=== PATIENT | female | born 1965 | race African-American/Black ===

== ENCOUNTER 2016-11-27 12:04 | Inpatient (IN) | payer OTHER ==
[2016-11-27 17:59] VITALS: BMI 23.5
--- NOTE | 2016-11-27 19:43 | HP ---
COWS - Scale Resting Pulse: 1= CO 81-100 Sweatin= Chills/Flushing Restless Observation: 1= Difficult to Sit Still Pupil Size: 0= Normal to Room Light Bone or Joint Aches: 2= Severe Diffuse Aches Runny Nose/ Eye Tearin= Runny Nose/Eyes GI Upset > 30mins: 3= Vomiting/Diarrhea Tremor Observation: 2= Slight Tremor Visible Yawning Observation: 0= None Anxiety or Irritability: 2=Irritable/Anxious Goose Flesh Skin: 0=Smooth Skin COWS Score: 14 CIWA Score - CIWA Score Nausea/Vomitin Muscle Tremors: 4-Moderate,w/Arms Extend Anxiety: 4-Mod. Anxious/Guarded Agitation: 4-Moderately Restless Paroxysmal Sweats: 1-Minimal Palms Moist Orientation: 0-Oriented Tacttile Disturbances: 0-None Auditory Disturbances: 0-None Visual Disturbances: 0-None Headache: 0-None Present CIWA-Ar Total Score: 15 Admission ROS S - HPI Chief Complaint: WITHDRAWAL SX Allergies/Adverse Reactions: Allergies Allergy/AdvReac Type Severity Reaction Status Date / Time pork derived (porcine) Allergy Severe Swelling Verified 11/27/16 18:55 No Known Drug Allergies Allergy Verified 11/27/16 18:55 NKDA Allergy Uncoded 11/27/16 18:55 History of Present Illness: 51 YEARS OLD FEMALE WITH LONG HISTORY OF ALCOHOL OPIOID NICOTINE DEPENDENCE, HYPERTENSION GLAUCOMA BOTH EYES, DEPRESSION IS ADMITTED TO DETOX Exam Limitations: No Limitations - Ebola screening Have you traveled outside of the country in the last 21 days: No Have you had contact with anyone from an Ebola affected area: No Have you been sick,other than usual withdrawal symptoms: No Do you have a fever: No - Review of Systems Constitutional: Chills, Loss of Appetite, Changes in sleep, Unintentional Wgt. Loss, Unexplained wgt Loss EENT: reports: Other (GLAUCOMA X 8 YEARS) Respiratory: reports: SOB with Exertion, Productive cough (YELLOWISH) Cardiac: reports: No Symptoms Reported, Chest Pain (CHRONIC CHEST PAIN FIRST CHEST PAIN 2014 LAST EPISODE 2 WEEKS AGO, RELEASED WITHOUT TREATMENT) GI: reports: Nausea, Poor Appetite, Poor Fluid Intake, Abdominal cramping : reports: No Symptoms Reported Musculoskeletal: reports: Back Pain, Joint Pain, Muscle Pain, Neck Pain Integumentary: reports: No Symptoms Reported Neuro: reports: Tremors Endocrine: reports: No Symptoms Reported Hematology: reports: No Symptoms Reported Psychiatric: reports: Judgement Intact, Orientated x3, Depressed Other Systems: Reviewed and Negative Patient History - Patient Medical History Hx Anemia: No Hx Asthma: Yes Hx Chronic Obstructive Pulmonary Disease (COPD): Yes Hx Cancer: No Hx Cardiac Disorders: No Hx Congestive Heart Failure: No Hx Hypertension: Yes Hx Hypercholesterolemia: No Hx Pacemaker: No HX Cerebrovascular Accident: No Hx Seizures: No Hx Dementia: No Hx Diabetes: Yes Hx Gastrointestinal Disorders: No Hx Liver Disease: No Hx Genitourinary Disorders: No Hx Sexually Transmitted Disorders: No Hx Renal Disease (ESRD): No Hx Thyroid Disease: No Hx Human Immunodeficiency Virus (HIV): No Hx Hepatitis C: No Hx Depression: Yes Hx Suicide Attempt: No Hx Bipolar Disorder: No Hx Schizophrenia: No - Patient Surgical History Past Surgical History: Yes Hx Neurologic Surgery: No Hx Cataract Extraction: No Hx Cardiac Surgery: No Hx Lung Surgery: No Hx Breast Surgery: No Hx Breast Biopsy: No Hx Abdominal Surgery: No Hx Appendectomy: No Hx Cholecystectomy: No Hx Genitourinary Surgery: No Hx Section: No Hx Orthopedic Surgery: Yes (1988 fx ) Hx Hysterectomy: No Anesthesia Reaction: No - PPD History Previous Implant?: Yes Documented Results: Negative w/proof Implanted On Prior R Admission?: Yes Date: 12/14/15 Results: 0mm PPD to be Administered?: No - Reproductive History Patient is a Female of Child Bearing Age (11 -55 yrs old): Yes Last Menstrual Period: 11/27/13 Patient : No - Smoking Cessation Smoking history: Current every day smoker Have you smoked in the past 12 months: Yes Aproximately how many cigarettes per day: 7 Cigars Per Day: 0 Hx Chewing Tobacco Use: No Initiated information on smoking cessation: Yes 'Breaking Loose' booklet given: 11/27/16 - Substance & Tx. History Hx Alcohol Use: Yes Hx Substance Use: Yes Substance Use Type: Alcohol, Cocaine, Marijuana, Opiates Hx Substance Use Treatment: Yes - Substances Abused Alcohol Route: Oral Frequency: Daily Amount used: liquor- 3 pints VOLKA Age of first use: 15 Date of Last Use: 11/27/16 Heroin Route: Inhalation Frequency: Daily Amount used: 20 BAGS Age of first use: 12 Date of Last Use: 11/27/16 Family Disease History - Family Disease History Family Disease History: Heart Disease: Father, Mother, [place]: Sister (eye blindness , [place]), Other: Sister Admission Physical Exam S - Vital Signs Vital Signs: Vital Signs - 24 hr 11/27/16 17:55 Temperature 96.2 F L Pulse Rate 88 Respiratory 20 Rate Blood Pressure 156/96 - Physical General Appearance: Yes: Within Normal Limits, Mild Distress, Thin, Tremorous, Irritable, Sweating, Anxious HEENTM: Yes: Hearing grossly Normal, Normal ENT Inspection, Normocephalic, Normal Voice Respiratory: Yes: Chest Non-Tender, Lungs Clear, Normal Breath Sounds, No Respiratory Distress, No Accessory Muscle Use Neck: Yes: Supple, Trachea in good position Breast: Yes: Breasts Symetrical Cardiology: Yes: Regular Rhythm, Regular Rate, S1, S2 Abdominal: Yes: Non Tender, Soft Genitourinary: Yes: Within Normal Limits Back: Yes: Normal Inspection Musculoskeletal: Yes: full range of Motion, Gait Steady, Back pain, Muscle Pain Extremities: Yes: Normal Range of Motion, Non-Tender, Tremors Neurological: Yes: Fully Oriented, Alert, Motor Strength 5/5, Normal Response, Depressed Affect Integumentary: Yes: Warm Lymphatic: Yes: Within Normal Limits - Diagnostic (1) Alcohol dependence with uncomplicated withdrawal Current Visit: Yes Status: Acute (2) Glaucoma Current Visit: Yes Status: Chronic Qualifiers: Glaucoma type: open-angle Open angle glaucoma type: low-tension Laterality: right Glaucoma stage: moderate stage Qualified Code(s): H40.1212 - Low-tension glaucoma, right eye, moderate stage Comment: EYE DROPS TO BOTH EYES DAILY (3) Hypertension Current Visit: Yes Status: Chronic Qualifiers: Hypertension type: essential hypertension Qualified Code(s): I10 - Essential (primary) hypertension (4) Nicotine dependence Current Visit: Yes Status: Acute Qualifiers: Nicotine product type: cigarettes Substance use status: in withdrawal Qualified Code(s): F17.213 - Nicotine dependence, cigarettes, with withdrawal (5) Opioid dependence with withdrawal Current Visit: Yes Status: Acute (6) Diabetes mellitus type II, controlled Current Visit: Yes Status: Chronic Qualifiers: Diabetes mellitus complication status: without complication Diabetes mellitus terminal gauger insulin use: without terminal gauger use Qualified Code(s): E11.9 - Type 2 diabetes mellitus without complications (7) Weight loss Current Visit: Yes Status: Acute (8) Asthma Current Visit: Yes Status: Chronic Qualifiers: Asthma severity: mild persistent Asthma complication type: with status asthmaticus Qualified Code(s): J45.32 - Mild persistent asthma with status asthmaticus (9) COPD (chronic obstructive pulmonary disease) Current Visit: Yes Status: Chronic Qualifiers: COPD type: emphysema Emphysema type: other Qualified Code(s): J43.8 - Other emphysema (10) Depressed Current Visit: Yes Status: Suspected Qualifiers: Depression Type: dysthymia Qualified Code(s): F34.1 - Dysthymic disorder Cleared for Admission [facility] - Detox or Rehab S Level of Care: Medically Managed Detox Regimen/Protocol: Methadone/Librium [facility] Breath Alcohol Content Breath Alcohol Content: 0 Urine Pregancy Test - Result Urine Test Results: Negative- NO Line Present Urine Drug Screen - Results Drug Screen Negative: No Urine Drug Screen Results: THC-Marijuana, ANTONIO-Cocaine, OPI-Opiates
[2016-11-27] MEDS ORDERED: MAGNESIUM HYDROX 2400MG/30ML ORAL SUSPENSION 30 ML CUP PO PRN (19:48)
[2016-11-27] MEDS ORDERED: P-EPHED 60MG/TRIPROLIDI 2.5MG TABLET PO PRN (19:48)
[2016-11-27] MEDS ORDERED: NICOTINE POLACRILEX 2 MG GUM BC PRN (19:48)
[2016-11-27] MEDS ORDERED: chlordiazePOXIDE HCL 25 MG CAPSULE PO PRN (19:48)
[2016-11-27] MEDS ORDERED: MAGNESIUM CITRATE 300 ML BOTTLE PO PRN (19:48)
[2016-11-27] MEDS ORDERED: LOPERAMIDE HCL 2 MG CAPSULE PO PRN (19:48)
[2016-11-27] MEDS ORDERED: METHADONE HCL 10 MG TABLET (FOR DETOX USE ONLY) PO ONE ×2 (19:48→23:00)
[2016-11-27] MEDS ORDERED: MAG HYDROX/AL HYDROX/SIMETH 30 ML UNIT-DOSE CUP PO PRN (19:48)
[2016-11-27] MEDS ORDERED: guaiFENesin/D-METHORPHAN HB 10 ML UNIT-DOSE CUPS PO PRN (19:48)
[2016-11-27] MEDS ORDERED: MENTHOL/PHENOL 1 EACH UD MM PRN (19:48)
[2016-11-27] MEDS ORDERED: ACETAMINOPHEN 325 MG TABLET (FP) PO PRN (19:48)
[2016-11-27] MEDS ORDERED: ALBUTEROL SO4 6.7 GM HFA INHALER IH PRN (19:50)
[2016-11-27] MEDS ORDERED: ALBUTEROL SO4 2.5/IPRATROPIUM 0.5 INH SOL 3 ML VIAL.NEB. NEB PRN (19:50)
[2016-11-27] MEDS: NIFEdipine E.R. 90 MG TABLET (FP) PO SCH (21:54)
[2016-11-27] MEDS: diphenhydrAMINE HCL 50 MG CAPSULE PO PRN (21:56)
[2016-11-27] MEDS: THIAMINE HCL 100 MG TABLET (FP) PO SCH (21:56)
[2016-11-27] MEDS: chlordiazePOXIDE HCL 25 MG CAPSULE PO SCH (22:00)
[2016-11-27 23:50] LABS: URINE APPEARANCE CLEAR; URINE BILIRUBIN NEGATIVE (NEGATIVE); URINE COLOR YELLOW; URINE GLUCOSE (UA) NEGATIVE (NEGATIVE); URINE KETONE NEGATIVE (NEGATIVE); URINE LEUK ESTERASE NEGATIVE (NEGATIVE); URINE NITRITE NEGATIVE (NEGATIVE); URINE UROBILINOGEN NEGATIVE E.U./dl (0.2-1.0)
[2016-11-27] MEDS: BRIMONIDINE TARTRATE 0.15% OPHTHALMIC 5 ML BOTTLE OU SCH (23:59)
[2016-11-28] MEDS: DORZOLAMIDE 2% HCL OPHTHALMIC SOLUTION 10 ML BOTTLE OU SCH ×4 (00:01→23:00)
[2016-11-28] MEDS: LATANOPROST 0.005% OPHTH SOLN 2.5ML BOTTLE OU SCH ×2 (00:02→23:01)
[2016-11-28 00:10] LABS: URINE BLOOD 1+ (NEGATIVE); URINE PROTEIN 1+ (NEGATIVE)
[2016-11-28 00:27] LABS: URINE HYALINE CAST 1 /lpf; URINE MUCUS FEW; URINE RBC 4 /hpf (0-3); URINE WBC 9 /hpf (3-5)
[2016-11-28] MEDS: chlordiazePOXIDE HCL 25 MG CAPSULE PO SCH ×4 (05:57→22:14)
[2016-11-28] MEDS: metFORMIN HCL 500 MG TABLET (FP) PO SCH ×2 (08:04→16:55)
[2016-11-28 10:00] LABS: MCH 30.4 pg (25.7-33.7); MCHC 33.6 g/dl (32.0-36.0); MEAN CELL VOLUME 90.7 fl (80-96); MEAN PLT VOLUME 8.7 fl (7.5-11.1); PLATELET COUNT 276 K/MM3 (134-434); RDW 13.9 % (11.6-15.6); WHITE BLOOD COUNT 6.8 K/mm3 (4.0-10.0)
[2016-11-28] MEDS ORDERED: METHADONE HCL 10 MG TABLET (FOR DETOX USE ONLY) PO SCH (10:00)
[2016-11-28 10:14] LABS: ALBUMIN 3.8 g/dl (3.4-5.0)
[2016-11-28 10:18] LABS: BILIRUBIN,TOTAL 0.6 mg/dL (0.2-1.0); CALCIUM 9.9 mg/dL (8.5-10.1); COCKROFT - GAULT 60.2395; CREATININE 1.2 mg/dL (0.55-1.02); TOT PROT 7.2 g/dl (6.4-8.2)
--- NOTE | 2016-11-28 10:29 | PN ---
S CIWA - CIWA Score Nausea/Vomitin Muscle Tremors: 3 Anxiety: 3 Agitation: 3 Paroxysmal Sweats: 2 Orientation: 0-Oriented Tacttile Disturbances: 1-Very Mild Itch/Numbness Auditory Disturbances: 1-Very Mild Visual Disturbances: 1-Very Mild Sensitivity Headache: 2-Mild CIWA-Ar Total Score: 19 S Progress Note (SOAP) Subjective: ALERT,IRRITABLE,ANXIOUS,INTERRUPTED SLEEP,PAIN IN THE BODY AND BACK,TREMOR Objective: 11/28/16 10:26 Vital Signs Temperature 97.5 F L 11/28/16 06:00 Pulse Rate 57 L 11/28/16 06:00 Respiratory Rate 18 11/28/16 06:00 Blood Pressure 137/78 11/28/16 06:00 O2 Sat by Pulse Oximetry (%) EKG NSR,INVERTED T IN V4 TO V6 NO CHEST PAIN,NO SOB,NO DIZZINESS Laboratory Last Values Urine Color Yellow 11/27/16 23:40 Urine Appearance Clear 11/27/16 23:40 Urine pH 5.0 (5.0-8.0) 11/27/16 23:40 Urine Protein 1+ (NEGATIVE) H 11/27/16 23:40 Urine Glucose (UA) Negative (NEGATIVE) 11/27/16 23:40 Urine Ketones Negative (NEGATIVE) 11/27/16 23:40 Urine Blood 1+ (NEGATIVE) H 11/27/16 23:40 Urine Nitrite Negative (NEGATIVE) 11/27/16 23:40 Urine Bilirubin Negative (NEGATIVE) 11/27/16 23:40 Urine Urobilinogen Negative E.U./dl (0.2-1.0) 11/27/16 23:40 Ur Leukocyte Esterase Negative (NEGATIVE) 11/27/16 23:40 Urine RBC 4 /hpf (0-3) 11/27/16 23:40 Urine WBC 9 /hpf (3-5) 11/27/16 23:40 Ur Epithelial Cells Moderate /hpf (FEW) 11/27/16 23:40 Hyaline Casts 1 /lpf 11/27/16 23:40 Urine Mucus Few 11/27/16 23:40 LABS PENDING Assessment: 11/28/16 10:28 WITHDRAWAL SYMPTOM Plan: CONTINUE DETOX,BGM MONITORING
[2016-11-28] MEDS: PRENATAL VITAMINS W/ FOLIC ACID TABLET (FP) PO SCH (10:31)
[2016-11-28] MEDS: ASPIRIN 81 MG CHEWABLE TABLETS PO SCH (10:31)
[2016-11-28] MEDS: BRIMONIDINE TARTRATE 0.15% OPHTHALMIC 5 ML BOTTLE OU SCH ×2 (10:36→23:00)
[2016-11-28] MEDS: NICOTINE 14 MG/24 HOURS TOPICAL PATCH TD SCH (10:38)
[2016-11-28] MEDS: TIMOLOL 0.25% OPHTHALMIC SOL 5 ML BOTTLE OU SCH ×3 (10:39→23:00)
[2016-11-28] MEDS: NIFEdipine E.R. 90 MG TABLET (FP) PO SCH (10:39)
[2016-11-28] MEDS: TOLNAFTATE 1% CREAM 15 GM TUBE TP SCH ×2 (11:00→23:01)
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
--- NOTE | 2016-11-28 12:19 | EKG ---
Test Reason : Blood Pressure : / mmHG Vent. Rate : 080 BPM Atrial Rate : 080 BPM P-R Int : 188 ms QRS Dur : 074 ms QT Int : 338 ms P-R-T Axes : 060 076 -04 degrees QTc Int : 389 ms NORMAL SINUS RHYTHM NONSPECIFIC T WAVE ABNORMALITY ABNORMAL ECG NO PREVIOUS ECGS AVAILABLE Confirmed by MD MARGUERITE, SIDRA ([id number]) on 11/28/2016 12:19:09 PM Referred By: Confirmed By:SIDRA EVERETT MD
[2016-11-28] MEDS: IBUPROFEN 400 MG TABLET (FP) PO PRN (14:10)
[2016-11-28] MEDS: CYCLOBENZAPRINE HCL 10 MG TABLET (FP) PO PRN (16:42)
[2016-11-28] MEDS: THIAMINE HCL 100 MG TABLET (FP) PO SCH (22:13)
[2016-11-28] MEDS: ZOLPIDEM TARTRATE 5 MG TABLET PO PRN (22:13)
[2016-11-29] MEDS: DORZOLAMIDE 2% HCL OPHTHALMIC SOLUTION 10 ML BOTTLE OU SCH ×3 (06:05→22:15)
[2016-11-29] MEDS: chlordiazePOXIDE HCL 25 MG CAPSULE PO SCH ×3 (06:05→17:46)
[2016-11-29] MEDS: metFORMIN HCL 500 MG TABLET (FP) PO SCH ×2 (06:13→16:55)
--- NOTE | 2016-11-29 10:03 | PN ---
[facility] CIWA - CIWA Score Nausea/Vomitin Muscle Tremors: 3 Anxiety: 2 Agitation: 2 Paroxysmal Sweats: 1-Minimal Palms Moist Orientation: 0-Oriented Tacttile Disturbances: 1-Very Mild Itch/Numbness Auditory Disturbances: 1-Very Mild Visual Disturbances: 1-Very Mild Sensitivity Headache: 2-Mild CIWA-Ar Total Score: 16 [facility] COWS - Scale Resting Pulse: 0= SC 80 or Below Sweatin= Chills/Flushing Restless Observation: 3= Extraneous Movement Pupil Size: 1= Pupils >than Normal Bone or Joint Aches: 2= Severe Diffuse Aches Runny Nose/ Eye Tearin= Runny Nose/Eyes GI Upset > 30mins: 2= Nausea/Diarrhea Tremor Observation of Outstretched Hands: 2= Slight Tremor Visible Yawning Observation: 1= 1-2x During Session Anxiety or Irritability: 2=Irritable/Anxious Goose Flesh Skin: 0=Smooth Skin COWS Score: 16 [facility] Progress Note (SOAP) Subjective: ALERT,IRRITABLE,ANXIOUS,INTERRUPTED SLEEP,TREMOR,PAIN IN THE BODY AND BACK Objective: 11/29/16 10:02 Vital Signs Temperature 96.4 F L 11/29/16 09:27 Pulse Rate 67 11/29/16 09:27 Respiratory Rate 18 11/29/16 09:27 Blood Pressure 144/86 11/29/16 09:27 O2 Sat by Pulse Oximetry (%) Laboratory Last Values WBC 6.8 K/mm3 (4.0-10.0) 11/28/16 06:00 RBC 4.42 M/mm3 (3.60-5.2) 11/28/16 06:00 Hgb 13.4 GM/dL (10.7-15.3) 11/28/16 06:00 Hct 40.0 % (32.4-45.2) 11/28/16 06:00 MCV 90.7 fl (80-96) 11/28/16 06:00 MCHC 33.6 g/dl (32.0-36.0) 11/28/16 06:00 RDW 13.9 % (11.6-15.6) 11/28/16 06:00 Plt Count 276 K/MM3 (134-434) D 11/28/16 06:00 MPV 8.7 fl (7.5-11.1) 11/28/16 06:00 Sodium 144 mmol/L (136-145) 11/28/16 06:00 Potassium 3.8 mmol/L (3.5-5.1) 11/28/16 06:00 Chloride 108 mmol/L (98-107) H 11/28/16 06:00 Carbon Dioxide 26 mmol/L (21-32) 11/28/16 06:00 Anion Gap 10 (8-16) 11/28/16 06:00 BUN 16 mg/dL (7-18) D 11/28/16 06:00 Creatinine 1.2 mg/dL (0.55-1.02) H 11/28/16 06:00 Creat Clearance w eGFR 47.55 (>60) 11/28/16 06:00 POC Glucometer 85 UNITS (()) 11/29/16 06:10 Random Glucose 124 mg/dL (74-106) H D 11/28/16 06:00 Calcium 9.9 mg/dL (8.5-10.1) 11/28/16 06:00 Total Bilirubin 0.6 mg/dL (0.2-1.0) D 11/28/16 06:00 AST 21 U/L (15-37) D 11/28/16 06:00 ALT 23 U/L (12-78) D 11/28/16 06:00 Alkaline Phosphatase 93 U/L (45-117) 11/28/16 06:00 Total Protein 7.2 g/dl (6.4-8.2) 11/28/16 06:00 Albumin 3.8 g/dl (3.4-5.0) 11/28/16 06:00 Urine Color Yellow 11/27/16 23:40 Urine Appearance Clear 11/27/16 23:40 Urine pH 5.0 (5.0-8.0) 11/27/16 23:40 Ur Specific [place] 1.020 (1.005-1.025) 11/27/16 23:40 Urine Protein 1+ (NEGATIVE) H 11/27/16 23:40 Urine Glucose (UA) Negative (NEGATIVE) 11/27/16 23:40 Urine Ketones Negative (NEGATIVE) 11/27/16 23:40 Urine Blood 1+ (NEGATIVE) H 11/27/16 23:40 Urine Nitrite Negative (NEGATIVE) 11/27/16 23:40 Urine Bilirubin Negative (NEGATIVE) 11/27/16 23:40 Urine Urobilinogen Negative E.U./dl (0.2-1.0) 11/27/16 23:40 Ur Leukocyte Esterase Negative (NEGATIVE) 11/27/16 23:40 Urine RBC 4 /hpf (0-3) 11/27/16 23:40 Urine WBC 9 /hpf (3-5) 11/27/16 23:40 Ur Epithelial Cells Moderate /hpf (FEW) 11/27/16 23:40 Hyaline Casts 1 /lpf 11/27/16 23:40 Urine Mucus Few 11/27/16 23:40 RPR Titer Nonreactive (NONREACTIVE) 11/28/16 06:00 Assessment: 11/29/16 10:03 WITHDRAWAL SYMPTOM Plan: CONTINUE DETOX
[2016-11-29] MEDS: ASPIRIN 81 MG CHEWABLE TABLETS PO SCH (10:54)
[2016-11-29] MEDS: NIFEdipine E.R. 90 MG TABLET (FP) PO SCH (10:55)
[2016-11-29] MEDS: PRENATAL VITAMINS W/ FOLIC ACID TABLET (FP) PO SCH (10:55)
[2016-11-29] MEDS: NICOTINE 14 MG/24 HOURS TOPICAL PATCH TD SCH (10:55)
[2016-11-29] MEDS: TOLNAFTATE 1% CREAM 15 GM TUBE TP SCH ×2 (10:56→22:12)
[2016-11-29] MEDS: BRIMONIDINE TARTRATE 0.15% OPHTHALMIC 5 ML BOTTLE OU SCH ×2 (10:58→22:12)
[2016-11-29] MEDS: TIMOLOL 0.25% OPHTHALMIC SOL 5 ML BOTTLE OU SCH ×2 (11:00→22:12)
[2016-11-29] MEDS: METHADONE HCL 5 MG TABLET (FOR DETOX USE ONLY) PO SCH (11:02)
[2016-11-29] MEDS: IBUPROFEN 400 MG TABLET (FP) PO PRN (11:05)
[2016-11-29] MEDS: CYCLOBENZAPRINE HCL 10 MG TABLET (FP) PO PRN (11:08)
[2016-11-29] MEDS: LATANOPROST 0.005% OPHTH SOLN 2.5ML BOTTLE OU SCH (22:02)
[2016-11-29] MEDS: chlordiazePOXIDE 5 MG CAPSULE PO SCH (22:11)
[2016-11-29] MEDS: THIAMINE HCL 100 MG TABLET (FP) PO SCH (22:11)
[2016-11-29] MEDS: ZOLPIDEM TARTRATE 5 MG TABLET PO PRN (22:11)
[2016-11-29] MEDS: diphenhydrAMINE HCL 50 MG CAPSULE PO PRN (22:11)
[2016-11-30] MEDS: chlordiazePOXIDE 5 MG CAPSULE PO SCH ×3 (05:52→17:59)
[2016-11-30] MEDS: DORZOLAMIDE 2% HCL OPHTHALMIC SOLUTION 10 ML BOTTLE OU SCH ×3 (06:16→22:17)
[2016-11-30] MEDS: metFORMIN HCL 500 MG TABLET (FP) PO SCH ×2 (06:17→17:30)
--- NOTE | 2016-11-30 09:51 | PN ---
S Progress Note (SOAP) Subjective: ALERT,IRRITABLE,ANXIOUS,INTERRUPTED SLEEP,PAIN IN THE RIGHT SHOULDER Objective: 11/30/16 09:47 Vital Signs Temperature 96.8 F L 11/30/16 09:39 Pulse Rate 69 11/30/16 09:39 Respiratory Rate 18 11/30/16 09:39 Blood Pressure 148/103 11/30/16 09:39 O2 Sat by Pulse Oximetry (%) Laboratory Last Values WBC 6.8 K/mm3 (4.0-10.0) 11/28/16 06:00 RBC 4.42 M/mm3 (3.60-5.2) 11/28/16 06:00 Hgb 13.4 GM/dL (10.7-15.3) 11/28/16 06:00 Hct 40.0 % (32.4-45.2) 11/28/16 06:00 MCV 90.7 fl (80-96) 11/28/16 06:00 MCHC 33.6 g/dl (32.0-36.0) 11/28/16 06:00 RDW 13.9 % (11.6-15.6) 11/28/16 06:00 Plt Count 276 K/MM3 (134-434) D 11/28/16 06:00 MPV 8.7 fl (7.5-11.1) 11/28/16 06:00 Sodium 144 mmol/L (136-145) 11/28/16 06:00 Potassium 3.8 mmol/L (3.5-5.1) 11/28/16 06:00 Chloride 108 mmol/L (98-107) H 11/28/16 06:00 Carbon Dioxide 26 mmol/L (21-32) 11/28/16 06:00 Anion Gap 10 (8-16) 11/28/16 06:00 BUN 16 mg/dL (7-18) D 11/28/16 06:00 Creatinine 1.2 mg/dL (0.55-1.02) H 11/28/16 06:00 Creat Clearance w eGFR 47.55 (>60) 11/28/16 06:00 POC Glucometer 77 UNITS (()) 11/30/16 05:51 Random Glucose 124 mg/dL (74-106) H D 11/28/16 06:00 Calcium 9.9 mg/dL (8.5-10.1) 11/28/16 06:00 Total Bilirubin 0.6 mg/dL (0.2-1.0) D 11/28/16 06:00 AST 21 U/L (15-37) D 11/28/16 06:00 ALT 23 U/L (12-78) D 11/28/16 06:00 Alkaline Phosphatase 93 U/L (45-117) 11/28/16 06:00 Total Protein 7.2 g/dl (6.4-8.2) 11/28/16 06:00 Albumin 3.8 g/dl (3.4-5.0) 11/28/16 06:00 Urine Color Yellow 11/27/16 23:40 Urine Appearance Clear 11/27/16 23:40 Urine pH 5.0 (5.0-8.0) 11/27/16 23:40 Ur Specific [place] 1.020 (1.005-1.025) 11/27/16 23:40 Urine Protein 1+ (NEGATIVE) H 11/27/16 23:40 Urine Glucose (UA) Negative (NEGATIVE) 11/27/16 23:40 Urine Ketones Negative (NEGATIVE) 11/27/16 23:40 Urine Blood 1+ (NEGATIVE) H 11/27/16 23:40 Urine Nitrite Negative (NEGATIVE) 11/27/16 23:40 Urine Bilirubin Negative (NEGATIVE) 11/27/16 23:40 Urine Urobilinogen Negative E.U./dl (0.2-1.0) 11/27/16 23:40 Ur Leukocyte Esterase Negative (NEGATIVE) 11/27/16 23:40 Urine RBC 4 /hpf (0-3) 11/27/16 23:40 Urine WBC 9 /hpf (3-5) 11/27/16 23:40 Ur Epithelial Cells Moderate /hpf (FEW) 11/27/16 23:40 Hyaline Casts 1 /lpf 11/27/16 23:40 Urine Mucus Few 11/27/16 23:40 RPR Titer Nonreactive (NONREACTIVE) 11/28/16 06:00 BGM 77 HAS BEEN NORMAL WILL D/C BGM Assessment: 11/30/16 09:50 WITHDRAWAL SYMPTOM Plan: CONTINE DETOX,X RAY OF RIGHT SHOULDER R/O ARTHRITIS
[2016-11-30] MEDS: ASPIRIN 81 MG CHEWABLE TABLETS PO SCH (10:23)
[2016-11-30] MEDS: PRENATAL VITAMINS W/ FOLIC ACID TABLET (FP) PO SCH (10:23)
[2016-11-30] MEDS: NICOTINE 14 MG/24 HOURS TOPICAL PATCH TD SCH (10:24)
[2016-11-30] MEDS: METHADONE HCL 5 MG TABLET (FOR DETOX USE ONLY) PO SCH (10:24)
[2016-11-30] MEDS: NIFEdipine E.R. 90 MG TABLET (FP) PO SCH (10:24)
[2016-11-30] MEDS: TOLNAFTATE 1% CREAM 15 GM TUBE TP SCH ×2 (10:25→22:16)
[2016-11-30] MEDS: TIMOLOL 0.25% OPHTHALMIC SOL 5 ML BOTTLE OU SCH ×2 (10:28→22:16)
[2016-11-30] MEDS: BRIMONIDINE TARTRATE 0.15% OPHTHALMIC 5 ML BOTTLE OU SCH ×2 (10:29→23:16)
[2016-11-30] MEDS: ZOLPIDEM TARTRATE 5 MG TABLET PO PRN (22:16)
[2016-11-30] MEDS: chlordiazePOXIDE HCL 10 MG CAPSULE PO SCH (22:16)
[2016-11-30] MEDS: CYCLOBENZAPRINE HCL 10 MG TABLET (FP) PO PRN (22:16)
[2016-11-30] MEDS: THIAMINE HCL 100 MG TABLET (FP) PO SCH (22:17)
[2016-11-30] MEDS: LATANOPROST 0.005% OPHTH SOLN 2.5ML BOTTLE OU SCH (22:17)
[2016-12-01] MEDS: chlordiazePOXIDE HCL 10 MG CAPSULE PO SCH ×3 (05:46→17:22)
[2016-12-01] MEDS: CYCLOBENZAPRINE HCL 10 MG TABLET (FP) PO PRN ×2 (05:49→14:11)
[2016-12-01] MEDS: IBUPROFEN 400 MG TABLET (FP) PO PRN ×2 (05:50→14:11)
[2016-12-01] MEDS: DORZOLAMIDE 2% HCL OPHTHALMIC SOLUTION 10 ML BOTTLE OU SCH ×3 (07:13→22:07)
[2016-12-01] MEDS: metFORMIN HCL 500 MG TABLET (FP) PO SCH ×2 (07:13→16:33)
[2016-12-01] MEDS ORDERED: METHADONE HCL 10 MG TABLET (FOR DETOX USE ONLY) PO SCH (10:00)
[2016-12-01] MEDS: NIFEdipine E.R. 90 MG TABLET (FP) PO SCH (10:14)
[2016-12-01] MEDS: PRENATAL VITAMINS W/ FOLIC ACID TABLET (FP) PO SCH (10:14)
[2016-12-01] MEDS: ASPIRIN 81 MG CHEWABLE TABLETS PO SCH (10:14)
[2016-12-01] MEDS: NICOTINE 14 MG/24 HOURS TOPICAL PATCH TD SCH (10:15)
[2016-12-01] MEDS: BRIMONIDINE TARTRATE 0.15% OPHTHALMIC 5 ML BOTTLE OU SCH ×2 (10:15→22:21)
[2016-12-01] MEDS: TIMOLOL 0.25% OPHTHALMIC SOL 5 ML BOTTLE OU SCH ×2 (10:16→22:08)
[2016-12-01] MEDS: TOLNAFTATE 1% CREAM 15 GM TUBE TP SCH ×2 (10:16→22:07)
--- NOTE | 2016-12-01 10:50 | PN ---
S Progress Note (SOAP) Subjective: ALERT,IRRITABLE,ANXIOUS,INTERRUPTED SLEEP, Objective: 12/01/16 10:48 Vital Signs Temperature 97.2 F L 12/01/16 10:13 Pulse Rate 78 12/01/16 10:13 Respiratory Rate 18 12/01/16 10:13 Blood Pressure 143/95 12/01/16 10:13 O2 Sat by Pulse Oximetry (%) Assessment: 12/01/16 10:48 WITHDRAWAL SYMPTOM Plan: CONTINUE DETOX
[2016-12-01] MEDS: THIAMINE HCL 100 MG TABLET (FP) PO SCH (22:07)
[2016-12-01] MEDS: LATANOPROST 0.005% OPHTH SOLN 2.5ML BOTTLE OU SCH (22:21)
[2016-12-02] MEDS ORDERED: METHADONE HCL 5 MG TABLET (FOR DETOX USE ONLY) PO SCH (06:00)
[2016-12-02] MEDS: DORZOLAMIDE 2% HCL OPHTHALMIC SOLUTION 10 ML BOTTLE OU SCH ×3 (07:20→21:44)
[2016-12-02] MEDS: metFORMIN HCL 500 MG TABLET (FP) PO SCH ×2 (08:05→17:17)
--- NOTE | 2016-12-02 08:59 | DS ---
[facility] Detox Discharge Summary Admission Date: 11/27/16 Discharge Date: 12/02/16 - History Present History: Alcohol Dependence, Cannabis Dependence, Cocaine Dependence - Physical Exam Results Vital Signs: Vital Signs Temperature 97.3 F L 12/02/16 06:30 Pulse Rate 72 12/02/16 06:30 Respiratory Rate 18 12/02/16 06:30 Blood Pressure 111/78 12/02/16 06:30 O2 Sat by Pulse Oximetry (%) - Treatment Hospital Course: Detox Protocol Followed, Detoxed Safely, Responded well, Discharged Condition Good - Medication Discharge Medications: Ambulatory Orders Nifedipine ER [Procardia Xl -] 90 mg PO DAILY 12/12/15 Aspirin [ASA -] 81 mg PO DAILY 05/05/16 Albuterol Sulfate Inhaler - [Ventolin HFA Inhaler -] 0 puff IH Q4H PRN #1 inhaler 06/01/16 Aspirin [ASA -] 81 mg PO DAILY #1 tab.chew 06/01/16 Brimonidine Tartrate [Alphagan 0.15% -] 1 drop OD BID #1 drops 06/01/16 Brimonidine Tartrate [Alphagan 0.15% -] 1 drop OU BID #1 drops 06/01/16 Dorzolamide/Timolol/Pf [Cosopt Pf Eye Drops] 1 drop OP BID #1 droperette Latanoprost 0.005% Eye Drops [Xalatan 0.005% Eye Drops -] 1 drop OP HS #1 drops 06/01/16 Nifedipine ER [Procardia XL -] 90 mg PO DAILY #30 tab.er.24 06/01/16 Trazodone HCl [Desyrel -] 200 mg PO HS #60 tablet 06/01/16 - Diagnosis (1) Alcohol dependence with uncomplicated withdrawal Current Visit: Yes Status: Chronic (2) Insomnia Current Visit: Yes Status: Chronic Qualifiers: Insomnia type: unspecified Qualified Code(s): G47.00 - Insomnia, unspecified (3) Marihuana dependence Current Visit: Yes Status: Chronic (4) Nicotine dependence Current Visit: Yes Status: Chronic Qualifiers: Nicotine product type: cigarettes Substance use status: uncomplicated Qualified Code(s): F17.210 - Nicotine dependence, cigarettes, uncomplicated (5) Opioid dependence with withdrawal Current Visit: Yes Status: Chronic (6) Asthma Current Visit: Yes Status: Chronic Qualifiers: Asthma severity: mild persistent Asthma complication type: with status asthmaticus Qualified Code(s): J45.32 - Mild persistent asthma with status asthmaticus (7) Cocaine dependence Current Visit: Yes Status: Chronic Qualifiers: Substance use status: uncomplicated Qualified Code(s): F14.20 - Cocaine dependence, uncomplicated (8) Diabetes mellitus type II, controlled Current Visit: Yes Status: Chronic Qualifiers: Diabetes mellitus complication status: without complication Diabetes mellitus predatory animal exterminator insulin use: without senior care use Qualified Code(s): E11.9 - Type 2 diabetes mellitus without complications (9) Glaucoma Current Visit: Yes Status: Chronic Qualifiers: Glaucoma type: open-angle Open angle glaucoma type: unspecified type Laterality: right Glaucoma stage: moderate stage Qualified Code(s) : H40.10X2 - Unspecified open-angle glaucoma, moderate stage (10) Hypertension Current Visit: Yes Status: Chronic Qualifiers: Hypertension type: essential hypertension Qualified Code(s): I10 - Essential (primary) hypertension - AMA Did Patient Leave Against Medical Advice: No
[2016-12-02] MEDS: ASPIRIN 81 MG CHEWABLE TABLETS PO SCH (10:24)
[2016-12-02] MEDS: TOLNAFTATE 1% CREAM 15 GM TUBE TP SCH ×2 (10:24→21:45)
[2016-12-02] MEDS: PRENATAL VITAMINS W/ FOLIC ACID TABLET (FP) PO SCH (10:24)
[2016-12-02] MEDS: TIMOLOL 0.25% OPHTHALMIC SOL 5 ML BOTTLE OU SCH ×2 (10:24→21:45)
[2016-12-02] MEDS: BRIMONIDINE TARTRATE 0.15% OPHTHALMIC 5 ML BOTTLE OU SCH ×2 (10:24→21:44)
[2016-12-02] MEDS: NICOTINE 14 MG/24 HOURS TOPICAL PATCH TD SCH (10:25)
[2016-12-02] MEDS: NIFEdipine E.R. 90 MG TABLET (FP) PO SCH (10:25)
[2016-12-02] MEDS ORDERED: PT OWN MED DRAWER 7, Y5N ONE (15:17)
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
[2016-12-02] MEDS: THIAMINE HCL 100 MG TABLET (FP) PO SCH (21:43)
[2016-12-02] MEDS: LATANOPROST 0.005% OPHTH SOLN 2.5ML BOTTLE OU SCH (21:43)
[2016-12-02] MEDS: CYCLOBENZAPRINE HCL 10 MG TABLET (FP) PO PRN (21:47)
[2016-12-02] MEDS: IBUPROFEN 400 MG TABLET (FP) PO PRN (21:48)
[2016-12-02] MEDS: QUEtiapine FUMARATE 100 MG TABLET (FP) PO SCH (21:48)
[2016-12-03] MEDS ORDERED: PT OWN MED DRAWER 7, Y5N ONE ×4 (03:30→13:15)
[2016-12-03] MEDS: metFORMIN HCL 500 MG TABLET (FP) PO SCH ×2 (06:21→17:08)
[2016-12-03] MEDS: DORZOLAMIDE 2% HCL OPHTHALMIC SOLUTION 10 ML BOTTLE OU SCH ×3 (06:22→21:48)
[2016-12-03] MEDS: ASPIRIN 81 MG CHEWABLE TABLETS PO SCH (10:54)
[2016-12-03] MEDS: NICOTINE 14 MG/24 HOURS TOPICAL PATCH TD SCH (10:54)
[2016-12-03] MEDS: BRIMONIDINE TARTRATE 0.15% OPHTHALMIC 5 ML BOTTLE OU SCH ×2 (10:54→21:49)
[2016-12-03] MEDS: NIFEdipine E.R. 90 MG TABLET (FP) PO SCH (10:54)
[2016-12-03] MEDS: TIMOLOL 0.25% OPHTHALMIC SOL 5 ML BOTTLE OU SCH ×2 (10:54→21:49)
[2016-12-03] MEDS: PRENATAL VITAMINS W/ FOLIC ACID TABLET (FP) PO SCH (10:54)
[2016-12-03] MEDS: TOLNAFTATE 1% CREAM 15 GM TUBE TP SCH ×2 (10:56→21:49)
[2016-12-03] MEDS: IBUPROFEN 400 MG TABLET (FP) PO PRN (10:59)
[2016-12-03] MEDS: CYCLOBENZAPRINE HCL 10 MG TABLET (FP) PO PRN (10:59)
[2016-12-03 14:04] LABS: HIV 1 & 2 AB NEGATIVE; HIV 1 AGp24 NEGATIVE
[2016-12-03] MEDS: HYDROCORTISONE 1% TOPICAL CREAM 30 GM TUBE TP SCH ×2 (18:30→21:51)
[2016-12-03] MEDS: THIAMINE HCL 100 MG TABLET (FP) PO SCH (21:48)
[2016-12-03] MEDS: CYCLOBENZAPRINE HCL 10 MG TABLET (FP) PO SCH (21:48)
[2016-12-03] MEDS: LATANOPROST 0.005% OPHTH SOLN 2.5ML BOTTLE OU SCH (21:48)
[2016-12-03] MEDS: QUEtiapine FUMARATE 100 MG TABLET (FP) PO SCH (21:48)
[2016-12-04] MEDS ORDERED: PT OWN MED DRAWER 7, Y5N ONE ×5 (03:20→20:07)
[2016-12-04] MEDS: DORZOLAMIDE 2% HCL OPHTHALMIC SOLUTION 10 ML BOTTLE OU SCH ×3 (06:31→21:47)
[2016-12-04] MEDS: CYCLOBENZAPRINE HCL 10 MG TABLET (FP) PO SCH ×3 (06:31→21:46)
[2016-12-04] MEDS: IBUPROFEN 400 MG TABLET (FP) PO PRN ×2 (06:33→13:16)
[2016-12-04] MEDS: metFORMIN HCL 500 MG TABLET (FP) PO SCH ×2 (06:34→17:15)
[2016-12-04] MEDS: BRIMONIDINE TARTRATE 0.15% OPHTHALMIC 5 ML BOTTLE OU SCH ×2 (10:48→21:48)
[2016-12-04] MEDS: TIMOLOL 0.25% OPHTHALMIC SOL 5 ML BOTTLE OU SCH ×2 (10:48→21:47)
[2016-12-04] MEDS: TOLNAFTATE 1% CREAM 15 GM TUBE TP SCH ×2 (10:49→22:26)
[2016-12-04] MEDS: PRENATAL VITAMINS W/ FOLIC ACID TABLET (FP) PO SCH (10:50)
[2016-12-04] MEDS: NICOTINE 14 MG/24 HOURS TOPICAL PATCH TD SCH (10:50)
[2016-12-04] MEDS: NIFEdipine E.R. 90 MG TABLET (FP) PO SCH (10:50)
[2016-12-04] MEDS: ASPIRIN 81 MG CHEWABLE TABLETS PO SCH (10:50)
[2016-12-04] MEDS: HYDROCORTISONE 1% TOPICAL CREAM 30 GM TUBE TP SCH ×4 (10:51→22:25)
[2016-12-04] MEDS: QUEtiapine FUMARATE 100 MG TABLET (FP) PO SCH (21:46)
[2016-12-04] MEDS: THIAMINE HCL 100 MG TABLET (FP) PO SCH (21:46)
[2016-12-04] MEDS: LATANOPROST 0.005% OPHTH SOLN 2.5ML BOTTLE OU SCH (21:48)
[2016-12-05] MEDS ORDERED: PT OWN MED DRAWER 7, Y5N ONE ×2 (05:49→08:39)
[2016-12-05] MEDS: DORZOLAMIDE 2% HCL OPHTHALMIC SOLUTION 10 ML BOTTLE OU SCH ×3 (07:00→21:39)
[2016-12-05] MEDS: CYCLOBENZAPRINE HCL 10 MG TABLET (FP) PO SCH ×3 (07:00→21:39)
[2016-12-05] MEDS: metFORMIN HCL 500 MG TABLET (FP) PO SCH ×2 (07:00→16:58)
[2016-12-05] MEDS: BRIMONIDINE TARTRATE 0.15% OPHTHALMIC 5 ML BOTTLE OU SCH ×2 (10:14→21:41)
[2016-12-05] MEDS: TIMOLOL 0.25% OPHTHALMIC SOL 5 ML BOTTLE OU SCH ×2 (10:14→21:39)
[2016-12-05] MEDS: HYDROCORTISONE 1% TOPICAL CREAM 30 GM TUBE TP SCH ×4 (10:15→21:40)
[2016-12-05] MEDS: TOLNAFTATE 1% CREAM 15 GM TUBE TP SCH ×2 (10:15→21:40)
[2016-12-05] MEDS: ASPIRIN 81 MG CHEWABLE TABLETS PO SCH (10:15)
[2016-12-05] MEDS: NIFEdipine E.R. 90 MG TABLET (FP) PO SCH (10:16)
[2016-12-05] MEDS: PRENATAL VITAMINS W/ FOLIC ACID TABLET (FP) PO SCH (10:16)
[2016-12-05] MEDS: NICOTINE 14 MG/24 HOURS TOPICAL PATCH TD SCH (10:16)
[2016-12-05] MEDS: hydrOXYzine PAMOATE 50 MG CAPSULE (FP) PO PRN (15:42)
[2016-12-05] MEDS: THIAMINE HCL 100 MG TABLET (FP) PO SCH (21:39)
[2016-12-05] MEDS: LATANOPROST 0.005% OPHTH SOLN 2.5ML BOTTLE OU SCH (21:39)
[2016-12-05] MEDS: QUEtiapine FUMARATE 100 MG TABLET (FP) PO SCH (21:39)
[2016-12-05] MEDS: IBUPROFEN 400 MG TABLET (FP) PO PRN (21:41)
[2016-12-06] MEDS ORDERED: PT OWN MED DRAWER 7, Y5N ONE ×2 (05:53→08:09)
[2016-12-06] MEDS: CYCLOBENZAPRINE HCL 10 MG TABLET (FP) PO SCH ×3 (06:42→21:45)
[2016-12-06] MEDS: DORZOLAMIDE 2% HCL OPHTHALMIC SOLUTION 10 ML BOTTLE OU SCH ×3 (06:42→21:46)
[2016-12-06] MEDS: metFORMIN HCL 500 MG TABLET (FP) PO SCH ×2 (06:43→17:07)
[2016-12-06] MEDS: ASPIRIN 81 MG CHEWABLE TABLETS PO SCH (10:19)
[2016-12-06] MEDS: PRENATAL VITAMINS W/ FOLIC ACID TABLET (FP) PO SCH (10:19)
[2016-12-06] MEDS: NIFEdipine E.R. 90 MG TABLET (FP) PO SCH (10:19)
[2016-12-06] MEDS: hydrOXYzine PAMOATE 50 MG CAPSULE (FP) PO PRN ×2 (10:20→17:08)
[2016-12-06] MEDS: TIMOLOL 0.25% OPHTHALMIC SOL 5 ML BOTTLE OU SCH ×2 (10:20→21:48)
[2016-12-06] MEDS: BRIMONIDINE TARTRATE 0.15% OPHTHALMIC 5 ML BOTTLE OU SCH ×2 (10:20→21:48)
[2016-12-06] MEDS: NICOTINE 14 MG/24 HOURS TOPICAL PATCH TD SCH (10:21)
[2016-12-06] MEDS: HYDROCORTISONE 1% TOPICAL CREAM 30 GM TUBE TP SCH ×4 (10:22→21:48)
[2016-12-06] MEDS: TOLNAFTATE 1% CREAM 15 GM TUBE TP SCH ×2 (10:22→21:47)
[2016-12-06] MEDS: QUEtiapine FUMARATE 100 MG TABLET (FP) PO SCH (21:45)
[2016-12-06] MEDS: THIAMINE HCL 100 MG TABLET (FP) PO SCH (21:45)
[2016-12-06] MEDS: LATANOPROST 0.005% OPHTH SOLN 2.5ML BOTTLE OU SCH (21:46)
[2016-12-07] MEDS ORDERED: PT OWN MED DRAWER 7, Y5N ONE (05:49)
[2016-12-07] MEDS: CYCLOBENZAPRINE HCL 10 MG TABLET (FP) PO SCH ×3 (06:19→21:09)
[2016-12-07] MEDS: metFORMIN HCL 500 MG TABLET (FP) PO SCH ×2 (06:20→17:09)
[2016-12-07] MEDS: DORZOLAMIDE 2% HCL OPHTHALMIC SOLUTION 10 ML BOTTLE OU SCH ×3 (06:20→21:10)
[2016-12-07] MEDS: hydrOXYzine PAMOATE 50 MG CAPSULE (FP) PO PRN ×3 (06:22→21:11)
[2016-12-07] MEDS: TIMOLOL 0.25% OPHTHALMIC SOL 5 ML BOTTLE OU SCH ×2 (10:55→21:12)
[2016-12-07] MEDS: PRENATAL VITAMINS W/ FOLIC ACID TABLET (FP) PO SCH (10:55)
[2016-12-07] MEDS: ASPIRIN 81 MG CHEWABLE TABLETS PO SCH (10:55)
[2016-12-07] MEDS: BRIMONIDINE TARTRATE 0.15% OPHTHALMIC 5 ML BOTTLE OU SCH ×2 (10:55→21:12)
[2016-12-07] MEDS: HYDROCORTISONE 1% TOPICAL CREAM 30 GM TUBE TP SCH ×4 (10:55→21:12)
[2016-12-07] MEDS: NIFEdipine E.R. 90 MG TABLET (FP) PO SCH (10:55)
[2016-12-07] MEDS: TOLNAFTATE 1% CREAM 15 GM TUBE TP SCH ×2 (10:55→21:11)
[2016-12-07] MEDS: NICOTINE 14 MG/24 HOURS TOPICAL PATCH TD SCH (10:55)
[2016-12-07] MEDS: THIAMINE HCL 100 MG TABLET (FP) PO SCH (21:09)
[2016-12-07] MEDS: QUEtiapine FUMARATE 100 MG TABLET (FP) PO SCH (21:09)
[2016-12-07] MEDS: LATANOPROST 0.005% OPHTH SOLN 2.5ML BOTTLE OU SCH (21:10)
[2016-12-08] MEDS ORDERED: PT OWN MED DRAWER 7, Y5N ONE (03:21)
[2016-12-08] MEDS: DORZOLAMIDE 2% HCL OPHTHALMIC SOLUTION 10 ML BOTTLE OU SCH ×3 (06:22→21:44)
[2016-12-08] MEDS: hydrOXYzine PAMOATE 50 MG CAPSULE (FP) PO PRN ×2 (06:23→13:27)
[2016-12-08] MEDS: metFORMIN HCL 500 MG TABLET (FP) PO SCH ×2 (06:23→17:01)
[2016-12-08] MEDS: CYCLOBENZAPRINE HCL 10 MG TABLET (FP) PO SCH ×3 (06:23→21:46)
[2016-12-08] MEDS: NICOTINE 14 MG/24 HOURS TOPICAL PATCH TD SCH (10:49)
[2016-12-08] MEDS: ASPIRIN 81 MG CHEWABLE TABLETS PO SCH (10:51)
[2016-12-08] MEDS: TIMOLOL 0.25% OPHTHALMIC SOL 5 ML BOTTLE OU SCH ×2 (10:51→21:43)
[2016-12-08] MEDS: BRIMONIDINE TARTRATE 0.15% OPHTHALMIC 5 ML BOTTLE OU SCH ×2 (10:51→21:44)
[2016-12-08] MEDS: NIFEdipine E.R. 90 MG TABLET (FP) PO SCH (10:51)
[2016-12-08] MEDS: HYDROCORTISONE 1% TOPICAL CREAM 30 GM TUBE TP SCH ×4 (10:52→21:42)
[2016-12-08] MEDS: PRENATAL VITAMINS W/ FOLIC ACID TABLET (FP) PO SCH (10:52)
[2016-12-08] MEDS: TOLNAFTATE 1% CREAM 15 GM TUBE TP SCH ×2 (10:52→21:45)
[2016-12-08] MEDS: LATANOPROST 0.005% OPHTH SOLN 2.5ML BOTTLE OU SCH (21:43)
[2016-12-08] MEDS: QUEtiapine FUMARATE 100 MG TABLET (FP) PO SCH (21:43)
[2016-12-08] MEDS: THIAMINE HCL 100 MG TABLET (FP) PO SCH (21:43)
[2016-12-08] MEDS: diphenhydrAMINE HCL 50 MG CAPSULE PO PRN (21:46)
[2016-12-09] MEDS: metFORMIN HCL 500 MG TABLET (FP) PO SCH ×2 (06:08→17:03)
[2016-12-09] MEDS: DORZOLAMIDE 2% HCL OPHTHALMIC SOLUTION 10 ML BOTTLE OU SCH ×3 (06:08→21:44)
[2016-12-09] MEDS: CYCLOBENZAPRINE HCL 10 MG TABLET (FP) PO SCH ×3 (06:09→21:43)
[2016-12-09] MEDS ORDERED: PT OWN MED DRAWER 7, Y5N ONE ×2 (08:16→12:18)
[2016-12-09] MEDS: TIMOLOL 0.25% OPHTHALMIC SOL 5 ML BOTTLE OU SCH ×2 (10:35→21:45)
[2016-12-09] MEDS: BRIMONIDINE TARTRATE 0.15% OPHTHALMIC 5 ML BOTTLE OU SCH ×2 (10:35→21:45)
[2016-12-09] MEDS: ASPIRIN 81 MG CHEWABLE TABLETS PO SCH (10:36)
[2016-12-09] MEDS: PRENATAL VITAMINS W/ FOLIC ACID TABLET (FP) PO SCH (10:36)
[2016-12-09] MEDS: NIFEdipine E.R. 90 MG TABLET (FP) PO SCH (10:36)
[2016-12-09] MEDS: NICOTINE 14 MG/24 HOURS TOPICAL PATCH TD SCH (10:37)
[2016-12-09] MEDS: TOLNAFTATE 1% CREAM 15 GM TUBE TP SCH ×2 (10:37→21:44)
[2016-12-09] MEDS: HYDROCORTISONE 1% TOPICAL CREAM 30 GM TUBE TP SCH ×4 (10:37→21:45)
[2016-12-09] MEDS: hydrOXYzine PAMOATE 50 MG CAPSULE (FP) PO PRN ×2 (10:38→17:05)
[2016-12-09] MEDS: IBUPROFEN 400 MG TABLET (FP) PO PRN (10:39)
[2016-12-09] MEDS: THIAMINE HCL 100 MG TABLET (FP) PO SCH (21:43)
[2016-12-09] MEDS: LATANOPROST 0.005% OPHTH SOLN 2.5ML BOTTLE OU SCH (21:44)
[2016-12-09] MEDS: QUEtiapine FUMARATE 200 MG TABLET PO SCH (21:46)
[2016-12-09] MEDS: diphenhydrAMINE HCL 50 MG CAPSULE PO PRN (21:46)
[2016-12-10] MEDS ORDERED: PT OWN MED DRAWER 7, Y5N ONE ×2 (03:19→21:41)
[2016-12-10] MEDS: DORZOLAMIDE 2% HCL OPHTHALMIC SOLUTION 10 ML BOTTLE OU SCH ×3 (06:11→21:40)
[2016-12-10] MEDS: metFORMIN HCL 500 MG TABLET (FP) PO SCH ×2 (06:11→17:04)
[2016-12-10] MEDS: CYCLOBENZAPRINE HCL 10 MG TABLET (FP) PO SCH ×3 (06:12→21:39)
[2016-12-10] MEDS: BRIMONIDINE TARTRATE 0.15% OPHTHALMIC 5 ML BOTTLE OU SCH ×2 (10:28→21:43)
[2016-12-10] MEDS: ASPIRIN 81 MG CHEWABLE TABLETS PO SCH (10:28)
[2016-12-10] MEDS: HYDROCORTISONE 1% TOPICAL CREAM 30 GM TUBE TP SCH ×4 (10:30→22:56)
[2016-12-10] MEDS: NICOTINE 14 MG/24 HOURS TOPICAL PATCH TD SCH (10:30)
[2016-12-10] MEDS: NIFEdipine E.R. 90 MG TABLET (FP) PO SCH (10:30)
[2016-12-10] MEDS: TIMOLOL 0.25% OPHTHALMIC SOL 5 ML BOTTLE OU SCH ×2 (10:30→21:30)
[2016-12-10] MEDS: PRENATAL VITAMINS W/ FOLIC ACID TABLET (FP) PO SCH (10:30)
[2016-12-10] MEDS: TOLNAFTATE 1% CREAM 15 GM TUBE TP SCH ×2 (10:31→21:41)
[2016-12-10] MEDS: hydrOXYzine PAMOATE 50 MG CAPSULE (FP) PO PRN ×2 (10:32→17:06)
[2016-12-10] MEDS: IBUPROFEN 600 MG TABLET (FP) PO PRN (17:06)
[2016-12-10] MEDS: THIAMINE HCL 100 MG TABLET (FP) PO SCH (21:39)
[2016-12-10] MEDS: QUEtiapine FUMARATE 200 MG TABLET PO SCH (21:39)
[2016-12-10] MEDS: LATANOPROST 0.005% OPHTH SOLN 2.5ML BOTTLE OU SCH (21:40)
[2016-12-10] MEDS: diphenhydrAMINE HCL 50 MG CAPSULE PO PRN (21:42)
[2016-12-11] MEDS ORDERED: PT OWN MED DRAWER 7, Y5N ONE ×3 (06:22→14:13)
[2016-12-11] MEDS: CYCLOBENZAPRINE HCL 10 MG TABLET (FP) PO SCH ×3 (06:45→21:50)
[2016-12-11] MEDS: IBUPROFEN 600 MG TABLET (FP) PO PRN ×2 (06:45→13:42)
[2016-12-11] MEDS: metFORMIN HCL 500 MG TABLET (FP) PO SCH ×2 (06:45→17:17)
[2016-12-11] MEDS: DORZOLAMIDE 2% HCL OPHTHALMIC SOLUTION 10 ML BOTTLE OU SCH ×3 (06:46→21:48)
[2016-12-11] MEDS: TIMOLOL 0.25% OPHTHALMIC SOL 5 ML BOTTLE OU SCH ×2 (10:32→21:49)
[2016-12-11] MEDS: NIFEdipine E.R. 90 MG TABLET (FP) PO SCH (10:32)
[2016-12-11] MEDS: HYDROCORTISONE 1% TOPICAL CREAM 30 GM TUBE TP SCH ×4 (10:32→21:50)
[2016-12-11] MEDS: PRENATAL VITAMINS W/ FOLIC ACID TABLET (FP) PO SCH (10:32)
[2016-12-11] MEDS: BRIMONIDINE TARTRATE 0.15% OPHTHALMIC 5 ML BOTTLE OU SCH ×2 (10:32→21:48)
[2016-12-11] MEDS: ASPIRIN 81 MG CHEWABLE TABLETS PO SCH (10:32)
[2016-12-11] MEDS: NICOTINE 14 MG/24 HOURS TOPICAL PATCH TD SCH (10:33)
[2016-12-11] MEDS: TOLNAFTATE 1% CREAM 15 GM TUBE TP SCH ×2 (10:35→21:50)
[2016-12-11] MEDS: hydrOXYzine PAMOATE 50 MG CAPSULE (FP) PO PRN (10:35)
[2016-12-11] MEDS: LATANOPROST 0.005% OPHTH SOLN 2.5ML BOTTLE OU SCH (21:49)
[2016-12-11] MEDS: QUEtiapine FUMARATE 200 MG TABLET PO SCH (21:50)
[2016-12-11] MEDS: diphenhydrAMINE HCL 50 MG CAPSULE PO PRN (21:50)
[2016-12-11] MEDS: THIAMINE HCL 100 MG TABLET (FP) PO SCH (21:50)
[2016-12-12] MEDS ORDERED: PT OWN MED DRAWER 7, Y5N ONE ×2 (03:21→17:01)
[2016-12-12] MEDS: DORZOLAMIDE 2% HCL OPHTHALMIC SOLUTION 10 ML BOTTLE OU SCH ×3 (06:37→22:01)
[2016-12-12] MEDS: metFORMIN HCL 500 MG TABLET (FP) PO SCH ×2 (06:37→17:01)
[2016-12-12] MEDS: CYCLOBENZAPRINE HCL 10 MG TABLET (FP) PO SCH ×3 (06:37→22:02)
[2016-12-12] MEDS: BRIMONIDINE TARTRATE 0.15% OPHTHALMIC 5 ML BOTTLE OU SCH ×2 (10:27→22:01)
[2016-12-12] MEDS: NICOTINE 14 MG/24 HOURS TOPICAL PATCH TD SCH (10:28)
[2016-12-12] MEDS: PRENATAL VITAMINS W/ FOLIC ACID TABLET (FP) PO SCH (10:28)
[2016-12-12] MEDS: NIFEdipine E.R. 90 MG TABLET (FP) PO SCH (10:28)
[2016-12-12] MEDS: HYDROCORTISONE 1% TOPICAL CREAM 30 GM TUBE TP SCH ×4 (10:28→22:03)
[2016-12-12] MEDS: ASPIRIN 81 MG CHEWABLE TABLETS PO SCH (10:28)
[2016-12-12] MEDS: TOLNAFTATE 1% CREAM 15 GM TUBE TP SCH ×2 (10:29→22:03)
[2016-12-12] MEDS: TIMOLOL 0.25% OPHTHALMIC SOL 5 ML BOTTLE OU SCH ×2 (10:29→22:01)
[2016-12-12] MEDS: hydrOXYzine PAMOATE 50 MG CAPSULE (FP) PO PRN ×2 (10:31→17:01)
[2016-12-12] MEDS: LATANOPROST 0.005% OPHTH SOLN 2.5ML BOTTLE OU SCH (22:00)
[2016-12-12] MEDS: THIAMINE HCL 100 MG TABLET (FP) PO SCH (22:02)
[2016-12-12] MEDS: QUEtiapine FUMARATE 200 MG TABLET PO SCH (22:02)
[2016-12-12] MEDS: diphenhydrAMINE HCL 50 MG CAPSULE PO PRN (22:03)
[2016-12-13] MEDS: DORZOLAMIDE 2% HCL OPHTHALMIC SOLUTION 10 ML BOTTLE OU SCH ×3 (06:28→21:43)
[2016-12-13] MEDS: CYCLOBENZAPRINE HCL 10 MG TABLET (FP) PO SCH ×3 (06:29→21:45)
[2016-12-13] MEDS: metFORMIN HCL 500 MG TABLET (FP) PO SCH ×2 (06:29→16:52)
[2016-12-13] MEDS: BRIMONIDINE TARTRATE 0.15% OPHTHALMIC 5 ML BOTTLE OU SCH ×2 (10:08→21:43)
[2016-12-13] MEDS: NIFEdipine E.R. 90 MG TABLET (FP) PO SCH (10:09)
[2016-12-13] MEDS: ASPIRIN 81 MG CHEWABLE TABLETS PO SCH (10:09)
[2016-12-13] MEDS: NICOTINE 14 MG/24 HOURS TOPICAL PATCH TD SCH (10:09)
[2016-12-13] MEDS: HYDROCORTISONE 1% TOPICAL CREAM 30 GM TUBE TP SCH ×4 (10:09→21:47)
[2016-12-13] MEDS: TOLNAFTATE 1% CREAM 15 GM TUBE TP SCH ×2 (10:09→21:44)
[2016-12-13] MEDS: TIMOLOL 0.25% OPHTHALMIC SOL 5 ML BOTTLE OU SCH ×2 (10:10→21:44)
[2016-12-13] MEDS: PRENATAL VITAMINS W/ FOLIC ACID TABLET (FP) PO SCH (10:11)
[2016-12-13] MEDS: hydrOXYzine PAMOATE 50 MG CAPSULE (FP) PO PRN (10:11)
[2016-12-13] MEDS: IBUPROFEN 600 MG TABLET (FP) PO PRN (10:12)
[2016-12-13] MEDS: LATANOPROST 0.005% OPHTH SOLN 2.5ML BOTTLE OU SCH (21:43)
[2016-12-13] MEDS: diphenhydrAMINE HCL 50 MG CAPSULE PO PRN (21:45)
[2016-12-13] MEDS: QUEtiapine FUMARATE 200 MG TABLET PO SCH (21:45)
[2016-12-13] MEDS: THIAMINE HCL 100 MG TABLET (FP) PO SCH (21:45)
[2016-12-14] MEDS: DORZOLAMIDE 2% HCL OPHTHALMIC SOLUTION 10 ML BOTTLE OU SCH ×3 (06:37→21:46)
[2016-12-14] MEDS: metFORMIN HCL 500 MG TABLET (FP) PO SCH ×2 (06:38→16:57)
[2016-12-14] MEDS: CYCLOBENZAPRINE HCL 10 MG TABLET (FP) PO SCH ×3 (06:38→21:45)
[2016-12-14] MEDS: TOLNAFTATE 1% CREAM 15 GM TUBE TP SCH ×2 (11:00→21:47)
[2016-12-14] MEDS: ASPIRIN 81 MG CHEWABLE TABLETS PO SCH (11:10)
[2016-12-14] MEDS: NIFEdipine E.R. 90 MG TABLET (FP) PO SCH (11:10)
[2016-12-14] MEDS: PRENATAL VITAMINS W/ FOLIC ACID TABLET (FP) PO SCH (11:10)
[2016-12-14] MEDS: BRIMONIDINE TARTRATE 0.15% OPHTHALMIC 5 ML BOTTLE OU SCH ×2 (11:11→21:47)
[2016-12-14] MEDS: NICOTINE 14 MG/24 HOURS TOPICAL PATCH TD SCH (11:12)
[2016-12-14] MEDS: HYDROCORTISONE 1% TOPICAL CREAM 30 GM TUBE TP SCH ×4 (11:12→21:48)
[2016-12-14] MEDS: TIMOLOL 0.25% OPHTHALMIC SOL 5 ML BOTTLE OU SCH ×2 (11:14→21:48)
[2016-12-14] MEDS: IBUPROFEN 600 MG TABLET (FP) PO PRN (11:16)
[2016-12-14] MEDS: THIAMINE HCL 100 MG TABLET (FP) PO SCH (21:45)
[2016-12-14] MEDS: QUEtiapine FUMARATE 200 MG TABLET PO SCH (21:45)
[2016-12-14] MEDS: LATANOPROST 0.005% OPHTH SOLN 2.5ML BOTTLE OU SCH (21:46)
[2016-12-14] MEDS: diphenhydrAMINE HCL 50 MG CAPSULE PO PRN (21:46)
[2016-12-15] MEDS ORDERED: PT OWN MED DRAWER 7, Y5N ONE ×3 (05:55→13:19)
[2016-12-15] MEDS: metFORMIN HCL 500 MG TABLET (FP) PO SCH ×2 (06:26→17:04)
[2016-12-15] MEDS: CYCLOBENZAPRINE HCL 10 MG TABLET (FP) PO SCH ×3 (06:26→21:44)
[2016-12-15] MEDS: DORZOLAMIDE 2% HCL OPHTHALMIC SOLUTION 10 ML BOTTLE OU SCH ×3 (06:26→21:46)
[2016-12-15] MEDS: hydrOXYzine PAMOATE 50 MG CAPSULE (FP) PO PRN (06:26)
[2016-12-15] MEDS: PRENATAL VITAMINS W/ FOLIC ACID TABLET (FP) PO SCH (10:39)
[2016-12-15] MEDS: NIFEdipine E.R. 90 MG TABLET (FP) PO SCH (10:39)
[2016-12-15] MEDS: ASPIRIN 81 MG CHEWABLE TABLETS PO SCH (10:39)
[2016-12-15] MEDS: TOLNAFTATE 1% CREAM 15 GM TUBE TP SCH ×2 (10:40→21:47)
[2016-12-15] MEDS: NICOTINE 14 MG/24 HOURS TOPICAL PATCH TD SCH (10:41)
[2016-12-15] MEDS: BRIMONIDINE TARTRATE 0.15% OPHTHALMIC 5 ML BOTTLE OU SCH ×2 (10:41→21:45)
[2016-12-15] MEDS: HYDROCORTISONE 1% TOPICAL CREAM 30 GM TUBE TP SCH ×4 (10:41→21:47)
[2016-12-15] MEDS: TIMOLOL 0.25% OPHTHALMIC SOL 5 ML BOTTLE OU SCH ×2 (10:41→21:46)
[2016-12-15] MEDS: IBUPROFEN 600 MG TABLET (FP) PO PRN (13:17)
[2016-12-15] MEDS: diphenhydrAMINE HCL 50 MG CAPSULE PO PRN (21:44)
[2016-12-15] MEDS: THIAMINE HCL 100 MG TABLET (FP) PO SCH (21:44)
[2016-12-15] MEDS: QUEtiapine FUMARATE 200 MG TABLET PO SCH (21:44)
[2016-12-15] MEDS: LATANOPROST 0.005% OPHTH SOLN 2.5ML BOTTLE OU SCH (21:45)
[2016-12-16] MEDS: DORZOLAMIDE 2% HCL OPHTHALMIC SOLUTION 10 ML BOTTLE OU SCH ×3 (06:34→21:39)
[2016-12-16] MEDS: metFORMIN HCL 500 MG TABLET (FP) PO SCH ×2 (06:34→17:10)
[2016-12-16] MEDS: CYCLOBENZAPRINE HCL 10 MG TABLET (FP) PO SCH ×3 (06:34→21:38)
[2016-12-16] MEDS ORDERED: PT OWN MED DRAWER 7, Y5N ONE (08:42)
[2016-12-16] MEDS: BRIMONIDINE TARTRATE 0.15% OPHTHALMIC 5 ML BOTTLE OU SCH ×2 (10:07→21:39)
[2016-12-16] MEDS: PRENATAL VITAMINS W/ FOLIC ACID TABLET (FP) PO SCH (10:08)
[2016-12-16] MEDS: TOLNAFTATE 1% CREAM 15 GM TUBE TP SCH ×2 (10:08→21:40)
[2016-12-16] MEDS: NICOTINE 14 MG/24 HOURS TOPICAL PATCH TD SCH (10:08)
[2016-12-16] MEDS: ASPIRIN 81 MG CHEWABLE TABLETS PO SCH (10:08)
[2016-12-16] MEDS: NIFEdipine E.R. 90 MG TABLET (FP) PO SCH (10:08)
[2016-12-16] MEDS: HYDROCORTISONE 1% TOPICAL CREAM 30 GM TUBE TP SCH ×4 (10:09→21:41)
[2016-12-16] MEDS: TIMOLOL 0.25% OPHTHALMIC SOL 5 ML BOTTLE OU SCH ×2 (10:09→21:39)
[2016-12-16] MEDS: IBUPROFEN 600 MG TABLET (FP) PO PRN (13:13)
[2016-12-16] MEDS: AMITRIPTYLINE HCL 25 MG TABLET (FP) PO SCH ×2 (15:33→21:38)
--- NOTE | 2016-12-16 15:38 | PN ---
Psychiatric Progress Note Vital Signs: Vital Signs Period Temp Pulse Resp BP Sys/Harmon Pulse Ox Last 24 Hr 97.5 F 90-91 18-18 110-123/75-86 Date of Session: 12/16/16 Chief Complaint:: Christiano very anxious,cant stay still. HPI: Patient addressed Opioid ,Alcohol and Cocaine dependence comorbid with Substance induced mood disorder. ROS: Significant for COPD,BA,DM,Glaucoma. Current Medications: Active Medications Generic Name Dose Route Start Last Admin Trade Name Freq PRN Reason Stop Dose Admin Acetaminophen 650 mg 11/27/16 19:48 11/28/16 06:02 Tylenol - PO 650 mg Q4H PRN Administration FEVER OR PAIN Al Hydroxide/Mg Hydroxide 30 ml 11/27/16 19:48 Mylanta Oral Suspension - PO Q6H PRN DYSPEPSIA Albuterol Sulfate 2 puff 11/27/16 19:50 Ventolin Hfa Inhaler - IH Q4H PRN SHORT OF BREATH/WHEEZING Amitriptyline HCl 25 mg 12/16/16 15:30 Elavil - PO TID [facility] Aspirin 81 mg 11/28/16 10:00 12/16/16 10:08 Asa - PO 81 mg DAILY [facility] Administration Brimonidine Tartrate 1 drop 11/27/16 22:00 12/16/16 10:07 Alphagan 0.15% - OU 1 drop BID [facility] Administration Cyclobenzaprine HCl 10 mg 12/03/16 22:00 12/16/16 13:12 Flexeril - PO 10 mg TID [facility] Administration Diphenhydramine HCl 100 mg 12/09/16 16:12 12/15/16 21:44 Benadryl - PO 100 mg Q6H PRN Administration ANXIETY Dorzolamide HCl 1 drop 11/27/16 22:00 12/16/16 13:12 Trusopt 2% OU 1 drop TID [facility] Administration Eucalyptus/Menthol/Phenol/Sorbitol 1 each 11/27/16 19:48 Cepastat Lozenge - MM Q4H PRN SORE THROAT Guaifenesin 10 ml 11/27/16 19:48 Robitussin Dm - PO Q6H PRN COUGH Hydrocortisone 1 applic 12/03/16 18:00 12/16/16 13:12 Hytone 1% Cream - TP Not Given QID [facility] Hydroxyzine Pamoate 50 mg 12/05/16 15:04 12/15/16 06:26 Vistaril - PO 50 mg Q6H PRN Administration FOR ITCHING Ibuprofen 600 mg 12/10/16 13:58 12/16/16 13:13 Motrin - PO 600 mg Q6H PRN Administration PAIN Latanoprost 1 drop 11/27/16 22:00 12/15/16 21:45 Xalatan 0.005% Eye Drops - OU 1 drop HS [facility] Administration Loperamide HCl 4 mg 11/27/16 19:48 Imodium - PO Q6H PRN DIARRHEA Magnesium Citrate 300 ml 11/27/16 19:48 Citroma - PO Q48H PRN CONSTIPATION Magnesium Hydroxide 30 ml 11/27/16 19:48 Milk Of Magnesia - PO DAILY PRN CONSTIPATION Metformin HCl 500 mg 11/28/16 07:00 12/16/16 06:34 Glucophage - PO Not Given BID@0700,1630 [facility] Nicotine 14 mg 11/28/16 10:00 12/16/16 10:08 Nicoderm Patch - TD Not Given DAILY [facility] Nicotine Polacrilex 2 mg 11/27/16 19:48 Nicorette Gum - BC Q2H PRN NICOTINE REPLACEMENT RX Nifedipine 90 mg 11/27/16 20:00 12/16/16 10:08 Procardia Xl - PO 90 mg DAILY [facility] Administration Multivit/Folic Acid/Iron 1 tab 11/28/16 10:00 12/16/16 10:08 Vitamins (Sjr) - PO 1 tab DAILY [facility] Administration Pseudoephedrine/Triprolidine 1 combo 11/27/16 19:48 11/30/16 05:52 Actifed - PO 1 combo TID PRN Administration NASAL CONGESTION Quetiapine Fumarate 200 mg 12/09/16 22:00 12/15/16 21:44 Seroquel - PO 200 mg HS [facility] Administration Thiamine HCl 100 mg 11/27/16 22:00 12/15/16 21:44 Vitamin B1 - PO 100 mg HS [facility] Administration Timolol Maleate 1 drop 11/27/16 22:00 12/16/16 10:09 Timoptic 0.25% OU 1 drop BID [facility] Administration Tolnaftate 1 applic 11/28/16 10:00 12/16/16 10:08 Tinactin 1% Cream - TP 1 applic BID [facility] Administration Current Side Effect: No Lab tests ordered: No Lab tests reviewed: Yes Provider note:: Chart was revuewed,patient was seen in my office due to ongoing anxiety,nerviousness,restlessness along with sleeping difficulties.Properties of Elavil has been discussed with the patient including side effects,benefits and dose adjustment. Elavil 25 mg po tid will be started today. Supportive therapy provided. Total face to face time:: 30 Mental Status Exam - Mental Status Exam Alert and Oriented to: Time, Place, Person Cognitive Function: Grossly Intact Patient Appearance: Well Groomed Mood: Sad, Anxious Affect: Mood Congruent, Labile Patient Behavior: Cooperative Speech Pattern: Clear Voice Loudness: Normal Thought Process: Goal Oriented Thought Disorder: Not Present Hallucinations: Denies Suicidal Ideation: Denies Homicidal Ideation: Denies Insight/Judgement: Fair Sleep: Difficulty falling asleep Appetite: Fair Muscle strength/Tone: Normal Gait/Station: Normal Psychiatric Treatment Plan - Problem List (1) Substance induced mood disorder Current Visit: Yes (2) Asthma Current Visit: Yes Qualifiers: Asthma severity: mild persistent Asthma complication type: with status asthmaticus Qualified Code(s): J45.32 - Mild persistent asthma with status asthmaticus (3) COPD (chronic obstructive pulmonary disease) Current Visit: Yes Qualifiers: COPD type: emphysema Emphysema type: other Qualified Code(s): J43.8 - Other emphysema (4) Cocaine dependence Current Visit: Yes Qualifiers: Substance use status: uncomplicated Qualified Code(s): F14.20 - Cocaine dependence, uncomplicated (5) Diabetes mellitus type II, controlled Current Visit: Yes Qualifiers: Diabetes mellitus complication status: without complication Diabetes mellitus long-term insulin use: without long-term use Qualified Code(s): E11.9 - Type 2 diabetes mellitus without complications (6) Glaucoma Current Visit: Yes Qualifiers: Glaucoma type: open-angle Open angle glaucoma type: unspecified type Laterality: right Glaucoma stage: moderate stage Qualified Code(s) : H40.10X2 - Unspecified open-angle glaucoma, moderate stage Comment: EYE DROPS TO BOTH EYES DAILY (7) Hypertension Current Visit: Yes Qualifiers: Hypertension type: essential hypertension Qualified Code(s): I10 - Essential (primary) hypertension (8) Opioid dependence with withdrawal Current Visit: Yes (9) Alcohol dependence Current Visit: Yes
[2016-12-16] MEDS: LATANOPROST 0.005% OPHTH SOLN 2.5ML BOTTLE OU SCH (21:38)
[2016-12-16] MEDS: THIAMINE HCL 100 MG TABLET (FP) PO SCH (21:38)
[2016-12-16] MEDS: QUEtiapine FUMARATE 200 MG TABLET PO SCH (21:38)
[2016-12-16] MEDS: diphenhydrAMINE HCL 50 MG CAPSULE PO PRN (21:40)
[2016-12-17] MEDS: DORZOLAMIDE 2% HCL OPHTHALMIC SOLUTION 10 ML BOTTLE OU SCH ×3 (06:33→21:34)
[2016-12-17] MEDS: metFORMIN HCL 500 MG TABLET (FP) PO SCH ×2 (06:33→16:42)
[2016-12-17] MEDS: AMITRIPTYLINE HCL 25 MG TABLET (FP) PO SCH ×3 (06:34→21:34)
[2016-12-17] MEDS: CYCLOBENZAPRINE HCL 10 MG TABLET (FP) PO SCH ×3 (06:34→21:34)
[2016-12-17] MEDS ORDERED: PT OWN MED DRAWER 7, Y5N ONE (08:33)
[2016-12-17] MEDS: PRENATAL VITAMINS W/ FOLIC ACID TABLET (FP) PO SCH (10:13)
[2016-12-17] MEDS: BRIMONIDINE TARTRATE 0.15% OPHTHALMIC 5 ML BOTTLE OU SCH ×2 (10:13→21:35)
[2016-12-17] MEDS: ASPIRIN 81 MG CHEWABLE TABLETS PO SCH (10:13)
[2016-12-17] MEDS: NIFEdipine E.R. 90 MG TABLET (FP) PO SCH (10:13)
[2016-12-17] MEDS: NICOTINE 14 MG/24 HOURS TOPICAL PATCH TD SCH (10:14)
[2016-12-17] MEDS: TIMOLOL 0.25% OPHTHALMIC SOL 5 ML BOTTLE OU SCH ×2 (10:14→21:34)
[2016-12-17] MEDS: HYDROCORTISONE 1% TOPICAL CREAM 30 GM TUBE TP SCH ×4 (10:14→21:35)
[2016-12-17] MEDS: TOLNAFTATE 1% CREAM 15 GM TUBE TP SCH ×2 (10:14→21:35)
[2016-12-17] MEDS: diphenhydrAMINE HCL 50 MG CAPSULE PO PRN (21:34)
[2016-12-17] MEDS: QUEtiapine FUMARATE 200 MG TABLET PO SCH (21:34)
[2016-12-17] MEDS: THIAMINE HCL 100 MG TABLET (FP) PO SCH (21:34)
[2016-12-17] MEDS: LATANOPROST 0.005% OPHTH SOLN 2.5ML BOTTLE OU SCH (21:34)
[2016-12-18] MEDS: DORZOLAMIDE 2% HCL OPHTHALMIC SOLUTION 10 ML BOTTLE OU SCH ×3 (06:32→21:49)
[2016-12-18] MEDS: metFORMIN HCL 500 MG TABLET (FP) PO SCH ×2 (06:32→17:19)
[2016-12-18] MEDS: AMITRIPTYLINE HCL 25 MG TABLET (FP) PO SCH ×3 (06:33→21:50)
[2016-12-18] MEDS: CYCLOBENZAPRINE HCL 10 MG TABLET (FP) PO SCH ×3 (06:33→21:50)
[2016-12-18] MEDS ORDERED: PT OWN MED DRAWER 7, Y5N ONE ×4 (08:05→19:59)
[2016-12-18] MEDS: TIMOLOL 0.25% OPHTHALMIC SOL 5 ML BOTTLE OU SCH ×2 (10:19→21:48)
[2016-12-18] MEDS: BRIMONIDINE TARTRATE 0.15% OPHTHALMIC 5 ML BOTTLE OU SCH ×2 (10:19→21:49)
[2016-12-18] MEDS: PRENATAL VITAMINS W/ FOLIC ACID TABLET (FP) PO SCH (10:20)
[2016-12-18] MEDS: ASPIRIN 81 MG CHEWABLE TABLETS PO SCH (10:20)
[2016-12-18] MEDS: NIFEdipine E.R. 90 MG TABLET (FP) PO SCH (10:20)
[2016-12-18] MEDS: TOLNAFTATE 1% CREAM 15 GM TUBE TP SCH ×2 (10:21→22:03)
[2016-12-18] MEDS: HYDROCORTISONE 1% TOPICAL CREAM 30 GM TUBE TP SCH ×4 (10:21→21:50)
[2016-12-18] MEDS: NICOTINE 14 MG/24 HOURS TOPICAL PATCH TD SCH (10:21)
[2016-12-18] MEDS: LATANOPROST 0.005% OPHTH SOLN 2.5ML BOTTLE OU SCH (21:49)
[2016-12-18] MEDS: QUEtiapine FUMARATE 200 MG TABLET PO SCH (21:50)
[2016-12-18] MEDS: THIAMINE HCL 100 MG TABLET (FP) PO SCH (21:50)
[2016-12-19] MEDS ORDERED: PT OWN MED DRAWER 7, Y5N ONE ×2 (05:47→08:46)
[2016-12-19] MEDS: DORZOLAMIDE 2% HCL OPHTHALMIC SOLUTION 10 ML BOTTLE OU SCH ×3 (07:03→21:36)
[2016-12-19] MEDS: AMITRIPTYLINE HCL 25 MG TABLET (FP) PO SCH ×3 (07:03→21:37)
[2016-12-19] MEDS: metFORMIN HCL 500 MG TABLET (FP) PO SCH ×2 (07:04→16:50)
[2016-12-19] MEDS: CYCLOBENZAPRINE HCL 10 MG TABLET (FP) PO SCH ×3 (07:08→21:37)
[2016-12-19] MEDS: NICOTINE 14 MG/24 HOURS TOPICAL PATCH TD SCH (10:36)
[2016-12-19] MEDS: ASPIRIN 81 MG CHEWABLE TABLETS PO SCH (10:36)
[2016-12-19] MEDS: NIFEdipine E.R. 90 MG TABLET (FP) PO SCH (10:36)
[2016-12-19] MEDS: PRENATAL VITAMINS W/ FOLIC ACID TABLET (FP) PO SCH (10:36)
[2016-12-19] MEDS: BRIMONIDINE TARTRATE 0.15% OPHTHALMIC 5 ML BOTTLE OU SCH ×2 (10:38→21:35)
[2016-12-19] MEDS: TIMOLOL 0.25% OPHTHALMIC SOL 5 ML BOTTLE OU SCH ×2 (10:38→21:36)
[2016-12-19] MEDS: HYDROCORTISONE 1% TOPICAL CREAM 30 GM TUBE TP SCH ×4 (10:39→21:37)
[2016-12-19] MEDS: TOLNAFTATE 1% CREAM 15 GM TUBE TP SCH ×2 (10:51→21:38)
[2016-12-19] MEDS: LATANOPROST 0.005% OPHTH SOLN 2.5ML BOTTLE OU SCH (21:35)
[2016-12-19] MEDS: diphenhydrAMINE HCL 50 MG CAPSULE PO PRN (21:37)
[2016-12-19] MEDS: QUEtiapine FUMARATE 200 MG TABLET PO SCH (21:37)
[2016-12-19] MEDS: THIAMINE HCL 100 MG TABLET (FP) PO SCH (21:38)
[2016-12-20] MEDS ORDERED: PT OWN MED DRAWER 7, Y5N ONE ×3 (05:37→08:35)
[2016-12-20] MEDS: metFORMIN HCL 500 MG TABLET (FP) PO SCH ×2 (06:21→17:00)
[2016-12-20] MEDS: CYCLOBENZAPRINE HCL 10 MG TABLET (FP) PO SCH ×3 (06:22→21:31)
[2016-12-20] MEDS: AMITRIPTYLINE HCL 25 MG TABLET (FP) PO SCH ×3 (06:22→21:34)
[2016-12-20] MEDS: DORZOLAMIDE 2% HCL OPHTHALMIC SOLUTION 10 ML BOTTLE OU SCH ×3 (06:23→21:33)
[2016-12-20] MEDS: ASPIRIN 81 MG CHEWABLE TABLETS PO SCH (10:09)
[2016-12-20] MEDS: NIFEdipine E.R. 90 MG TABLET (FP) PO SCH (10:09)
[2016-12-20] MEDS: PRENATAL VITAMINS W/ FOLIC ACID TABLET (FP) PO SCH (10:09)
[2016-12-20] MEDS: TOLNAFTATE 1% CREAM 15 GM TUBE TP SCH ×2 (10:09→21:33)
[2016-12-20] MEDS: TIMOLOL 0.25% OPHTHALMIC SOL 5 ML BOTTLE OU SCH ×2 (10:10→21:33)
[2016-12-20] MEDS: BRIMONIDINE TARTRATE 0.15% OPHTHALMIC 5 ML BOTTLE OU SCH ×2 (10:10→21:32)
[2016-12-20] MEDS: NICOTINE 14 MG/24 HOURS TOPICAL PATCH TD SCH (10:11)
[2016-12-20] MEDS: HYDROCORTISONE 1% TOPICAL CREAM 30 GM TUBE TP SCH ×4 (10:11→21:34)
[2016-12-20] MEDS: THIAMINE HCL 100 MG TABLET (FP) PO SCH (21:31)
[2016-12-20] MEDS: QUEtiapine FUMARATE 200 MG TABLET PO SCH (21:31)
[2016-12-20] MEDS: LATANOPROST 0.005% OPHTH SOLN 2.5ML BOTTLE OU SCH (21:32)
[2016-12-20] MEDS: diphenhydrAMINE HCL 50 MG CAPSULE PO PRN (21:32)
[2016-12-21] MEDS: DORZOLAMIDE 2% HCL OPHTHALMIC SOLUTION 10 ML BOTTLE OU SCH ×3 (06:18→21:36)
[2016-12-21] MEDS: CYCLOBENZAPRINE HCL 10 MG TABLET (FP) PO SCH ×3 (06:19→21:36)
[2016-12-21] MEDS: metFORMIN HCL 500 MG TABLET (FP) PO SCH ×2 (06:20→16:51)
[2016-12-21] MEDS: AMITRIPTYLINE HCL 25 MG TABLET (FP) PO SCH ×2 (06:20→13:51)
[2016-12-21] MEDS ORDERED: PT OWN MED DRAWER 7, Y5N ONE ×2 (08:29→13:32)
[2016-12-21] MEDS: NIFEdipine E.R. 90 MG TABLET (FP) PO SCH (10:39)
[2016-12-21] MEDS: NICOTINE 14 MG/24 HOURS TOPICAL PATCH TD SCH (10:39)
[2016-12-21] MEDS: ASPIRIN 81 MG CHEWABLE TABLETS PO SCH (10:39)
[2016-12-21] MEDS: HYDROCORTISONE 1% TOPICAL CREAM 30 GM TUBE TP SCH ×4 (10:39→21:38)
[2016-12-21] MEDS: PRENATAL VITAMINS W/ FOLIC ACID TABLET (FP) PO SCH (10:39)
[2016-12-21] MEDS: BRIMONIDINE TARTRATE 0.15% OPHTHALMIC 5 ML BOTTLE OU SCH ×2 (10:40→21:36)
[2016-12-21] MEDS: TOLNAFTATE 1% CREAM 15 GM TUBE TP SCH ×2 (10:40→21:45)
[2016-12-21] MEDS: TIMOLOL 0.25% OPHTHALMIC SOL 5 ML BOTTLE OU SCH ×2 (10:40→21:36)
--- NOTE | 2016-12-21 17:17 | PN ---
Psychiatric Progress Note Vital Signs: Vital Signs Period Temp Pulse Resp BP Sys/Harmon Pulse Ox Last 24 Hr 97.8 F 94-97 18-18 118-126/86-88 Date of Session: 12/21/16 Chief Complaint:: Patient reports side effects from Elavil-dry mouth,drowsiness. HPI: patient addressed Opioid,cocaine and alcohol dependence comorbid with Substance induced mood disorder. ROS: Multiple medical problems. Current Medications: Active Medications Generic Name Dose Route Start Last Admin Trade Name Freq PRN Reason Stop Dose Admin Acetaminophen 650 mg 11/27/16 19:48 11/28/16 06:02 Tylenol - PO 650 mg Q4H PRN Administration FEVER OR PAIN Al Hydroxide/Mg Hydroxide 30 ml 11/27/16 19:48 Mylanta Oral Suspension - PO Q6H PRN DYSPEPSIA Albuterol Sulfate 2 puff 11/27/16 19:50 Ventolin Hfa Inhaler - IH Q4H PRN SHORT OF BREATH/WHEEZING Aspirin 81 mg 11/28/16 10:00 12/21/16 10:39 Asa - PO 81 mg DAILY [facility] Administration Brimonidine Tartrate 1 drop 11/27/16 22:00 12/21/16 10:40 Alphagan 0.15% - OU 1 drop BID [facility] Administration Cyclobenzaprine HCl 10 mg 12/03/16 22:00 12/21/16 13:51 Flexeril - PO 10 mg TID [facility] Administration Diphenhydramine HCl 100 mg 12/09/16 16:12 12/20/16 21:32 Benadryl - PO 100 mg Q6H PRN Administration ANXIETY Dorzolamide HCl 1 drop 11/27/16 22:00 12/21/16 13:52 Trusopt 2% OU 1 drp TID [facility] Administration Eucalyptus/Menthol/Phenol/Sorbitol 1 each 11/27/16 19:48 Cepastat Lozenge - MM Q4H PRN SORE THROAT Gabapentin 100 mg 12/21/16 22:00 Neurontin - PO TID [facility] Guaifenesin 10 ml 11/27/16 19:48 Robitussin Dm - PO Q6H PRN COUGH Hydrocortisone 1 applic 12/03/16 18:00 12/21/16 13:52 Hytone 1% Cream - TP Not Given QID [facility] Hydroxyzine Pamoate 50 mg 12/05/16 15:04 12/15/16 06:26 Vistaril - PO 50 mg Q6H PRN Administration FOR ITCHING Ibuprofen 600 mg 12/10/16 13:58 12/16/16 13:13 Motrin - PO 600 mg Q6H PRN Administration PAIN Latanoprost 1 drop 11/27/16 22:00 12/20/16 21:32 Xalatan 0.005% Eye Drops - OU 1 drop HS [facility] Administration Loperamide HCl 4 mg 11/27/16 19:48 Imodium - PO Q6H PRN DIARRHEA Magnesium Citrate 300 ml 11/27/16 19:48 Citroma - PO Q48H PRN CONSTIPATION Magnesium Hydroxide 30 ml 11/27/16 19:48 Milk Of Magnesia - PO DAILY PRN CONSTIPATION Metformin HCl 500 mg 11/28/16 07:00 12/21/16 16:51 Glucophage - PO 500 mg BID@0700,1630 [facility] Administration Nicotine 14 mg 11/28/16 10:00 12/21/16 10:39 Nicoderm Patch - TD Not Given DAILY [facility] Nicotine Polacrilex 2 mg 11/27/16 19:48 Nicorette Gum - BC Q2H PRN NICOTINE REPLACEMENT RX Nifedipine 90 mg 11/27/16 20:00 12/21/16 10:39 Procardia Xl - PO 90 mg DAILY [facility] Administration Multivit/Folic Acid/Iron 1 tab 11/28/16 10:00 12/21/16 10:39 Vitamins (Sjr) - PO 1 tab DAILY [facility] Administration Pseudoephedrine/Triprolidine 1 combo 11/27/16 19:48 11/30/16 05:52 Actifed - PO 1 combo TID PRN Administration NASAL CONGESTION Quetiapine Fumarate 200 mg 12/09/16 22:00 12/20/16 21:31 Seroquel - PO 200 mg HS [facility] Administration Thiamine HCl 100 mg 11/27/16 22:00 12/20/16 21:31 Vitamin B1 - PO 100 mg HS [facility] Administration Timolol Maleate 1 drop 11/27/16 22:00 12/21/16 10:40 Timoptic 0.25% OU 1 drop BID [facility] Administration Tolnaftate 1 applic 11/28/16 10:00 12/21/16 10:40 Tinactin 1% Cream - TP 1 applic BID [facility] Administration Current Side Effect: No Lab tests ordered: No Lab tests reviewed: Yes Provider note:: Chart was revuewed,patient was evaluated.She reports side effects from taking Elavil including drowsiness,headache, restlessness.properties of Neurontin has been discussed with the patient including side effects,benefits and dose adjustment. D/C Amitriptillin ,start Neurontin 100 mg po tid. Supportive therapy provided. Total face to face time:: 30 Mental Status Exam - Mental Status Exam Alert and Oriented to: Time, Place, Person Cognitive Function: Grossly Intact Patient Appearance: Well Groomed Mood: Euthymic Affect: Appropriate, Mood Congruent Patient Behavior: Cooperative Speech Pattern: Clear Voice Loudness: Normal Thought Process: Goal Oriented Thought Disorder: Not Present Hallucinations: Denies Suicidal Ideation: Denies Homicidal Ideation: Denies Insight/Judgement: Fair Sleep: Fair Appetite: Good Muscle strength/Tone: Normal Gait/Station: Normal Psychiatric Treatment Plan - Problem List (1) Substance induced mood disorder Current Visit: Yes (2) Asthma Current Visit: Yes Qualifiers: Asthma severity: mild persistent Asthma complication type: with status asthmaticus Qualified Code(s): J45.32 - Mild persistent asthma with status asthmaticus (3) COPD (chronic obstructive pulmonary disease) Current Visit: Yes Qualifiers: COPD type: emphysema Emphysema type: other Qualified Code(s): J43.8 - Other emphysema (4) Cocaine dependence Current Visit: Yes Qualifiers: Substance use status: uncomplicated Qualified Code(s): F14.20 - Cocaine dependence, uncomplicated (5) Diabetes mellitus type II, controlled Current Visit: Yes Qualifiers: Diabetes mellitus complication status: without complication 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
[2016-12-21] MEDS: QUEtiapine FUMARATE 200 MG TABLET PO SCH (21:36)
[2016-12-21] MEDS: THIAMINE HCL 100 MG TABLET (FP) PO SCH (21:36)
[2016-12-21] MEDS: LATANOPROST 0.005% OPHTH SOLN 2.5ML BOTTLE OU SCH (21:36)
[2016-12-21] MEDS: GABAPENTIN 100 MG CAPSULE (FP) PO SCH (21:37)
[2016-12-21] MEDS: diphenhydrAMINE HCL 50 MG CAPSULE PO PRN (21:38)
[2016-12-22] MEDS: DORZOLAMIDE 2% HCL OPHTHALMIC SOLUTION 10 ML BOTTLE OU SCH ×3 (06:11→22:06)
[2016-12-22] MEDS: metFORMIN HCL 500 MG TABLET (FP) PO SCH ×2 (06:12→17:08)
[2016-12-22] MEDS: CYCLOBENZAPRINE HCL 10 MG TABLET (FP) PO SCH ×3 (06:12→22:03)
[2016-12-22] MEDS: GABAPENTIN 100 MG CAPSULE (FP) PO SCH ×3 (06:12→22:03)
[2016-12-22] MEDS ORDERED: PT OWN MED DRAWER 7, Y5N ONE ×6 (07:08→22:06)
[2016-12-22] MEDS: NICOTINE 14 MG/24 HOURS TOPICAL PATCH TD SCH (10:45)
[2016-12-22] MEDS: NIFEdipine E.R. 90 MG TABLET (FP) PO SCH (10:45)
[2016-12-22] MEDS: HYDROCORTISONE 1% TOPICAL CREAM 30 GM TUBE TP SCH ×4 (10:45→22:09)
[2016-12-22] MEDS: PRENATAL VITAMINS W/ FOLIC ACID TABLET (FP) PO SCH (10:45)
[2016-12-22] MEDS: ASPIRIN 81 MG CHEWABLE TABLETS PO SCH (10:45)
[2016-12-22] MEDS: TIMOLOL 0.25% OPHTHALMIC SOL 5 ML BOTTLE OU SCH ×2 (10:47→22:03)
[2016-12-22] MEDS: BRIMONIDINE TARTRATE 0.15% OPHTHALMIC 5 ML BOTTLE OU SCH ×2 (10:47→22:03)
[2016-12-22] MEDS: TOLNAFTATE 1% CREAM 15 GM TUBE TP SCH ×2 (10:49→22:06)
[2016-12-22] MEDS: LATANOPROST 0.005% OPHTH SOLN 2.5ML BOTTLE OU SCH (22:02)
[2016-12-22] MEDS: QUEtiapine FUMARATE 200 MG TABLET PO SCH (22:04)
[2016-12-22] MEDS: THIAMINE HCL 100 MG TABLET (FP) PO SCH (22:04)
[2016-12-22] MEDS: IBUPROFEN 600 MG TABLET (FP) PO PRN (22:07)
[2016-12-22] MEDS: diphenhydrAMINE HCL 50 MG CAPSULE PO PRN (22:08)
[2016-12-23] MEDS: DORZOLAMIDE 2% HCL OPHTHALMIC SOLUTION 10 ML BOTTLE OU SCH ×3 (06:32→21:51)
[2016-12-23] MEDS: metFORMIN HCL 500 MG TABLET (FP) PO SCH ×2 (06:32→16:58)
[2016-12-23] MEDS: GABAPENTIN 100 MG CAPSULE (FP) PO SCH ×3 (06:32→21:50)
[2016-12-23] MEDS: CYCLOBENZAPRINE HCL 10 MG TABLET (FP) PO SCH ×3 (06:32→21:50)
[2016-12-23] MEDS ORDERED: PT OWN MED DRAWER 7, Y5N ONE ×3 (06:40→12:33)
[2016-12-23] MEDS: PRENATAL VITAMINS W/ FOLIC ACID TABLET (FP) PO SCH (10:34)
[2016-12-23] MEDS: NIFEdipine E.R. 90 MG TABLET (FP) PO SCH (10:34)
[2016-12-23] MEDS: TIMOLOL 0.25% OPHTHALMIC SOL 5 ML BOTTLE OU SCH ×2 (10:35→21:52)
[2016-12-23] MEDS: ASPIRIN 81 MG CHEWABLE TABLETS PO SCH (10:35)
[2016-12-23] MEDS: BRIMONIDINE TARTRATE 0.15% OPHTHALMIC 5 ML BOTTLE OU SCH ×2 (10:35→21:51)
[2016-12-23] MEDS: NICOTINE 14 MG/24 HOURS TOPICAL PATCH TD SCH (10:36)
[2016-12-23] MEDS: TOLNAFTATE 1% CREAM 15 GM TUBE TP SCH ×2 (10:37→21:52)
[2016-12-23] MEDS: HYDROCORTISONE 1% TOPICAL CREAM 30 GM TUBE TP SCH ×4 (10:37→21:51)
[2016-12-23] MEDS: IBUPROFEN 600 MG TABLET (FP) PO PRN (13:25)
[2016-12-23] MEDS: QUEtiapine FUMARATE 200 MG TABLET PO SCH (21:50)
[2016-12-23] MEDS: THIAMINE HCL 100 MG TABLET (FP) PO SCH (21:52)
[2016-12-23] MEDS: diphenhydrAMINE HCL 50 MG CAPSULE PO PRN (21:52)
[2016-12-23] MEDS: LATANOPROST 0.005% OPHTH SOLN 2.5ML BOTTLE OU SCH (21:53)
[2016-12-24] MEDS: metFORMIN HCL 500 MG TABLET (FP) PO SCH ×2 (06:13→17:03)
[2016-12-24] MEDS: GABAPENTIN 100 MG CAPSULE (FP) PO SCH ×3 (06:13→21:36)
[2016-12-24] MEDS: CYCLOBENZAPRINE HCL 10 MG TABLET (FP) PO SCH ×3 (06:13→21:36)
[2016-12-24] MEDS: DORZOLAMIDE 2% HCL OPHTHALMIC SOLUTION 10 ML BOTTLE OU SCH ×3 (06:13→21:36)
[2016-12-24] MEDS ORDERED: PT OWN MED DRAWER 7, Y5N ONE (08:16)
[2016-12-24] MEDS: HYDROCORTISONE 1% TOPICAL CREAM 30 GM TUBE TP SCH ×4 (10:31→21:37)
[2016-12-24] MEDS: TIMOLOL 0.25% OPHTHALMIC SOL 5 ML BOTTLE OU SCH ×2 (10:31→21:36)
[2016-12-24] MEDS: TOLNAFTATE 1% CREAM 15 GM TUBE TP SCH ×2 (10:31→21:37)
[2016-12-24] MEDS: NIFEdipine E.R. 90 MG TABLET (FP) PO SCH (10:32)
[2016-12-24] MEDS: BRIMONIDINE TARTRATE 0.15% OPHTHALMIC 5 ML BOTTLE OU SCH ×2 (10:32→21:36)
[2016-12-24] MEDS: PRENATAL VITAMINS W/ FOLIC ACID TABLET (FP) PO SCH (10:32)
[2016-12-24] MEDS: NICOTINE 14 MG/24 HOURS TOPICAL PATCH TD SCH (10:32)
[2016-12-24] MEDS: ASPIRIN 81 MG CHEWABLE TABLETS PO SCH (10:32)
[2016-12-24] MEDS: THIAMINE HCL 100 MG TABLET (FP) PO SCH (21:36)
[2016-12-24] MEDS: diphenhydrAMINE HCL 50 MG CAPSULE PO PRN (21:36)
[2016-12-24] MEDS: QUEtiapine FUMARATE 200 MG TABLET PO SCH (21:36)
[2016-12-24] MEDS: LATANOPROST 0.005% OPHTH SOLN 2.5ML BOTTLE OU SCH (21:37)
[2016-12-25] MEDS ORDERED: PT OWN MED DRAWER 7, Y5N ONE ×4 (05:49→21:53)
[2016-12-25] MEDS: GABAPENTIN 100 MG CAPSULE (FP) PO SCH ×3 (06:18→21:48)
[2016-12-25] MEDS: DORZOLAMIDE 2% HCL OPHTHALMIC SOLUTION 10 ML BOTTLE OU SCH ×3 (06:18→21:53)
[2016-12-25] MEDS: CYCLOBENZAPRINE HCL 10 MG TABLET (FP) PO SCH ×3 (06:18→21:48)
[2016-12-25] MEDS: metFORMIN HCL 500 MG TABLET (FP) PO SCH ×2 (06:18→17:05)
[2016-12-25] MEDS: PRENATAL VITAMINS W/ FOLIC ACID TABLET (FP) PO SCH (10:39)
[2016-12-25] MEDS: ASPIRIN 81 MG CHEWABLE TABLETS PO SCH (10:39)
[2016-12-25] MEDS: BRIMONIDINE TARTRATE 0.15% OPHTHALMIC 5 ML BOTTLE OU SCH ×2 (10:39→21:52)
[2016-12-25] MEDS: TIMOLOL 0.25% OPHTHALMIC SOL 5 ML BOTTLE OU SCH ×2 (10:39→21:52)
[2016-12-25] MEDS: HYDROCORTISONE 1% TOPICAL CREAM 30 GM TUBE TP SCH ×4 (10:40→21:49)
[2016-12-25] MEDS: NICOTINE 14 MG/24 HOURS TOPICAL PATCH TD SCH (10:40)
[2016-12-25] MEDS: TOLNAFTATE 1% CREAM 15 GM TUBE TP SCH ×2 (10:40→21:48)
[2016-12-25] MEDS: NIFEdipine E.R. 90 MG TABLET (FP) PO SCH (10:40)
[2016-12-25] MEDS: THIAMINE HCL 100 MG TABLET (FP) PO SCH (21:48)
[2016-12-25] MEDS: QUEtiapine FUMARATE 200 MG TABLET PO SCH (21:48)
[2016-12-25] MEDS: diphenhydrAMINE HCL 50 MG CAPSULE PO PRN (21:49)
[2016-12-25] MEDS: LATANOPROST 0.005% OPHTH SOLN 2.5ML BOTTLE OU SCH (21:53)
[2016-12-26] MEDS ORDERED: PT OWN MED DRAWER 7, Y5N ONE (06:14)
[2016-12-26] MEDS: DORZOLAMIDE 2% HCL OPHTHALMIC SOLUTION 10 ML BOTTLE OU SCH ×3 (06:14→21:18)
[2016-12-26] MEDS: GABAPENTIN 100 MG CAPSULE (FP) PO SCH ×3 (06:14→21:19)
[2016-12-26] MEDS: CYCLOBENZAPRINE HCL 10 MG TABLET (FP) PO SCH ×3 (06:14→21:19)
[2016-12-26] MEDS: metFORMIN HCL 500 MG TABLET (FP) PO SCH ×2 (08:00→16:38)
[2016-12-26] MEDS: ASPIRIN 81 MG CHEWABLE TABLETS PO SCH (09:15)
[2016-12-26] MEDS: PRENATAL VITAMINS W/ FOLIC ACID TABLET (FP) PO SCH (09:15)
[2016-12-26] MEDS: NIFEdipine E.R. 90 MG TABLET (FP) PO SCH (09:15)
[2016-12-26] MEDS: BRIMONIDINE TARTRATE 0.15% OPHTHALMIC 5 ML BOTTLE OU SCH ×2 (09:15→21:18)
[2016-12-26] MEDS: TIMOLOL 0.25% OPHTHALMIC SOL 5 ML BOTTLE OU SCH ×2 (09:16→21:18)
[2016-12-26] MEDS: TOLNAFTATE 1% CREAM 15 GM TUBE TP SCH ×2 (09:16→21:28)
[2016-12-26] MEDS: HYDROCORTISONE 1% TOPICAL CREAM 30 GM TUBE TP SCH ×4 (09:17→21:28)
[2016-12-26] MEDS: NICOTINE 14 MG/24 HOURS TOPICAL PATCH TD SCH (09:17)
[2016-12-26] MEDS: LATANOPROST 0.005% OPHTH SOLN 2.5ML BOTTLE OU SCH (21:18)
[2016-12-26] MEDS: THIAMINE HCL 100 MG TABLET (FP) PO SCH (21:19)
[2016-12-26] MEDS: QUEtiapine FUMARATE 200 MG TABLET PO SCH (21:19)
[2016-12-26] MEDS: diphenhydrAMINE HCL 50 MG CAPSULE PO PRN (21:19)
[2016-12-27] MEDS: GABAPENTIN 100 MG CAPSULE (FP) PO SCH ×3 (06:29→21:32)
[2016-12-27] MEDS: metFORMIN HCL 500 MG TABLET (FP) PO SCH ×2 (06:29→16:28)
[2016-12-27] MEDS: DORZOLAMIDE 2% HCL OPHTHALMIC SOLUTION 10 ML BOTTLE OU SCH ×3 (06:29→21:31)
[2016-12-27] MEDS: CYCLOBENZAPRINE HCL 10 MG TABLET (FP) PO SCH ×3 (06:29→21:32)
[2016-12-27] MEDS ORDERED: PT OWN MED DRAWER 7, Y5N ONE ×3 (08:26→22:04)
[2016-12-27] MEDS: NICOTINE 14 MG/24 HOURS TOPICAL PATCH TD SCH (09:59)
[2016-12-27] MEDS: BRIMONIDINE TARTRATE 0.15% OPHTHALMIC 5 ML BOTTLE OU SCH ×2 (10:00→21:30)
[2016-12-27] MEDS: TIMOLOL 0.25% OPHTHALMIC SOL 5 ML BOTTLE OU SCH ×2 (10:00→21:31)
[2016-12-27] MEDS: ASPIRIN 81 MG CHEWABLE TABLETS PO SCH (10:01)
[2016-12-27] MEDS: HYDROCORTISONE 1% TOPICAL CREAM 30 GM TUBE TP SCH ×4 (10:01→21:32)
[2016-12-27] MEDS: PRENATAL VITAMINS W/ FOLIC ACID TABLET (FP) PO SCH (10:01)
[2016-12-27] MEDS: TOLNAFTATE 1% CREAM 15 GM TUBE TP SCH ×2 (10:01→21:31)
[2016-12-27] MEDS: NIFEdipine E.R. 90 MG TABLET (FP) PO SCH (10:01)
[2016-12-27] MEDS: LATANOPROST 0.005% OPHTH SOLN 2.5ML BOTTLE OU SCH (21:31)
[2016-12-27] MEDS: THIAMINE HCL 100 MG TABLET (FP) PO SCH (21:32)
[2016-12-27] MEDS: diphenhydrAMINE HCL 50 MG CAPSULE PO PRN (21:32)
[2016-12-27] MEDS: QUEtiapine FUMARATE 200 MG TABLET PO SCH (21:32)
[2016-12-28] MEDS: metFORMIN HCL 500 MG TABLET (FP) PO SCH ×2 (06:10→16:56)
[2016-12-28] MEDS: DORZOLAMIDE 2% HCL OPHTHALMIC SOLUTION 10 ML BOTTLE OU SCH ×3 (06:10→21:42)
[2016-12-28] MEDS: GABAPENTIN 100 MG CAPSULE (FP) PO SCH ×3 (06:11→21:43)
[2016-12-28] MEDS: CYCLOBENZAPRINE HCL 10 MG TABLET (FP) PO SCH ×3 (06:11→21:43)
[2016-12-28] MEDS ORDERED: PT OWN MED DRAWER 7, Y5N ONE ×2 (09:37→13:01)
[2016-12-28] MEDS: TIMOLOL 0.25% OPHTHALMIC SOL 5 ML BOTTLE OU SCH ×2 (10:24→21:42)
[2016-12-28] MEDS: NIFEdipine E.R. 90 MG TABLET (FP) PO SCH (10:24)
[2016-12-28] MEDS: ASPIRIN 81 MG CHEWABLE TABLETS PO SCH (10:24)
[2016-12-28] MEDS: BRIMONIDINE TARTRATE 0.15% OPHTHALMIC 5 ML BOTTLE OU SCH ×2 (10:24→21:42)
[2016-12-28] MEDS: PRENATAL VITAMINS W/ FOLIC ACID TABLET (FP) PO SCH (10:24)
[2016-12-28] MEDS: NICOTINE 14 MG/24 HOURS TOPICAL PATCH TD SCH (10:26)
[2016-12-28] MEDS: TOLNAFTATE 1% CREAM 15 GM TUBE TP SCH ×2 (10:26→21:45)
[2016-12-28] MEDS: HYDROCORTISONE 1% TOPICAL CREAM 30 GM TUBE TP SCH ×4 (10:26→21:45)
[2016-12-28] MEDS: THIAMINE HCL 100 MG TABLET (FP) PO SCH (21:43)
[2016-12-28] MEDS: QUEtiapine FUMARATE 200 MG TABLET PO SCH (21:43)
[2016-12-28] MEDS: diphenhydrAMINE HCL 50 MG CAPSULE PO PRN (21:43)
[2016-12-28] MEDS: LATANOPROST 0.005% OPHTH SOLN 2.5ML BOTTLE OU SCH (21:45)
[2016-12-29] MEDS ORDERED: PT OWN MED DRAWER 7, Y5N ONE ×3 (05:45→12:54)
[2016-12-29] MEDS: GABAPENTIN 100 MG CAPSULE (FP) PO SCH ×3 (06:04→21:43)
[2016-12-29] MEDS: DORZOLAMIDE 2% HCL OPHTHALMIC SOLUTION 10 ML BOTTLE OU SCH ×3 (06:04→21:44)
[2016-12-29] MEDS: metFORMIN HCL 500 MG TABLET (FP) PO SCH ×2 (06:04→16:54)
[2016-12-29] MEDS: CYCLOBENZAPRINE HCL 10 MG TABLET (FP) PO SCH ×3 (06:04→21:43)
[2016-12-29] MEDS: TIMOLOL 0.25% OPHTHALMIC SOL 5 ML BOTTLE OU SCH ×2 (10:00→21:42)
[2016-12-29] MEDS: ASPIRIN 81 MG CHEWABLE TABLETS PO SCH (10:01)
[2016-12-29] MEDS: PRENATAL VITAMINS W/ FOLIC ACID TABLET (FP) PO SCH (10:01)
[2016-12-29] MEDS: BRIMONIDINE TARTRATE 0.15% OPHTHALMIC 5 ML BOTTLE OU SCH ×2 (10:01→21:42)
[2016-12-29] MEDS: NIFEdipine E.R. 90 MG TABLET (FP) PO SCH (10:01)
[2016-12-29] MEDS: TOLNAFTATE 1% CREAM 15 GM TUBE TP SCH ×2 (10:02→21:44)
[2016-12-29] MEDS: HYDROCORTISONE 1% TOPICAL CREAM 30 GM TUBE TP SCH ×4 (10:03→21:44)
[2016-12-29] MEDS: NICOTINE 14 MG/24 HOURS TOPICAL PATCH TD SCH (10:04)
[2016-12-29] MEDS: diphenhydrAMINE HCL 50 MG CAPSULE PO PRN (21:43)
[2016-12-29] MEDS: THIAMINE HCL 100 MG TABLET (FP) PO SCH (21:43)
[2016-12-29] MEDS: QUEtiapine FUMARATE 200 MG TABLET PO SCH (21:43)
[2016-12-29] MEDS: LATANOPROST 0.005% OPHTH SOLN 2.5ML BOTTLE OU SCH (21:44)
[2016-12-30] MEDS ORDERED: PT OWN MED DRAWER 7, Y5N ONE ×2 (03:31→03:32)
[2016-12-30] MEDS: GABAPENTIN 100 MG CAPSULE (FP) PO SCH (06:31)
[2016-12-30] MEDS: metFORMIN HCL 500 MG TABLET (FP) PO SCH (06:31)
[2016-12-30] MEDS: DORZOLAMIDE 2% HCL OPHTHALMIC SOLUTION 10 ML BOTTLE OU SCH (06:36)
[2016-12-30 07:32] VITALS: TEMP 97.7
[2016-12-30] MEDS: CYCLOBENZAPRINE HCL 10 MG TABLET (FP) PO SCH (07:40)
--- NOTE | 2016-12-30 09:28 | PN ---
Psychiatric Progress Note Vital Signs: Vital Signs Period Temp Pulse Resp BP Sys/Harmon Pulse Ox Last 24 Hr 97.7 F 86 18-18 124/87 Date of Session: 12/30/16 Chief Complaint:: Discharge visit HPI: Patient addressed Alcohol,Cocaine and Opioid dependence comorbid with Substance induced mood disorder. ROS: Significant for COPD,Glaucoma,DM,HTN. Current Medications: Active Medications Generic Name Dose Route Start Last Admin Trade Name Freq PRN Reason Stop Dose Admin Acetaminophen 650 mg 11/27/16 19:48 11/28/16 06:02 Tylenol - PO 650 mg Q4H PRN Administration FEVER OR PAIN Al Hydroxide/Mg Hydroxide 30 ml 11/27/16 19:48 Mylanta Oral Suspension - PO Q6H PRN DYSPEPSIA Albuterol Sulfate 2 puff 11/27/16 19:50 Ventolin Hfa Inhaler - IH Q4H PRN SHORT OF BREATH/WHEEZING Aspirin 81 mg 11/28/16 10:00 12/29/16 10:01 Asa - PO 81 mg DAILY [facility] Administration Brimonidine Tartrate 1 drop 11/27/16 22:00 12/29/16 21:42 Alphagan 0.15% - OU 1 drop BID [facility] Administration Cyclobenzaprine HCl 10 mg 12/03/16 22:00 12/30/16 07:40 Flexeril - PO 10 mg TID [facility] Administration Diphenhydramine HCl 100 mg 12/09/16 16:12 12/29/16 21:43 Benadryl - PO 100 mg Q6H PRN Administration ANXIETY Dorzolamide HCl 1 drop 11/27/16 22:00 12/30/16 06:36 Trusopt 2% OU 1 drop TID [facility] Administration Eucalyptus/Menthol/Phenol/Sorbitol 1 each 11/27/16 19:48 Cepastat Lozenge - MM Q4H PRN SORE THROAT Gabapentin 100 mg 12/21/16 22:00 12/30/16 06:31 Neurontin - PO 100 mg TID [facility] Administration Guaifenesin 10 ml 11/27/16 19:48 Robitussin Dm - PO Q6H PRN COUGH Hydrocortisone 1 applic 12/03/16 18:00 12/29/16 21:44 Hytone 1% Cream - TP Not Given QID [facility] Hydroxyzine Pamoate 50 mg 12/05/16 15:04 12/15/16 06:26 Vistaril - PO 50 mg Q6H PRN Administration FOR ITCHING Ibuprofen 600 mg 12/10/16 13:58 12/23/16 13:25 Motrin - PO 600 mg Q6H PRN Administration PAIN Latanoprost 1 drop 11/27/16 22:00 12/29/16 21:44 Xalatan 0.005% Eye Drops - OU 1 drop HS [facility] Administration Loperamide HCl 4 mg 11/27/16 19:48 Imodium - PO Q6H PRN DIARRHEA Magnesium Citrate 300 ml 11/27/16 19:48 Citroma - PO Q48H PRN CONSTIPATION Magnesium Hydroxide 30 ml 11/27/16 19:48 Milk Of Magnesia - PO DAILY PRN CONSTIPATION Metformin HCl 500 mg 11/28/16 07:00 12/30/16 06:31 Glucophage - PO 500 mg BID@0700,1630 [facility] Administration Nicotine 14 mg 11/28/16 10:00 12/29/16 10:04 Nicoderm Patch - TD Not Given DAILY [facility] Nicotine Polacrilex 2 mg 11/27/16 19:48 Nicorette Gum - BC Q2H PRN NICOTINE REPLACEMENT RX Nifedipine 90 mg 11/27/16 20:00 12/29/16 10:01 Procardia Xl - PO 90 mg DAILY [facility] Administration Multivit/Folic Acid/Iron 1 tab 11/28/16 10:00 12/29/16 10:01 Vitamins (Sjr) - PO 1 tab DAILY [facility] Administration Pseudoephedrine/Triprolidine 1 combo 11/27/16 19:48 11/30/16 05:52 Actifed - PO 1 combo TID PRN Administration NASAL CONGESTION Quetiapine Fumarate 200 mg 12/09/16 22:00 12/29/16 21:43 Seroquel - PO 200 mg HS [facility] Administration Thiamine HCl 100 mg 11/27/16 22:00 12/29/16 21:43 Vitamin B1 - PO 100 mg HS [facility] Administration Timolol Maleate 1 drop 11/27/16 22:00 12/29/16 21:42 Timoptic 0.25% OU 1 drop BID [facility] Administration Tolnaftate 1 applic 11/28/16 10:00 12/29/16 21:44 Tinactin 1% Cream - TP Not Given BID [facility] Current Side Effect: No Lab tests ordered: No Lab tests reviewed: Yes Provider note:: Patient completed this program today.She has met her treatment goals and will continue to addres her issues on outpatient basis.Marvin continues to find that Gabapentin 100 mg po bid and Seroquel 200 mg po hs help to cope with mood instability,insomnia.anxiety.Scripts for 30 days provided. Therpay provided focusing on relapse prevention.Coping skills,support system utilization has been discussed with the patient as a resourses for recovery maintenance. Patient is stable for discharge today. Total face to face time:: 35 Mental Status Exam - Mental Status Exam Alert and Oriented to: Time, Place, Person Cognitive Function: Grossly Intact Patient Appearance: Well Groomed Mood: Euthymic Affect: Mood Congruent, Normal Range Patient Behavior: Cooperative Speech Pattern: Clear Voice Loudness: Normal Thought Process: Goal Oriented Thought Disorder: Not Present Hallucinations: Denies Suicidal Ideation: Denies Homicidal Ideation: Denies Insight/Judgement: Fair Sleep: Fair Appetite: Good Muscle strength/Tone: Normal Gait/Station: Normal Psychiatric Treatment Plan - Problem List (2) Asthma Qualifiers: Asthma severity: mild persistent Asthma complication type: with status asthmaticus Qualified Code(s): J45.32 - Mild persistent asthma with status asthmaticus (3) COPD (chronic obstructive pulmonary disease) Qualifiers: COPD type: emphysema Emphysema type: other Qualified Code(s): J43.8 - Other emphysema (4) Cocaine dependence Qualifiers: Substance use status: uncomplicated Qualified Code(s): F14.20 - Cocaine dependence, uncomplicated (5) Diabetes mellitus type II, controlled Qualifiers: Diabetes mellitus complication status: without complication 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
[2016-12-30] MEDS: PRENATAL VITAMINS W/ FOLIC ACID TABLET (FP) PO SCH (09:40)
[2016-12-30] MEDS: ASPIRIN 81 MG CHEWABLE TABLETS PO SCH (09:40)
[2016-12-30] MEDS: NICOTINE 14 MG/24 HOURS TOPICAL PATCH TD SCH (09:40)
[2016-12-30] MEDS: BRIMONIDINE TARTRATE 0.15% OPHTHALMIC 5 ML BOTTLE OU SCH (09:40)
[2016-12-30] MEDS: NIFEdipine E.R. 90 MG TABLET (FP) PO SCH (09:40)
[2016-12-30] MEDS: TIMOLOL 0.25% OPHTHALMIC SOL 5 ML BOTTLE OU SCH (09:40)
[2016-12-30] MEDS: HYDROCORTISONE 1% TOPICAL CREAM 30 GM TUBE TP SCH (09:41)
[2016-12-30] MEDS: TOLNAFTATE 1% CREAM 15 GM TUBE TP SCH (09:41)
[2016-12-30 10:04] VITALS: BP 138/94; PULSE 97
== END 2016-12-30 10:15 | disposition home or self-care (01) | DRG 895 ==
LOC: YASAS 12:04 → Y6N 19:04 → Y3E 12-02 11:03
PROVIDERS: ADMIT Psychiatry & Neurology Psychiatry; ATTEND Internal Medicine
PROC: HZ2ZZZZ Detoxification Services for Substance Abuse Treatment (ICD-10-PCS; principal; 2016-11-27)
PROC: HZ42ZZZ Group Counseling for Substance Abuse Treatment, Cognitive-Behavioral (ICD-10-PCS; 2016-12-02)
DX: F11.23 Opioid dependence with withdrawal (principal); F14.20 Cocaine dependence, uncomplicated; J45.32 Mild persistent asthma with status asthmaticus; F10.230 Alcohol dependence with withdrawal, uncomplicated; F12.20 Cannabis dependence, uncomplicated; F17.210 Nicotine dependence, cigarettes, uncomplicated; F19.24 Other psychoactive substance dependence with psychoactive substance-induced mood disorder; J43.8 Other emphysema; I10 Essential (primary) hypertension; E11.9 Type 2 diabetes mellitus without complications; H40.10X2 Unspecified open-angle glaucoma, moderate stage; G47.00 Insomnia, unspecified; H54.42 Blindness, left eye, normal vision right eye; Z79.82 Long term (current) use of aspirin; Z87.898 Personal history of other specified conditions
CPT/HCPCS: 36415; 73030-TC-RT; 80053; 81003; 81015; 85027; 86593; 93005; 93010

== ENCOUNTER 2017-03-01 10:13 | Inpatient (IN) | payer OTHER ==
[2017-03-01 10:38] VITALS: BMI 26.9
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
[2017-03-01] MEDS ORDERED: LOPERAMIDE HCL 2 MG CAPSULE PO PRN (15:10)
[2017-03-01] MEDS ORDERED: hydrOXYzine PAMOATE 25 MG CAPSULE (FP) PO PRN (15:10)
[2017-03-01] MEDS ORDERED: MAG HYDROX/AL HYDROX/SIMETH 30 ML UNIT-DOSE CUP PO PRN (15:10)
[2017-03-01] MEDS ORDERED: MENTHOL/PHENOL 1 EACH UD MM PRN (15:10)
[2017-03-01] MEDS ORDERED: MAGNESIUM CITRATE 300 ML BOTTLE PO PRN (15:10)
[2017-03-01] MEDS ORDERED: P-EPHED 60MG/TRIPROLIDI 2.5MG TABLET PO PRN (15:10)
[2017-03-01] MEDS ORDERED: MAGNESIUM HYDROX 2400MG/30ML ORAL SUSPENSION 30 ML CUP PO PRN (15:10)
[2017-03-01] MEDS ORDERED: guaiFENesin/D-METHORPHAN HB 10 ML UNIT-DOSE CUPS PO PRN (15:10)
[2017-03-01] MEDS ORDERED: ALBUTEROL SO4 6.7 GM HFA INHALER IH PRN (15:16)
[2017-03-01] MEDS ORDERED: chlordiazePOXIDE HCL 25 MG CAPSULE PO ONE (16:00)
[2017-03-01] MEDS ORDERED: METHADONE HCL 10 MG TABLET (FOR DETOX USE ONLY) PO ONE ×2 (16:15→23:00)
[2017-03-01] MEDS: NICOTINE 21 MG/24 HOURS TOPICAL PATCH TD SCH (16:45)
[2017-03-01] MEDS: chlordiazePOXIDE HCL 25 MG CAPSULE PO SCH ×2 (16:56→22:20)
[2017-03-01] MEDS: IBUPROFEN 400 MG TABLET (FP) PO PRN (17:20)
[2017-03-01 21:15] LABS: URINE APPEARANCE CLOUDY; URINE BILIRUBIN NEGATIVE (NEGATIVE); URINE BLOOD NEGATIVE (NEGATIVE); URINE COLOR YELLOW; URINE GLUCOSE (UA) NEGATIVE (NEGATIVE); URINE KETONE NEGATIVE (NEGATIVE); URINE LEUK ESTERASE NEGATIVE (NEGATIVE); URINE NITRITE NEGATIVE (NEGATIVE); URINE UROBILINOGEN NEGATIVE mg/dL (0.2-1.0)
[2017-03-01 21:18] LABS: URINE PROTEIN 1+ (NEGATIVE)
[2017-03-01 21:23] LABS: URINE HYALINE CAST 3 /lpf; URINE MUCUS FEW; URINE RBC 1 /hpf (0-3); URINE WBC 4 /hpf (3-5)
[2017-03-01] MEDS: BRIMONIDINE TARTRATE 0.2% OPHTHALMIC 5 ML BOTTLE OU SCH (21:31)
[2017-03-01] MEDS: DORZOLAMIDE 2% HCL OPHTHALMIC SOLUTION 10 ML BOTTLE OU SCH (21:31)
[2017-03-01] MEDS: TIMOLOL 0.25% OPHTHALMIC SOL 5 ML BOTTLE OU SCH (21:32)
[2017-03-01] MEDS: LATANOPROST 0.005% OPHTH SOLN 2.5ML BOTTLE OU SCH (21:32)
[2017-03-01] MEDS: THIAMINE HCL 100 MG TABLET (FP) PO SCH (22:20)
[2017-03-01] MEDS: diphenhydrAMINE HCL 50 MG CAPSULE PO PRN (22:20)
[2017-03-01] MEDS: ACETAMINOPHEN 325 MG TABLET (FP) PO PRN (22:23)
[2017-03-02] MEDS: chlordiazePOXIDE HCL 25 MG CAPSULE PO SCH ×4 (05:50→22:14)
[2017-03-02] MEDS: DORZOLAMIDE 2% HCL OPHTHALMIC SOLUTION 10 ML BOTTLE OU SCH ×3 (05:53→21:55)
[2017-03-02] MEDS: IBUPROFEN 400 MG TABLET (FP) PO PRN ×3 (05:53→22:14)
[2017-03-02 09:56] LABS: MCH 29.7 pg (25.7-33.7); MCHC 31.7 g/dl (32.0-36.0); MEAN CELL VOLUME 93.6 fl (80-96); MEAN PLT VOLUME 8.6 fl (7.5-11.1); PLATELET COUNT 299 K/MM3 (134-434); RDW 14.3 % (11.6-15.6); WHITE BLOOD COUNT 6.4 K/mm3 (4.0-10.0)
[2017-03-02] MEDS ORDERED: METHADONE HCL 10 MG TABLET (FOR DETOX USE ONLY) PO SCH (10:00)
[2017-03-02] MEDS: ASPIRIN 81 MG CHEWABLE TABLETS PO SCH (10:33)
[2017-03-02] MEDS: NIFEdipine E.R. 90 MG TABLET (FP) PO SCH (10:33)
[2017-03-02] MEDS: PRENATAL VITAMINS W/ FOLIC ACID TABLET (FP) PO SCH (10:33)
[2017-03-02] MEDS: BRIMONIDINE TARTRATE 0.2% OPHTHALMIC 5 ML BOTTLE OU SCH ×2 (10:33→21:56)
[2017-03-02] MEDS: NICOTINE 21 MG/24 HOURS TOPICAL PATCH TD SCH (10:34)
[2017-03-02] MEDS: TIMOLOL 0.25% OPHTHALMIC SOL 5 ML BOTTLE OU SCH ×2 (10:34→21:55)
[2017-03-02 10:37] LABS: ALBUMIN 3.8 g/dl (3.4-5.0); ALK PHOS 69 U/L (45-117); ANION GAP 9 (8-16); BILIRUBIN,TOTAL 0.6 mg/dL (0.2-1.0); CALCIUM 9.7 mg/dL (8.5-10.1); CO2 24 mmol/L (21-32); CREATININE 1.3 mg/dL (0.55-1.02); GLUCOSE,RANDOM 111 mg/dL (74-106); SGOT/AST 8 U/L (15-37); SGPT/ALT 19 U/L (12-78); TOT PROT 7.2 g/dl (6.4-8.2)
[2017-03-02] MEDS: TOLNAFTATE 1% CREAM 15 GM TUBE TP SCH ×2 (11:17→22:15)
[2017-03-02] MEDS: VITAMINS A AND D TOPICAL OINTMENT 60 GM TUBE TP SCH ×3 (11:18→23:00)
--- NOTE | 2017-03-02 12:24 | PN ---
[facility] CIWA - CIWA Score Nausea/Vomitin-Mild Nausea/No Vomiting Muscle Tremors: 4-Moderate,w/Arms Extend Anxiety: 3 Agitation: 3 Paroxysmal Sweats: 3 Orientation: 0-Oriented Tacttile Disturbances: 0-None Auditory Disturbances: 0-None Visual Disturbances: 0-None Headache: 0-None Present CIWA-Ar Total Score: 14 S COWS - Scale Resting Pulse: 0= [place] 80 or Below Sweatin=Flushed/Facial Moisture Restless Observation: 1= Difficult to Sit Still Pupil Size: 0= Normal to Room Light Bone or Joint Aches: 1= Mild Discomfort Runny Nose/ Eye Tearin= Nasal Congestion GI Upset > 30mins: 2= Nausea/Diarrhea Tremor Observation of Outstretched Hands: 2= Slight Tremor Visible Yawning Observation: 1= 1-2x During Session Anxiety or Irritability: 2=Irritable/Anxious Goose Flesh Skin: 0=Smooth Skin COWS Score: 12 S Progress Note (SOAP) Subjective: Tremors,anxiety,sweating,interrupted sleep,restless.muscle aches/spasm Objective: 03/02/17 12:23 Vital Signs - 8 hr 03/02/17 03/02/17 06:00 09:37 Temperature 97.3 F L 96.8 F L Pulse Rate 62 66 Respiratory 18 18 Rate Blood Pressure 124/87 138/94 Laboratory Last Values WBC 6.4 K/mm3 (4.0-10.0) 03/02/17 06:00 RBC 4.57 M/mm3 (3.60-5.2) 03/02/17 06:00 Hgb 13.5 GM/dL (10.7-15.3) 03/02/17 06:00 Hct 42.8 % (32.4-45.2) 03/02/17 06:00 MCV 93.6 fl (80-96) 03/02/17 06:00 MCH 29.7 pg (25.7-33.7) 03/02/17 06:00 MCHC 31.7 g/dl (32.0-36.0) L 03/02/17 06:00 RDW 14.3 % (11.6-15.6) 03/02/17 06:00 Plt Count 299 K/MM3 (134-434) 03/02/17 06:00 MPV 8.6 fl (7.5-11.1) 03/02/17 06:00 Sodium 144 mmol/L (136-145) 03/02/17 06:00 Potassium 3.9 mmol/L (3.5-5.1) 03/02/17 06:00 Chloride 111 mmol/L (98-107) H 03/02/17 06:00 Carbon Dioxide 24 mmol/L (21-32) 03/02/17 06:00 Anion Gap 9 (8-16) 03/02/17 06:00 BUN 15 mg/dL (7-18) 03/02/17 06:00 Creatinine 1.3 mg/dL (0.55-1.02) H 03/02/17 06:00 Creat Clearance w eGFR 43.36 (>60) 03/02/17 06:00 Random Glucose 111 mg/dL (74-106) H 03/02/17 06:00 Calcium 9.7 mg/dL (8.5-10.1) 03/02/17 06:00 Total Bilirubin 0.6 mg/dL (0.2-1.0) 03/02/17 06:00 AST 8 U/L (15-37) L D 03/02/17 06:00 ALT 19 U/L (12-78) 03/02/17 06:00 Alkaline Phosphatase 69 U/L (45-117) D 03/02/17 06:00 Total Protein 7.2 g/dl (6.4-8.2) 03/02/17 06:00 Albumin 3.8 g/dl (3.4-5.0) 03/02/17 06:00 Urine Color Yellow 03/01/17 20:00 Urine Appearance Cloudy 03/01/17 20:00 Urine pH 5.0 (5.0-8.0) 03/01/17 20:00 Ur Specific Page 1.025 (1.005-1.025) 03/01/17 20:00 Urine Protein 1+ (NEGATIVE) H 03/01/17 20:00 Urine Glucose (UA) Negative (NEGATIVE) 03/01/17 20:00 Urine Ketones Negative (NEGATIVE) 03/01/17 20:00 Urine Blood Negative (NEGATIVE) 03/01/17 20:00 Urine Nitrite Negative (NEGATIVE) 03/01/17 20:00 Urine Bilirubin Negative (NEGATIVE) 03/01/17 20:00 Urine Urobilinogen Negative mg/dL (0.2-1.0) 03/01/17 20:00 Ur Leukocyte Esterase Negative (NEGATIVE) 03/01/17 20:00 Urine RBC 1 /hpf (0-3) 03/01/17 20:00 Urine WBC 4 /hpf (3-5) 03/01/17 20:00 Ur Epithelial Cells Moderate /hpf (FEW) 03/01/17 20:00 Hyaline Casts 3 /lpf 03/01/17 20:00 Urine Mucus Few 03/01/17 20:00 labs noted Assessment: 03/02/17 12:23 Withdrawal sx. Plan: Continue detox
[2017-03-02] MEDS: chlordiazePOXIDE HCL 25 MG CAPSULE PO PRN (13:40)
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
[2017-03-02] MEDS: LATANOPROST 0.005% OPHTH SOLN 2.5ML BOTTLE OU SCH (21:56)
[2017-03-02] MEDS: diphenhydrAMINE HCL 50 MG CAPSULE PO PRN (22:14)
[2017-03-02] MEDS: QUEtiapine FUMARATE 100 MG TABLET (FP) PO SCH (22:15)
[2017-03-02] MEDS: THIAMINE HCL 100 MG TABLET (FP) PO SCH (22:16)
[2017-03-03] MEDS: chlordiazePOXIDE HCL 25 MG CAPSULE PO SCH ×2 (05:31→10:39)
[2017-03-03] MEDS: DORZOLAMIDE 2% HCL OPHTHALMIC SOLUTION 10 ML BOTTLE OU SCH ×3 (05:32→21:50)
[2017-03-03] MEDS: VITAMINS A AND D TOPICAL OINTMENT 60 GM TUBE TP SCH ×4 (06:35→23:01)
[2017-03-03] MEDS: ASPIRIN 81 MG CHEWABLE TABLETS PO SCH (10:38)
[2017-03-03] MEDS: METHADONE HCL 5 MG TABLET (FOR DETOX USE ONLY) PO SCH (10:38)
[2017-03-03] MEDS: TOLNAFTATE 1% CREAM 15 GM TUBE TP SCH ×2 (10:39→22:19)
[2017-03-03] MEDS: BRIMONIDINE TARTRATE 0.2% OPHTHALMIC 5 ML BOTTLE OU SCH ×2 (10:39→21:50)
[2017-03-03] MEDS: PRENATAL VITAMINS W/ FOLIC ACID TABLET (FP) PO SCH (10:39)
[2017-03-03] MEDS: NIFEdipine E.R. 90 MG TABLET (FP) PO SCH (10:39)
[2017-03-03] MEDS: TIMOLOL 0.25% OPHTHALMIC SOL 5 ML BOTTLE OU SCH ×2 (10:40→21:49)
[2017-03-03] MEDS: NICOTINE 21 MG/24 HOURS TOPICAL PATCH TD SCH (10:40)
--- NOTE | 2017-03-03 11:31 | PN ---
[facility] CIWA - CIWA Score Nausea/Vomitin Muscle Tremors: 2 Anxiety: 2 Agitation: 2 Paroxysmal Sweats: 3 Orientation: 0-Oriented Tacttile Disturbances: 1-Very Mild Itch/Numbness Auditory Disturbances: 0-None Visual Disturbances: 0-None Headache: 0-None Present CIWA-Ar Total Score: 13 BHS COWS - Scale Resting Pulse: 0= [place] 80 or Below Sweatin=Flushed/Facial Moisture Restless Observation: 1= Difficult to Sit Still Pupil Size: 1= Pupils >than Normal Bone or Joint Aches: 1= Mild Discomfort Runny Nose/ Eye Tearin= Runny Nose/Eyes GI Upset > 30mins: 1= Stomach Cramp Tremor Observation of Outstretched Hands: 1= Tremor [place], Not Seen Yawning Observation: 0= None Anxiety or Irritability: 1=Feels Anxious/Irritable Goose Flesh Skin: 0=Smooth Skin COWS Score: 10 S Progress Note (SOAP) Subjective: interrupted sleep, sweats, shakes, runny nose Objective: 03/03/17 11:30 Vital Signs Temperature 96.8 F L 03/03/17 10:04 Pulse Rate 64 03/03/17 10:04 Respiratory Rate 18 03/03/17 10:04 Blood Pressure 133/85 03/03/17 10:04 O2 Sat by Pulse Oximetry (%) Laboratory Tests 03/01/17 03/02/17 03/02/17 20:00 06:00 06:00 WBC 6.4 RBC 4.57 Hgb 13.5 Hct 42.8 MCV 93.6 MCH 29.7 MCHC 31.7 L RDW 14.3 Plt Count 299 MPV 8.6 Sodium 144 Potassium 3.9 Chloride 111 H Carbon Dioxide 24 Anion Gap 9 BUN 15 Creatinine 1.3 H Creat Clearance w eGFR 43.36 Random Glucose 111 H Calcium 9.7 Total Bilirubin 0.6 AST 8 L D ALT 19 Alkaline Phosphatase 69 D Total Protein 7.2 Albumin 3.8 Urine Color Yellow Urine Appearance Cloudy Urine pH 5.0 Ur Specific [place] 1.025 Urine Protein 1+ H Urine Glucose (UA) Negative Urine Ketones Negative Urine Blood Negative Urine Nitrite Negative Urine Bilirubin Negative Urine Urobilinogen Negative Ur Leukocyte Esterase Negative Urine RBC 1 Urine WBC 4 Ur Epithelial Cells Moderate Hyaline Casts 3 Urine Mucus Few pt aox3 in nad ambulating Assessment: 03/03/17 11:31 withdrawal sx;s Plan: cont.detox increase fluids
--- NOTE | 2017-03-03 11:32 | EKG ---
Test Reason : Blood Pressure : / mmHG Vent. Rate : 063 BPM Atrial Rate : 063 BPM P-R Int : 222 ms QRS Dur : 082 ms QT Int : 400 ms P-R-T Axes : 065 083 056 degrees QTc Int : 409 ms SINUS RHYTHM WITH SINUS ARRHYTHMIA WITH 1ST DEGREE A-V BLOCK OTHERWISE NORMAL ECG WHEN COMPARED WITH ECG OF 27-NOV-2016 20:26, [place] INTERVAL HAS INCREASED NONSPECIFIC T WAVE ABNORMALITY, IMPROVED IN INFERIOR LEADS NONSPECIFIC T WAVE ABNORMALITY NO LONGER EVIDENT IN ANTEROLATERAL LEADS Confirmed by EAN ANTONIO, BOBBY ([id number]) on 03/03/2017 11:31:41 AM Referred By: Skip Rabago Confirmed By:BOBBY MCKOY MD
[2017-03-03] MEDS: chlordiazePOXIDE 5 MG CAPSULE PO SCH ×2 (17:10→22:19)
[2017-03-03] MEDS: IBUPROFEN 400 MG TABLET (FP) PO PRN (17:16)
[2017-03-03] MEDS: LATANOPROST 0.005% OPHTH SOLN 2.5ML BOTTLE OU SCH (21:50)
[2017-03-03] MEDS: THIAMINE HCL 100 MG TABLET (FP) PO SCH (22:19)
[2017-03-03] MEDS: QUEtiapine FUMARATE 100 MG TABLET (FP) PO SCH (22:19)
[2017-03-03] MEDS: diphenhydrAMINE HCL 50 MG CAPSULE PO PRN (22:20)
[2017-03-04] MEDS: chlordiazePOXIDE 5 MG CAPSULE PO SCH ×2 (08:10→10:39)
[2017-03-04] MEDS: VITAMINS A AND D TOPICAL OINTMENT 60 GM TUBE TP SCH ×3 (08:11→17:29)
[2017-03-04] MEDS: DORZOLAMIDE 2% HCL OPHTHALMIC SOLUTION 10 ML BOTTLE OU SCH ×3 (08:11→21:51)
[2017-03-04] MEDS: TIMOLOL 0.25% OPHTHALMIC SOL 5 ML BOTTLE OU SCH ×2 (10:38→21:52)
[2017-03-04] MEDS: NIFEdipine E.R. 90 MG TABLET (FP) PO SCH (10:39)
[2017-03-04] MEDS: PRENATAL VITAMINS W/ FOLIC ACID TABLET (FP) PO SCH (10:39)
[2017-03-04] MEDS: BRIMONIDINE TARTRATE 0.2% OPHTHALMIC 5 ML BOTTLE OU SCH ×2 (10:39→21:52)
[2017-03-04] MEDS: ASPIRIN 81 MG CHEWABLE TABLETS PO SCH (10:39)
[2017-03-04] MEDS: METHADONE HCL 5 MG TABLET (FOR DETOX USE ONLY) PO SCH (10:39)
[2017-03-04] MEDS: TOLNAFTATE 1% CREAM 15 GM TUBE TP SCH ×2 (10:40→22:19)
[2017-03-04] MEDS: NICOTINE 21 MG/24 HOURS TOPICAL PATCH TD SCH (10:40)
[2017-03-04] MEDS: IBUPROFEN 400 MG TABLET (FP) PO PRN ×2 (10:41→22:18)
--- NOTE | 2017-03-04 11:59 | PN ---
BHS Progress Note (SOAP) Subjective: sweats interrupted sleep anxiety Objective: 03/04/17 11:58 Vital Signs Temperature 97.5 F L 03/04/17 10:03 Pulse Rate 56 L 03/04/17 10:03 Respiratory Rate 16 03/04/17 10:03 Blood Pressure 131/90 03/04/17 10:03 O2 Sat by Pulse Oximetry (%) awake/alert ambulating no acute distress Assessment: 03/04/17 11:59 mild withdrawal sx Plan: continue detox increase fluids
[2017-03-04] MEDS: chlordiazePOXIDE HCL 25 MG CAPSULE PO PRN (14:16)
[2017-03-04] MEDS: ACETAMINOPHEN 325 MG TABLET (FP) PO PRN ×2 (14:18→20:45)
[2017-03-04] MEDS: chlordiazePOXIDE HCL 10 MG CAPSULE PO SCH ×2 (17:28→22:18)
[2017-03-04] MEDS: LATANOPROST 0.005% OPHTH SOLN 2.5ML BOTTLE OU SCH (21:53)
[2017-03-04] MEDS: THIAMINE HCL 100 MG TABLET (FP) PO SCH (22:18)
[2017-03-04] MEDS: QUEtiapine FUMARATE 100 MG TABLET (FP) PO SCH (22:19)
[2017-03-04] MEDS: diphenhydrAMINE HCL 50 MG CAPSULE PO PRN (22:27)
[2017-03-05] MEDS: VITAMINS A AND D TOPICAL OINTMENT 60 GM TUBE TP SCH ×4 (00:17→19:23)
[2017-03-05] MEDS ORDERED: chlordiazePOXIDE 5 MG CAPSULE ONE (04:57)
[2017-03-05] MEDS: chlordiazePOXIDE HCL 10 MG CAPSULE PO SCH ×2 (05:27→10:42)
[2017-03-05] MEDS: DORZOLAMIDE 2% HCL OPHTHALMIC SOLUTION 10 ML BOTTLE OU SCH ×3 (05:30→22:38)
[2017-03-05] MEDS ORDERED: METHADONE HCL 10 MG TABLET (FOR DETOX USE ONLY) PO SCH (10:00)
[2017-03-05] MEDS: TOLNAFTATE 1% CREAM 15 GM TUBE TP SCH ×2 (10:41→22:39)
[2017-03-05] MEDS: PRENATAL VITAMINS W/ FOLIC ACID TABLET (FP) PO SCH (10:42)
[2017-03-05] MEDS: NIFEdipine E.R. 90 MG TABLET (FP) PO SCH (10:42)
[2017-03-05] MEDS: ASPIRIN 81 MG CHEWABLE TABLETS PO SCH (10:42)
[2017-03-05] MEDS: NICOTINE 21 MG/24 HOURS TOPICAL PATCH TD SCH (10:42)
[2017-03-05] MEDS: TIMOLOL 0.25% OPHTHALMIC SOL 5 ML BOTTLE OU SCH ×2 (10:45→22:38)
[2017-03-05] MEDS: BRIMONIDINE TARTRATE 0.2% OPHTHALMIC 5 ML BOTTLE OU SCH ×2 (10:45→22:40)
--- NOTE | 2017-03-05 12:06 | PN ---
BHS Progress Note (SOAP) Subjective: sweats interrupted sleep Objective: 03/05/17 12:04 Vital Signs Temperature 96 F L 03/05/17 10:37 Pulse Rate 74 03/05/17 10:37 Respiratory Rate 18 03/05/17 10:37 Blood Pressure 130/90 03/05/17 10:37 O2 Sat by Pulse Oximetry (%) awake/alert ambulating no acute distress Assessment: 03/05/17 12:04 withdrawal sx Plan: continue detox increase fluids
--- NOTE | 2017-03-05 15:21 | PN ---
[facility] Progress Note Note: Psychiatry Attending's note (follow up) : Asked to see this patient. Issue : patient wants zolpidem at bedtime. Chart reviewed.Already seen by me on 03/02/17. Met with patient.Baseline mental status. Ms Buchanan explains that " everything is normal ". Except for mild insomnia.She requests ambien. Patient is made aware of the virtues of sleep hygiene. Intervention : ambien 5 mg po hs prn. Patient is informed of potential for parasomnias. She agrees with this careplan.
[2017-03-05] MEDS: THIAMINE HCL 100 MG TABLET (FP) PO SCH (22:38)
[2017-03-05] MEDS: LATANOPROST 0.005% OPHTH SOLN 2.5ML BOTTLE OU SCH (22:38)
[2017-03-05] MEDS: QUEtiapine FUMARATE 100 MG TABLET (FP) PO SCH (22:40)
[2017-03-05] MEDS: ZOLPIDEM TARTRATE 5 MG TABLET PO PRN (22:43)
[2017-03-06] MEDS: VITAMINS A AND D TOPICAL OINTMENT 60 GM TUBE TP SCH ×4 (00:26→18:18)
[2017-03-06] MEDS: DORZOLAMIDE 2% HCL OPHTHALMIC SOLUTION 10 ML BOTTLE OU SCH ×3 (05:56→21:49)
[2017-03-06] MEDS ORDERED: METHADONE HCL 5 MG TABLET (FOR DETOX USE ONLY) PO SCH (06:00)
[2017-03-06] MEDS: IBUPROFEN 400 MG TABLET (FP) PO PRN ×2 (07:05→18:30)
--- NOTE | 2017-03-06 08:28 | PN ---
BHS Progress Note (SOAP) Subjective: alert,irritable,anxious,interrupted sleep, Objective: 03/06/17 08:27 Vital Signs Temperature 97.5 F L 03/06/17 06:00 Pulse Rate 90 03/06/17 06:00 Respiratory Rate 18 03/06/17 06:00 Blood Pressure 123/77 03/06/17 06:00 O2 Sat by Pulse Oximetry (%) Assessment: 03/06/17 08:27 withdrawal symptom
[2017-03-06] MEDS: NIFEdipine E.R. 90 MG TABLET (FP) PO SCH (10:20)
[2017-03-06] MEDS: PRENATAL VITAMINS W/ FOLIC ACID TABLET (FP) PO SCH (10:20)
[2017-03-06] MEDS: TIMOLOL 0.25% OPHTHALMIC SOL 5 ML BOTTLE OU SCH ×2 (10:20→21:50)
[2017-03-06] MEDS: BRIMONIDINE TARTRATE 0.2% OPHTHALMIC 5 ML BOTTLE OU SCH ×2 (10:21→21:50)
[2017-03-06] MEDS: NICOTINE 21 MG/24 HOURS TOPICAL PATCH TD SCH (10:21)
[2017-03-06] MEDS: ASPIRIN 81 MG CHEWABLE TABLETS PO SCH (10:21)
[2017-03-06] MEDS: TOLNAFTATE 1% CREAM 15 GM TUBE TP SCH ×2 (10:22→22:24)
[2017-03-06] MEDS ORDERED: hydrOXYzine PAMOATE 50 MG CAPSULE (FP) PO PRN (11:43)
[2017-03-06] MEDS: LATANOPROST 0.005% OPHTH SOLN 2.5ML BOTTLE OU SCH (21:50)
[2017-03-06] MEDS: ZOLPIDEM TARTRATE 5 MG TABLET PO PRN (22:22)
[2017-03-06] MEDS: THIAMINE HCL 100 MG TABLET (FP) PO SCH (22:24)
[2017-03-06] MEDS: QUEtiapine FUMARATE 100 MG TABLET (FP) PO SCH (22:24)
[2017-03-07] MEDS: VITAMINS A AND D TOPICAL OINTMENT 60 GM TUBE TP SCH ×5 (00:12→23:53)
[2017-03-07] MEDS: DORZOLAMIDE 2% HCL OPHTHALMIC SOLUTION 10 ML BOTTLE OU SCH ×3 (06:11→22:20)
[2017-03-07] MEDS: BRIMONIDINE TARTRATE 0.2% OPHTHALMIC 5 ML BOTTLE OU SCH ×2 (11:02→22:20)
[2017-03-07] MEDS: ASPIRIN 81 MG CHEWABLE TABLETS PO SCH (11:03)
[2017-03-07] MEDS: NIFEdipine E.R. 90 MG TABLET (FP) PO SCH (11:03)
[2017-03-07] MEDS: PRENATAL VITAMINS W/ FOLIC ACID TABLET (FP) PO SCH (11:03)
[2017-03-07] MEDS: TIMOLOL 0.25% OPHTHALMIC SOL 5 ML BOTTLE OU SCH ×2 (11:04→22:20)
[2017-03-07] MEDS: NICOTINE 21 MG/24 HOURS TOPICAL PATCH TD SCH (11:04)
[2017-03-07] MEDS: TOLNAFTATE 1% CREAM 15 GM TUBE TP SCH ×2 (11:06→22:19)
--- NOTE | 2017-03-07 15:17 | PN ---
S Progress Note (SOAP) Subjective: ALERT,IRRITABLE,ANXIOUS Objective: 03/07/17 15:16 Vital Signs Temperature 96.4 F L 03/07/17 14:11 Pulse Rate 82 03/07/17 14:11 Respiratory Rate 18 03/07/17 14:11 Blood Pressure 130/85 03/07/17 14:11 O2 Sat by Pulse Oximetry (%) Assessment: 03/07/17 15:16 WITHDRAWAL SYMPTOM Plan: CONTINUE DETOX,DISCHARGE IN AM
[2017-03-07] MEDS: IBUPROFEN 400 MG TABLET (FP) PO PRN (22:18)
[2017-03-07] MEDS: ZOLPIDEM TARTRATE 5 MG TABLET PO PRN (22:18)
[2017-03-07] MEDS: QUEtiapine FUMARATE 100 MG TABLET (FP) PO SCH (22:19)
[2017-03-07] MEDS: THIAMINE HCL 100 MG TABLET (FP) PO SCH (22:20)
[2017-03-07] MEDS: LATANOPROST 0.005% OPHTH SOLN 2.5ML BOTTLE OU SCH (22:21)
[2017-03-08] MEDS: DORZOLAMIDE 2% HCL OPHTHALMIC SOLUTION 10 ML BOTTLE OU SCH (06:38)
[2017-03-08] MEDS: VITAMINS A AND D TOPICAL OINTMENT 60 GM TUBE TP SCH (06:38)
[2017-03-08] MEDS: NIFEdipine E.R. 90 MG TABLET (FP) PO SCH (09:10)
[2017-03-08] MEDS: ASPIRIN 81 MG CHEWABLE TABLETS PO SCH (09:10)
[2017-03-08] MEDS: PRENATAL VITAMINS W/ FOLIC ACID TABLET (FP) PO SCH (09:10)
[2017-03-08] MEDS: TIMOLOL 0.25% OPHTHALMIC SOL 5 ML BOTTLE OU SCH (09:11)
[2017-03-08] MEDS: BRIMONIDINE TARTRATE 0.2% OPHTHALMIC 5 ML BOTTLE OU SCH (09:12)
--- NOTE | 2017-03-08 09:41 | DS ---
[facility] Detox Discharge Summary Admission Date: 03/01/17 Discharge Date: 03/08/17 - History Present History: Alcohol Dependence - Physical Exam Results Vital Signs: Vital Signs Temperature 96.1 F L 03/08/17 06:35 Pulse Rate 81 03/08/17 06:35 Respiratory Rate 18 03/08/17 06:35 Blood Pressure 117/56 03/08/17 06:35 O2 Sat by Pulse Oximetry (%) - Treatment Hospital Course: Detox Protocol Followed, Detoxed Safely, Responded well, Discharged Condition Good, Rehab Referral Accepted - Medication Discharge Medications: Ambulatory Orders Nifedipine ER [Procardia Xl -] 90 mg PO DAILY 12/12/15 Aspirin [ASA -] 81 mg PO DAILY 05/05/16 Latanoprost 0.005% Eye Drops [Xalatan 0.005% Eye Drops -] 1 drop OP HS #1 drops 06/01/16 Albuterol Sulfate Inhaler - [Ventolin HFA Inhaler -] 2 puff IH Q4H PRN #1 inhaler 12/02/16 Brimonidine Tartrate [Alphagan 0.15% -] 1 drop OU BID #1 drop 12/02/16 Dorzolamide HCl [Trusopt 2% -] 1 drop OU TID #1 drop 12/02/16 Timolol 0.25% [Timoptic 0.25%] 1 drop OU BID #1 drop 12/02/16 Zolpidem Tartrate [Ambien] 10 mg PO HS 03/01/17 Quetiapine Fumarate [Seroquel] 100 mg PO HS #30 tablet 03/02/17 - Diagnosis (1) Alcohol dependence with uncomplicated withdrawal Current Visit: Yes Status: Chronic (2) Alcohol related seizure Current Visit: Yes Status: Inactive (3) Cocaine dependence Current Visit: Yes Status: Chronic Qualifiers: Substance use status: uncomplicated Qualified Code(s): F14.20 - Cocaine dependence, uncomplicated (4) Insomnia Current Visit: Yes Status: Deleted Qualifiers: Insomnia type: unspecified Qualified Code(s): G47.00 - Insomnia, unspecified (5) Nicotine dependence Current Visit: Yes Status: Chronic Qualifiers: Nicotine product type: cigarettes Substance use status: uncomplicated Qualified Code(s): F17.210 - Nicotine dependence, cigarettes, uncomplicated (6) Opioid dependence with withdrawal Current Visit: Yes Status: Chronic (7) Substance induced mood disorder Current Visit: Yes Status: Acute (8) Asthma Current Visit: Yes Status: Chronic Qualifiers: Asthma severity: mild persistent Asthma complication type: with status asthmaticus Qualified Code(s): J45.32 - Mild persistent asthma with status asthmaticus (9) Blindness of left eye Current Visit: Yes Status: Chronic (10) COPD (chronic obstructive pulmonary disease) Current Visit: Yes Status: Chronic Qualifiers: COPD type: emphysema Emphysema type: other Qualified Code(s): J43.8 - Other emphysema (11) Diabetes mellitus type II, controlled Current Visit: Yes Status: Chronic Qualifiers: Diabetes mellitus complication status: without complication Diabetes mellitus assisted insulin use: without assisted use Qualified Code(s): E11.9 - Type 2 diabetes mellitus without complications (12) Glaucoma Current Visit: Yes Status: Chronic Qualifiers: Glaucoma type: open-angle Open angle glaucoma type: unspecified type Laterality: right Glaucoma stage: moderate stage Qualified Code(s) : H40.10X2 - Unspecified open-angle glaucoma, moderate stage (13) Hearing loss, right Current Visit: Yes Status: Chronic Qualifiers: Contralateral hearing status: unspecified (14) Hypertension Current Visit: Yes Status: Chronic Qualifiers: Hypertension type: essential hypertension Qualified Code(s): I10 - Essential (primary) hypertension (15) PTSD (post-traumatic stress disorder) Current Visit: Yes Status: Chronic (16) Weight loss Current Visit: No Status: Deleted (17) Anxiety Current Visit: No Status: Chronic (18) Marihuana dependence Current Visit: No Status: Chronic (19) Bipolar 1 disorder, depressed Current Visit: No Status: Deleted (20) Depressed Current Visit: No Status: Deleted Qualifiers: Depression Type: dysthymia Qualified Code(s): F34.1 - Dysthymic disorder - AMA Did Patient Leave Against Medical Advice: No
[2017-03-08 10:18] VITALS: BP 131/92; PULSE 98; TEMP 97.9
== END 2017-03-08 10:00 | disposition home or self-care (01) | DRG 897 ==
LOC: YASAS 10:13 → Y6N 15:23
PROVIDERS: ADMIT Internal Medicine; ATTEND Internal Medicine
PROC: HZ2ZZZZ Detoxification Services for Substance Abuse Treatment (ICD-10-PCS; principal; 2017-03-01)
DX: F19.230 Other psychoactive substance dependence with withdrawal, uncomplicated (principal); F14.20 Cocaine dependence, uncomplicated; J45.32 Mild persistent asthma with status asthmaticus; F11.23 Opioid dependence with withdrawal; F10.230 Alcohol dependence with withdrawal, uncomplicated; F17.210 Nicotine dependence, cigarettes, uncomplicated; F41.9 Anxiety disorder, unspecified; F43.10 Post-traumatic stress disorder, unspecified; F19.24 Other psychoactive substance dependence with psychoactive substance-induced mood disorder; I10 Essential (primary) hypertension; G47.00 Insomnia, unspecified; J43.8 Other emphysema; H54.42 Blindness, left eye, normal vision right eye; E11.9 Type 2 diabetes mellitus without complications; H40.10X2 Unspecified open-angle glaucoma, moderate stage; H91.91 Unspecified hearing loss, right ear; F31.9 Bipolar disorder, unspecified; F34.1 Dysthymic disorder; Z79.82 Long term (current) use of aspirin; Z88.0 Allergy status to penicillin; Z86.69 Personal history of other diseases of the nervous system and sense organs; Z91.018 Allergy to other foods
CPT/HCPCS: 36415; 80053; 81003; 81015; 85027; 86593; 93005; 93010

== ENCOUNTER 2017-05-18 10:36 | Inpatient (IN) | payer OTHER ==
[2017-05-18 11:13] VITALS: BMI 30.3
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
[2017-05-18] MEDS ORDERED: MAGNESIUM HYDROX 2400MG/30ML ORAL SUSPENSION 30 ML CUP PO PRN (16:06)
[2017-05-18] MEDS ORDERED: IBUPROFEN 400 MG TABLET (FP) PO PRN (16:06)
[2017-05-18] MEDS ORDERED: chlordiazePOXIDE HCL 25 MG CAPSULE PO PRN (16:06)
[2017-05-18] MEDS ORDERED: MAGNESIUM CITRATE 300 ML BOTTLE PO PRN (16:06)
[2017-05-18] MEDS ORDERED: LOPERAMIDE HCL 2 MG CAPSULE PO PRN (16:06)
[2017-05-18] MEDS ORDERED: NICOTINE POLACRILEX 2 MG GUM BC PRN (16:06)
[2017-05-18] MEDS ORDERED: guaiFENesin/D-METHORPHAN HB 10 ML UNIT-DOSE CUPS PO PRN (16:06)
[2017-05-18] MEDS ORDERED: P-EPHED 60MG/TRIPROLIDI 2.5MG TABLET PO PRN (16:06)
[2017-05-18] MEDS ORDERED: MENTHOL/PHENOL 1 EACH UD MM PRN (16:06)
[2017-05-18] MEDS ORDERED: MAG HYDROX/AL HYDROX/SIMETH 30 ML UNIT-DOSE CUP PO PRN (16:06)
[2017-05-18] MEDS ORDERED: ALBUTEROL SO4 18 GM HFA INHALER IH PRN (16:08)
[2017-05-18] MEDS ORDERED: METHADONE HCL 10 MG TABLET (FOR DETOX USE ONLY) PO ONE ×2 (17:00→23:00)
[2017-05-18] MEDS ORDERED: chlordiazePOXIDE HCL 25 MG CAPSULE PO ONE (17:00)
[2017-05-18] MEDS: ASPIRIN 81 MG CHEWABLE TABLETS PO SCH (18:07)
[2017-05-18] MEDS: ACETAMINOPHEN 325 MG TABLET (FP) PO PRN (18:16)
[2017-05-18] MEDS: NICOTINE 14 MG/24 HOURS TOPICAL PATCH TD SCH (18:16)
[2017-05-18] MEDS: NIFEdipine E.R. 90 MG TABLET (FP) PO SCH (18:24)
[2017-05-18] MEDS: TIMOLOL 0.25% OPHTHALMIC SOL 5 ML BOTTLE OU SCH (22:10)
[2017-05-18] MEDS: NAPROXEN 500 MG TABLET (FP) PO SCH (22:10)
[2017-05-18] MEDS: DORZOLAMIDE 2% HCL OPHTHALMIC SOLUTION 10 ML BOTTLE OU SCH (22:11)
[2017-05-18] MEDS: BRIMONIDINE TARTRATE 0.15% OPHTHALMIC 5 ML BOTTLE OU SCH (22:12)
[2017-05-18] MEDS: THIAMINE HCL 100 MG TABLET (FP) PO SCH (22:13)
[2017-05-18] MEDS: chlordiazePOXIDE HCL 25 MG CAPSULE PO SCH (22:13)
[2017-05-18] MEDS: LATANOPROST 0.005% OPHTH SOLN 2.5ML BOTTLE OU SCH (22:17)
[2017-05-18 23:24] LABS: URINE APPEARANCE SLCLOUDY; URINE BILIRUBIN NEGATIVE (NEGATIVE); URINE BLOOD 1+ (NEGATIVE); URINE COLOR YELLOW; URINE GLUCOSE (UA) NEGATIVE (NEGATIVE); URINE KETONE NEGATIVE (NEGATIVE); URINE NITRITE NEGATIVE (NEGATIVE); URINE PROTEIN NEGATIVE (NEGATIVE); URINE UROBILINOGEN NEGATIVE mg/dL (0.2-1.0)
[2017-05-18 23:27] LABS: URINE MUCUS MODERATE
[2017-05-19] MEDS: DORZOLAMIDE 2% HCL OPHTHALMIC SOLUTION 10 ML BOTTLE OU SCH ×3 (07:48→22:50)
[2017-05-19] MEDS: chlordiazePOXIDE HCL 25 MG CAPSULE PO SCH ×4 (07:48→22:51)
[2017-05-19] MEDS: hydrOXYzine PAMOATE 50 MG CAPSULE (FP) PO PRN (09:01)
[2017-05-19] MEDS: BRIMONIDINE TARTRATE 0.15% OPHTHALMIC 5 ML BOTTLE OU SCH ×2 (09:02→22:49)
--- NOTE | 2017-05-19 09:29 | CONSULT ---
[facility] Psychiatric Consult - Data Date of interview: 05/19/17 Admission source: [facility] Identifying data: This is 51 years old female with hidotry of depression, PTSD, with no history of psychiatric hospitalizarion, intoxicated with: Crack, Alcohol, Heroin, Cannabis and Nicotine Substance Abuse History: - Smoking Cessation. Smoking history: Current every day smoker. Have you smoked in the past 12 months: Yes. Aproximately how many cigarettes per day: 5. Cigars Per Day: 0. Hx Chewing Tobacco Use: No. Initiated information on smoking cessation: Yes. 'Breaking Loose' booklet given : 05/18/17. - Substance & Tx. History. Hx Alcohol Use: Yes. Hx Substance Use : Yes. Substance Use Type: Alcohol, Cocaine, Heroin, Marijuana, Opiates. Hx Substance Use Treatment: Yes. - Substances Abused. Heroin. Route: Inhalation. Frequency: Daily. Amount used: 7 BAGS. Age of first use: 15. Date of Last Use: 05/16/17. Alcohol. Route: Oral. Frequency: Daily. Amount used: 1 PINT RUM. Age of first use: 12. Date of Last Use: 05/18/17. * * Crack. Route: Smoking. Frequency: Daily. Amount used: 3 BAGS. Age of first use: 17. Date of Last Use: 05/17/17. Marijuana/Hashish. Route: Smoking. Frequency: 1-2 times per week. Amount used: 2 BAGS. Age of first use : 12. Date of Last Use: 05/17/17 Medical History: Asthma HTN, GERD, DM--2 Psychiatric History: Patiemnt reports history of depression, reports taking prior to admission: Ambien 10mg po qhs. Seroquel 100mg po qhs Physical/Sexual Abuse/Trauma History: Denies Additional Comment: Ambien 10mg po qhs. Seroquel 100mg po qhs Mental Status Exam - Mental Status Exam Alert and Oriented to: Person Cognitive Function: Fair Patient Appearance: Unkempt Mood: Sad Affect: Flat Patient Behavior: Sedated Speech Pattern: Delayed Voice Loudness: Mildly Soft/Quiet Thought Process: Circumstantial Thought Disorder: Being Controlled Hallucinations: Denies Suicidal Ideation: Denies Homicidal Ideation: Denies Insight/Judgement: Fair Sleep: Fair Appetite: Weight gain Muscle strength/Tone: Mild Hypotonicity Gait/Station: Shuffling Additional Comments: Ambien 10mg po qhs. Seroquel 100mg po qhs Psychiatric Findings - Problem List ([place] 1, 2,3) (1) Substance induced mood disorder Current Visit: No Status: Acute (2) Alcohol dependence with uncomplicated withdrawal Current Visit: No Status: Chronic (3) Marihuana dependence Current Visit: No Status: Chronic (4) Nicotine dependence Current Visit: No Status: Chronic Qualifiers: Nicotine product type: cigarettes Substance use status: uncomplicated Qualified Code(s): F17.210 - Nicotine dependence, cigarettes, uncomplicated (5) Opioid dependence with withdrawal Current Visit: No Status: Chronic (6) PTSD (post-traumatic stress disorder) Current Visit: No Status: Chronic
[2017-05-19] MEDS ORDERED: TRIMETHOBENZAMIDE HCL 300 MG CAPSULE PO PRN (09:34)
--- NOTE | 2017-05-19 09:34 | PN ---
[facility] CIWA - CIWA Score Nausea/Vomitin-Mild Nausea/No Vomiting Muscle Tremors: 4-Moderate,w/Arms Extend Anxiety: 4-Mod. Anxious/Guarded Agitation: 4-Moderately Restless Paroxysmal Sweats: 3 Orientation: 0-Oriented Tacttile Disturbances: 0-None Auditory Disturbances: 0-None Visual Disturbances: 0-None Headache: 0-None Present CIWA-Ar Total Score: 16 [facility] COWS - Scale Resting Pulse: 0= [place] 80 or Below Sweatin=Flushed/Facial Moisture Restless Observation: 1= Difficult to Sit Still Pupil Size: 0= Normal to Room Light Bone or Joint Aches: 2= Severe Diffuse Aches Runny Nose/ Eye Tearin= Runny Nose/Eyes GI Upset > 30mins: 2= Nausea/Diarrhea Tremor Observation of Outstretched Hands: 2= Slight Tremor Visible Yawning Observation: 1= 1-2x During Session Anxiety or Irritability: 2=Irritable/Anxious Goose Flesh Skin: 3=Piloerection COWS Score: 17 [facility] Progress Note (SOAP) Subjective: nausea sweats chills body aches interrupted sleep restless Objective: 05/19/17 09:33 Vital Signs Temperature 98.1 F 05/19/17 07:55 Pulse Rate 70 05/19/17 07:55 Respiratory Rate 18 05/19/17 07:55 Blood Pressure 117/77 05/19/17 07:55 O2 Sat by Pulse Oximetry (%) Laboratory Tests 05/18/17 05/18/17 05/19/17 12:05 Unknown 05:52 POC Glucometer 117 96 Urine Color Yellow Urine Appearance Slcloudy Urine pH 6.0 Ur Specific [place] 1.017 Urine Protein Negative Urine Glucose (UA) Negative Urine Ketones Negative Urine Blood 1+ H Urine Nitrite Negative Urine Bilirubin Negative Urine Urobilinogen Negative Urine RBC 5-10 Urine WBC 10-20 Ur Epithelial Cells Rare Urine Mucus Moderate rest of labs pending aaox3 ambulating no acute distress Assessment: 05/19/17 09:33 withdrawal sx Plan: continue detox increase fluids f/u pending labs tigan po prn
[2017-05-19] MEDS ORDERED: METHADONE HCL 10 MG TABLET (FOR DETOX USE ONLY) PO SCH (10:00)
[2017-05-19 10:12] LABS: MCH 30.1 pg (25.7-33.7); MCHC 32.9 g/dl (32.0-36.0); MEAN CELL VOLUME 91.5 fl (80-96); MEAN PLT VOLUME 8.7 fl (7.5-11.1); PLATELET COUNT 289 K/MM3 (134-434); RDW 13.8 % (11.6-15.6); WHITE BLOOD COUNT 7.5 K/mm3 (4.0-10.0)
[2017-05-19] MEDS ORDERED: ZOLPIDEM TARTRATE 5 MG TABLET PO PRN (10:32)
[2017-05-19] MEDS: PRENATAL VITAMINS W/ FOLIC ACID TABLET (FP) PO SCH (10:38)
[2017-05-19] MEDS: TIMOLOL 0.25% OPHTHALMIC SOL 5 ML BOTTLE OU SCH ×2 (10:38→22:49)
[2017-05-19] MEDS: ASPIRIN 81 MG CHEWABLE TABLETS PO SCH (10:38)
[2017-05-19] MEDS: NAPROXEN 500 MG TABLET (FP) PO SCH ×2 (10:38→22:51)
[2017-05-19] MEDS: NIFEdipine E.R. 90 MG TABLET (FP) PO SCH (10:38)
[2017-05-19] MEDS: NICOTINE 14 MG/24 HOURS TOPICAL PATCH TD SCH (10:40)
[2017-05-19 10:41] LABS: ALBUMIN 3.7 g/dl (3.4-5.0); ALK PHOS 99 U/L (45-117); ANION GAP 7 (8-16); BILIRUBIN,TOTAL 0.8 mg/dL (0.2-1.0); CO2 29 mmol/L (21-32); CREATININE 1.4 mg/dL (0.55-1.02); GLUCOSE,RANDOM 95 mg/dL (74-106); SGOT/AST 20 U/L (15-37); SGPT/ALT 30 U/L (12-78); TOT PROT 7.3 g/dl (6.4-8.2)
[2017-05-19] MEDS ORDERED: FLU VACCINE QUAD 60 MCG/0.5 ML (MDV 17-18) IM ONE (12:00)
[2017-05-19 13:44] LABS: HIV 1 & 2 AB NEGATIVE; HIV 1 AGp24 NEGATIVE
[2017-05-19] MEDS: TOLNAFTATE 1% CREAM 15 GM TUBE TP SCH ×2 (18:21→22:57)
[2017-05-19 18:22] LABS: URINE LEUK ESTERASE Negative (NEGATIVE)
[2017-05-19] MEDS: LATANOPROST 0.005% OPHTH SOLN 2.5ML BOTTLE OU SCH (22:49)
[2017-05-19] MEDS: THIAMINE HCL 100 MG TABLET (FP) PO SCH (22:50)
[2017-05-19] MEDS: QUEtiapine FUMARATE 100 MG TABLET (FP) PO SCH ×2 (22:51→22:54)
[2017-05-19] MEDS: ZOLPIDEM TARTRATE 10 MG TABLET (PARK CARE ONLY) PO PRN (22:54)
[2017-05-20] MEDS: DORZOLAMIDE 2% HCL OPHTHALMIC SOLUTION 10 ML BOTTLE OU SCH ×3 (05:25→22:25)
[2017-05-20] MEDS: chlordiazePOXIDE HCL 25 MG CAPSULE PO SCH ×3 (05:25→18:01)
[2017-05-20] MEDS: ASPIRIN 81 MG CHEWABLE TABLETS PO SCH (10:47)
[2017-05-20] MEDS: NICOTINE 14 MG/24 HOURS TOPICAL PATCH TD SCH (10:47)
[2017-05-20] MEDS: TIMOLOL 0.25% OPHTHALMIC SOL 5 ML BOTTLE OU SCH ×2 (10:47→22:24)
--- NOTE | 2017-05-20 10:47 | PN ---
[facility] CIWA - CIWA Score Nausea/Vomitin-No Nausea/No Vomiting Muscle Tremors: 4-Moderate,w/Arms Extend Anxiety: 3 Agitation: 3 Paroxysmal Sweats: 3 Orientation: 0-Oriented Tacttile Disturbances: 0-None Auditory Disturbances: 0-None Visual Disturbances: 0-None Headache: 1-Very Mild CIWA-Ar Total Score: 14 [facility] COWS - Scale Resting Pulse: 0= [place] 80 or Below Sweatin=Flushed/Facial Moisture Restless Observation: 1= Difficult to Sit Still Pupil Size: 0= Normal to Room Light Bone or Joint Aches: 2= Severe Diffuse Aches Runny Nose/ Eye Tearin= Runny Nose/Eyes GI Upset > 30mins: 1= Stomach Cramp Tremor Observation of Outstretched Hands: 2= Slight Tremor Visible Yawning Observation: 2= >3x During Session Anxiety or Irritability: 2=Irritable/Anxious Goose Flesh Skin: 0=Smooth Skin COWS Score: 14 [facility] Progress Note (SOAP) Subjective: tired sweats shakes interrupted sleep agitation Objective: 05/20/17 10:46 Vital Signs Temperature 97.3 F L 05/20/17 10:41 Pulse Rate 78 05/20/17 10:41 Respiratory Rate 18 05/20/17 10:41 Blood Pressure 144/72 05/20/17 10:41 O2 Sat by Pulse Oximetry (%) Laboratory Tests 05/18/17 05/18/17 05/18/17 12:05 12:15 Unknown WBC RBC Hgb Hct MCV MCH MCHC RDW Plt Count MPV Sodium Potassium Chloride Carbon Dioxide Anion Gap BUN Creatinine Creat Clearance w eGFR POC Glucometer 117 Random Glucose Calcium Total Bilirubin AST ALT Alkaline Phosphatase Total Protein Albumin Urine Color Yellow Urine Appearance Slcloudy Urine pH 6.0 Ur Specific [place] 1.017 Urine Protein Negative Urine Glucose (UA) Negative Urine Ketones Negative Urine Blood 1+ H Urine Nitrite Negative Urine Bilirubin Negative Urine Urobilinogen Negative Ur Leukocyte Esterase Negative Urine RBC 2-5 Urine WBC 2-5 Ur Epithelial Cells Rare Urine Mucus Moderate RPR Titer HIV 1&2 Antibody Screen Negative HIV P24 Antigen Negative 05/19/17 05/19/17 05/19/17 05:52 06:00 06:00 WBC 7.5 RBC 4.47 Hgb 13.5 Hct 40.9 MCV 91.5 MCH 30.1 MCHC 32.9 RDW 13.8 Plt Count 289 MPV 8.7 Sodium 144 Potassium 3.6 Chloride 108 H Carbon Dioxide 29 D Anion Gap 7 L BUN 13 Creatinine 1.4 H Creat Clearance w eGFR 39.80 POC Glucometer 96 Random Glucose 95 Calcium 9.0 Total Bilirubin 0.8 D AST 20 D ALT 30 D Alkaline Phosphatase 99 D Total Protein 7.3 Albumin 3.7 Urine Color Urine Appearance Urine pH Ur Specific [place] Urine Protein Urine Glucose (UA) Urine Ketones Urine Blood Urine Nitrite Urine Bilirubin Urine Urobilinogen Ur Leukocyte Esterase Urine RBC Urine WBC Ur Epithelial Cells Urine Mucus RPR Titer HIV 1&2 Antibody Screen HIV P24 Antigen 05/19/17 06:00 WBC RBC Hgb Hct MCV MCH MCHC RDW Plt Count MPV Sodium Potassium Chloride Carbon Dioxide Anion Gap BUN Creatinine Creat Clearance w eGFR POC Glucometer Random Glucose Calcium Total Bilirubin AST ALT Alkaline Phosphatase Total Protein Albumin Urine Color Urine Appearance Urine pH Ur Specific [place] Urine Protein Urine Glucose (UA) Urine Ketones Urine Blood Urine Nitrite Urine Bilirubin Urine Urobilinogen Ur Leukocyte Esterase Urine RBC Urine WBC Ur Epithelial Cells Urine Mucus RPR Titer Nonreactive HIV 1&2 Antibody Screen HIV P24 Antigen aaox3 ambulating no acute distress Assessment: 05/20/17 10:46 withdrawal sx Plan: continue detox increase fluids
[2017-05-20] MEDS: NIFEdipine E.R. 90 MG TABLET (FP) PO SCH (10:48)
[2017-05-20] MEDS: PRENATAL VITAMINS W/ FOLIC ACID TABLET (FP) PO SCH (10:48)
[2017-05-20] MEDS: METHADONE HCL 5 MG TABLET (FOR DETOX USE ONLY) PO SCH (10:48)
[2017-05-20] MEDS: NAPROXEN 500 MG TABLET (FP) PO SCH ×2 (10:48→22:26)
[2017-05-20] MEDS: TOLNAFTATE 1% CREAM 15 GM TUBE TP SCH ×2 (10:48→22:25)
[2017-05-20] MEDS: BRIMONIDINE TARTRATE 0.15% OPHTHALMIC 5 ML BOTTLE OU SCH ×2 (10:50→22:24)
[2017-05-20] MEDS: ACETAMINOPHEN 325 MG TABLET (FP) PO PRN (13:18)
[2017-05-20] MEDS: THIAMINE HCL 100 MG TABLET (FP) PO SCH (22:25)
[2017-05-20] MEDS: LATANOPROST 0.005% OPHTH SOLN 2.5ML BOTTLE OU SCH (22:25)
[2017-05-20] MEDS: chlordiazePOXIDE 5 MG CAPSULE PO SCH (22:26)
[2017-05-20] MEDS: ZOLPIDEM TARTRATE 10 MG TABLET (PARK CARE ONLY) PO PRN (22:26)
[2017-05-20] MEDS: QUEtiapine FUMARATE 100 MG TABLET (FP) PO SCH (22:27)
[2017-05-21] MEDS: chlordiazePOXIDE 5 MG CAPSULE PO SCH ×3 (05:19→17:06)
[2017-05-21] MEDS: DORZOLAMIDE 2% HCL OPHTHALMIC SOLUTION 10 ML BOTTLE OU SCH ×3 (05:20→22:15)
[2017-05-21] MEDS: ACETAMINOPHEN 325 MG TABLET (FP) PO PRN ×2 (05:21→20:53)
[2017-05-21] MEDS ORDERED: TRIMETHOBENZAMIDE HCL 200MG/2ML INJ IM ONE (09:47)
[2017-05-21] MEDS: PRENATAL VITAMINS W/ FOLIC ACID TABLET (FP) PO SCH (10:30)
[2017-05-21] MEDS: NAPROXEN 500 MG TABLET (FP) PO SCH ×2 (10:30→22:16)
[2017-05-21] MEDS: NIFEdipine E.R. 90 MG TABLET (FP) PO SCH (10:30)
[2017-05-21] MEDS: ASPIRIN 81 MG CHEWABLE TABLETS PO SCH (10:30)
[2017-05-21] MEDS: METHADONE HCL 5 MG TABLET (FOR DETOX USE ONLY) PO SCH (10:31)
[2017-05-21] MEDS: TOLNAFTATE 1% CREAM 15 GM TUBE TP SCH ×2 (10:31→22:15)
[2017-05-21] MEDS: TIMOLOL 0.25% OPHTHALMIC SOL 5 ML BOTTLE OU SCH ×2 (10:32→22:15)
[2017-05-21] MEDS: NICOTINE 14 MG/24 HOURS TOPICAL PATCH TD SCH (10:33)
[2017-05-21] MEDS: BRIMONIDINE TARTRATE 0.15% OPHTHALMIC 5 ML BOTTLE OU SCH ×2 (10:33→22:15)
--- NOTE | 2017-05-21 10:33 | PN ---
[facility] Progress Note (SOAP) Subjective: sweats nausea interrupted sleep agitation irritable Objective: 05/21/17 10:31 Vital Signs Temperature 97.3 F L 05/21/17 10:26 Pulse Rate 72 05/21/17 10:26 Respiratory Rate 20 05/21/17 10:26 Blood Pressure 121/76 05/21/17 10:26 O2 Sat by Pulse Oximetry (%) aaox3 ambulating no acute distress Assessment: 05/21/17 10:33 withdrawal sx Plan: continue detox tigan IM x one increase fluids
--- NOTE | 2017-05-21 12:04 | EKG ---
Test Reason : Blood Pressure : / mmHG Vent. Rate : 064 BPM Atrial Rate : 064 BPM P-R Int : 304 ms QRS Dur : 078 ms QT Int : 400 ms P-R-T Axes : 062 082 047 degrees QTc Int : 412 ms SINUS RHYTHM WITH SINUS ARRHYTHMIA WITH 1ST DEGREE A-V BLOCK NONSPECIFIC T WAVE ABNORMALITY ABNORMAL ECG WHEN COMPARED WITH ECG OF 01-MAR-2017 16:01, NO SIGNIFICANT CHANGE WAS FOUND Confirmed by FABY FREY MD ([id number]) on 05/21/2017 12:04:10 PM Referred By: Confirmed By:FABY FREY MD
[2017-05-21] MEDS: LATANOPROST 0.005% OPHTH SOLN 2.5ML BOTTLE OU SCH (22:14)
[2017-05-21] MEDS: QUEtiapine FUMARATE 100 MG TABLET (FP) PO SCH (22:16)
[2017-05-21] MEDS: chlordiazePOXIDE HCL 10 MG CAPSULE PO SCH (22:16)
[2017-05-21] MEDS: THIAMINE HCL 100 MG TABLET (FP) PO SCH (22:16)
[2017-05-21] MEDS: ZOLPIDEM TARTRATE 10 MG TABLET (PARK CARE ONLY) PO PRN (22:16)
[2017-05-22] MEDS: chlordiazePOXIDE HCL 10 MG CAPSULE PO SCH ×3 (06:05→17:18)
[2017-05-22] MEDS: DORZOLAMIDE 2% HCL OPHTHALMIC SOLUTION 10 ML BOTTLE OU SCH ×3 (06:06→22:19)
[2017-05-22] MEDS ORDERED: METHADONE HCL 10 MG TABLET (FOR DETOX USE ONLY) PO SCH (10:00)
[2017-05-22] MEDS: NAPROXEN 500 MG TABLET (FP) PO SCH ×2 (10:28→22:18)
[2017-05-22] MEDS: TIMOLOL 0.25% OPHTHALMIC SOL 5 ML BOTTLE OU SCH ×2 (10:28→22:18)
[2017-05-22] MEDS: TOLNAFTATE 1% CREAM 15 GM TUBE TP SCH ×2 (10:28→22:18)
[2017-05-22] MEDS: PRENATAL VITAMINS W/ FOLIC ACID TABLET (FP) PO SCH (10:28)
[2017-05-22] MEDS: ASPIRIN 81 MG CHEWABLE TABLETS PO SCH (10:29)
[2017-05-22] MEDS: NICOTINE 14 MG/24 HOURS TOPICAL PATCH TD SCH (10:29)
[2017-05-22] MEDS: BRIMONIDINE TARTRATE 0.15% OPHTHALMIC 5 ML BOTTLE OU SCH ×2 (10:29→22:18)
[2017-05-22] MEDS: NIFEdipine E.R. 90 MG TABLET (FP) PO SCH (10:29)
--- NOTE | 2017-05-22 14:12 | PN ---
[facility] Progress Note (SOAP) Subjective: alert,irritable,anxious,interrupted sleep,pain in the body Objective: 05/22/17 14:11 Vital Signs Temperature 97.0 F L 05/22/17 10:26 Pulse Rate 66 05/22/17 10:26 Respiratory Rate 16 05/22/17 10:26 Blood Pressure 140/86 05/22/17 10:26 O2 Sat by Pulse Oximetry (%) Assessment: 05/22/17 14:12 withdrawal symptom Plan: continue detox
[2017-05-22] MEDS: hydrOXYzine PAMOATE 50 MG CAPSULE (FP) PO PRN (15:14)
[2017-05-22] MEDS: THIAMINE HCL 100 MG TABLET (FP) PO SCH (22:18)
[2017-05-22] MEDS: QUEtiapine FUMARATE 100 MG TABLET (FP) PO SCH (22:18)
[2017-05-22] MEDS: LATANOPROST 0.005% OPHTH SOLN 2.5ML BOTTLE OU SCH (22:19)
[2017-05-23] MEDS: DORZOLAMIDE 2% HCL OPHTHALMIC SOLUTION 10 ML BOTTLE OU SCH ×3 (05:59→22:23)
[2017-05-23] MEDS ORDERED: METHADONE HCL 5 MG TABLET (FOR DETOX USE ONLY) PO SCH (06:00)
--- NOTE | 2017-05-23 07:59 | PN ---
S Progress Note (SOAP) Subjective: alert,irritable,interrupted sleep Objective: 05/23/17 07:58 Vital Signs Temperature 96.3 F L 05/23/17 06:20 Pulse Rate 80 05/23/17 06:20 Respiratory Rate 18 05/23/17 06:20 Blood Pressure 126/80 05/23/17 06:20 O2 Sat by Pulse Oximetry (%) Assessment: 05/23/17 07:58 withdrawal symptom Plan: continue detox,discharge in am
[2017-05-23] MEDS: TOLNAFTATE 1% CREAM 15 GM TUBE TP SCH ×2 (10:21→22:23)
[2017-05-23] MEDS: PRENATAL VITAMINS W/ FOLIC ACID TABLET (FP) PO SCH (10:22)
[2017-05-23] MEDS: NIFEdipine E.R. 90 MG TABLET (FP) PO SCH (10:22)
[2017-05-23] MEDS: TIMOLOL 0.25% OPHTHALMIC SOL 5 ML BOTTLE OU SCH ×2 (10:22→22:23)
[2017-05-23] MEDS: NAPROXEN 500 MG TABLET (FP) PO SCH ×2 (10:22→22:22)
[2017-05-23] MEDS: ASPIRIN 81 MG CHEWABLE TABLETS PO SCH (10:22)
[2017-05-23] MEDS: NICOTINE 14 MG/24 HOURS TOPICAL PATCH TD SCH (10:22)
[2017-05-23] MEDS: BRIMONIDINE TARTRATE 0.15% OPHTHALMIC 5 ML BOTTLE OU SCH ×2 (10:23→22:28)
[2017-05-23] MEDS: hydrOXYzine PAMOATE 50 MG CAPSULE (FP) PO PRN ×2 (13:55→18:09)
[2017-05-23] MEDS: ACETAMINOPHEN 325 MG TABLET (FP) PO PRN (18:07)
[2017-05-23] MEDS: THIAMINE HCL 100 MG TABLET (FP) PO SCH (22:22)
[2017-05-23] MEDS: QUEtiapine FUMARATE 100 MG TABLET (FP) PO SCH (22:22)
[2017-05-23] MEDS: LATANOPROST 0.005% OPHTH SOLN 2.5ML BOTTLE OU SCH (22:22)
[2017-05-24] MEDS: DORZOLAMIDE 2% HCL OPHTHALMIC SOLUTION 10 ML BOTTLE OU SCH (06:01)
[2017-05-24 06:11] VITALS: TEMP 97.7
--- NOTE | 2017-05-24 09:13 | DS ---
[facility] Detox Discharge Summary Admission Date: 05/18/17 Discharge Date: 05/24/17 - History Present History: Alcohol Dependence, Cocaine Dependence, Opioid Dependence - Physical Exam Results Vital Signs: Vital Signs Temperature 97.7 F 05/24/17 06:10 Pulse Rate 77 05/24/17 06:10 Respiratory Rate 18 05/24/17 06:10 Blood Pressure 110/75 05/24/17 06:10 O2 Sat by Pulse Oximetry (%) - Treatment Hospital Course: Detox Protocol Followed, Detoxed Safely, Responded well, Discharged Condition Good, Rehab Referral Accepted - Medication Discharge Medications: Ambulatory Orders Nifedipine ER [Procardia Xl -] 90 mg PO DAILY 12/12/15 Aspirin [ASA -] 81 mg PO DAILY 05/05/16 Latanoprost 0.005% Eye Drops [Xalatan 0.005% Eye Drops -] 1 drop OP HS #1 drops 06/01/16 Albuterol Sulfate Inhaler - [Ventolin HFA Inhaler -] 2 puff IH Q4H PRN #1 inhaler 12/02/16 Brimonidine Tartrate [Alphagan 0.15% -] 1 drop OU BID #1 drop 12/02/16 Dorzolamide HCl [Trusopt 2% -] 1 drop OU TID #1 drop 12/02/16 Timolol 0.25% [Timoptic 0.25%] 1 drop OU BID #1 drop 12/02/16 Quetiapine Fumarate [Seroquel] 100 mg PO HS #30 tablet 03/02/17 Quetiapine Fumarate [Seroquel] 100 mg PO HS #30 tablet 05/19/17 - Diagnosis (1) Alcohol dependence with uncomplicated withdrawal Current Visit: No Status: Chronic (2) Anxiety Current Visit: No Status: Chronic (3) Asthma Current Visit: No Status: Chronic Qualifiers: Asthma severity: mild persistent Asthma complication type: with status asthmaticus (4) COPD (chronic obstructive pulmonary disease) Current Visit: No Status: Chronic Qualifiers: COPD type: emphysema Emphysema type: other Qualified Code(s): J43.8 - Other emphysema (5) Cocaine dependence Current Visit: No Status: Chronic Qualifiers: Substance use status: uncomplicated Qualified Code(s): F14.20 - Cocaine dependence, uncomplicated (6) Diabetes mellitus type II, controlled Current Visit: No Status: Chronic Qualifiers: Diabetes mellitus complication status: without complication Diabetes mellitus longterm insulin use: without geophysics scientist use Qualified Code(s): E11.9 - Type 2 diabetes mellitus without complications (7) Glaucoma Current Visit: No Status: Chronic Qualifiers: Glaucoma type: open-angle Open angle glaucoma type: unspecified type Laterality: right Glaucoma stage: moderate stage Qualified Code(s): H40.10X2 - Unspecified open-angle glaucoma, moderate stage (8) Hearing loss, right Current Visit: No Status: Chronic Qualifiers: Contralateral hearing status: unspecified (9) Hypertension Current Visit: No Status: Chronic Qualifiers: Hypertension type: essential hypertension Qualified Code(s): I10 - Essential (primary) hypertension (10) Marihuana dependence Current Visit: No Status: Chronic (11) Nicotine dependence Current Visit: No Status: Chronic Qualifiers: Nicotine product type: cigarettes Substance use status: uncomplicated Qualified Code(s): F17.210 - Nicotine dependence, cigarettes, uncomplicated (12) Opioid dependence with withdrawal Current Visit: No Status: Chronic (13) PTSD (post-traumatic stress disorder) Current Visit: No Status: Chronic - AMA Did Patient Leave Against Medical Advice: No
[2017-05-24 09:45] VITALS: BP 120/72; PULSE 90
[2017-05-24] MEDS: NIFEdipine E.R. 90 MG TABLET (FP) PO SCH (10:15)
[2017-05-24] MEDS: BRIMONIDINE TARTRATE 0.15% OPHTHALMIC 5 ML BOTTLE OU SCH (10:16)
[2017-05-24] MEDS: PRENATAL VITAMINS W/ FOLIC ACID TABLET (FP) PO SCH (10:17)
[2017-05-24] MEDS: TOLNAFTATE 1% CREAM 15 GM TUBE TP SCH (10:18)
[2017-05-24] MEDS: hydrOXYzine PAMOATE 50 MG CAPSULE (FP) PO PRN (10:18)
[2017-05-24] MEDS: ASPIRIN 81 MG CHEWABLE TABLETS PO SCH (10:18)
[2017-05-24] MEDS: TIMOLOL 0.25% OPHTHALMIC SOL 5 ML BOTTLE OU SCH (10:18)
[2017-05-24] MEDS: NAPROXEN 500 MG TABLET (FP) PO SCH (10:18)
[2017-05-24] MEDS: NICOTINE 14 MG/24 HOURS TOPICAL PATCH TD SCH (10:19)
== END 2017-05-24 11:29 | disposition home or self-care (01) | DRG 897 ==
LOC: YASAS 10:36 → Y6N 13:25
PROVIDERS: ADMIT Internal Medicine; ATTEND Internal Medicine
PROC: HZ2ZZZZ Detoxification Services for Substance Abuse Treatment (ICD-10-PCS; principal; 2017-05-18)
DX: F11.23 Opioid dependence with withdrawal (principal); F14.20 Cocaine dependence, uncomplicated; J45.32 Mild persistent asthma with status asthmaticus; F10.230 Alcohol dependence with withdrawal, uncomplicated; F12.20 Cannabis dependence, uncomplicated; F17.210 Nicotine dependence, cigarettes, uncomplicated; F43.10 Post-traumatic stress disorder, unspecified; F41.9 Anxiety disorder, unspecified; F19.24 Other psychoactive substance dependence with psychoactive substance-induced mood disorder; I10 Essential (primary) hypertension; E11.9 Type 2 diabetes mellitus without complications; K21.9 Gastro-esophageal reflux disease without esophagitis; H40.10X2 Unspecified open-angle glaucoma, moderate stage; H91.90 Unspecified hearing loss, unspecified ear; Z88.0 Allergy status to penicillin; Z91.018 Allergy to other foods; Z91.14 Patient's other noncompliance with medication regimen
CPT/HCPCS: 36415; 80053; 81003; 81015; 85027; 86593; 87389; 90688; 93005; 93010; G0008

== ENCOUNTER 2017-11-13 08:24 | Inpatient (IN) | payer OTHER ==
[2017-11-13 09:09] VITALS: BMI 26.6
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
[2017-11-13] MEDS ORDERED: MAGNESIUM CITRATE 300 ML BOTTLE PO PRN (10:33)
[2017-11-13] MEDS ORDERED: LOPERAMIDE HCL 2 MG CAPSULE PO PRN (10:33)
[2017-11-13] MEDS ORDERED: MAGNESIUM HYDROX 2400MG/30ML ORAL SUSPENSION 30 ML CUP PO PRN (10:33)
[2017-11-13] MEDS ORDERED: MENTHOL/PHENOL 1 EACH UD MM PRN (10:33)
[2017-11-13] MEDS ORDERED: MAG HYDROX/AL HYDROX/SIMETH 30 ML UNIT-DOSE CUP PO PRN (10:33)
[2017-11-13] MEDS ORDERED: guaiFENesin/D-METHORPHAN HB 10 ML UNIT-DOSE CUPS PO PRN (10:33)
[2017-11-13] MEDS ORDERED: P-EPHED 60MG/TRIPROLIDI 2.5MG TABLET PO PRN (10:33)
[2017-11-13] MEDS ORDERED: chlordiazePOXIDE HCL 25 MG CAPSULE PO PRN (10:33)
[2017-11-13] MEDS ORDERED: ALBUTEROL SO4 18 GM HFA INHALER IH PRN (10:34)
[2017-11-13] MEDS ORDERED: chlordiazePOXIDE HCL 25 MG CAPSULE PO ONE (11:30)
[2017-11-13] MEDS ORDERED: METHADONE HCL 10 MG TABLET (FOR DETOX USE ONLY) PO ONE ×2 (11:30→23:00)
[2017-11-13] MEDS: NIFEdipine E.R. 90 MG TABLET (FP) PO SCH (11:52)
[2017-11-13] MEDS: NICOTINE 14 MG/24 HOURS TOPICAL PATCH TD SCH (11:53)
[2017-11-13] MEDS: BRIMONIDINE TARTRATE 0.15% OPHTHALMIC 5 ML BOTTLE OU SCH ×2 (13:57→22:25)
[2017-11-13] MEDS: DORZOLAMIDE 2% HCL OPHTHALMIC SOLUTION 10 ML BOTTLE OU SCH ×2 (13:58→22:26)
--- NOTE | 2017-11-13 14:39 | EKG ---
Test Reason : Blood Pressure : / mmHG Vent. Rate : 067 BPM Atrial Rate : 067 BPM P-R Int : 340 ms QRS Dur : 084 ms QT Int : 380 ms P-R-T Axes : 057 078 023 degrees QTc Int : 401 ms SINUS RHYTHM WITH 1ST DEGREE A-V BLOCK POSSIBLE ANTERIOR INFARCT , AGE UNDETERMINED ABNORMAL ECG WHEN COMPARED WITH ECG OF 18-MAY-2017 18:32, NO SIGNIFICANT CHANGE WAS FOUND Confirmed by MD Jimmy, Jorge ([id number]) on 11/13/2017 2:39:03 PM Referred By: Ag Nettles Confirmed By:Jorge Marquez MD
[2017-11-13] MEDS: chlordiazePOXIDE HCL 25 MG CAPSULE PO SCH ×2 (17:19→22:25)
[2017-11-13] MEDS: LATANOPROST 0.005% OPHTH SOLN 2.5ML BOTTLE OD SCH (22:25)
[2017-11-13] MEDS: THIAMINE HCL 100 MG TABLET (FP) PO SCH (22:25)
[2017-11-13] MEDS: TIMOLOL 0.25% OPHTHALMIC SOL 5 ML BOTTLE OU SCH (22:26)
[2017-11-13 22:37] LABS: URINE APPEARANCE TURBID; URINE BILIRUBIN NEGATIVE (<2.0 mg/dL); URINE BLOOD NEGATIVE (NEGATIVE); URINE COLOR AMBER; URINE GLUCOSE (UA) NEGATIVE (NEGATIVE); URINE KETONE NEGATIVE (NEGATIVE); URINE NITRITE NEGATIVE (NEGATIVE)
[2017-11-13 22:38] LABS: URINE LEUK ESTERASE 2+ (NEGATIVE); URINE PROTEIN 2+ (NEGATIVE)
[2017-11-13 22:44] LABS: EPI CELLS FEW /HPF (FEW); URINE BACTERIA RARE /hpf (NONE SEEN); URINE HYALINE CAST 3 /lpf; URINE MUCUS MODERATE
[2017-11-14] MEDS: chlordiazePOXIDE HCL 25 MG CAPSULE PO SCH ×4 (05:54→22:23)
[2017-11-14] MEDS: DORZOLAMIDE 2% HCL OPHTHALMIC SOLUTION 10 ML BOTTLE OU SCH ×3 (05:55→22:25)
[2017-11-14 09:56] LABS: ALBUMIN 3.1 g/dl (3.4-5.0); ANION GAP 5 (8-16); BLOOD UREA NITROGEN 20 mg/dL (7-18); CALCIUM 8.7 mg/dL (8.5-10.1); CHLORIDE 111 mmol/L (98-107); CO2 30 mmol/L (21-32); GLUCOSE,RANDOM 69 mg/dL (74-106); POTASSIUM 3.9 mmol/L (3.5-5.1); SODIUM 146 mmol/L (136-145)
[2017-11-14 09:59] LABS: ALK PHOS 69 U/L (45-117); BILIRUBIN,TOTAL 0.7 mg/dL (0.2-1.0); CREATININE 1.3 mg/dL (0.55-1.02); SGOT/AST 13 U/L (15-37); SGPT/ALT 13 U/L (12-78); TOT PROT 5.9 g/dl (6.4-8.2)
[2017-11-14 10:00] LABS: HEMATOCRIT 39.8 % (32.4-45.2); MCHC 32.8 g/dl (32.0-36.0); MEAN CELL VOLUME 91.5 fl (80-96); MEAN PLT VOLUME 8.5 fl (7.5-11.1); PLATELET COUNT 228 K/MM3 (134-434); RBC 4.34 M/mm3 (3.60-5.2); RDW 14.4 % (11.6-15.6)
[2017-11-14] MEDS ORDERED: METHADONE HCL 10 MG TABLET (FOR DETOX USE ONLY) PO SCH (10:00)
[2017-11-14] MEDS: TIMOLOL 0.25% OPHTHALMIC SOL 5 ML BOTTLE OU SCH ×2 (10:32→22:24)
[2017-11-14] MEDS: ASPIRIN 81 MG CHEWABLE TABLETS PO SCH (10:33)
[2017-11-14] MEDS: PRENATAL VITAMINS W/ FOLIC ACID TABLET (FP) PO SCH (10:33)
[2017-11-14] MEDS: NIFEdipine E.R. 90 MG TABLET (FP) PO SCH (10:33)
[2017-11-14] MEDS: BRIMONIDINE TARTRATE 0.15% OPHTHALMIC 5 ML BOTTLE OU SCH ×2 (10:33→22:23)
[2017-11-14] MEDS: NICOTINE 14 MG/24 HOURS TOPICAL PATCH TD SCH (10:35)
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
--- NOTE | 2017-11-14 16:30 | PN ---
S CIWA - CIWA Score Nausea/Vomitin Muscle Tremors: 4-Moderate,w/Arms Extend Anxiety: 4-Mod. Anxious/Guarded Agitation: 4-Moderately Restless Paroxysmal Sweats: 3 Orientation: 0-Oriented Tacttile Disturbances: 1-Very Mild Itch/Numbness Auditory Disturbances: 0-None Visual Disturbances: 0-None Headache: 1-Very Mild CIWA-Ar Total Score: 20 BHS COWS - Scale Resting Pulse: 1= [place] 81-100 Sweatin= Chills/Flushing Restless Observation: 3= Extraneous Movement Pupil Size: 1= Pupils >than Normal Bone or Joint Aches: 2= Severe Diffuse Aches Runny Nose/ Eye Tearin= Runny Nose/Eyes GI Upset > 30mins: 2= Nausea/Diarrhea Tremor Observation of Outstretched Hands: 2= Slight Tremor Visible Yawning Observation: 1= 1-2x During Session Anxiety or Irritability: 2=Irritable/Anxious Goose Flesh Skin: 0=Smooth Skin COWS Score: 17 S Progress Note (SOAP) Subjective: Stomach ache, nausea, runny nose, sweating, chills Objective: 11/14/17 16:28 Last Vital Signs Temp Pulse Resp BP Pulse Ox 97.7 F 83 18 99/61 11/14/17 13:28 11/14/17 13:28 11/14/17 13:28 11/14/17 13:28 Hypotension: asymptomatic, encouraged to drink lots of water for hydration Laboratory Tests 11/13/17 11/14/17 11/14/17 22:00 07:15 07:15 WBC 5.0 D RBC 4.34 Hgb 13.0 Hct 39.8 MCV 91.5 MCH 30.0 MCHC 32.8 RDW 14.4 Plt Count 228 D MPV 8.5 Sodium 146 H Potassium 3.9 Chloride 111 H Carbon Dioxide 30 Anion Gap 5 L BUN 20 H Creatinine 1.3 H Creat Clearance w eGFR 43.36 Random Glucose 69 L Calcium 8.7 Total Bilirubin 0.7 AST 13 L ALT 13 Alkaline Phosphatase 69 Total Protein 5.9 L Albumin 3.1 L Urine Color Jalyn Urine Appearance Turbid Urine pH 5.0 Ur Specific [place] 1.023 Urine Protein 2+ H Urine Glucose (UA) Negative Urine Ketones Negative Urine Blood Negative Urine Nitrite Negative Urine Bilirubin Negative Urine Urobilinogen 2.0 H Ur Leukocyte Esterase 2+ H Urine WBC (Auto) 16 Urine RBC (Auto) 6 Ur Epithelial Cells Few Urine Bacteria Rare Hyaline Casts 3 Urine Mucus Moderate RPR Titer HIV 1&2 Antibody Screen HIV P24 Antigen 11/14/17 11/14/17 07:15 07:15 WBC RBC Hgb Hct MCV MCH MCHC RDW Plt Count MPV Sodium Potassium Chloride Carbon Dioxide Anion Gap BUN Creatinine Creat Clearance w eGFR Random Glucose Calcium Total Bilirubin AST ALT Alkaline Phosphatase Total Protein Albumin Urine Color Urine Appearance Urine pH Ur Specific [place] Urine Protein Urine Glucose (UA) Urine Ketones Urine Blood Urine Nitrite Urine Bilirubin Urine Urobilinogen Ur Leukocyte Esterase Urine WBC (Auto) Urine RBC (Auto) Ur Epithelial Cells Urine Bacteria Hyaline Casts Urine Mucus RPR Titer Nonreactive HIV 1&2 Antibody Screen Negative HIV P24 Antigen Negative Labs noted: abnormal UA and decreased GFR r/t CKD Assessment: 11/14/17 16:29 Withdrawal symptoms Plan: Continue detox
[2017-11-14] MEDS: hydrOXYzine PAMOATE 25 MG CAPSULE (FP) PO PRN (18:51)
[2017-11-14] MEDS: ZOLPIDEM TARTRATE 5 MG TABLET PO PRN (22:23)
[2017-11-14] MEDS: THIAMINE HCL 100 MG TABLET (FP) PO SCH (22:23)
[2017-11-14] MEDS: LATANOPROST 0.005% OPHTH SOLN 2.5ML BOTTLE OD SCH (22:25)
[2017-11-14] MEDS: CLOTRIMAZOLE 1% CREAM 15 GM TUBE TP SCH (22:26)
[2017-11-15] MEDS: chlordiazePOXIDE HCL 25 MG CAPSULE PO SCH ×2 (05:56→10:41)
[2017-11-15] MEDS: DORZOLAMIDE 2% HCL OPHTHALMIC SOLUTION 10 ML BOTTLE OU SCH ×3 (05:57→22:10)
--- NOTE | 2017-11-15 10:24 | PN ---
S CIWA - CIWA Score Nausea/Vomitin-Mild Nausea/No Vomiting Muscle Tremors: 3 Anxiety: 4-Mod. Anxious/Guarded Agitation: 4-Moderately Restless Paroxysmal Sweats: 1-Minimal Palms Moist Orientation: 1-Uncertain about Date Tacttile Disturbances: 1-Very Mild Itch/Numbness Auditory Disturbances: 0-None Visual Disturbances: 0-None Headache: 1-Very Mild CIWA-Ar Total Score: 16 BHS COWS - Scale Resting Pulse: 0= [place] 80 or Below Sweatin= Chills/Flushing Restless Observation: 1= Difficult to Sit Still Pupil Size: 0= Normal to Room Light Bone or Joint Aches: 2= Severe Diffuse Aches Runny Nose/ Eye Tearin= Runny Nose/Eyes GI Upset > 30mins: 2= Nausea/Diarrhea Tremor Observation of Outstretched Hands: 2= Slight Tremor Visible Yawning Observation: 2= >3x During Session Anxiety or Irritability: 2=Irritable/Anxious Goose Flesh Skin: 0=Smooth Skin COWS Score: 14 S Progress Note (SOAP) Subjective: joint pain body aches sweat tremor trouble sleep at night anxiety restlessness Objective: 11/15/17 10:23 Vital Signs Temperature 97.5 F L 11/15/17 10:22 Pulse Rate 698 H 11/15/17 10:22 Respiratory Rate 18 11/15/17 10:22 Blood Pressure 130/78 11/15/17 10:22 O2 Sat by Pulse Oximetry (%) Laboratory Last Values WBC 5.0 K/mm3 (4.0-10.0) D 11/14/17 07:15 RBC 4.34 M/mm3 (3.60-5.2) 11/14/17 07:15 Hgb 13.0 GM/dL (10.7-15.3) 11/14/17 07:15 Hct 39.8 % (32.4-45.2) 11/14/17 07:15 MCV 91.5 fl (80-96) 11/14/17 07:15 MCH 30.0 pg (25.7-33.7) 11/14/17 07:15 MCHC 32.8 g/dl (32.0-36.0) 11/14/17 07:15 RDW 14.4 % (11.6-15.6) 11/14/17 07:15 Plt Count 228 K/MM3 (134-434) D 11/14/17 07:15 MPV 8.5 fl (7.5-11.1) 11/14/17 07:15 Sodium 146 mmol/L (136-145) H 11/14/17 07:15 Potassium 3.9 mmol/L (3.5-5.1) 11/14/17 07:15 Chloride 111 mmol/L (98-107) H 11/14/17 07:15 Carbon Dioxide 30 mmol/L (21-32) 11/14/17 07:15 Anion Gap 5 (8-16) L 11/14/17 07:15 BUN 20 mg/dL (7-18) H 11/14/17 07:15 Creatinine 1.3 mg/dL (0.55-1.02) H 11/14/17 07:15 Creat Clearance w eGFR 43.36 (>60) 11/14/17 07:15 Random Glucose 69 mg/dL (74-106) L 11/14/17 07:15 Calcium 8.7 mg/dL (8.5-10.1) 11/14/17 07:15 Total Bilirubin 0.7 mg/dL (0.2-1.0) 11/14/17 07:15 AST 13 U/L (15-37) L 11/14/17 07:15 ALT 13 U/L (12-78) 11/14/17 07:15 Alkaline Phosphatase 69 U/L (45-117) 11/14/17 07:15 Total Protein 5.9 g/dl (6.4-8.2) L 11/14/17 07:15 Albumin 3.1 g/dl (3.4-5.0) L 11/14/17 07:15 Urine Color Jalyn 11/13/17 22:00 Urine Appearance Turbid 11/13/17 22:00 Urine pH 5.0 (5.0-8.0) 11/13/17 22:00 Ur Specific [place] 1.023 (1.001-1.035) 11/13/17 22:00 Urine Protein 2+ (NEGATIVE) H 11/13/17 22:00 Urine Glucose (UA) Negative (NEGATIVE) 11/13/17 22:00 Urine Ketones Negative (NEGATIVE) 11/13/17 22:00 Urine Blood Negative (NEGATIVE) 11/13/17 22:00 Urine Nitrite Negative (NEGATIVE) 11/13/17 22:00 Urine Bilirubin Negative (<2.0 mg/dL) 11/13/17 22:00 Urine Urobilinogen 2.0 mg/dL (0.2-1.0) H 11/13/17 22:00 Ur Leukocyte Esterase 2+ (NEGATIVE) H 11/13/17 22:00 Urine WBC (Auto) 16 /hpf (3-5) 11/13/17 22:00 Urine RBC (Auto) 6 /hpf (0-3) 11/13/17 22:00 Ur Epithelial Cells Few /HPF (FEW) 11/13/17 22:00 Urine Bacteria Rare /hpf (NONE SEEN) 11/13/17 22:00 Hyaline Casts 3 /lpf 11/13/17 22:00 Urine Mucus Moderate 11/13/17 22:00 RPR Titer Nonreactive (NONREACTIVE) 11/14/17 07:15 HIV 1&2 Antibody Screen Negative 11/14/17 07:15 HIV P24 Antigen Negative 11/14/17 07:15 lab noted Assessment: 11/15/17 10:24 withdrawal sx Plan: continue detox
[2017-11-15] MEDS: METHADONE HCL 5 MG TABLET (FOR DETOX USE ONLY) PO SCH (10:40)
[2017-11-15] MEDS: BRIMONIDINE TARTRATE 0.15% OPHTHALMIC 5 ML BOTTLE OU SCH ×2 (10:40→22:10)
[2017-11-15] MEDS: NICOTINE 14 MG/24 HOURS TOPICAL PATCH TD SCH (10:41)
[2017-11-15] MEDS: PRENATAL VITAMINS W/ FOLIC ACID TABLET (FP) PO SCH (10:41)
[2017-11-15] MEDS: NIFEdipine E.R. 90 MG TABLET (FP) PO SCH (10:41)
[2017-11-15] MEDS: ASPIRIN 81 MG CHEWABLE TABLETS PO SCH (10:41)
[2017-11-15] MEDS: TIMOLOL 0.25% OPHTHALMIC SOL 5 ML BOTTLE OU SCH ×2 (10:42→22:10)
[2017-11-15] MEDS: CLOTRIMAZOLE 1% CREAM 15 GM TUBE TP SCH ×2 (10:42→22:10)
[2017-11-15] MEDS: chlordiazePOXIDE 5 MG CAPSULE PO SCH ×2 (17:16→22:12)
[2017-11-15] MEDS: LATANOPROST 0.005% OPHTH SOLN 2.5ML BOTTLE OD SCH (22:09)
[2017-11-15] MEDS: ACETAMINOPHEN 325 MG TABLET (FP) PO PRN (22:12)
[2017-11-15] MEDS: THIAMINE HCL 100 MG TABLET (FP) PO SCH (22:12)
[2017-11-15] MEDS: ZOLPIDEM TARTRATE 5 MG TABLET PO PRN (22:12)
[2017-11-16] MEDS: ACETAMINOPHEN 325 MG TABLET (FP) PO PRN (04:10)
[2017-11-16] MEDS: chlordiazePOXIDE 5 MG CAPSULE PO SCH ×2 (05:49→10:03)
[2017-11-16] MEDS: DORZOLAMIDE 2% HCL OPHTHALMIC SOLUTION 10 ML BOTTLE OU SCH ×3 (05:51→22:21)
[2017-11-16] MEDS: ASPIRIN 81 MG CHEWABLE TABLETS PO SCH (10:02)
[2017-11-16] MEDS: METHADONE HCL 5 MG TABLET (FOR DETOX USE ONLY) PO SCH (10:02)
[2017-11-16] MEDS: PRENATAL VITAMINS W/ FOLIC ACID TABLET (FP) PO SCH (10:02)
[2017-11-16] MEDS: NIFEdipine E.R. 90 MG TABLET (FP) PO SCH (10:02)
[2017-11-16] MEDS: TIMOLOL 0.25% OPHTHALMIC SOL 5 ML BOTTLE OU SCH ×2 (10:04→22:21)
[2017-11-16] MEDS: CLOTRIMAZOLE 1% CREAM 15 GM TUBE TP SCH ×2 (10:05→22:22)
[2017-11-16] MEDS: BRIMONIDINE TARTRATE 0.15% OPHTHALMIC 5 ML BOTTLE OU SCH ×2 (10:06→22:21)
[2017-11-16] MEDS: NICOTINE 14 MG/24 HOURS TOPICAL PATCH TD SCH (10:07)
--- NOTE | 2017-11-16 11:07 | PN ---
[facility] Progress Note (SOAP) Subjective: sweat tremor anxiety trouble sleep at night restlessness lab results with explanation Objective: 11/16/17 11:04 Vital Signs Temperature 96.4 F L 11/16/17 09:38 Pulse Rate 69 11/16/17 09:38 Respiratory Rate 20 05 09:38 Blood Pressure 131/91 11/16/17 09:38 O2 Sat by Pulse Oximetry (%) Laboratory Last Values WBC 5.0 K/mm3 (4.0-10.0) D 11/14/17 07:15 RBC 4.34 M/mm3 (3.60-5.2) 11/14/17 07:15 Hgb 13.0 GM/dL (10.7-15.3) 11/14/17 07:15 Hct 39.8 % (32.4-45.2) 11/14/17 07:15 MCV 91.5 fl (80-96) 11/14/17 07:15 MCH 30.0 pg (25.7-33.7) 11/14/17 07:15 MCHC 32.8 g/dl (32.0-36.0) 11/14/17 07:15 RDW 14.4 % (11.6-15.6) 11/14/17 07:15 Plt Count 228 K/MM3 (134-434) D 11/14/17 07:15 MPV 8.5 fl (7.5-11.1) 11/14/17 07:15 Sodium 146 mmol/L (136-145) H 11/14/17 07:15 Potassium 3.9 mmol/L (3.5-5.1) 11/14/17 07:15 Chloride 111 mmol/L (98-107) H 11/14/17 07:15 Carbon Dioxide 30 mmol/L (21-32) 11/14/17 07:15 Anion Gap 5 (8-16) L 11/14/17 07:15 BUN 20 mg/dL (7-18) H 11/14/17 07:15 Creatinine 1.3 mg/dL (0.55-1.02) H 11/14/17 07:15 Creat Clearance w eGFR 43.36 (>60) 11/14/17 07:15 Random Glucose 69 mg/dL (74-106) L 11/14/17 07:15 Calcium 8.7 mg/dL (8.5-10.1) 11/14/17 07:15 Total Bilirubin 0.7 mg/dL (0.2-1.0) 11/14/17 07:15 AST 13 U/L (15-37) L 11/14/17 07:15 ALT 13 U/L (12-78) 11/14/17 07:15 Alkaline Phosphatase 69 U/L (45-117) 11/14/17 07:15 Total Protein 5.9 g/dl (6.4-8.2) L 11/14/17 07:15 Albumin 3.1 g/dl (3.4-5.0) L 11/14/17 07:15 Urine Color Jalyn 11/13/17 22:00 Urine Appearance Turbid 11/13/17 22:00 Urine pH 5.0 (5.0-8.0) 11/13/17 22:00 Ur Specific [place] 1.023 (1.001-1.035) 11/13/17 22:00 Urine Protein 2+ (NEGATIVE) H 11/13/17 22:00 Urine Glucose (UA) Negative (NEGATIVE) 11/13/17 22:00 Urine Ketones Negative (NEGATIVE) 11/13/17 22:00 Urine Blood Negative (NEGATIVE) 11/13/17 22:00 Urine Nitrite Negative (NEGATIVE) 11/13/17 22:00 Urine Bilirubin Negative (<2.0 mg/dL) 11/13/17 22:00 Urine Urobilinogen 2.0 mg/dL (0.2-1.0) H 11/13/17 22:00 Ur Leukocyte Esterase 2+ (NEGATIVE) H 11/13/17 22:00 Urine WBC (Auto) 16 /hpf (3-5) 11/13/17 22:00 Urine RBC (Auto) 6 /hpf (0-3) 11/13/17 22:00 Ur Epithelial Cells Few /HPF (FEW) 11/13/17 22:00 Urine Bacteria Rare /hpf (NONE SEEN) 11/13/17 22:00 Hyaline Casts 3 /lpf 11/13/17 22:00 Urine Mucus Moderate 11/13/17 22:00 RPR Titer Nonreactive (NONREACTIVE) 11/14/17 07:15 HIV 1&2 Antibody Screen Negative 11/14/17 07:15 HIV P24 Antigen Negative 11/14/17 07:15 lab noted gfr 43 Assessment: 11/16/17 11:04 withdrawal sx lab results Plan: continue detox discussed lab results with the patient focused on healthy life style and recovery process to sobriety relapse prevention related to physical health and social consequences also discussed
[2017-11-16] MEDS: chlordiazePOXIDE HCL 10 MG CAPSULE PO SCH ×2 (17:22→22:22)
[2017-11-16] MEDS: LATANOPROST 0.005% OPHTH SOLN 2.5ML BOTTLE OD SCH (22:21)
[2017-11-16] MEDS: THIAMINE HCL 100 MG TABLET (FP) PO SCH (22:22)
[2017-11-16] MEDS: ZOLPIDEM TARTRATE 5 MG TABLET PO PRN (22:22)
[2017-11-17] MEDS: hydrOXYzine PAMOATE 25 MG CAPSULE (FP) PO PRN (03:30)
[2017-11-17] MEDS: chlordiazePOXIDE HCL 10 MG CAPSULE PO SCH ×2 (06:02→10:49)
[2017-11-17] MEDS: DORZOLAMIDE 2% HCL OPHTHALMIC SOLUTION 10 ML BOTTLE OU SCH ×3 (06:02→21:45)
[2017-11-17] MEDS ORDERED: METHADONE HCL 10 MG TABLET (FOR DETOX USE ONLY) PO SCH (10:00)
--- NOTE | 2017-11-17 10:07 | PN ---
[facility] Progress Note (SOAP) Subjective: feeling better no tremor less sweat social with peers in day room Objective: 11/17/17 10:05 Vital Signs Temperature 97.0 F L 11/17/17 09:20 Pulse Rate 66 11/17/17 09:20 Respiratory Rate 16 11/17/17 09:20 Blood Pressure 110/74 11/17/17 09:20 O2 Sat by Pulse Oximetry (%) Laboratory Last Values WBC 5.0 K/mm3 (4.0-10.0) D 11/14/17 07:15 RBC 4.34 M/mm3 (3.60-5.2) 11/14/17 07:15 Hgb 13.0 GM/dL (10.7-15.3) 11/14/17 07:15 Hct 39.8 % (32.4-45.2) 11/14/17 07:15 MCV 91.5 fl (80-96) 11/14/17 07:15 MCH 30.0 pg (25.7-33.7) 11/14/17 07:15 MCHC 32.8 g/dl (32.0-36.0) 11/14/17 07:15 RDW 14.4 % (11.6-15.6) 11/14/17 07:15 Plt Count 228 K/MM3 (134-434) D 11/14/17 07:15 MPV 8.5 fl (7.5-11.1) 11/14/17 07:15 Sodium 146 mmol/L (136-145) H 11/14/17 07:15 Potassium 3.9 mmol/L (3.5-5.1) 11/14/17 07:15 Chloride 111 mmol/L (98-107) H 11/14/17 07:15 Carbon Dioxide 30 mmol/L (21-32) 11/14/17 07:15 Anion Gap 5 (8-16) L 11/14/17 07:15 BUN 20 mg/dL (7-18) H 11/14/17 07:15 Creatinine 1.3 mg/dL (0.55-1.02) H 11/14/17 07:15 Creat Clearance w eGFR 43.36 (>60) 11/14/17 07:15 Random Glucose 69 mg/dL (74-106) L 05/06/18 07:15 Calcium 8.7 mg/dL (8.5-10.1) 11/14/17 07:15 Total Bilirubin 0.7 mg/dL (0.2-1.0) 11/14/17 07:15 AST 13 U/L (15-37) L 11/14/17 07:15 ALT 13 U/L (12-78) 11/14/17 07:15 Alkaline Phosphatase 69 U/L (45-117) 11/14/17 07:15 Total Protein 5.9 g/dl (6.4-8.2) L 11/14/17 07:15 Albumin 3.1 g/dl (3.4-5.0) L 11/14/17 07:15 Urine Color Jalyn 11/13/17 22:00 Urine Appearance Turbid 11/13/17 22:00 Urine pH 5.0 (5.0-8.0) 11/13/17 22:00 Ur Specific [place] 1.023 (1.001-1.035) 11/13/17 22:00 Urine Protein 2+ (NEGATIVE) H 11/13/17 22:00 Urine Glucose (UA) Negative (NEGATIVE) 11/13/17 22:00 Urine Ketones Negative (NEGATIVE) 11/13/17 22:00 Urine Blood Negative (NEGATIVE) 11/13/17 22:00 Urine Nitrite Negative (NEGATIVE) 11/13/17 22:00 Urine Bilirubin Negative (<2.0 mg/dL) 11/13/17 22:00 Urine Urobilinogen 2.0 mg/dL (0.2-1.0) H 11/13/17 22:00 Ur Leukocyte Esterase 2+ (NEGATIVE) H 11/13/17 22:00 Urine WBC (Auto) 16 /hpf (3-5) 11/13/17 22:00 Urine RBC (Auto) 6 /hpf (0-3) 11/13/17 22:00 Ur Epithelial Cells Few /HPF (FEW) 11/13/17 22:00 Urine Bacteria Rare /hpf (NONE SEEN) 11/13/17 22:00 Hyaline Casts 3 /lpf 11/13/17 22:00 Urine Mucus Moderate 11/13/17 22:00 RPR Titer Nonreactive (NONREACTIVE) 11/14/17 07:15 HIV 1&2 Antibody Screen Negative 05/06/18 07:15 HIV P24 Antigen Negative 11/14/17 07:15 lab noted Assessment: 11/17/17 10:06 mild withdrawal sx Plan: medically supervised detox
[2017-11-17] MEDS: NIFEdipine E.R. 90 MG TABLET (FP) PO SCH (10:50)
[2017-11-17] MEDS: PRENATAL VITAMINS W/ FOLIC ACID TABLET (FP) PO SCH (10:50)
[2017-11-17] MEDS: ASPIRIN 81 MG CHEWABLE TABLETS PO SCH (10:50)
[2017-11-17] MEDS: CLOTRIMAZOLE 1% CREAM 15 GM TUBE TP SCH ×2 (10:50→21:46)
[2017-11-17] MEDS: NICOTINE 14 MG/24 HOURS TOPICAL PATCH TD SCH (10:50)
[2017-11-17] MEDS: TIMOLOL 0.25% OPHTHALMIC SOL 5 ML BOTTLE OU SCH ×2 (10:52→21:46)
[2017-11-17] MEDS: BRIMONIDINE TARTRATE 0.15% OPHTHALMIC 5 ML BOTTLE OU SCH ×2 (10:52→21:46)
--- NOTE | 2017-11-17 12:10 | DS ---
[facility] Detox Discharge Summary Admission Date: 11/13/17 Discharge Date: 11/17/17 - History Present History: Alcohol Dependence, Opioid Dependence Additional Comments: 51 years old female admitted on 11/13/17 for opioid and alcohol withdrawal sx denies alcohol and opioid withdrawal sx and wants to go to in patient rehab [facility] at [facility] patient is confidence begin rehab today transferred from detox to rehab admission as per protocol - Physical Exam Results Vital Signs: Vital Signs Temperature 97.0 F L 11/17/17 09:20 Pulse Rate 66 11/17/17 09:20 Respiratory Rate 16 11/17/17 09:20 Blood Pressure 110/74 11/17/17 09:20 O2 Sat by Pulse Oximetry (%) Pertinent Admission Physical Exam Findings: Vital Signs Temperature 97.0 F L 11/17/17 09:20 Pulse Rate 66 11/17/17 09:20 Respiratory Rate 16 11/17/17 09:20 Blood Pressure 110/74 11/17/17 09:20 O2 Sat by Pulse Oximetry (%) Laboratory Last Values WBC 5.0 K/mm3 (4.0-10.0) D 11/14/17 07:15 RBC 4.34 M/mm3 (3.60-5.2) 11/14/17 07:15 Hgb 13.0 GM/dL (10.7-15.3) 11/14/17 07:15 Hct 39.8 % (32.4-45.2) 11/14/17 07:15 MCV 91.5 fl (80-96) 11/14/17 07:15 MCH 30.0 pg (25.7-33.7) 11/14/17 07:15 MCHC 32.8 g/dl (32.0-36.0) 11/14/17 07:15 RDW 14.4 % (11.6-15.6) 11/14/17 07:15 Plt Count 228 K/MM3 (134-434) D 11/14/17 07:15 MPV 8.5 fl (7.5-11.1) 11/14/17 07:15 Sodium 146 mmol/L (136-145) H 11/14/17 07:15 Potassium 3.9 mmol/L (3.5-5.1) 11/14/17 07:15 Chloride 111 mmol/L (98-107) H 11/14/17 07:15 Carbon Dioxide 30 mmol/L (21-32) 11/14/17 07:15 Anion Gap 5 (8-16) L 11/14/17 07:15 BUN 20 mg/dL (7-18) H 11/14/17 07:15 Creatinine 1.3 mg/dL (0.55-1.02) H 11/14/17 07:15 Creat Clearance w eGFR 43.36 (>60) 11/14/17 07:15 Random Glucose 69 mg/dL (74-106) L 11/14/17 07:15 Calcium 8.7 mg/dL (8.5-10.1) 11/14/17 07:15 Total Bilirubin 0.7 mg/dL (0.2-1.0) 11/14/17 07:15 AST 13 U/L (15-37) L 11/14/17 07:15 ALT 13 U/L (12-78) 11/14/17 07:15 Alkaline Phosphatase 69 U/L (45-117) 11/14/17 07:15 Total Protein 5.9 g/dl (6.4-8.2) L 11/14/17 07:15 Albumin 3.1 g/dl (3.4-5.0) L 11/14/17 07:15 Urine Color Jalyn 11/13/17 22:00 Urine Appearance Turbid 11/13/17 22:00 Urine pH 5.0 (5.0-8.0) 11/13/17 22:00 Ur Specific [place] 1.023 (1.001-1.035) 11/13/17 22:00 Urine Protein 2+ (NEGATIVE) H 11/13/17 22:00 Urine Glucose (UA) Negative (NEGATIVE) 11/13/17 22:00 Urine Ketones Negative (NEGATIVE) 11/13/17 22:00 Urine Blood Negative (NEGATIVE) 11/13/17 22:00 Urine Nitrite Negative (NEGATIVE) 11/13/17 22:00 Urine Bilirubin Negative (<2.0 mg/dL) 11/13/17 22:00 Urine Urobilinogen 2.0 mg/dL (0.2-1.0) H 11/13/17 22:00 Ur Leukocyte Esterase 2+ (NEGATIVE) H 11/13/17 22:00 Urine WBC (Auto) 16 /hpf (3-5) 11/13/17 22:00 Urine RBC (Auto) 6 /hpf (0-3) 11/13/17 22:00 Ur Epithelial Cells Few /HPF (FEW) 11/13/17 22:00 Urine Bacteria Rare /hpf (NONE SEEN) 11/13/17 22:00 Hyaline Casts 3 /lpf 11/13/17 22:00 Urine Mucus Moderate 11/13/17 22:00 RPR Titer Nonreactive (NONREACTIVE) 11/14/17 07:15 HIV 1&2 Antibody Screen Negative 11/14/17 07:15 HIV P24 Antigen Negative 11/14/17 07:15 lab noted - Treatment Hospital Course: Detox Protocol Followed, Detoxed Safely, Responded well, Discharged Condition Good, Rehab Referral Accepted Patient has Accepted a Rehab Referral to: [facility] - Medication Discharge Medications: Ambulatory Orders Aspirin [ASA -] 81 mg PO DAILY 05/05/16 Quetiapine Fumarate [Seroquel] 100 mg PO HS #30 tablet 05/19/17 Albuterol Sulfate Inhaler - [Ventolin HFA Inhaler -] 2 puff IH Q4H PRN #1 inhaler 11/17/17 Brimonidine Tartrate [Alphagan 0.15% -] 1 drop OU BID #1 drop 11/17/17 Dorzolamide HCl [Trusopt 2% -] 1 drop OU TID #1 drop 11/17/17 Latanoprost 0.005% Eye Drops [Xalatan 0.005% Eye Drops -] 1 drop OP HS #1 drops 11/17/17 Nifedipine ER [Procardia XL -] 90 mg PO DAILY #30 tab.er.24 11/17/17 Timolol 0.25% [Timoptic 0.25%] 1 drop OU BID #1 drop 11/17/17 - Diagnosis (1) Alcohol dependence with uncomplicated withdrawal Current Visit: Yes Status: Acute (2) Opioid dependence with withdrawal Current Visit: Yes Status: Acute (3) Asthma Current Visit: Yes Status: Chronic Qualifiers: Asthma severity: mild persistent Asthma complication type: with status asthmaticus (4) COPD (chronic obstructive pulmonary disease) Current Visit: Yes Status: Chronic Qualifiers: COPD type: emphysema Emphysema type: other Qualified Code(s): J43.8 - Other emphysema (5) Glaucoma Current Visit: Yes Status: Chronic Qualifiers: Glaucoma type: open-angle Open angle glaucoma type: unspecified type Laterality: right Glaucoma stage: moderate stage Qualified Code(s): H40.10X2 - Unspecified open-angle glaucoma, moderate stage (6) Hypertension Current Visit: Yes Status: Chronic Qualifiers: Hypertension type: essential hypertension Qualified Code(s): I10 - Essential (primary) hypertension - AMA Did Patient Leave Against Medical Advice: No
[2017-11-17] MEDS ORDERED: BACLOFEN 10 MG TABLET (FP) PO ONE (13:00)
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
--- NOTE | 2017-11-17 14:32 | HP ---
[facility] Rehab Assess/Revision - Admission History Admitted to Rehab from: [facility] Date of Admission to Rehab: 11/17/17 - Vital signs Vital Signs: Vital Signs Period Temp Pulse Resp BP Sys/Harmon Pulse Ox Last 24 Hr 96.3 F-97.5 F 64-79 16-18 101-111/53-74 - Findings Detox History & Physical reviewed: Yes Concur with findings: Yes Comments/Additional Findings: tranferred from detox to rehab admission as per protocol Inpatient Rehab Admission - Initial Determination Are CD services needed?: Yes Free of communicable disease: Yes Not in need of hospitalization: Yes - Rehab Admission Criteria Previous failed treatment: Yes Poor recovery environment: Yes Comorbidities: Yes Lacks judgement: No Patient is meeting Inpatient Rehab admission criteria:: Yes
[2017-11-17] MEDS ORDERED: LOPERAMIDE HCL 2 MG CAPSULE PO PRN (14:41)
[2017-11-17] MEDS ORDERED: MAG HYDROX/AL HYDROX/SIMETH 30 ML UNIT-DOSE CUP PO PRN (14:41)
[2017-11-17] MEDS ORDERED: ACETAMINOPHEN 325 MG TABLET (FP) PO PRN (14:41)
[2017-11-17] MEDS ORDERED: MENTHOL/PHENOL 1 EACH UD MM PRN (14:41)
[2017-11-17] MEDS ORDERED: guaiFENesin/D-METHORPHAN HB 10 ML UNIT-DOSE CUPS PO PRN (14:41)
[2017-11-17] MEDS ORDERED: P-EPHED 60MG/TRIPROLIDI 2.5MG TABLET PO PRN (14:41)
[2017-11-17] MEDS ORDERED: MAGNESIUM HYDROX 2400MG/30ML ORAL SUSPENSION 30 ML CUP PO PRN (14:41)
[2017-11-17] MEDS ORDERED: MAGNESIUM CITRATE 300 ML BOTTLE PO PRN (14:41)
[2017-11-17] MEDS ORDERED: PT OWN MED DRAWER 7, Y5N ONE ×2 (15:10→19:53)
[2017-11-17] MEDS: DULoxetine HCL 20 MG CAPSULE.DR (FP) PO SCH (18:07)
[2017-11-17] MEDS: THIAMINE HCL 100 MG TABLET (FP) PO SCH (21:47)
[2017-11-17] MEDS: DOXEPIN HCL 50 MG CAPSULE PO SCH (21:47)
[2017-11-17] MEDS: LATANOPROST 0.005% OPHTH SOLN 2.5ML BOTTLE OD SCH (21:48)
[2017-11-17] MEDS ORDERED: MELATONIN 5 MG TABLETS PO PRN (22:00)
[2017-11-17] MEDS ORDERED: THIAMINE HCL 100 MG TABLET (FP) PO SCH (22:00)
[2017-11-18] MEDS ORDERED: METHADONE HCL 5 MG TABLET (FOR DETOX USE ONLY) PO SCH (06:00)
[2017-11-18] MEDS: DORZOLAMIDE 2% HCL OPHTHALMIC SOLUTION 10 ML BOTTLE OU SCH ×3 (07:15→22:09)
[2017-11-18] MEDS ORDERED: PRENATAL VITAMINS W/ FOLIC ACID TABLET (FP) PO SCH (10:00)
[2017-11-18] MEDS ORDERED: PT OWN MED DRAWER 7, Y5N ONE (10:35)
[2017-11-18] MEDS: BRIMONIDINE TARTRATE 0.15% OPHTHALMIC 5 ML BOTTLE OU SCH ×2 (10:41→22:11)
[2017-11-18] MEDS: PRENATAL VITAMINS W/ FOLIC ACID TABLET (FP) PO SCH (10:41)
[2017-11-18] MEDS: TIMOLOL 0.25% OPHTHALMIC SOL 5 ML BOTTLE OU SCH ×2 (10:42→22:10)
[2017-11-18] MEDS: NIFEdipine E.R. 90 MG TABLET (FP) PO SCH (10:42)
[2017-11-18] MEDS: DULoxetine HCL 20 MG CAPSULE.DR (FP) PO SCH (10:42)
[2017-11-18] MEDS: ASPIRIN 81 MG CHEWABLE TABLETS PO SCH (10:42)
[2017-11-18] MEDS: CLOTRIMAZOLE 1% CREAM 15 GM TUBE TP SCH ×2 (10:43→22:13)
[2017-11-18] MEDS: NICOTINE 14 MG/24 HOURS TOPICAL PATCH TD SCH (10:43)
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
[2017-11-18] MEDS ORDERED: ONDANSETRON *ODT* 4 MG TABLET SL PRN (19:23)
[2017-11-18] MEDS: LATANOPROST 0.005% OPHTH SOLN 2.5ML BOTTLE OD SCH (22:09)
[2017-11-18] MEDS: THIAMINE HCL 100 MG TABLET (FP) PO SCH (22:10)
[2017-11-18] MEDS: DOXEPIN HCL 50 MG CAPSULE PO SCH (22:10)
[2017-11-18] MEDS: MINERAL OIL/PETROLAT/WATER TOPICAL CREAM 113 GM JAR TP SCH (22:11)
[2017-11-19] MEDS: DORZOLAMIDE 2% HCL OPHTHALMIC SOLUTION 10 ML BOTTLE OU SCH ×3 (06:15→22:26)
[2017-11-19] MEDS ORDERED: PT OWN MED DRAWER 7, Y5N ONE ×5 (09:53→19:20)
[2017-11-19] MEDS: TIMOLOL 0.25% OPHTHALMIC SOL 5 ML BOTTLE OU SCH ×2 (10:09→22:27)
[2017-11-19] MEDS: DULoxetine HCL 20 MG CAPSULE.DR (FP) PO SCH (10:09)
[2017-11-19] MEDS: BRIMONIDINE TARTRATE 0.15% OPHTHALMIC 5 ML BOTTLE OU SCH ×2 (10:09→22:27)
[2017-11-19] MEDS: PRENATAL VITAMINS W/ FOLIC ACID TABLET (FP) PO SCH (10:09)
[2017-11-19] MEDS: ASPIRIN 81 MG CHEWABLE TABLETS PO SCH (10:09)
[2017-11-19] MEDS: MINERAL OIL/PETROLAT/WATER TOPICAL CREAM 113 GM JAR TP SCH ×2 (10:12→23:20)
[2017-11-19] MEDS: CLOTRIMAZOLE 1% CREAM 15 GM TUBE TP SCH ×2 (10:12→23:20)
[2017-11-19] MEDS: NICOTINE 14 MG/24 HOURS TOPICAL PATCH TD SCH (10:12)
[2017-11-19] MEDS: NIFEdipine E.R. 90 MG TABLET (FP) PO SCH (11:00)
[2017-11-19] MEDS: DOXEPIN HCL 50 MG CAPSULE PO SCH (22:25)
[2017-11-19] MEDS: THIAMINE HCL 100 MG TABLET (FP) PO SCH (22:25)
[2017-11-19] MEDS: LATANOPROST 0.005% OPHTH SOLN 2.5ML BOTTLE OD SCH (22:26)
[2017-11-20] MEDS ORDERED: PT OWN MED DRAWER 7, Y5N ONE ×2 (05:48→14:40)
[2017-11-20] MEDS: DORZOLAMIDE 2% HCL OPHTHALMIC SOLUTION 10 ML BOTTLE OU SCH ×3 (06:43→21:20)
[2017-11-20] MEDS: ASPIRIN 81 MG CHEWABLE TABLETS PO SCH (09:49)
[2017-11-20] MEDS: NIFEdipine E.R. 90 MG TABLET (FP) PO SCH (09:49)
[2017-11-20] MEDS: PRENATAL VITAMINS W/ FOLIC ACID TABLET (FP) PO SCH (09:50)
[2017-11-20] MEDS: TIMOLOL 0.25% OPHTHALMIC SOL 5 ML BOTTLE OU SCH ×2 (09:50→21:20)
[2017-11-20] MEDS: NICOTINE 14 MG/24 HOURS TOPICAL PATCH TD SCH (09:50)
[2017-11-20] MEDS: BRIMONIDINE TARTRATE 0.15% OPHTHALMIC 5 ML BOTTLE OU SCH ×2 (09:50→21:20)
[2017-11-20] MEDS: DULoxetine HCL 20 MG CAPSULE.DR (FP) PO SCH (09:50)
[2017-11-20] MEDS: hydrOXYzine PAMOATE 25 MG CAPSULE (FP) PO PRN ×2 (09:51→20:39)
[2017-11-20] MEDS: CLOTRIMAZOLE 1% CREAM 15 GM TUBE TP SCH ×2 (09:52→21:22)
[2017-11-20] MEDS: MINERAL OIL/PETROLAT/WATER TOPICAL CREAM 113 GM JAR TP SCH ×2 (09:52→21:21)
[2017-11-20] MEDS: DOXEPIN HCL 50 MG CAPSULE PO SCH (21:19)
[2017-11-20] MEDS: THIAMINE HCL 100 MG TABLET (FP) PO SCH (21:19)
[2017-11-20] MEDS: LATANOPROST 0.005% OPHTH SOLN 2.5ML BOTTLE OD SCH (21:21)
[2017-11-21] MEDS ORDERED: PT OWN MED DRAWER 7, Y5N ONE (05:57)
[2017-11-21] MEDS: DORZOLAMIDE 2% HCL OPHTHALMIC SOLUTION 10 ML BOTTLE OU SCH ×3 (06:27→21:14)
[2017-11-21] MEDS: NICOTINE 14 MG/24 HOURS TOPICAL PATCH TD SCH (10:01)
[2017-11-21] MEDS: NIFEdipine E.R. 90 MG TABLET (FP) PO SCH (10:01)
[2017-11-21] MEDS: DULoxetine HCL 20 MG CAPSULE.DR (FP) PO SCH (10:01)
[2017-11-21] MEDS: ASPIRIN 81 MG CHEWABLE TABLETS PO SCH (10:01)
[2017-11-21] MEDS: PRENATAL VITAMINS W/ FOLIC ACID TABLET (FP) PO SCH (10:01)
[2017-11-21] MEDS: TIMOLOL 0.25% OPHTHALMIC SOL 5 ML BOTTLE OU SCH ×2 (10:03→21:11)
[2017-11-21] MEDS: BRIMONIDINE TARTRATE 0.15% OPHTHALMIC 5 ML BOTTLE OU SCH ×2 (10:04→21:11)
[2017-11-21] MEDS: MINERAL OIL/PETROLAT/WATER TOPICAL CREAM 113 GM JAR TP SCH ×2 (10:04→21:15)
[2017-11-21] MEDS: hydrOXYzine PAMOATE 25 MG CAPSULE (FP) PO PRN ×2 (10:04→15:18)
[2017-11-21] MEDS: CLOTRIMAZOLE 1% CREAM 15 GM TUBE TP SCH ×2 (10:04→21:15)
[2017-11-21] MEDS: LATANOPROST 0.005% OPHTH SOLN 2.5ML BOTTLE OD SCH (21:11)
[2017-11-21] MEDS: THIAMINE HCL 100 MG TABLET (FP) PO SCH (21:13)
[2017-11-21] MEDS: DOXEPIN HCL 50 MG CAPSULE PO SCH (21:14)
[2017-11-22] MEDS: DORZOLAMIDE 2% HCL OPHTHALMIC SOLUTION 10 ML BOTTLE OU SCH ×3 (06:23→21:11)
[2017-11-22] MEDS ORDERED: PT OWN MED DRAWER 7, Y5N ONE ×2 (07:41→08:39)
[2017-11-22] MEDS: PRENATAL VITAMINS W/ FOLIC ACID TABLET (FP) PO SCH (09:53)
[2017-11-22] MEDS: TIMOLOL 0.25% OPHTHALMIC SOL 5 ML BOTTLE OU SCH ×2 (09:53→21:11)
[2017-11-22] MEDS: MINERAL OIL/PETROLAT/WATER TOPICAL CREAM 113 GM JAR TP SCH ×2 (09:53→21:13)
[2017-11-22] MEDS: DULoxetine HCL 20 MG CAPSULE.DR (FP) PO SCH (09:53)
[2017-11-22] MEDS: ASPIRIN 81 MG CHEWABLE TABLETS PO SCH (09:53)
[2017-11-22] MEDS: NIFEdipine E.R. 90 MG TABLET (FP) PO SCH (09:53)
[2017-11-22] MEDS: BRIMONIDINE TARTRATE 0.15% OPHTHALMIC 5 ML BOTTLE OU SCH ×2 (09:54→21:11)
[2017-11-22] MEDS: CLOTRIMAZOLE 1% CREAM 15 GM TUBE TP SCH ×2 (09:54→21:13)
[2017-11-22] MEDS: NICOTINE 14 MG/24 HOURS TOPICAL PATCH TD SCH (09:54)
[2017-11-22] MEDS: hydrOXYzine PAMOATE 25 MG CAPSULE (FP) PO PRN ×2 (09:55→14:07)
[2017-11-22] MEDS ORDERED: cloNIDine HCL 0.1 MG TABLET PO ONE ×2 (16:05→17:30)
--- NOTE | 2017-11-22 16:08 | PN ---
[facility] Progress Note Note: Patient presents with c/o headache, body aches, and sweating. Laboratory Tests 11/13/17 11/14/17 11/14/17 22:00 07:15 07:15 WBC 5.0 D RBC 4.34 Hgb 13.0 Hct 39.8 MCV 91.5 MCH 30.0 MCHC 32.8 RDW 14.4 Plt Count 228 D MPV 8.5 Sodium 146 H Potassium 3.9 Chloride 111 H Carbon Dioxide 30 Anion Gap 5 L BUN 20 H Creatinine 1.3 H Creat Clearance w eGFR 43.36 Random Glucose 69 L Calcium 8.7 Total Bilirubin 0.7 AST 13 L ALT 13 Alkaline Phosphatase 69 Total Protein 5.9 L Albumin 3.1 L Urine Color Jalyn Urine Appearance Turbid Urine pH 5.0 Ur Specific [place] 1.023 Urine Protein 2+ H Urine Glucose (UA) Negative Urine Ketones Negative Urine Blood Negative Urine Nitrite Negative Urine Bilirubin Negative Urine Urobilinogen 2.0 H Ur Leukocyte Esterase 2+ H Urine WBC (Auto) 16 Urine RBC (Auto) 6 Ur Epithelial Cells Few Urine Bacteria Rare Hyaline Casts 3 Urine Mucus Moderate RPR Titer HIV 1&2 Antibody Screen HIV P24 Antigen 11/14/17 11/14/17 07:15 07:15 WBC RBC Hgb Hct MCV MCH MCHC RDW Plt Count MPV Sodium Potassium Chloride Carbon Dioxide Anion Gap BUN Creatinine Creat Clearance w eGFR Random Glucose Calcium Total Bilirubin AST ALT Alkaline Phosphatase Total Protein Albumin Urine Color Urine Appearance Urine pH Ur Specific [place] Urine Protein Urine Glucose (UA) Urine Ketones Urine Blood Urine Nitrite Urine Bilirubin Urine Urobilinogen Ur Leukocyte Esterase Urine WBC (Auto) Urine RBC (Auto) Ur Epithelial Cells Urine Bacteria Hyaline Casts Urine Mucus RPR Titer Nonreactive HIV 1&2 Antibody Screen Negative HIV P24 Antigen Negative Obj: General: patient alert and oriented x 3. In no acute distress. Mild anxiety noted. Ambulating within unit. Skin: intact, warm and moist. Ext: Full ROM. Ambulates without assistance. A/P: Withdrawal syndrome Will order Clonidine 0.1mg po x one dose Continue supportive measures continue to monitor clinically
[2017-11-22] MEDS: THIAMINE HCL 100 MG TABLET (FP) PO SCH (21:12)
[2017-11-22] MEDS: DOXEPIN HCL 50 MG CAPSULE PO SCH (21:12)
[2017-11-22] MEDS: LATANOPROST 0.005% OPHTH SOLN 2.5ML BOTTLE OD SCH (21:13)
[2017-11-23] MEDS: DORZOLAMIDE 2% HCL OPHTHALMIC SOLUTION 10 ML BOTTLE OU SCH ×3 (06:21→21:05)
[2017-11-23] MEDS ORDERED: PT OWN MED DRAWER 7, Y5N ONE ×3 (08:29→20:26)
[2017-11-23] MEDS: ASPIRIN 81 MG CHEWABLE TABLETS PO SCH (10:09)
[2017-11-23] MEDS: DULoxetine HCL 20 MG CAPSULE.DR (FP) PO SCH (10:09)
[2017-11-23] MEDS: NIFEdipine E.R. 90 MG TABLET (FP) PO SCH (10:10)
[2017-11-23] MEDS: BRIMONIDINE TARTRATE 0.15% OPHTHALMIC 5 ML BOTTLE OU SCH ×2 (10:10→21:05)
[2017-11-23] MEDS: NICOTINE 14 MG/24 HOURS TOPICAL PATCH TD SCH (10:10)
[2017-11-23] MEDS: PRENATAL VITAMINS W/ FOLIC ACID TABLET (FP) PO SCH (10:10)
[2017-11-23] MEDS: TIMOLOL 0.25% OPHTHALMIC SOL 5 ML BOTTLE OU SCH ×2 (10:11→21:05)
[2017-11-23] MEDS: MINERAL OIL/PETROLAT/WATER TOPICAL CREAM 113 GM JAR TP SCH ×2 (10:12→21:06)
[2017-11-23] MEDS: CLOTRIMAZOLE 1% CREAM 15 GM TUBE TP SCH ×2 (10:12→21:06)
[2017-11-23] MEDS: hydrOXYzine PAMOATE 25 MG CAPSULE (FP) PO PRN ×2 (13:31→18:03)
--- NOTE | 2017-11-23 14:44 | PN ---
"[facility] Progress Note Note: Vital Signs Temperature 98.0 F 11/23/17 06:43 Pulse Rate 81 11/23/17 09:02 Respiratory Rate 16 11/23/17 06:43 Blood Pressure 122/80 11/23/17 09:02 O2 Sat by Pulse Oximetry (%) Laboratory Last Values WBC 5.0 K/mm3 (4.0-10.0) D 11/14/17 07:15 RBC 4.34 M/mm3 (3.60-5.2) 11/14/17 07:15 Hgb 13.0 GM/dL (10.7-15.3) 11/14/17 07:15 Hct 39.8 % (32.4-45.2) 11/14/17 07:15 MCV 91.5 fl (80-96) 11/14/17 07:15 MCH 30.0 pg (25.7-33.7) 11/14/17 07:15 MCHC 32.8 g/dl (32.0-36.0) 11/14/17 07:15 RDW 14.4 % (11.6-15.6) 11/14/17 07:15 Plt Count 228 K/MM3 (134-434) D 11/14/17 07:15 MPV 8.5 fl (7.5-11.1) 11/14/17 07:15 Sodium 146 mmol/L (136-145) H 11/14/17 07:15 Potassium 3.9 mmol/L (3.5-5.1) 11/14/17 07:15 Chloride 111 mmol/L (98-107) H 11/14/17 07:15 Carbon Dioxide 30 mmol/L (21-32) 11/14/17 07:15 Anion Gap 5 (8-16) L 11/14/17 07:15 BUN 20 mg/dL (7-18) H 11/14/17 07:15 Creatinine 1.3 mg/dL (0.55-1.02) H 11/14/17 07:15 Creat Clearance w eGFR 43.36 (>60) 11/14/17 07:15 Random Glucose 69 mg/dL (74-106) L 11/14/17 07:15 Calcium 8.7 mg/dL (8.5-10.1) 11/14/17 07:15 Total Bilirubin 0.7 mg/dL (0.2-1.0) 11/14/17 07:15 AST 13 U/L (15-37) L 11/14/17 07:15 ALT 13 U/L (12-78) 11/14/17 07:15 Alkaline Phosphatase 69 U/L (45-117) 11/14/17 07:15 Total Protein 5.9 g/dl (6.4-8.2) L 11/14/17 07:15 Albumin 3.1 g/dl (3.4-5.0) L 11/14/17 07:15 Urine Color Jalyn 11/13/17 22:00 Urine Appearance Turbid 11/13/17 22:00 Urine pH 5.0 (5.0-8.0) 11/13/17 22:00 Ur Specific [place] 1.023 (1.001-1.035) 11/13/17 22:00 Urine Protein 2+ (NEGATIVE) H 11/13/17 22:00 Urine Glucose (UA) Negative (NEGATIVE) 11/13/17 22:00 Urine Ketones Negative (NEGATIVE) 11/13/17 22:00 Urine Blood Negative (NEGATIVE) 11/13/17 22:00 Urine Nitrite Negative (NEGATIVE) 11/13/17 22:00 Urine Bilirubin Negative (<2.0 mg/dL) 11/13/17 22:00 Urine Urobilinogen 2.0 mg/dL (0.2-1.0) H 11/13/17 22:00 Ur Leukocyte Esterase 2+ (NEGATIVE) H 11/13/17 22:00 Urine WBC (Auto) 16 /hpf (3-5) 11/13/17 22:00 Urine RBC (Auto) 6 /hpf (0-3) 11/13/17 22:00 Ur Epithelial Cells Few /HPF (FEW) 11/13/17 22:00 Urine Bacteria Rare /hpf (NONE SEEN) 11/13/17 22:00 Hyaline Casts 3 /lpf 11/13/17 22:00 Urine Mucus Moderate 11/13/17 22:00 RPR Titer Nonreactive (NONREACTIVE) 11/14/17 07:15 HIV 1&2 Antibody Screen Negative 11/14/17 07:15 HIV P24 Antigen Negative 11/14/17 07:15 T. vaginalis (TAMY) Negative (Negative) 11/19/17 17:30 Patient requesting suboxone, reports diarrhea and difficulty sleeping. As per patient the last time she had suboxone was a month ago. [employer]PERVISOR shows as follow: Search Terms: Meg Buchanan, 1965 Search Date: 11/23/2017 02:37:48 PM This report was requested by: Lupe Langford | Reference #: [id number] Patient Name: Meg Buchanan Date: 1965 Address: [address] [place] [address] Sex: Female Rx Written Rx Dispensed Drug Quantity Days Supply Prescriber Name 08/10/2017 08/11/2017 clonazepam 2 mg tablet 60 30 Caro Walker MD 08/10/2017 08/11/2017 suboxone 8 mg-2 mg sl film 60 30 Caro Walker MD 06/17/2017 06/18/2017 suboxone 8 mg-2 mg sl film 60 30 Caro Walker MD 06/17/2017 06/18/2017 clonazepam 2 mg tablet 60 30 Caro Walker MD 05/13/2017 05/13/2017 clonazepam 2 mg tablet 60 30 Caro Walker MD 05/13/2017 05/13/2017 suboxone 8 mg-2 mg sl film 60 30 Caro Walker MD 04/15/2017 04/15/2017 suboxone 8 mg-2 mg sl film 60 30 Caro Walker MD 04/15/2017 04/15/2017 clonazepam 2 mg tablet 60 30 Caro Walker MD 03/11/2017 03/11/2017 suboxone 8 mg-2 mg sl film 60 30 Caro Walker MD 03/11/2017 03/11/2017 clonazepam 2 mg tablet 60 30 Caro Walker MD 01/27/2017 02/05/2017 suboxone 8 mg-2 mg sl film 60 30 Caro Walker MD 01/27/2017 01/27/2017 clonazepam 2 mg tablet 60 30 Caro Walker MD Patient AOx3, in no apparent distress No respiratory distress Ambulating in the unit Plan: Increase fluids will consult with Dr. Nettles regarding request to continue Suboxone Continue to monitor"
--- NOTE | 2017-11-23 15:15 | PN ---
[facility] Progress Note Note: Received confirmation fax from [facility] Tel fax: [phone], last order for Suboxone 8mg SL film ordered 09/07/17, by Dr. Caro Villafuerte MD Discussed with Dr. Nettles patient continues to experience opioid cravings. Patient to be started today on Suboxone 4mg. Continue to monitor and dose will be adjusted as needed Consoler Char Black to link to patient to the provider Dr. Caro Walker to continue suboxone treament upon discharge Increase fluids
[2017-11-23] MEDS: BUPRENORPHINE/NALOXONE 2 MG/0.5 MG FILM PACKET SL SCH (15:27)
[2017-11-23] MEDS: THIAMINE HCL 100 MG TABLET (FP) PO SCH (21:05)
[2017-11-23] MEDS: LATANOPROST 0.005% OPHTH SOLN 2.5ML BOTTLE OD SCH (21:05)
[2017-11-23] MEDS: DOXEPIN HCL 50 MG CAPSULE PO SCH (21:06)
[2017-11-23] MEDS: MELATONIN 5 MG TABLETS PO PRN (21:07)
[2017-11-24] MEDS: DORZOLAMIDE 2% HCL OPHTHALMIC SOLUTION 10 ML BOTTLE OU SCH ×3 (06:33→21:09)
[2017-11-24] MEDS ORDERED: PT OWN MED DRAWER 7, Y5N ONE ×2 (08:35→22:52)
[2017-11-24] MEDS: BRIMONIDINE TARTRATE 0.15% OPHTHALMIC 5 ML BOTTLE OU SCH ×2 (09:48→21:10)
[2017-11-24] MEDS: DULoxetine HCL 20 MG CAPSULE.DR (FP) PO SCH (09:49)
[2017-11-24] MEDS: PRENATAL VITAMINS W/ FOLIC ACID TABLET (FP) PO SCH (09:49)
[2017-11-24] MEDS: NICOTINE 14 MG/24 HOURS TOPICAL PATCH TD SCH (09:49)
[2017-11-24] MEDS: ASPIRIN 81 MG CHEWABLE TABLETS PO SCH (09:49)
[2017-11-24] MEDS: NIFEdipine E.R. 90 MG TABLET (FP) PO SCH (09:49)
[2017-11-24] MEDS: MINERAL OIL/PETROLAT/WATER TOPICAL CREAM 113 GM JAR TP SCH ×2 (09:50→21:13)
[2017-11-24] MEDS: CLOTRIMAZOLE 1% CREAM 15 GM TUBE TP SCH ×2 (09:50→21:11)
[2017-11-24] MEDS: BUPRENORPHINE/NALOXONE 2 MG/0.5 MG FILM PACKET SL SCH (09:50)
[2017-11-24] MEDS: TIMOLOL 0.25% OPHTHALMIC SOL 5 ML BOTTLE OU SCH ×2 (09:51→21:10)
[2017-11-24] MEDS: hydrOXYzine PAMOATE 25 MG CAPSULE (FP) PO PRN ×2 (13:22→21:10)
[2017-11-24] MEDS: THIAMINE HCL 100 MG TABLET (FP) PO SCH (21:09)
[2017-11-24] MEDS: LATANOPROST 0.005% OPHTH SOLN 2.5ML BOTTLE OD SCH (21:10)
[2017-11-24] MEDS: DOXEPIN HCL 50 MG CAPSULE PO SCH (21:10)
[2017-11-24] MEDS: traZODone HCL 50 MG TABLET (FP) PO SCH (21:12)
[2017-11-25] MEDS: DORZOLAMIDE 2% HCL OPHTHALMIC SOLUTION 10 ML BOTTLE OU SCH ×3 (06:32→21:10)
[2017-11-25] MEDS ORDERED: PT OWN MED DRAWER 7, Y5N ONE (08:34)
[2017-11-25] MEDS: CLOTRIMAZOLE 1% CREAM 15 GM TUBE TP SCH ×2 (09:44→21:12)
[2017-11-25] MEDS: BUPRENORPHINE/NALOXONE 2 MG/0.5 MG FILM PACKET SL SCH (09:44)
[2017-11-25] MEDS: TIMOLOL 0.25% OPHTHALMIC SOL 5 ML BOTTLE OU SCH ×2 (09:44→21:10)
[2017-11-25] MEDS: PRENATAL VITAMINS W/ FOLIC ACID TABLET (FP) PO SCH (09:45)
[2017-11-25] MEDS: BRIMONIDINE TARTRATE 0.15% OPHTHALMIC 5 ML BOTTLE OU SCH ×2 (09:45→21:11)
[2017-11-25] MEDS: NIFEdipine E.R. 90 MG TABLET (FP) PO SCH (09:45)
[2017-11-25] MEDS: DULoxetine HCL 20 MG CAPSULE.DR (FP) PO SCH (09:45)
[2017-11-25] MEDS: ASPIRIN 81 MG CHEWABLE TABLETS PO SCH (09:46)
[2017-11-25] MEDS: NICOTINE 14 MG/24 HOURS TOPICAL PATCH TD SCH (09:46)
[2017-11-25] MEDS: hydrOXYzine PAMOATE 25 MG CAPSULE (FP) PO PRN ×3 (09:49→21:10)
[2017-11-25] MEDS: MINERAL OIL/PETROLAT/WATER TOPICAL CREAM 113 GM JAR TP SCH ×2 (09:50→21:12)
[2017-11-25] MEDS: THIAMINE HCL 100 MG TABLET (FP) PO SCH (21:09)
[2017-11-25] MEDS: MELATONIN 5 MG TABLETS PO PRN (21:09)
[2017-11-25] MEDS: DOXEPIN HCL 50 MG CAPSULE PO SCH (21:10)
[2017-11-25] MEDS: traZODone HCL 50 MG TABLET (FP) PO SCH (21:10)
[2017-11-25] MEDS: LATANOPROST 0.005% OPHTH SOLN 2.5ML BOTTLE OD SCH (21:11)
[2017-11-26] MEDS ORDERED: PT OWN MED DRAWER 7, Y5N ONE ×6 (05:45→21:14)
[2017-11-26] MEDS: DORZOLAMIDE 2% HCL OPHTHALMIC SOLUTION 10 ML BOTTLE OU SCH ×3 (06:32→21:14)
[2017-11-26] MEDS: BRIMONIDINE TARTRATE 0.15% OPHTHALMIC 5 ML BOTTLE OU SCH ×2 (10:06→21:15)
[2017-11-26] MEDS: TIMOLOL 0.25% OPHTHALMIC SOL 5 ML BOTTLE OU SCH ×2 (10:06→21:15)
[2017-11-26] MEDS: NIFEdipine E.R. 90 MG TABLET (FP) PO SCH (10:06)
[2017-11-26] MEDS: ASPIRIN 81 MG CHEWABLE TABLETS PO SCH (10:07)
[2017-11-26] MEDS: DULoxetine HCL 20 MG CAPSULE.DR (FP) PO SCH (10:07)
[2017-11-26] MEDS: CLOTRIMAZOLE 1% CREAM 15 GM TUBE TP SCH ×2 (10:07→21:18)
[2017-11-26] MEDS: PRENATAL VITAMINS W/ FOLIC ACID TABLET (FP) PO SCH (10:07)
[2017-11-26] MEDS: NICOTINE 14 MG/24 HOURS TOPICAL PATCH TD SCH (10:07)
[2017-11-26] MEDS: BUPRENORPHINE/NALOXONE 2 MG/0.5 MG FILM PACKET SL SCH (10:08)
[2017-11-26] MEDS: MINERAL OIL/PETROLAT/WATER TOPICAL CREAM 113 GM JAR TP SCH ×2 (10:10→21:18)
[2017-11-26] MEDS: hydrOXYzine PAMOATE 50 MG CAPSULE (FP) PO PRN ×3 (11:07→21:14)
--- NOTE | 2017-11-26 13:28 | PN ---
[facility] Progress Note Note: Patient presents with Opiod cravings. Started on Suboxone 4mg daily on 11/23/17 as patient received Suboxone treatment prior to admission. Patients states she continues to crave opiods and has headaches which mainly occur at night. Will increase Suboxone to 8mg daily starting tomorrow. Continue to monitor clinically.
[2017-11-26] MEDS: MELATONIN 5 MG TABLETS PO PRN (21:15)
[2017-11-26] MEDS: LATANOPROST 0.005% OPHTH SOLN 2.5ML BOTTLE OD SCH (21:15)
[2017-11-26] MEDS: THIAMINE HCL 100 MG TABLET (FP) PO SCH (21:16)
[2017-11-26] MEDS: DOXEPIN HCL 50 MG CAPSULE PO SCH (21:17)
[2017-11-26] MEDS: traZODone HCL 100 MG TABLET (FP) PO SCH (21:17)
[2017-11-27] MEDS: DORZOLAMIDE 2% HCL OPHTHALMIC SOLUTION 10 ML BOTTLE OU SCH ×3 (06:34→21:29)
[2017-11-27] MEDS ORDERED: PT OWN MED DRAWER 7, Y5N ONE ×3 (08:07→19:20)
[2017-11-27] MEDS: PRENATAL VITAMINS W/ FOLIC ACID TABLET (FP) PO SCH (09:32)
[2017-11-27] MEDS: ASPIRIN 81 MG CHEWABLE TABLETS PO SCH (09:32)
[2017-11-27] MEDS: NIFEdipine E.R. 90 MG TABLET (FP) PO SCH (09:32)
[2017-11-27] MEDS: BRIMONIDINE TARTRATE 0.15% OPHTHALMIC 5 ML BOTTLE OU SCH ×2 (09:32→21:29)
[2017-11-27] MEDS: DULoxetine HCL 20 MG CAPSULE.DR (FP) PO SCH (09:33)
[2017-11-27] MEDS: MINERAL OIL/PETROLAT/WATER TOPICAL CREAM 113 GM JAR TP SCH ×2 (09:33→21:32)
[2017-11-27] MEDS: BUPRENORPHINE/NALOXONE 8 MG/2 MG FILM PACKET SL SCH (09:34)
[2017-11-27] MEDS: CLOTRIMAZOLE 1% CREAM 15 GM TUBE TP SCH ×2 (09:34→21:42)
[2017-11-27] MEDS: NICOTINE 14 MG/24 HOURS TOPICAL PATCH TD SCH (09:34)
[2017-11-27] MEDS: TIMOLOL 0.25% OPHTHALMIC SOL 5 ML BOTTLE OU SCH ×2 (09:35→21:29)
[2017-11-27] MEDS: hydrOXYzine PAMOATE 50 MG CAPSULE (FP) PO PRN ×3 (09:36→19:57)
[2017-11-27] MEDS: LATANOPROST 0.005% OPHTH SOLN 2.5ML BOTTLE OD SCH (21:28)
[2017-11-27] MEDS: THIAMINE HCL 100 MG TABLET (FP) PO SCH (21:29)
[2017-11-27] MEDS: DOXEPIN HCL 50 MG CAPSULE PO SCH (21:29)
[2017-11-27] MEDS: traZODone HCL 100 MG TABLET (FP) PO SCH (21:29)
[2017-11-27] MEDS: MELATONIN 5 MG TABLETS PO PRN (21:30)
[2017-11-28] MEDS: DORZOLAMIDE 2% HCL OPHTHALMIC SOLUTION 10 ML BOTTLE OU SCH ×3 (06:46→21:05)
[2017-11-28] MEDS ORDERED: PT OWN MED DRAWER 7, Y5N ONE (08:05)
[2017-11-28] MEDS: CLOTRIMAZOLE 1% CREAM 15 GM TUBE TP SCH ×2 (09:21→21:07)
[2017-11-28] MEDS: MINERAL OIL/PETROLAT/WATER TOPICAL CREAM 113 GM JAR TP SCH ×2 (09:21→21:07)
[2017-11-28] MEDS: DULoxetine HCL 20 MG CAPSULE.DR (FP) PO SCH (09:21)
[2017-11-28] MEDS: NICOTINE 14 MG/24 HOURS TOPICAL PATCH TD SCH (09:21)
[2017-11-28] MEDS: ASPIRIN 81 MG CHEWABLE TABLETS PO SCH (09:21)
[2017-11-28] MEDS: BRIMONIDINE TARTRATE 0.15% OPHTHALMIC 5 ML BOTTLE OU SCH ×2 (09:21→21:05)
[2017-11-28] MEDS: NIFEdipine E.R. 90 MG TABLET (FP) PO SCH (09:22)
[2017-11-28] MEDS: PRENATAL VITAMINS W/ FOLIC ACID TABLET (FP) PO SCH (09:22)
[2017-11-28] MEDS: BUPRENORPHINE/NALOXONE 8 MG/2 MG FILM PACKET SL SCH (09:22)
[2017-11-28] MEDS: TIMOLOL 0.25% OPHTHALMIC SOL 5 ML BOTTLE OU SCH ×2 (09:22→21:05)
[2017-11-28] MEDS: hydrOXYzine PAMOATE 50 MG CAPSULE (FP) PO PRN ×3 (09:24→21:06)
[2017-11-28] MEDS: LATANOPROST 0.005% OPHTH SOLN 2.5ML BOTTLE OD SCH (21:05)
[2017-11-28] MEDS: THIAMINE HCL 100 MG TABLET (FP) PO SCH (21:06)
[2017-11-28] MEDS: MELATONIN 5 MG TABLETS PO PRN (21:06)
[2017-11-28] MEDS: traZODone HCL 100 MG TABLET (FP) PO SCH (21:06)
[2017-11-28] MEDS: DOXEPIN HCL 50 MG CAPSULE PO SCH (21:06)
[2017-11-29] MEDS ORDERED: PT OWN MED DRAWER 7, Y5N ONE ×6 (04:14→22:27)
[2017-11-29] MEDS: DORZOLAMIDE 2% HCL OPHTHALMIC SOLUTION 10 ML BOTTLE OU SCH ×3 (06:16→21:05)
[2017-11-29] MEDS: NIFEdipine E.R. 90 MG TABLET (FP) PO SCH (10:00)
[2017-11-29] MEDS: ASPIRIN 81 MG CHEWABLE TABLETS PO SCH (10:00)
[2017-11-29] MEDS: NICOTINE 14 MG/24 HOURS TOPICAL PATCH TD SCH (10:00)
[2017-11-29] MEDS: DULoxetine HCL 20 MG CAPSULE.DR (FP) PO SCH (10:00)
[2017-11-29] MEDS: BUPRENORPHINE/NALOXONE 8 MG/2 MG FILM PACKET SL SCH (10:00)
[2017-11-29] MEDS: PRENATAL VITAMINS W/ FOLIC ACID TABLET (FP) PO SCH (10:00)
[2017-11-29] MEDS: TIMOLOL 0.25% OPHTHALMIC SOL 5 ML BOTTLE OU SCH ×2 (10:01→21:06)
[2017-11-29] MEDS: BRIMONIDINE TARTRATE 0.15% OPHTHALMIC 5 ML BOTTLE OU SCH ×2 (10:01→21:06)
[2017-11-29] MEDS: CLOTRIMAZOLE 1% CREAM 15 GM TUBE TP SCH ×2 (10:01→21:07)
[2017-11-29] MEDS: MINERAL OIL/PETROLAT/WATER TOPICAL CREAM 113 GM JAR TP SCH ×2 (10:02→21:09)
[2017-11-29] MEDS: hydrOXYzine PAMOATE 50 MG CAPSULE (FP) PO PRN (10:04)
[2017-11-29] MEDS: hydrOXYzine PAMOATE 50 MG CAPSULE (FP) PO SCH ×2 (14:31→21:08)
--- NOTE | 2017-11-29 14:32 | PN ---
Psychiatric Progress Note Vital Signs: Vital Signs Period Temp Pulse Resp BP Sys/Harmon Pulse Ox Last 24 Hr 97.7 F 75-80 18-18 118-129/80-87 Date of Session: 11/29/17 Chief Complaint:: Britton not sleeping ,and britton nervious." HPI: Patient addressed Alcohol,Cocaine dependence comorbid with PTSD,Bipolar disorder. ROS: Significant for COPD,BA,Chronic renal insufficiency,Glaucome,HTN,R eye blindness,Hearing impairment.. Current Medications: Active Medications Generic Name Dose Route Start Last Admin Trade Name Freq PRN Reason Stop Dose Admin Acetaminophen 650 mg 11/13/17 10:33 11/16/17 04:10 Tylenol - PO 650 mg Q4H PRN Administration FEVER Al Hydroxide/Mg Hydroxide 30 ml 11/13/17 10:33 11/15/17 17:16 Mylanta Oral Suspension - PO 30 ml Q6H PRN Administration DYSPEPSIA Albuterol Sulfate 0 puff 11/13/17 10:34 Ventolin Hfa Inhaler - IH Q4H PRN SHORT OF BREATH/WHEEZING Aspirin 81 mg 11/14/17 10:00 11/29/17 10:00 Asa - PO 81 mg DAILY [facility] Administration Brimonidine Tartrate 1 drop 11/13/17 12:00 11/29/17 10:01 Alphagan 0.15% - OU 1 drop BID [facility] Administration Buprenorphine/Naloxone 1 each 11/27/17 10:00 11/29/17 10:00 Suboxone 8mg/2mg Sl Film - SL 1 each DAILY [facility] Administration Clotrimazole 1 applic 11/14/17 22:00 11/29/17 10:01 Lotrimin 1% Cream - TP 1 applic BID [facility] Administration Colloidal Oatmeal 1 applic 11/18/17 14:19 Aveeno Soap - TP DAILY PRN HYGEINE Dorzolamide HCl 1 drop 11/13/17 14:00 11/29/17 13:34 Trusopt 2% OU 1 drop TID [facility] Administration Doxepin HCl 25 mg/ Doxepin HCl 75 mg 11/29/17 22:00 50 mg PO HS [facility] Duloxetine HCl 20 mg 11/17/17 16:15 11/29/17 10:00 Cymbalta - PO 20 mg DAILY [facility] Administration Eucalyptus/Menthol/Phenol/Sorbitol 1 each 11/13/17 10:33 Cepastat Lozenge - MM Q4H PRN SORE THROAT Guaifenesin 10 ml 11/13/17 10:33 Robitussin Dm - PO Q6H PRN COUGH Hydroxyzine Pamoate 100 mg 11/29/17 13:45 Vistaril - PO BID [facility] Ibuprofen 400 mg 11/17/17 14:41 Motrin - PO Q6H PRN Pain Level 4-6 Latanoprost 1 drop 11/13/17 22:00 11/28/17 21:05 Xalatan 0.005% Eye Drops - OD 1 drop HS [facility] Administration Loperamide HCl 4 mg 11/13/17 10:33 Imodium - PO Q6H PRN DIARRHEA Magnesium Citrate 300 ml 11/13/17 10:33 Citroma - PO Q48H PRN CONSTIPATION Magnesium Hydroxide 30 ml 11/13/17 10:33 Milk Of Magnesia - PO DAILY PRN CONSTIPATION Melatonin 5 mg 11/13/17 22:00 11/28/17 21:06 Melatonin PO 5 mg HS PRN Administration INSOMNIA Multi-Ingredient Lotion 1 applic 11/18/17 22:00 11/29/17 10:02 Eucerin (Small Jar) - TP 1 applic BID [facility] Administration Nicotine 14 mg 11/13/17 10:45 11/29/17 10:00 Nicoderm Patch - TD Not Given DAILY [facility] Nicotine Polacrilex 2 mg 11/29/17 12:56 Nicorette Gum - BUC Q2H PRN NICOTINE REPLACEMENT RX Nifedipine 90 mg 11/13/17 11:30 11/29/17 10:00 Procardia Xl - PO 90 mg DAILY [facility] Administration Ondansetron HCl 4 mg 11/18/17 19:23 Zofran Odt - SL Q6H PRN NAUSEA AND/OR VOMITING Multivit/Folic Acid/Iron 1 tab 11/14/17 10:00 11/29/17 10:00 Vitamins (Sjr) - PO 1 tab DAILY [facility] Administration Pseudoephedrine/Triprolidine 1 combo 11/13/17 10:33 Actifed - PO TID PRN NASAL CONGESTION Thiamine HCl 100 mg 11/13/17 22:00 11/28/17 21:06 Vitamin B1 - PO 100 mg HS [facility] Administration Timolol Maleate 1 drop 11/13/17 22:00 11/29/17 10:01 Timoptic 0.25% OU 1 drop BID [facility] Administration Trazodone HCl 100 mg 11/26/17 22:00 11/28/17 21:06 Desyrel - PO 100 mg HS [facility] Administration Current Side Effect: No Lab tests ordered: No Lab tests reviewed: Yes Provider note:: Chart was revuewed,patient was evaluated to address her ongoing sleeping difficulties,anxiety.Treatment plan,including medications managemnt has been discussed with the patient.Properties of Doxepin has been discussed with the patient including side effects,benefits and dose adjustment.Doxepin 50 mg po hs will be adjusted to 75 mg po hs,Vistaril 50 mg po q 4 hrs will be adjusted to 100 mg po bid. Supportive therapy provided including discussion of relaxation,stress related techniques. Total face to face time:: 35 Mental Status Exam - Mental Status Exam Alert and Oriented to: Time, Place, Person Cognitive Function: Grossly Intact Patient Appearance: Well Groomed Mood: Nervous, Anxious Affect: Mood Congruent, Labile Patient Behavior: Cooperative Speech Pattern: Clear Voice Loudness: Normal Thought Process: Goal Oriented Thought Disorder: Not Present Hallucinations: Denies Suicidal Ideation: Denies Homicidal Ideation: Denies Insight/Judgement: Fair Sleep: Fair Appetite: Good Muscle strength/Tone: Normal Gait/Station: Normal Psychiatric Treatment Plan - Problem List (1) Substance or medication-induced sleep disorder Current Visit: Yes (2) Asthma Current Visit: Yes Qualifiers: Asthma severity: mild persistent Asthma complication type: with status asthmaticus (3) COPD (chronic obstructive pulmonary disease) Current Visit: Yes Qualifiers: COPD type: emphysema Emphysema type: other Qualified Code(s): J43.8 - Other emphysema (4) Chronic renal insufficiency, stage III (moderate) Current Visit: Yes (5) Glaucoma Current Visit: Yes Qualifiers: Glaucoma type: open-angle Open angle glaucoma type: unspecified type Laterality: right Glaucoma stage: moderate stage Qualified Code(s): H40.10X2 - Unspecified open-angle glaucoma, moderate stage Comment: EYE DROPS TO BOTH EYES DAILY (6) Hypertension Current Visit: Yes Qualifiers: Hypertension type: essential hypertension Qualified Code(s): I10 - Essential (primary) hypertension (7) Alcohol dependence Current Visit: Yes (8) Substance induced mood disorder Current Visit: Yes (9) Blindness of left eye Current Visit: Yes (10) Cocaine dependence Current Visit: Yes Qualifiers: Substance use status: uncomplicated Qualified Code(s): F14.20 - Cocaine dependence, uncomplicated (11) PTSD (post-traumatic stress disorder) Current Visit: Yes (12) Bipolar disorder Current Visit: Yes (13) Hearing loss, right Current Visit: Yes Qualifiers: Contralateral hearing status: unspecified
[2017-11-29] MEDS ORDERED: DOXEPIN HCL 25 MG CAPSULE ONE (20:34)
[2017-11-29] MEDS ORDERED: DOXEPIN HCL 50 MG CAPSULE ONE (20:35)
[2017-11-29] MEDS: LATANOPROST 0.005% OPHTH SOLN 2.5ML BOTTLE OD SCH (21:07)
[2017-11-29] MEDS: DOXEPIN HCL PO SCH (21:08)
[2017-11-29] MEDS: traZODone HCL 100 MG TABLET (FP) PO SCH (21:08)
[2017-11-29] MEDS: THIAMINE HCL 100 MG TABLET (FP) PO SCH (21:09)
[2017-11-29] MEDS ORDERED: DOXEPIN HCL 50 MG CAPSULE PO SCH (22:00)
[2017-11-30] MEDS ORDERED: PT OWN MED DRAWER 7, Y5N ONE ×3 (05:48→21:01)
[2017-11-30] MEDS: DORZOLAMIDE 2% HCL OPHTHALMIC SOLUTION 10 ML BOTTLE OU SCH ×3 (06:44→21:45)
[2017-11-30] MEDS: BRIMONIDINE TARTRATE 0.15% OPHTHALMIC 5 ML BOTTLE OU SCH ×2 (09:20→21:45)
[2017-11-30] MEDS: ASPIRIN 81 MG CHEWABLE TABLETS PO SCH (09:20)
[2017-11-30] MEDS: MINERAL OIL/PETROLAT/WATER TOPICAL CREAM 113 GM JAR TP SCH ×2 (09:21→21:47)
[2017-11-30] MEDS: CLOTRIMAZOLE 1% CREAM 15 GM TUBE TP SCH ×2 (09:21→21:48)
[2017-11-30] MEDS: DULoxetine HCL 20 MG CAPSULE.DR (FP) PO SCH (09:21)
[2017-11-30] MEDS: NICOTINE 14 MG/24 HOURS TOPICAL PATCH TD SCH (09:22)
[2017-11-30] MEDS: NIFEdipine E.R. 90 MG TABLET (FP) PO SCH (09:22)
[2017-11-30] MEDS: BUPRENORPHINE/NALOXONE 8 MG/2 MG FILM PACKET SL SCH (09:22)
[2017-11-30] MEDS: PRENATAL VITAMINS W/ FOLIC ACID TABLET (FP) PO SCH (09:22)
[2017-11-30] MEDS: TIMOLOL 0.25% OPHTHALMIC SOL 5 ML BOTTLE OU SCH ×2 (09:23→21:45)
[2017-11-30] MEDS: hydrOXYzine PAMOATE 50 MG CAPSULE (FP) PO SCH ×2 (09:23→21:46)
[2017-11-30] MEDS: NICOTINE POLACRILEX 2 MG GUM BUC PRN (10:16)
[2017-11-30] MEDS ORDERED: DOXEPIN HCL 25 MG CAPSULE ONE (21:00)
[2017-11-30] MEDS ORDERED: DOXEPIN HCL 50 MG CAPSULE ONE (21:00)
[2017-11-30] MEDS: LATANOPROST 0.005% OPHTH SOLN 2.5ML BOTTLE OD SCH (21:45)
[2017-11-30] MEDS: THIAMINE HCL 100 MG TABLET (FP) PO SCH (21:46)
[2017-11-30] MEDS: DOXEPIN HCL PO SCH (21:46)
[2017-11-30] MEDS: traZODone HCL 100 MG TABLET (FP) PO SCH (21:46)
[2017-12-01] MEDS ORDERED: PT OWN MED DRAWER 7, Y5N ONE ×4 (03:27→13:50)
[2017-12-01] MEDS: DORZOLAMIDE 2% HCL OPHTHALMIC SOLUTION 10 ML BOTTLE OU SCH ×3 (06:45→21:44)
[2017-12-01] MEDS: ASPIRIN 81 MG CHEWABLE TABLETS PO SCH (10:31)
[2017-12-01] MEDS: NIFEdipine E.R. 90 MG TABLET (FP) PO SCH (10:31)
[2017-12-01] MEDS: NICOTINE 14 MG/24 HOURS TOPICAL PATCH TD SCH (10:31)
[2017-12-01] MEDS: hydrOXYzine PAMOATE 50 MG CAPSULE (FP) PO SCH ×2 (10:32→21:45)
[2017-12-01] MEDS: MINERAL OIL/PETROLAT/WATER TOPICAL CREAM 113 GM JAR TP SCH ×2 (10:32→21:46)
[2017-12-01] MEDS: BUPRENORPHINE/NALOXONE 8 MG/2 MG FILM PACKET SL SCH (10:32)
[2017-12-01] MEDS: PRENATAL VITAMINS W/ FOLIC ACID TABLET (FP) PO SCH (10:32)
[2017-12-01] MEDS: DULoxetine HCL 20 MG CAPSULE.DR (FP) PO SCH (10:32)
[2017-12-01] MEDS: NICOTINE POLACRILEX 2 MG GUM BUC PRN (10:33)
[2017-12-01] MEDS: CLOTRIMAZOLE 1% CREAM 15 GM TUBE TP SCH ×2 (10:33→21:45)
[2017-12-01] MEDS: BRIMONIDINE TARTRATE 0.15% OPHTHALMIC 5 ML BOTTLE OU SCH ×2 (10:34→21:43)
[2017-12-01] MEDS: TIMOLOL 0.25% OPHTHALMIC SOL 5 ML BOTTLE OU SCH ×2 (10:34→21:44)
[2017-12-01] MEDS ORDERED: DOXEPIN HCL 25 MG CAPSULE ONE (19:44)
[2017-12-01] MEDS ORDERED: DOXEPIN HCL 50 MG CAPSULE ONE (19:44)
[2017-12-01] MEDS: LATANOPROST 0.005% OPHTH SOLN 2.5ML BOTTLE OD SCH (21:43)
[2017-12-01] MEDS: traZODone HCL 100 MG TABLET (FP) PO SCH (21:45)
[2017-12-01] MEDS: THIAMINE HCL 100 MG TABLET (FP) PO SCH (21:45)
[2017-12-01] MEDS: DOXEPIN HCL PO SCH (21:45)
[2017-12-02] MEDS: DORZOLAMIDE 2% HCL OPHTHALMIC SOLUTION 10 ML BOTTLE OU SCH ×3 (06:15→21:39)
[2017-12-02] MEDS ORDERED: PT OWN MED DRAWER 7, Y5N ONE ×2 (06:16→13:21)
[2017-12-02] MEDS: NIFEdipine E.R. 90 MG TABLET (FP) PO SCH (10:25)
[2017-12-02] MEDS: hydrOXYzine PAMOATE 50 MG CAPSULE (FP) PO SCH ×2 (10:25→21:39)
[2017-12-02] MEDS: ASPIRIN 81 MG CHEWABLE TABLETS PO SCH (10:25)
[2017-12-02] MEDS: BUPRENORPHINE/NALOXONE 8 MG/2 MG FILM PACKET SL SCH (10:25)
[2017-12-02] MEDS: DULoxetine HCL 20 MG CAPSULE.DR (FP) PO SCH (10:25)
[2017-12-02] MEDS: NICOTINE 14 MG/24 HOURS TOPICAL PATCH TD SCH (10:25)
[2017-12-02] MEDS: PRENATAL VITAMINS W/ FOLIC ACID TABLET (FP) PO SCH (10:25)
[2017-12-02] MEDS: CLOTRIMAZOLE 1% CREAM 15 GM TUBE TP SCH ×2 (10:26→22:00)
[2017-12-02] MEDS: MINERAL OIL/PETROLAT/WATER TOPICAL CREAM 113 GM JAR TP SCH ×2 (10:26→22:00)
[2017-12-02] MEDS: BRIMONIDINE TARTRATE 0.15% OPHTHALMIC 5 ML BOTTLE OU SCH ×2 (10:28→21:38)
[2017-12-02] MEDS: TIMOLOL 0.25% OPHTHALMIC SOL 5 ML BOTTLE OU SCH ×2 (10:28→21:38)
[2017-12-02] MEDS: NICOTINE POLACRILEX 2 MG GUM BUC PRN (10:36)
--- NOTE | 2017-12-02 15:03 | PN ---
[facility] Progress Note Note: Patient requested additional increase in Suboxone. Patient prior to admission was on 8mg qd. Patient was increased from 4mg to 8mg. No symptoms reported but dry skin. Vital Signs Temperature 97.4 F L 12/02/17 06:57 Pulse Rate 82 12/02/17 10:00 Respiratory Rate 18 12/02/17 06:57 Blood Pressure 113/77 12/02/17 10:00 O2 Sat by Pulse Oximetry (%) Laboratory Last Values WBC 5.0 K/mm3 (4.0-10.0) D 11/14/17 07:15 RBC 4.34 M/mm3 (3.60-5.2) 11/14/17 07:15 Hgb 13.0 GM/dL (10.7-15.3) 11/14/17 07:15 Hct 39.8 % (32.4-45.2) 11/14/17 07:15 MCV 91.5 fl (80-96) 11/14/17 07:15 MCH 30.0 pg (25.7-33.7) 11/14/17 07:15 MCHC 32.8 g/dl (32.0-36.0) 11/14/17 07:15 RDW 14.4 % (11.6-15.6) 11/14/17 07:15 Plt Count 228 K/MM3 (134-434) D 11/14/17 07:15 MPV 8.5 fl (7.5-11.1) 11/14/17 07:15 Sodium 146 mmol/L (136-145) H 11/14/17 07:15 Potassium 3.9 mmol/L (3.5-5.1) 11/14/17 07:15 Chloride 111 mmol/L (98-107) H 11/14/17 07:15 Carbon Dioxide 30 mmol/L (21-32) 11/14/17 07:15 Anion Gap 5 (8-16) L 11/14/17 07:15 BUN 20 mg/dL (7-18) H 11/14/17 07:15 Creatinine 1.3 mg/dL (0.55-1.02) H 11/14/17 07:15 Creat Clearance w eGFR 43.36 (>60) 11/14/17 07:15 Random Glucose 69 mg/dL (74-106) L 11/14/17 07:15 Calcium 8.7 mg/dL (8.5-10.1) 11/14/17 07:15 Total Bilirubin 0.7 mg/dL (0.2-1.0) 11/14/17 07:15 AST 13 U/L (15-37) L 11/14/17 07:15 ALT 13 U/L (12-78) 11/14/17 07:15 Alkaline Phosphatase 69 U/L (45-117) 11/14/17 07:15 Total Protein 5.9 g/dl (6.4-8.2) L 11/14/17 07:15 Albumin 3.1 g/dl (3.4-5.0) L 11/14/17 07:15 Urine Color Jalyn 11/13/17 22:00 Urine Appearance Turbid 11/13/17 22:00 Urine pH 5.0 (5.0-8.0) 11/13/17 22:00 Ur Specific [place] 1.023 (1.001-1.035) 11/13/17 22:00 Urine Protein 2+ (NEGATIVE) H 11/13/17 22:00 Urine Glucose (UA) Negative (NEGATIVE) 11/13/17 22:00 Urine Ketones Negative (NEGATIVE) 11/13/17 22:00 Urine Blood Negative (NEGATIVE) 11/13/17 22:00 Urine Nitrite Negative (NEGATIVE) 11/13/17 22:00 Urine Bilirubin Negative (<2.0 mg/dL) 11/13/17 22:00 Urine Urobilinogen 2.0 mg/dL (0.2-1.0) H 11/13/17 22:00 Ur Leukocyte Esterase 2+ (NEGATIVE) H 11/13/17 22:00 Urine WBC (Auto) 16 /hpf (3-5) 11/13/17 22:00 Urine RBC (Auto) 6 /hpf (0-3) 11/13/17 22:00 Ur Epithelial Cells Few /HPF (FEW) 11/13/17 22:00 Urine Bacteria Rare /hpf (NONE SEEN) 11/13/17 22:00 Hyaline Casts 3 /lpf 11/13/17 22:00 Urine Mucus Moderate 11/13/17 22:00 RPR Titer Nonreactive (NONREACTIVE) 11/14/17 07:15 HIV 1&2 Antibody Screen Negative 11/14/17 07:15 HIV P24 Antigen Negative 11/14/17 07:15 T. vaginalis (TAMY) Negative (Negative) 11/19/17 17:30 Patient Aox3 in no apparent distress ambulating in the unit without limitations skin intact, no diaphoresis or erythema + dryness Plan: continue suboxone 8mg qd increase fluids continue to monitor
[2017-12-02] MEDS: IBUPROFEN 400 MG TABLET (FP) PO PRN (15:41)
[2017-12-02] MEDS: ACETAMINOPHEN 325 MG TABLET (FP) PO PRN ×2 (18:10→21:41)
[2017-12-02] MEDS ORDERED: DOXEPIN HCL 25 MG CAPSULE ONE (20:16)
[2017-12-02] MEDS ORDERED: DOXEPIN HCL 50 MG CAPSULE ONE (20:16)
[2017-12-02] MEDS: LATANOPROST 0.005% OPHTH SOLN 2.5ML BOTTLE OD SCH (21:38)
[2017-12-02] MEDS: THIAMINE HCL 100 MG TABLET (FP) PO SCH (21:39)
[2017-12-02] MEDS: DOXEPIN HCL PO SCH (21:39)
[2017-12-02] MEDS: traZODone HCL 100 MG TABLET (FP) PO SCH (21:39)
[2017-12-02] MEDS: MELATONIN 5 MG TABLETS PO PRN (21:40)
[2017-12-03] MEDS: DORZOLAMIDE 2% HCL OPHTHALMIC SOLUTION 10 ML BOTTLE OU SCH ×3 (06:20→21:35)
[2017-12-03] MEDS: IBUPROFEN 400 MG TABLET (FP) PO PRN ×2 (06:21→18:01)
[2017-12-03] MEDS ORDERED: PT OWN MED DRAWER 7, Y5N ONE ×3 (06:21→20:01)
[2017-12-03] MEDS: DULoxetine HCL 20 MG CAPSULE.DR (FP) PO SCH (10:18)
[2017-12-03] MEDS: CLOTRIMAZOLE 1% CREAM 15 GM TUBE TP SCH ×2 (10:18→21:33)
[2017-12-03] MEDS: ASPIRIN 81 MG CHEWABLE TABLETS PO SCH (10:18)
[2017-12-03] MEDS: BUPRENORPHINE/NALOXONE 8 MG/2 MG FILM PACKET SL SCH (10:18)
[2017-12-03] MEDS: PRENATAL VITAMINS W/ FOLIC ACID TABLET (FP) PO SCH (10:19)
[2017-12-03] MEDS: NIFEdipine E.R. 90 MG TABLET (FP) PO SCH (10:19)
[2017-12-03] MEDS: NICOTINE 14 MG/24 HOURS TOPICAL PATCH TD SCH (10:19)
[2017-12-03] MEDS: hydrOXYzine PAMOATE 50 MG CAPSULE (FP) PO SCH ×2 (10:19→21:30)
[2017-12-03] MEDS: TIMOLOL 0.25% OPHTHALMIC SOL 5 ML BOTTLE OU SCH ×2 (10:19→21:35)
[2017-12-03] MEDS: BRIMONIDINE TARTRATE 0.15% OPHTHALMIC 5 ML BOTTLE OU SCH ×2 (10:20→21:36)
[2017-12-03] MEDS: MINERAL OIL/PETROLAT/WATER TOPICAL CREAM 113 GM JAR TP SCH ×2 (10:21→21:31)
[2017-12-03] MEDS: ACETAMINOPHEN 325 MG TABLET (FP) PO PRN ×2 (10:22→21:32)
[2017-12-03] MEDS: COLLOIDAL OATMEAL 1 BAR EACH TP PRN (10:44)
--- NOTE | 2017-12-03 15:45 | PN ---
[facility] Progress Note Note: Patient addressed ongoing sleeping difficulties ,reports that Trazodone used to help her better when she was taking 150 mg po hs.Trazodone 100 mg po hs will be adjusted to 150 mg po hs.
[2017-12-03] MEDS: traZODone HCL 50 MG TABLET (FP) PO SCH (21:30)
[2017-12-03] MEDS: DOXEPIN HCL 25 MG CAPSULE PO SCH (21:31)
[2017-12-03] MEDS: LATANOPROST 0.005% OPHTH SOLN 2.5ML BOTTLE OD SCH (21:36)
[2017-12-03] MEDS: THIAMINE HCL 100 MG TABLET (FP) PO SCH (22:48)
[2017-12-04] MEDS: DORZOLAMIDE 2% HCL OPHTHALMIC SOLUTION 10 ML BOTTLE OU SCH ×3 (06:24→21:59)
[2017-12-04] MEDS: IBUPROFEN 400 MG TABLET (FP) PO PRN ×2 (06:25→22:03)
[2017-12-04] MEDS ORDERED: PT OWN MED DRAWER 7, Y5N ONE ×3 (07:06→19:28)
[2017-12-04] MEDS: NICOTINE 14 MG/24 HOURS TOPICAL PATCH TD SCH (10:18)
[2017-12-04] MEDS: CLOTRIMAZOLE 1% CREAM 15 GM TUBE TP SCH ×2 (10:18→21:58)
[2017-12-04] MEDS: hydrOXYzine PAMOATE 50 MG CAPSULE (FP) PO SCH ×2 (10:19→21:57)
[2017-12-04] MEDS: BUPRENORPHINE/NALOXONE 8 MG/2 MG FILM PACKET SL SCH (10:19)
[2017-12-04] MEDS: PRENATAL VITAMINS W/ FOLIC ACID TABLET (FP) PO SCH (10:19)
[2017-12-04] MEDS: ASPIRIN 81 MG CHEWABLE TABLETS PO SCH (10:19)
[2017-12-04] MEDS: NIFEdipine E.R. 90 MG TABLET (FP) PO SCH (10:19)
[2017-12-04] MEDS: DULoxetine HCL 20 MG CAPSULE.DR (FP) PO SCH (10:19)
[2017-12-04] MEDS: MINERAL OIL/PETROLAT/WATER TOPICAL CREAM 113 GM JAR TP SCH ×2 (10:20→22:00)
[2017-12-04] MEDS: TIMOLOL 0.25% OPHTHALMIC SOL 5 ML BOTTLE OU SCH ×2 (10:20→22:01)
[2017-12-04] MEDS: BRIMONIDINE TARTRATE 0.15% OPHTHALMIC 5 ML BOTTLE OU SCH ×2 (10:20→21:59)
[2017-12-04] MEDS: NICOTINE POLACRILEX 2 MG GUM BUC PRN (13:08)
[2017-12-04] MEDS: DOXEPIN HCL 25 MG CAPSULE PO SCH (21:58)
[2017-12-04] MEDS: THIAMINE HCL 100 MG TABLET (FP) PO SCH (21:58)
[2017-12-04] MEDS: traZODone HCL 50 MG TABLET (FP) PO SCH (21:58)
[2017-12-04] MEDS: LATANOPROST 0.005% OPHTH SOLN 2.5ML BOTTLE OD SCH (22:00)
[2017-12-05] MEDS ORDERED: PT OWN MED DRAWER 7, Y5N ONE ×3 (05:51→20:28)
[2017-12-05] MEDS: DORZOLAMIDE 2% HCL OPHTHALMIC SOLUTION 10 ML BOTTLE OU SCH ×3 (06:36→21:37)
[2017-12-05] MEDS: IBUPROFEN 400 MG TABLET (FP) PO PRN ×2 (09:01→21:40)
[2017-12-05] MEDS: CLOTRIMAZOLE 1% CREAM 15 GM TUBE TP SCH ×2 (10:06→21:39)
[2017-12-05] MEDS: PRENATAL VITAMINS W/ FOLIC ACID TABLET (FP) PO SCH (10:06)
[2017-12-05] MEDS: NICOTINE 14 MG/24 HOURS TOPICAL PATCH TD SCH (10:06)
[2017-12-05] MEDS: NICOTINE POLACRILEX 2 MG GUM BUC PRN (10:06)
[2017-12-05] MEDS: BUPRENORPHINE/NALOXONE 8 MG/2 MG FILM PACKET SL SCH (10:06)
[2017-12-05] MEDS: ASPIRIN 81 MG CHEWABLE TABLETS PO SCH (10:06)
[2017-12-05] MEDS: NIFEdipine E.R. 90 MG TABLET (FP) PO SCH (10:07)
[2017-12-05] MEDS: DULoxetine HCL 20 MG CAPSULE.DR (FP) PO SCH (10:07)
[2017-12-05] MEDS: hydrOXYzine PAMOATE 50 MG CAPSULE (FP) PO SCH ×2 (10:07→21:39)
[2017-12-05] MEDS: BRIMONIDINE TARTRATE 0.15% OPHTHALMIC 5 ML BOTTLE OU SCH ×2 (10:07→21:38)
[2017-12-05] MEDS: TIMOLOL 0.25% OPHTHALMIC SOL 5 ML BOTTLE OU SCH ×2 (10:08→21:37)
[2017-12-05] MEDS: MINERAL OIL/PETROLAT/WATER TOPICAL CREAM 113 GM JAR TP SCH ×2 (10:09→21:39)
[2017-12-05] MEDS: ACETAMINOPHEN 325 MG TABLET (FP) PO PRN (13:11)
--- NOTE | 2017-12-05 16:31 | PN ---
[facility] Progress Note Note: low back pain,flexeril 10 mgs po tid prn
[2017-12-05] MEDS: CYCLOBENZAPRINE HCL 10 MG TABLET (FP) PO PRN (16:55)
[2017-12-05] MEDS: LATANOPROST 0.005% OPHTH SOLN 2.5ML BOTTLE OD SCH (21:36)
[2017-12-05] MEDS: THIAMINE HCL 100 MG TABLET (FP) PO SCH (21:38)
[2017-12-05] MEDS: traZODone HCL 50 MG TABLET (FP) PO SCH (21:39)
[2017-12-05] MEDS: DOXEPIN HCL 25 MG CAPSULE PO SCH (21:39)
[2017-12-06] MEDS: DORZOLAMIDE 2% HCL OPHTHALMIC SOLUTION 10 ML BOTTLE OU SCH ×3 (06:33→21:41)
[2017-12-06] MEDS: COLLOIDAL OATMEAL 1 BAR EACH TP PRN (06:34)
[2017-12-06] MEDS: IBUPROFEN 400 MG TABLET (FP) PO PRN (06:34)
[2017-12-06] MEDS: ASPIRIN 81 MG CHEWABLE TABLETS PO SCH (10:15)
[2017-12-06] MEDS: DULoxetine HCL 20 MG CAPSULE.DR (FP) PO SCH (10:16)
[2017-12-06] MEDS: PRENATAL VITAMINS W/ FOLIC ACID TABLET (FP) PO SCH (10:16)
[2017-12-06] MEDS: BRIMONIDINE TARTRATE 0.15% OPHTHALMIC 5 ML BOTTLE OU SCH ×2 (10:16→21:41)
[2017-12-06] MEDS: TIMOLOL 0.25% OPHTHALMIC SOL 5 ML BOTTLE OU SCH ×2 (10:16→21:41)
[2017-12-06] MEDS: NIFEdipine E.R. 90 MG TABLET (FP) PO SCH (10:16)
[2017-12-06] MEDS: hydrOXYzine PAMOATE 50 MG CAPSULE (FP) PO SCH ×2 (10:16→21:42)
[2017-12-06] MEDS: CLOTRIMAZOLE 1% CREAM 15 GM TUBE TP SCH ×2 (10:17→21:44)
[2017-12-06] MEDS: MINERAL OIL/PETROLAT/WATER TOPICAL CREAM 113 GM JAR TP SCH ×2 (10:17→21:44)
[2017-12-06] MEDS: BUPRENORPHINE/NALOXONE 8 MG/2 MG FILM PACKET SL SCH (10:17)
[2017-12-06] MEDS: NICOTINE 14 MG/24 HOURS TOPICAL PATCH TD SCH (10:17)
[2017-12-06] MEDS: NICOTINE POLACRILEX 2 MG GUM BUC PRN (10:18)
[2017-12-06] MEDS: CYCLOBENZAPRINE HCL 10 MG TABLET (FP) PO PRN ×2 (10:19→19:00)
--- NOTE | 2017-12-06 14:00 | PN ---
[facility] Progress Note Note: Vital Signs Temperature 97.9 F 12/06/17 07:12 Pulse Rate 77 12/06/17 09:24 Respiratory Rate 18 12/06/17 07:12 Blood Pressure 116/80 12/06/17 09:24 O2 Sat by Pulse Oximetry (%) Patient c/o of pain on both lower extremities. Denies SOB, CP, dyspnea, vertigo , paresthesia. A/P Patient AOx3 in no apparent distress Normal HR and Rythm Lungs clear throughout Pulses present through out Skin intact, no erythema, no skin lesions, +1 non-pitting edema both ankle bilateral - ankle edema bilateral Plan: increase fluids leg elevation low sodium continue to monitor
[2017-12-06] MEDS ORDERED: PT OWN MED DRAWER 7, Y5N ONE ×2 (19:56→22:34)
[2017-12-06] MEDS: THIAMINE HCL 100 MG TABLET (FP) PO SCH (21:42)
[2017-12-06] MEDS: LATANOPROST 0.005% OPHTH SOLN 2.5ML BOTTLE OD SCH (21:42)
[2017-12-06] MEDS: traZODone HCL 50 MG TABLET (FP) PO SCH (21:42)
[2017-12-06] MEDS: MELATONIN 5 MG TABLETS PO PRN (21:43)
[2017-12-06] MEDS: DOXEPIN HCL 25 MG CAPSULE PO SCH (21:43)
[2017-12-07] MEDS: IBUPROFEN 400 MG TABLET (FP) PO PRN (06:34)
[2017-12-07] MEDS: DORZOLAMIDE 2% HCL OPHTHALMIC SOLUTION 10 ML BOTTLE OU SCH ×3 (06:34→21:41)
[2017-12-07] MEDS: hydrOXYzine PAMOATE 50 MG CAPSULE (FP) PO SCH ×2 (10:27→21:41)
[2017-12-07] MEDS: NIFEdipine E.R. 90 MG TABLET (FP) PO SCH (10:27)
[2017-12-07] MEDS: DULoxetine HCL 20 MG CAPSULE.DR (FP) PO SCH (10:27)
[2017-12-07] MEDS: MINERAL OIL/PETROLAT/WATER TOPICAL CREAM 113 GM JAR TP SCH ×2 (10:27→21:44)
[2017-12-07] MEDS: ASPIRIN 81 MG CHEWABLE TABLETS PO SCH (10:27)
[2017-12-07] MEDS: CLOTRIMAZOLE 1% CREAM 15 GM TUBE TP SCH ×2 (10:27→21:44)
[2017-12-07] MEDS: PRENATAL VITAMINS W/ FOLIC ACID TABLET (FP) PO SCH (10:27)
[2017-12-07] MEDS: BRIMONIDINE TARTRATE 0.15% OPHTHALMIC 5 ML BOTTLE OU SCH ×2 (10:28→21:41)
[2017-12-07] MEDS: BUPRENORPHINE/NALOXONE 8 MG/2 MG FILM PACKET SL SCH (10:29)
[2017-12-07] MEDS: NICOTINE 14 MG/24 HOURS TOPICAL PATCH TD SCH (10:29)
[2017-12-07] MEDS: TIMOLOL 0.25% OPHTHALMIC SOL 5 ML BOTTLE OU SCH ×2 (10:29→21:41)
[2017-12-07] MEDS ORDERED: PT OWN MED DRAWER 7, Y5N ONE ×3 (10:48→22:23)
[2017-12-07] MEDS: CYCLOBENZAPRINE HCL 10 MG TABLET (FP) PO PRN (18:15)
[2017-12-07] MEDS: THIAMINE HCL 100 MG TABLET (FP) PO SCH (21:41)
[2017-12-07] MEDS: LATANOPROST 0.005% OPHTH SOLN 2.5ML BOTTLE OD SCH (21:41)
[2017-12-07] MEDS: DOXEPIN HCL 25 MG CAPSULE PO SCH (21:42)
[2017-12-07] MEDS: traZODone HCL 50 MG TABLET (FP) PO SCH (21:42)
[2017-12-07] MEDS: COLLOIDAL OATMEAL 1 BAR EACH TP PRN (21:44)
[2017-12-08] MEDS ORDERED: PT OWN MED DRAWER 7, Y5N ONE ×2 (03:25→20:33)
[2017-12-08] MEDS: DORZOLAMIDE 2% HCL OPHTHALMIC SOLUTION 10 ML BOTTLE OU SCH ×3 (06:19→21:37)
[2017-12-08] MEDS: CYCLOBENZAPRINE HCL 10 MG TABLET (FP) PO PRN ×2 (06:20→21:42)
[2017-12-08] MEDS: BUPRENORPHINE/NALOXONE 8 MG/2 MG FILM PACKET SL SCH (10:18)
[2017-12-08] MEDS: DULoxetine HCL 20 MG CAPSULE.DR (FP) PO SCH (10:18)
[2017-12-08] MEDS: ASPIRIN 81 MG CHEWABLE TABLETS PO SCH (10:18)
[2017-12-08] MEDS: hydrOXYzine PAMOATE 50 MG CAPSULE (FP) PO SCH ×2 (10:18→21:36)
[2017-12-08] MEDS: PRENATAL VITAMINS W/ FOLIC ACID TABLET (FP) PO SCH (10:18)
[2017-12-08] MEDS: NICOTINE 14 MG/24 HOURS TOPICAL PATCH TD SCH (10:18)
[2017-12-08] MEDS: NIFEdipine E.R. 90 MG TABLET (FP) PO SCH (10:18)
[2017-12-08] MEDS: MINERAL OIL/PETROLAT/WATER TOPICAL CREAM 113 GM JAR TP SCH ×2 (10:20→21:36)
[2017-12-08] MEDS: BRIMONIDINE TARTRATE 0.15% OPHTHALMIC 5 ML BOTTLE OU SCH ×2 (10:21→21:37)
[2017-12-08] MEDS: CLOTRIMAZOLE 1% CREAM 15 GM TUBE TP SCH ×2 (10:21→21:37)
[2017-12-08] MEDS: TIMOLOL 0.25% OPHTHALMIC SOL 5 ML BOTTLE OU SCH ×2 (10:22→21:38)
[2017-12-08] MEDS: THIAMINE HCL 100 MG TABLET (FP) PO SCH (21:36)
[2017-12-08] MEDS: DOXEPIN HCL 25 MG CAPSULE PO SCH (21:36)
[2017-12-08] MEDS: traZODone HCL 50 MG TABLET (FP) PO SCH (21:36)
[2017-12-08] MEDS: LATANOPROST 0.005% OPHTH SOLN 2.5ML BOTTLE OD SCH (21:37)
[2017-12-09] MEDS ORDERED: PT OWN MED DRAWER 7, Y5N ONE ×3 (03:27→20:33)
[2017-12-09] MEDS: DORZOLAMIDE 2% HCL OPHTHALMIC SOLUTION 10 ML BOTTLE OU SCH ×3 (06:14→21:43)
[2017-12-09] MEDS: BRIMONIDINE TARTRATE 0.15% OPHTHALMIC 5 ML BOTTLE OU SCH ×2 (10:20→21:44)
[2017-12-09] MEDS: NICOTINE 14 MG/24 HOURS TOPICAL PATCH TD SCH (10:20)
[2017-12-09] MEDS: TIMOLOL 0.25% OPHTHALMIC SOL 5 ML BOTTLE OU SCH ×2 (10:21→21:44)
[2017-12-09] MEDS: ASPIRIN 81 MG CHEWABLE TABLETS PO SCH (10:21)
[2017-12-09] MEDS: MINERAL OIL/PETROLAT/WATER TOPICAL CREAM 113 GM JAR TP SCH ×2 (10:21→21:44)
[2017-12-09] MEDS: DULoxetine HCL 20 MG CAPSULE.DR (FP) PO SCH (10:21)
[2017-12-09] MEDS: CLOTRIMAZOLE 1% CREAM 15 GM TUBE TP SCH ×2 (10:22→21:45)
[2017-12-09] MEDS: NIFEdipine E.R. 90 MG TABLET (FP) PO SCH (10:22)
[2017-12-09] MEDS: BUPRENORPHINE/NALOXONE 8 MG/2 MG FILM PACKET SL SCH (10:22)
[2017-12-09] MEDS: PRENATAL VITAMINS W/ FOLIC ACID TABLET (FP) PO SCH (10:22)
[2017-12-09] MEDS: hydrOXYzine PAMOATE 50 MG CAPSULE (FP) PO SCH ×2 (10:22→21:41)
[2017-12-09] MEDS: NICOTINE POLACRILEX 2 MG GUM BUC PRN (10:26)
[2017-12-09] MEDS: DOXEPIN HCL 25 MG CAPSULE PO SCH (21:41)
[2017-12-09] MEDS: THIAMINE HCL 100 MG TABLET (FP) PO SCH (21:42)
[2017-12-09] MEDS: traZODone HCL 50 MG TABLET (FP) PO SCH (21:42)
[2017-12-09] MEDS: LATANOPROST 0.005% OPHTH SOLN 2.5ML BOTTLE OD SCH (21:44)
[2017-12-10] MEDS ORDERED: PT OWN MED DRAWER 7, Y5N ONE ×2 (05:54→21:39)
[2017-12-10] MEDS: DORZOLAMIDE 2% HCL OPHTHALMIC SOLUTION 10 ML BOTTLE OU SCH ×3 (06:41→21:36)
[2017-12-10] MEDS: CLOTRIMAZOLE 1% CREAM 15 GM TUBE TP SCH ×2 (10:38→21:38)
[2017-12-10] MEDS: NICOTINE 14 MG/24 HOURS TOPICAL PATCH TD SCH (10:38)
[2017-12-10] MEDS: BUPRENORPHINE/NALOXONE 8 MG/2 MG FILM PACKET SL SCH (10:38)
[2017-12-10] MEDS: hydrOXYzine PAMOATE 50 MG CAPSULE (FP) PO SCH ×2 (10:39→21:34)
[2017-12-10] MEDS: PRENATAL VITAMINS W/ FOLIC ACID TABLET (FP) PO SCH (10:39)
[2017-12-10] MEDS: ASPIRIN 81 MG CHEWABLE TABLETS PO SCH (10:39)
[2017-12-10] MEDS: DULoxetine HCL 20 MG CAPSULE.DR (FP) PO SCH (10:39)
[2017-12-10] MEDS: NIFEdipine E.R. 90 MG TABLET (FP) PO SCH (10:39)
[2017-12-10] MEDS: TIMOLOL 0.25% OPHTHALMIC SOL 5 ML BOTTLE OU SCH ×2 (10:40→21:36)
[2017-12-10] MEDS: BRIMONIDINE TARTRATE 0.15% OPHTHALMIC 5 ML BOTTLE OU SCH ×2 (10:40→21:36)
[2017-12-10] MEDS: MINERAL OIL/PETROLAT/WATER TOPICAL CREAM 113 GM JAR TP SCH ×2 (10:41→21:37)
[2017-12-10] MEDS: NICOTINE POLACRILEX 2 MG GUM BUC PRN (13:35)
[2017-12-10] MEDS: DOXEPIN HCL 25 MG CAPSULE PO SCH (21:34)
[2017-12-10] MEDS: traZODone HCL 50 MG TABLET (FP) PO SCH (21:34)
[2017-12-10] MEDS: THIAMINE HCL 100 MG TABLET (FP) PO SCH (21:35)
[2017-12-10] MEDS: LATANOPROST 0.005% OPHTH SOLN 2.5ML BOTTLE OD SCH (21:36)
[2017-12-11] MEDS: DORZOLAMIDE 2% HCL OPHTHALMIC SOLUTION 10 ML BOTTLE OU SCH ×3 (06:44→21:37)
[2017-12-11] MEDS: BRIMONIDINE TARTRATE 0.15% OPHTHALMIC 5 ML BOTTLE OU SCH ×2 (10:05→21:37)
[2017-12-11] MEDS: PRENATAL VITAMINS W/ FOLIC ACID TABLET (FP) PO SCH (10:06)
[2017-12-11] MEDS: hydrOXYzine PAMOATE 50 MG CAPSULE (FP) PO SCH ×2 (10:06→21:38)
[2017-12-11] MEDS: TIMOLOL 0.25% OPHTHALMIC SOL 5 ML BOTTLE OU SCH ×2 (10:06→21:37)
[2017-12-11] MEDS: ASPIRIN 81 MG CHEWABLE TABLETS PO SCH (10:06)
[2017-12-11] MEDS: DULoxetine HCL 20 MG CAPSULE.DR (FP) PO SCH (10:06)
[2017-12-11] MEDS: CLOTRIMAZOLE 1% CREAM 15 GM TUBE TP SCH ×2 (10:07→21:49)
[2017-12-11] MEDS: NIFEdipine E.R. 90 MG TABLET (FP) PO SCH (10:07)
[2017-12-11] MEDS: NICOTINE 14 MG/24 HOURS TOPICAL PATCH TD SCH (10:07)
[2017-12-11] MEDS: MINERAL OIL/PETROLAT/WATER TOPICAL CREAM 113 GM JAR TP SCH ×2 (10:07→21:49)
[2017-12-11] MEDS: BUPRENORPHINE/NALOXONE 8 MG/2 MG FILM PACKET SL SCH (10:08)
[2017-12-11] MEDS: NICOTINE POLACRILEX 2 MG GUM BUC PRN (10:09)
[2017-12-11] MEDS: traZODone HCL 50 MG TABLET (FP) PO SCH (21:37)
[2017-12-11] MEDS: LATANOPROST 0.005% OPHTH SOLN 2.5ML BOTTLE OD SCH (21:37)
[2017-12-11] MEDS: THIAMINE HCL 100 MG TABLET (FP) PO SCH (21:38)
[2017-12-11] MEDS: DOXEPIN HCL 25 MG CAPSULE PO SCH (21:38)
[2017-12-12] MEDS ORDERED: PT OWN MED DRAWER 7, Y5N ONE ×3 (00:13→22:08)
[2017-12-12] MEDS: DORZOLAMIDE 2% HCL OPHTHALMIC SOLUTION 10 ML BOTTLE OU SCH ×3 (06:59→21:46)
[2017-12-12] MEDS: IBUPROFEN 400 MG TABLET (FP) PO PRN (06:59)
[2017-12-12] MEDS: BRIMONIDINE TARTRATE 0.15% OPHTHALMIC 5 ML BOTTLE OU SCH ×2 (10:37→21:46)
[2017-12-12] MEDS: PRENATAL VITAMINS W/ FOLIC ACID TABLET (FP) PO SCH (10:37)
[2017-12-12] MEDS: hydrOXYzine PAMOATE 50 MG CAPSULE (FP) PO SCH ×2 (10:37→21:47)
[2017-12-12] MEDS: ASPIRIN 81 MG CHEWABLE TABLETS PO SCH (10:37)
[2017-12-12] MEDS: DULoxetine HCL 20 MG CAPSULE.DR (FP) PO SCH (10:37)
[2017-12-12] MEDS: NICOTINE 14 MG/24 HOURS TOPICAL PATCH TD SCH (10:38)
[2017-12-12] MEDS: CLOTRIMAZOLE 1% CREAM 15 GM TUBE TP SCH ×2 (10:38→23:04)
[2017-12-12] MEDS: NIFEdipine E.R. 90 MG TABLET (FP) PO SCH (10:38)
[2017-12-12] MEDS: MINERAL OIL/PETROLAT/WATER TOPICAL CREAM 113 GM JAR TP SCH ×2 (10:38→23:04)
[2017-12-12] MEDS: BUPRENORPHINE/NALOXONE 8 MG/2 MG FILM PACKET SL SCH (10:39)
[2017-12-12] MEDS: TIMOLOL 0.25% OPHTHALMIC SOL 5 ML BOTTLE OU SCH ×2 (10:39→21:47)
[2017-12-12] MEDS: NICOTINE POLACRILEX 2 MG GUM BUC PRN (10:41)
[2017-12-12] MEDS: LATANOPROST 0.005% OPHTH SOLN 2.5ML BOTTLE OD SCH (21:46)
[2017-12-12] MEDS: THIAMINE HCL 100 MG TABLET (FP) PO SCH (21:47)
[2017-12-12] MEDS: traZODone HCL 50 MG TABLET (FP) PO SCH (21:47)
[2017-12-12] MEDS: DOXEPIN HCL 25 MG CAPSULE PO SCH (21:48)
[2017-12-12] MEDS: MELATONIN 5 MG TABLETS PO PRN (21:49)
[2017-12-12] MEDS: COLLOIDAL OATMEAL 1 BAR EACH TP PRN (21:49)
[2017-12-13] MEDS ORDERED: PT OWN MED DRAWER 7, Y5N ONE ×4 (03:31→12:44)
[2017-12-13] MEDS: DORZOLAMIDE 2% HCL OPHTHALMIC SOLUTION 10 ML BOTTLE OU SCH ×3 (06:15→21:52)
[2017-12-13] MEDS: MINERAL OIL/PETROLAT/WATER TOPICAL CREAM 113 GM JAR TP SCH ×2 (10:54→21:55)
[2017-12-13] MEDS: CLOTRIMAZOLE 1% CREAM 15 GM TUBE TP SCH ×2 (10:54→21:55)
[2017-12-13] MEDS: NIFEdipine E.R. 90 MG TABLET (FP) PO SCH (10:55)
[2017-12-13] MEDS: BRIMONIDINE TARTRATE 0.15% OPHTHALMIC 5 ML BOTTLE OU SCH ×2 (10:55→21:53)
[2017-12-13] MEDS: PRENATAL VITAMINS W/ FOLIC ACID TABLET (FP) PO SCH (10:55)
[2017-12-13] MEDS: ASPIRIN 81 MG CHEWABLE TABLETS PO SCH (10:55)
[2017-12-13] MEDS: BUPRENORPHINE/NALOXONE 8 MG/2 MG FILM PACKET SL SCH (10:55)
[2017-12-13] MEDS: NICOTINE POLACRILEX 2 MG GUM BUC PRN ×2 (10:55→13:18)
[2017-12-13] MEDS: hydrOXYzine PAMOATE 50 MG CAPSULE (FP) PO SCH ×2 (10:55→21:53)
[2017-12-13] MEDS: TIMOLOL 0.25% OPHTHALMIC SOL 5 ML BOTTLE OU SCH ×2 (10:55→21:53)
[2017-12-13] MEDS: DULoxetine HCL 20 MG CAPSULE.DR (FP) PO SCH (10:55)
[2017-12-13] MEDS: NICOTINE 14 MG/24 HOURS TOPICAL PATCH TD SCH (10:55)
[2017-12-13] MEDS: LATANOPROST 0.005% OPHTH SOLN 2.5ML BOTTLE OD SCH (21:53)
[2017-12-13] MEDS: THIAMINE HCL 100 MG TABLET (FP) PO SCH (21:53)
[2017-12-13] MEDS: DOXEPIN HCL 25 MG CAPSULE PO SCH (21:54)
[2017-12-13] MEDS: traZODone HCL 50 MG TABLET (FP) PO SCH (21:54)
[2017-12-13] MEDS: MELATONIN 5 MG TABLETS PO PRN (21:56)
[2017-12-14] MEDS ORDERED: PT OWN MED DRAWER 7, Y5N ONE ×3 (05:58→23:24)
[2017-12-14] MEDS: DORZOLAMIDE 2% HCL OPHTHALMIC SOLUTION 10 ML BOTTLE OU SCH ×3 (06:19→21:42)
[2017-12-14] MEDS: ASPIRIN 81 MG CHEWABLE TABLETS PO SCH (10:24)
[2017-12-14] MEDS: BRIMONIDINE TARTRATE 0.15% OPHTHALMIC 5 ML BOTTLE OU SCH ×2 (10:24→21:42)
[2017-12-14] MEDS: PRENATAL VITAMINS W/ FOLIC ACID TABLET (FP) PO SCH (10:24)
[2017-12-14] MEDS: NIFEdipine E.R. 90 MG TABLET (FP) PO SCH (10:24)
[2017-12-14] MEDS: DULoxetine HCL 20 MG CAPSULE.DR (FP) PO SCH (10:25)
[2017-12-14] MEDS: hydrOXYzine PAMOATE 50 MG CAPSULE (FP) PO SCH ×2 (10:25→21:42)
[2017-12-14] MEDS: TIMOLOL 0.25% OPHTHALMIC SOL 5 ML BOTTLE OU SCH ×2 (10:25→21:42)
[2017-12-14] MEDS: BUPRENORPHINE/NALOXONE 8 MG/2 MG FILM PACKET SL SCH (10:26)
[2017-12-14] MEDS: CLOTRIMAZOLE 1% CREAM 15 GM TUBE TP SCH ×2 (10:26→21:44)
[2017-12-14] MEDS: NICOTINE 14 MG/24 HOURS TOPICAL PATCH TD SCH (10:26)
[2017-12-14] MEDS: MINERAL OIL/PETROLAT/WATER TOPICAL CREAM 113 GM JAR TP SCH ×2 (10:26→21:44)
[2017-12-14] MEDS: NICOTINE POLACRILEX 2 MG GUM BUC PRN (10:28)
--- NOTE | 2017-12-14 15:38 | PN ---
S Progress Note Note: Patient scheduled for d/c tomorrow. Patient to follow for her aftercare for substance dependence at [facility] 12/21/17 at 11AM. Medication sent to the pharmacy/ Patient to follow up with her primary care provider within a week of d/c.
[2017-12-14] MEDS: THIAMINE HCL 100 MG TABLET (FP) PO SCH (21:41)
[2017-12-14] MEDS: traZODone HCL 50 MG TABLET (FP) PO SCH (21:42)
[2017-12-14] MEDS: DOXEPIN HCL 25 MG CAPSULE PO SCH (21:42)
[2017-12-14] MEDS: LATANOPROST 0.005% OPHTH SOLN 2.5ML BOTTLE OD SCH (21:43)
[2017-12-14] MEDS: MELATONIN 5 MG TABLETS PO PRN (21:45)
[2017-12-15] MEDS: DORZOLAMIDE 2% HCL OPHTHALMIC SOLUTION 10 ML BOTTLE OU SCH (06:17)
[2017-12-15] MEDS ORDERED: PT OWN MED DRAWER 7, Y5N ONE ×2 (06:17→08:57)
[2017-12-15 07:01] VITALS: BP 116/80; TEMP 98.1
[2017-12-15] MEDS: BRIMONIDINE TARTRATE 0.15% OPHTHALMIC 5 ML BOTTLE OU SCH (09:01)
[2017-12-15] MEDS: TIMOLOL 0.25% OPHTHALMIC SOL 5 ML BOTTLE OU SCH (09:01)
[2017-12-15] MEDS: PRENATAL VITAMINS W/ FOLIC ACID TABLET (FP) PO SCH (09:02)
[2017-12-15] MEDS: hydrOXYzine PAMOATE 50 MG CAPSULE (FP) PO SCH (09:02)
[2017-12-15] MEDS: DULoxetine HCL 20 MG CAPSULE.DR (FP) PO SCH (09:02)
[2017-12-15] MEDS: NIFEdipine E.R. 90 MG TABLET (FP) PO SCH (09:02)
[2017-12-15] MEDS: ASPIRIN 81 MG CHEWABLE TABLETS PO SCH (09:02)
[2017-12-15 09:03] VITALS: PULSE 96
[2017-12-15] MEDS: MINERAL OIL/PETROLAT/WATER TOPICAL CREAM 113 GM JAR TP SCH (09:03)
[2017-12-15] MEDS: CLOTRIMAZOLE 1% CREAM 15 GM TUBE TP SCH (09:03)
[2017-12-15] MEDS: NICOTINE 14 MG/24 HOURS TOPICAL PATCH TD SCH (09:03)
[2017-12-15] MEDS: BUPRENORPHINE/NALOXONE 8 MG/2 MG FILM PACKET SL SCH (09:03)
--- NOTE | 2017-12-15 17:02 | PN ---
Psychiatric Progress Note Vital Signs: Vital Signs Period Temp Pulse Resp BP Sys/Harmon Pulse Ox Last 24 Hr 98.1 F 89-96 18-18 116-116/80-80 Date of Session: 12/15/17 Chief Complaint:: Discharge visit HPI: Acohol,Cocaine dependence comorbid with Substance induced mood disorder. Current Side Effect: No Lab tests ordered: No Lab tests reviewed: Yes Provider note:: Patient completed this program today Total face to face time:: 30 Mental Status Exam - Mental Status Exam Alert and Oriented to: Time, Place, Person Cognitive Function: Grossly Intact Patient Appearance: Well Groomed Mood: Euthymic Affect: Appropriate, Mood Congruent Patient Behavior: Cooperative Speech Pattern: Clear Voice Loudness: Normal Thought Process: Goal Oriented Thought Disorder: Not Present Hallucinations: None Suicidal Ideation: Denies Homicidal Ideation: Denies Insight/Judgement: Fair Sleep: Well Appetite: Good Muscle strength/Tone: Normal Psychiatric Treatment Plan - Problem List (2) Asthma Qualifiers: Asthma severity: mild persistent Asthma complication type: with status asthmaticus (3) COPD (chronic obstructive pulmonary disease) Qualifiers: COPD type: emphysema Emphysema type: other Qualified Code(s): J43.8 - Other emphysema (5) Glaucoma Qualifiers: Glaucoma type: open-angle Open angle glaucoma type: unspecified type Laterality: right Glaucoma stage: moderate stage Qualified Code(s): H40.10X2 - Unspecified open-angle glaucoma, moderate stage Comment: EYE DROPS TO BOTH EYES DAILY (6) Hypertension Qualifiers: Hypertension type: essential hypertension Qualified Code(s): I10 - Essential (primary) hypertension (10) Cocaine dependence Qualifiers: Substance use status: uncomplicated Qualified Code(s): F14.20 - Cocaine dependence, uncomplicated (13) Hearing loss, right Qualifiers: Contralateral hearing status: unspecified
== END 2017-12-15 09:16 | disposition home or self-care (01) | DRG 895 ==
LOC: YASAS 08:24 → Y6N 11:13 → Y3E 11-17 12:22
PROVIDERS: ADMIT Psychiatry & Neurology Psychiatry; ATTEND Psychiatry & Neurology Psychiatry
PROC: HZ2ZZZZ Detoxification Services for Substance Abuse Treatment (ICD-10-PCS; principal; 2017-11-13)
PROC: HZ42ZZZ Group Counseling for Substance Abuse Treatment, Cognitive-Behavioral (ICD-10-PCS; 2017-11-17)
DX: F11.23 Opioid dependence with withdrawal (principal); F14.20 Cocaine dependence, uncomplicated; F19.282 Other psychoactive substance dependence with psychoactive substance-induced sleep disorder; F10.230 Alcohol dependence with withdrawal, uncomplicated; F17.210 Nicotine dependence, cigarettes, uncomplicated; F19.24 Other psychoactive substance dependence with psychoactive substance-induced mood disorder; F43.10 Post-traumatic stress disorder, unspecified; F31.9 Bipolar disorder, unspecified; J45.20 Mild intermittent asthma, uncomplicated; J43.8 Other emphysema; I12.9 Hypertensive chronic kidney disease with stage 1 through stage 4 chronic kidney disease, or unspecified chronic kidney disease; N18.3 Chronic kidney disease, stage 3 (moderate); H40.10X2 Unspecified open-angle glaucoma, moderate stage; H54.40 Blindness, one eye, unspecified eye; H91.91 Unspecified hearing loss, right ear; R60.0 Localized edema; L98.8 Other specified disorders of the skin and subcutaneous tissue; Z11.3 Encounter for screening for infections with a predominantly sexual mode of transmission; I95.9 Hypotension, unspecified; R43.1 Parosmia; Z86.69 Personal history of other diseases of the nervous system and sense organs; Z88.0 Allergy status to penicillin
CPT/HCPCS: 36415; 80053; 81003; 81015; 85027; 86593; 87389; 87491; 87591; 87661; 93005; 93010; J0475; J0735

== ENCOUNTER 2018-08-19 14:04 | Inpatient (IN) | payer OTHER ==
[2018-08-19 15:16] VITALS: BMI 27.1
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
[2018-08-19] MEDS ORDERED: MAG HYDROX/AL HYDROX/SIMETH 30 ML UNIT-DOSE CUP PO PRN (16:24)
[2018-08-19] MEDS ORDERED: IBUPROFEN 400 MG TABLET (FP) PO PRN (16:24)
[2018-08-19] MEDS ORDERED: MENTHOL/PHENOL 1 EACH UD MM PRN (16:24)
[2018-08-19] MEDS ORDERED: MAGNESIUM CITRATE 300 ML BOTTLE PO PRN (16:24)
[2018-08-19] MEDS ORDERED: NICOTINE POLACRILEX 2 MG GUM BC PRN (16:24)
[2018-08-19] MEDS ORDERED: MAGNESIUM HYDROX 2400MG/30ML ORAL SUSPENSION 30 ML CUP PO PRN (16:24)
[2018-08-19] MEDS ORDERED: ACETAMINOPHEN 325 MG TABLET (FP) PO PRN (16:24)
[2018-08-19] MEDS ORDERED: AMMONIUM LACTATE 12% LOTION 225 GM BOTTLE TP PRN (16:31)
[2018-08-19] MEDS ORDERED: ALBUTEROL SO4 0.083% IH SOL 2.5 MG/3 ML VIAL.NEB. NEB PRN (16:31)
[2018-08-19] MEDS: ASPIRIN 81 MG CHEWABLE TABLETS PO SCH (18:38)
[2018-08-19] MEDS: chlordiazePOXIDE HCL 25 MG CAPSULE PO PRN (18:39)
[2018-08-19] MEDS: NIFEdipine E.R. 90 MG TABLET (FP) PO SCH (18:46)
[2018-08-19] MEDS ORDERED: METHADONE HCL 10 MG TABLET PO ONE (19:15)
[2018-08-19] MEDS: TIMOLOL 0.25% OPHTHALMIC SOL 5 ML BOTTLE OU SCH (21:42)
[2018-08-19] MEDS: DORZOLAMIDE 2% HCL OPHTHALMIC SOLUTION 10 ML BOTTLE OU SCH (21:42)
[2018-08-19] MEDS: LATANOPROST 0.005% OPHTH SOLN 2.5ML BOTTLE OU SCH (21:42)
[2018-08-19] MEDS: BRIMONIDINE TARTRATE 0.15% OPHTHALMIC 5 ML BOTTLE OU SCH (21:43)
[2018-08-19] MEDS: THIAMINE HCL 100 MG TABLET (FP) PO SCH (22:03)
[2018-08-19] MEDS: MELATONIN 5 MG TABLETS PO PRN (22:04)
[2018-08-19] MEDS: chlordiazePOXIDE HCL 25 MG CAPSULE PO SCH (22:04)
[2018-08-19] MEDS ORDERED: METHADONE HCL 10 MG TABLET (FOR DETOX USE ONLY) PO ONE (23:00)
[2018-08-19] MEDS: BACITRACIN/POLYMYXIN B SULFATE 15 GM TUBE TP SCH (23:06)
[2018-08-20] MEDS: chlordiazePOXIDE HCL 25 MG CAPSULE PO SCH ×4 (05:14→22:32)
[2018-08-20] MEDS: DORZOLAMIDE 2% HCL OPHTHALMIC SOLUTION 10 ML BOTTLE OU SCH ×3 (05:36→22:33)
[2018-08-20] MEDS ORDERED: METHADONE HCL 10 MG TABLET (FOR DETOX USE ONLY) PO SCH (10:00)
[2018-08-20] MEDS: PRENATAL VITAMINS W/ FOLIC ACID TABLET (FP) PO SCH (10:29)
[2018-08-20] MEDS: NIFEdipine E.R. 90 MG TABLET (FP) PO SCH (10:32)
[2018-08-20] MEDS: BACITRACIN/POLYMYXIN B SULFATE 15 GM TUBE TP SCH ×2 (10:32→22:33)
[2018-08-20] MEDS: ASPIRIN 81 MG CHEWABLE TABLETS PO SCH (10:32)
[2018-08-20] MEDS: TIMOLOL 0.25% OPHTHALMIC SOL 5 ML BOTTLE OU SCH ×2 (10:33→22:33)
[2018-08-20 11:32] LABS: ALBUMIN 3.2 g/dl (3.4-5.0); ALK PHOS 78 U/L (45-117); ANION GAP 5 MMOL/L (8-16); BILIRUBIN,TOTAL 0.3 mg/dL (0.2-1); BLOOD UREA NITROGEN 21 mg/dL (7-18); CALCIUM 9.3 mg/dL (8.5-10.1); CHLORIDE 108 mmol/L (98-107); CO2 29 mmol/L (21-32); CREATININE 1.3 mg/dL (0.55-1.3); GLUCOSE,RANDOM 77 mg/dL (74-106); POTASSIUM 4.4 mmol/L (3.5-5.1); SGOT/AST 11 U/L (15-37); SGPT/ALT 16 U/L (13-61); SODIUM 141 mmol/L (136-145); TOT PROT 6.4 g/dl (6.4-8.2)
[2018-08-20] MEDS: BRIMONIDINE TARTRATE 0.15% OPHTHALMIC 5 ML BOTTLE OU SCH ×2 (11:54→22:33)
[2018-08-20 11:57] LABS: HEMATOCRIT 40.4 % (32.4-45.2); HEMOGLOBIN 13.4 GM/dL (10.7-15.3); MCH 30.4 pg (25.7-33.7); MCHC 33.3 g/dl (32.0-36.0); MEAN CELL VOLUME 91.5 fl (80-96); MEAN PLT VOLUME 8.1 fl (7.5-11.1); PLATELET COUNT 276 K/MM3 (134-434); RBC 4.41 M/mm3 (3.60-5.2); RDW 14.1 % (11.6-15.6)
[2018-08-20] MEDS ORDERED: PNEUMOCOCCAL 23 VACCINE 0.5 ML VIAL IM ONE (12:00)
[2018-08-20] MEDS ORDERED: PNEUMOC 13-VAL CONJ-DIP CRM/PF 0.5 ML DISP.SYRIN IM ONE (12:00)
--- NOTE | 2018-08-20 14:32 | PN ---
S CIWA - CIWA Score Nausea/Vomitin-Mild Nausea/No Vomiting Muscle Tremors: 3 Anxiety: 1-Mildly Anxious Agitation: 2 Paroxysmal Sweats: 3 Orientation: 0-Oriented Tacttile Disturbances: 0-None Auditory Disturbances: 0-None Visual Disturbances: 0-None Headache: 0-None Present CIWA-Ar Total Score: 10 [facility] COWS - Scale Resting Pulse: 0= [place] 80 or Below Sweatin=Flushed/Facial Moisture Restless Observation: 1= Difficult to Sit Still Pupil Size: 0= Normal to Room Light Bone or Joint Aches: 1= Mild Discomfort Runny Nose/ Eye Tearin= Nasal Congestion GI Upset > 30mins: 2= Nausea/Diarrhea Tremor Observation of Outstretched Hands: 2= Slight Tremor Visible Yawning Observation: 1= 1-2x During Session Anxiety or Irritability: 1=Feels Anxious/Irritable Goose Flesh Skin: 0=Smooth Skin COWS Score: 11 S Progress Note (SOAP) Subjective: Diarrhea sweats body aches and pain requesting ensure Objective: 08/20/18 14:30 A & O x 3 in bed, able to ambulate Vital Signs Temperature 98.2 F 08/20/18 10:30 Pulse Rate 61 08/20/18 10:30 Respiratory Rate 18 08/20/18 10:30 Blood Pressure 133/78 08/20/18 10:30 O2 Sat by Pulse Oximetry (%) Laboratory Last Values WBC 5.0 K/mm3 (4.0-10.0) 08/20/18 07:40 RBC 4.41 M/mm3 (3.60-5.2) 08/20/18 07:40 Hgb 13.4 GM/dL (10.7-15.3) 08/20/18 07:40 Hct 40.4 % (32.4-45.2) 08/20/18 07:40 MCV 91.5 fl (80-96) 08/20/18 07:40 MCH 30.4 pg (25.7-33.7) 08/20/18 07:40 MCHC 33.3 g/dl (32.0-36.0) 08/20/18 07:40 RDW 14.1 % (11.6-15.6) 08/20/18 07:40 Plt Count 276 K/MM3 (134-434) D 08/20/18 07:40 MPV 8.1 fl (7.5-11.1) 08/20/18 07:40 Sodium 141 mmol/L (136-145) 08/20/18 07:40 Potassium 4.4 mmol/L (3.5-5.1) 08/20/18 07:40 Chloride 108 mmol/L (98-107) H 08/20/18 07:40 Carbon Dioxide 29 mmol/L (21-32) 08/20/18 07:40 Anion Gap 5 MMOL/L (8-16) L 08/20/18 07:40 BUN 21 mg/dL (7-18) H 08/20/18 07:40 Creatinine 1.3 mg/dL (0.55-1.3) 08/20/18 07:40 Creat Clearance w eGFR 43.18 (>60) 08/20/18 07:40 Random Glucose 77 mg/dL (74-106) 08/20/18 07:40 Calcium 9.3 mg/dL (8.5-10.1) 08/20/18 07:40 Total Bilirubin 0.3 mg/dL (0.2-1) 08/20/18 07:40 AST 11 U/L (15-37) L 08/20/18 07:40 ALT 16 U/L (13-61) 08/20/18 07:40 Alkaline Phosphatase 78 U/L (45-117) 08/20/18 07:40 Total Protein 6.4 g/dl (6.4-8.2) 08/20/18 07:40 Albumin 3.2 g/dl (3.4-5.0) L 08/20/18 07:40 RPR Titer Nonreactive (NONREACTIVE) 08/20/18 07:40 labs noted Assessment: 08/20/18 14:31 withdrawal sx Plan: continue detox encourage hydration
[2018-08-20] MEDS: THIAMINE HCL 100 MG TABLET (FP) PO SCH (22:33)
[2018-08-20] MEDS: LATANOPROST 0.005% OPHTH SOLN 2.5ML BOTTLE OU SCH (22:33)
[2018-08-20] MEDS: MELATONIN 5 MG TABLETS PO PRN (22:36)
[2018-08-21] MEDS: chlordiazePOXIDE HCL 25 MG CAPSULE PO SCH ×3 (05:20→17:23)
[2018-08-21] MEDS: DORZOLAMIDE 2% HCL OPHTHALMIC SOLUTION 10 ML BOTTLE OU SCH ×3 (07:19→23:18)
[2018-08-21] MEDS ORDERED: METHADONE HCL 5 MG TABLET (FOR DETOX USE ONLY) PO SCH (10:00)
[2018-08-21] MEDS: BRIMONIDINE TARTRATE 0.15% OPHTHALMIC 5 ML BOTTLE OU SCH ×2 (10:15→23:18)
[2018-08-21] MEDS: PRENATAL VITAMINS W/ FOLIC ACID TABLET (FP) PO SCH (10:16)
[2018-08-21] MEDS: ASPIRIN 81 MG CHEWABLE TABLETS PO SCH (10:16)
[2018-08-21] MEDS: NIFEdipine E.R. 90 MG TABLET (FP) PO SCH (10:16)
[2018-08-21] MEDS: BACITRACIN/POLYMYXIN B SULFATE 15 GM TUBE TP SCH ×2 (10:17→23:18)
[2018-08-21] MEDS: TIMOLOL 0.25% OPHTHALMIC SOL 5 ML BOTTLE OU SCH ×2 (10:17→23:18)
[2018-08-21] MEDS ORDERED: ONDANSETRON *ODT* 4 MG TABLET SL PRN (10:51)
--- NOTE | 2018-08-21 17:28 | PN ---
[facility] CIWA - CIWA Score Nausea/Vomitin-Mild Nausea/No Vomiting Muscle Tremors: 3 Anxiety: 3 Agitation: 3 Paroxysmal Sweats: 3 Orientation: 0-Oriented Tacttile Disturbances: 0-None Auditory Disturbances: 0-None Visual Disturbances: 0-None Headache: 0-None Present CIWA-Ar Total Score: 13 BHS COWS - Scale Resting Pulse: 1= [place] 81-100 Sweatin= Chills/Flushing Restless Observation: 3= Extraneous Movement Pupil Size: 0= Normal to Room Light Bone or Joint Aches: 1= Mild Discomfort Runny Nose/ Eye Tearin= Runny Nose/Eyes GI Upset > 30mins: 3= Vomiting/Diarrhea Tremor Observation of Outstretched Hands: 2= Slight Tremor Visible Yawning Observation: 0= None Anxiety or Irritability: 1=Feels Anxious/Irritable Goose Flesh Skin: 0=Smooth Skin COWS Score: 14 S Progress Note (SOAP) Subjective: Tremor, chills, vomited x 2 this morning, nausea, diarrhea, interrupted sleep Objective: 08/21/18 17:26 Last Vital Signs Temp Pulse Resp BP Pulse Ox 97.0 F L 94 H 16 126/84 08/21/18 13:29 08/21/18 13:29 08/21/18 13:29 08/21/18 13:29 Laboratory Tests 08/20/18 08/20/18 08/20/18 07:40 07:40 07:40 WBC 5.0 RBC 4.41 Hgb 13.4 Hct 40.4 MCV 91.5 MCH 30.4 MCHC 33.3 RDW 14.1 Plt Count 276 D MPV 8.1 Sodium 141 Potassium 4.4 Chloride 108 H Carbon Dioxide 29 Anion Gap 5 L BUN 21 H Creatinine 1.3 Creat Clearance w eGFR 43.18 Random Glucose 77 Calcium 9.3 Total Bilirubin 0.3 AST 11 L ALT 16 Alkaline Phosphatase 78 Total Protein 6.4 Albumin 3.2 L RPR Titer Nonreactive Labs reviewed: WILLARD noted Assessment: 08/21/18 17:27 Withdrawal symptoms Noted with WILLARD Plan: Continue detox WILLARD: encouraged PO water hydration, repeat BMP
[2018-08-21 21:33] VITALS: TEMP 97.9
[2018-08-21] MEDS: THIAMINE HCL 100 MG TABLET (FP) PO SCH (22:05)
[2018-08-21] MEDS: chlordiazePOXIDE 5 MG CAPSULE PO SCH (22:05)
[2018-08-21] MEDS: MELATONIN 5 MG TABLETS PO PRN (22:43)
[2018-08-21] MEDS: LATANOPROST 0.005% OPHTH SOLN 2.5ML BOTTLE OU SCH (23:18)
[2018-08-22] MEDS: chlordiazePOXIDE 5 MG CAPSULE PO SCH ×2 (05:29→10:07)
[2018-08-22] MEDS: DORZOLAMIDE 2% HCL OPHTHALMIC SOLUTION 10 ML BOTTLE OU SCH ×2 (05:50→14:26)
[2018-08-22] MEDS ORDERED: METHADONE HCL 10 MG TABLET (FOR DETOX USE ONLY) PO SCH (10:00)
[2018-08-22 10:07] LABS: ANION GAP 7 MMOL/L (8-16); BLOOD UREA NITROGEN 32 mg/dL (7-18); CALCIUM 9.8 mg/dL (8.5-10.1); CHLORIDE 108 mmol/L (98-107); CO2 27 mmol/L (21-32); CREATININE 1.4 mg/dL (0.55-1.3); GLUCOSE,RANDOM 61 mg/dL (74-106); POTASSIUM 4.3 mmol/L (3.5-5.1); SODIUM 141 mmol/L (136-145)
[2018-08-22] MEDS: PRENATAL VITAMINS W/ FOLIC ACID TABLET (FP) PO SCH (10:07)
[2018-08-22] MEDS: ASPIRIN 81 MG CHEWABLE TABLETS PO SCH (10:07)
[2018-08-22] MEDS: NIFEdipine E.R. 90 MG TABLET (FP) PO SCH (10:07)
[2018-08-22] MEDS: BACITRACIN/POLYMYXIN B SULFATE 15 GM TUBE TP SCH ×2 (10:08→10:55)
[2018-08-22] MEDS: BRIMONIDINE TARTRATE 0.15% OPHTHALMIC 5 ML BOTTLE OU SCH (10:08)
[2018-08-22] MEDS: TIMOLOL 0.25% OPHTHALMIC SOL 5 ML BOTTLE OU SCH (10:16)
--- NOTE | 2018-08-22 10:44 | PN ---
BHS Progress Note (SOAP) Subjective: sweats nasal congestion Objective: 08/22/18 10:44 Vital Signs Temperature 97.9 F 08/22/18 10:33 Pulse Rate 87 08/22/18 10:33 Respiratory Rate 18 08/22/18 10:33 Blood Pressure 107/72 08/22/18 10:33 O2 Sat by Pulse Oximetry (%) [id number] ambulating no acute distress Assessment: 08/22/18 10:45 mild withdrawal sx Plan: continue detox actifed prn increase fluids d/c in am
[2018-08-22] MEDS: chlordiazePOXIDE HCL 25 MG CAPSULE PO PRN (11:55)
[2018-08-22 13:47] VITALS: BP 120/69; PULSE 77
--- NOTE | 2018-08-22 14:48 | PN ---
S Progress Note Note: pt states she is feeling much better and will like to go to rehab today. Pt has an opportunity to go to [facility] inpatient rehab. No s/s of withdrawals noted. pt will be d/c today.
--- NOTE | 2018-08-22 14:52 | DS ---
[facility] Detox Discharge Summary Admission Date: 08/19/18 Discharge Date: 08/22/18 - History Present History: Alcohol Dependence - Physical Exam Results Vital Signs: Vital Signs Temperature 97.9 F 08/22/18 13:45 Pulse Rate 77 08/22/18 13:45 Respiratory Rate 18 08/22/18 13:45 Blood Pressure 120/69 08/22/18 13:45 O2 Sat by Pulse Oximetry (%) - Treatment Hospital Course: Detox Protocol Followed, Detoxed Safely, Responded well, Discharged Condition Good, Rehab Referral Accepted - Medication Discharge Medications: Ambulatory Orders Aspirin [ASA -] 81 mg PO DAILY 05/05/16 Albuterol Sulfate Inhaler - [Ventolin HFA Inhaler -] 2 puff IH Q4H PRN #1 inhaler 11/17/17 Brimonidine Tartrate [Alphagan 0.15% -] 1 drop OU BID #1 drop 11/17/17 Dorzolamide HCl [Trusopt 2% -] 1 drop OU TID #1 drop 11/17/17 Latanoprost 0.005% Eye Drops [Xalatan 0.005% Eye Drops -] 1 drop OP HS #1 drops 11/17/17 Nifedipine ER [Procardia XL -] 90 mg PO DAILY #30 tab.er.24 11/17/17 Timolol 0.25% [Timoptic 0.25%] 1 drop OU BID #1 drop 11/17/17 Doxepin HCl [Sinequan -] 50 mg PO HS #30 capsule 11/23/17 Duloxetine HCl [Cymbalta -] 20 mg PO DAILY #30 capsule.dr 11/23/17 Albuterol Sulfate Inhaler - [Ventolin HFA Inhaler -] 0 puff IH Q4H PRN #1 inhaler 12/14/17 Aspirin [ASA -] 81 mg PO DAILY 30 Days tab.chew 12/14/17 Brimonidine Tartrate [Alphagan 0.15% -] 1 drop OU BID 30 Days drops 12/14/17 Buprenorphine/Naloxone [Suboxone 8Mg/2Mg Sl Film -] 1 each SL DAILY 7 Days #7 film MDD 1 12/14/17 Timolol 0.25% [Timoptic 0.25%] 1 drop OU BID 30 Days drops 12/14/17 Doxepin HCl [Sinequan -] 75 mg PO HS #90 capsule 12/15/17 Duloxetine HCl [Cymbalta] 20 mg PO AM #30 capsule. 12/15/17 traZODone HCL [Desyrel -] 150 mg PO HS #90 tablet 12/15/17 - Diagnosis (1) Alcohol dependence with uncomplicated withdrawal Current Visit: Yes Status: Chronic (2) Opioid dependence with withdrawal Current Visit: Yes Status: Chronic (3) Blindness of left eye Current Visit: No Status: Chronic (4) Cannabis dependence Current Visit: Yes Status: Chronic (5) Cocaine dependence Current Visit: Yes Status: Chronic Qualifiers: Substance use status: uncomplicated Qualified Code(s): F14.20 - Cocaine dependence, uncomplicated (6) Glaucoma Current Visit: Yes Status: Chronic Qualifiers: Glaucoma type: open-angle Open angle glaucoma type: unspecified type Laterality: right Glaucoma stage: moderate stage Qualified Code(s): H40.10X2 - Unspecified open-angle glaucoma, moderate stage (7) Hypertension Current Visit: Yes Status: Chronic Qualifiers: Hypertension type: essential hypertension Qualified Code(s): I10 - Essential (primary) hypertension (8) Nicotine dependence Current Visit: Yes Status: Chronic Qualifiers: Nicotine product type: cigarettes Substance use status: uncomplicated Qualified Code(s): F17.210 - Nicotine dependence, cigarettes, uncomplicated (9) Encounter for screening for infections with predominantly sexual mode of transmission Current Visit: No Status: Acute (10) Anxiety Current Visit: Yes Status: Chronic (11) Asthma Current Visit: Yes Status: Chronic Qualifiers: Asthma severity: mild Asthma complication type: with status asthmaticus (12) Bipolar disorder Current Visit: Yes Status: Chronic Qualifiers: Active/Remission status: in remission of unspecified degree Qualified Code( s): F31.70 - Bipolar disorder, currently in remission, most recent episode unspecified (13) COPD (chronic obstructive pulmonary disease) Current Visit: Yes Status: Chronic Qualifiers: COPD type: emphysema Emphysema type: unspecified Qualified Code(s): J43.9 - Emphysema, unspecified (14) Hearing loss, right Current Visit: No Status: Chronic Qualifiers: Contralateral hearing status: unspecified (15) PTSD (post-traumatic stress disorder) Current Visit: Yes Status: Chronic - AMA Did Patient Leave Against Medical Advice: No (referred to [facility])
[2018-08-22] MEDS ORDERED: chlordiazePOXIDE HCL 10 MG CAPSULE PO SCH (23:00)
[2018-08-23] MEDS ORDERED: METHADONE HCL 5 MG TABLET (FOR DETOX USE ONLY) PO SCH (06:00)
== END 2018-08-22 14:56 | disposition home or self-care (01) | DRG 897 ==
LOC: YASAS 14:04 → Y6N 17:13 → UNDODISIN 08-20 11:28
PROVIDERS: ADMIT Surgery; ATTEND Surgery
PROC: HZ2ZZZZ Detoxification Services for Substance Abuse Treatment (ICD-10-PCS; principal; 2018-08-19)
DX: F11.23 Opioid dependence with withdrawal (principal); F14.20 Cocaine dependence, uncomplicated; J45.22 Mild intermittent asthma with status asthmaticus; N17.9 Acute kidney failure, unspecified; F10.230 Alcohol dependence with withdrawal, uncomplicated; F12.20 Cannabis dependence, uncomplicated; F17.210 Nicotine dependence, cigarettes, uncomplicated; F41.9 Anxiety disorder, unspecified; F31.70 Bipolar disorder, currently in remission, most recent episode unspecified; F43.10 Post-traumatic stress disorder, unspecified; I10 Essential (primary) hypertension; H40.10X2 Unspecified open-angle glaucoma, moderate stage; H54.40 Blindness, one eye, unspecified eye; H91.91 Unspecified hearing loss, right ear; J43.9 Emphysema, unspecified; Z11.3 Encounter for screening for infections with a predominantly sexual mode of transmission; Z88.0 Allergy status to penicillin; Z91.14 Patient's other noncompliance with medication regimen
CPT/HCPCS: 36415; 80048; 80053; 85027; 86593; 90732; G0009

== ENCOUNTER 2019-01-16 12:48 | Inpatient (IN) | payer OTHER ==
[2019-01-16 15:27] VITALS: BMI 27.6
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
[2019-01-16] MEDS ORDERED: cloNIDine HCL 0.1 MG TABLET PO PRN (18:08)
[2019-01-16] MEDS ORDERED: chlordiazePOXIDE HCL 25 MG CAPSULE PO PRN (18:08)
[2019-01-16] MEDS ORDERED: MAG HYDROX/AL HYDROX/SIMETH 30 ML UNIT-DOSE CUP PO PRN (18:08)
[2019-01-16] MEDS ORDERED: NICOTINE POLACRILEX 2 MG GUM BUC PRN (18:08)
[2019-01-16] MEDS ORDERED: MAGNESIUM HYDROX 2400MG/30ML ORAL SUSPENSION 30 ML CUP PO PRN (18:08)
[2019-01-16] MEDS ORDERED: MAGNESIUM CITRATE 300 ML BOTTLE PO PRN (18:08)
[2019-01-16] MEDS ORDERED: BISMUTH SUBSALICYLATE 524 MG/30 ML UD PO PRN (18:08)
[2019-01-16] MEDS ORDERED: ACETAMINOPHEN 325 MG TABLET (FP) PO PRN (18:08)
[2019-01-16] MEDS ORDERED: MENTHOL/PHENOL 1 EACH UD MM PRN (18:08)
[2019-01-16] MEDS ORDERED: IBUPROFEN 400 MG TABLET (FP) PO PRN (18:08)
[2019-01-16] MEDS ORDERED: METHADONE HCL 10 MG TABLET (FOR DETOX USE ONLY) PO ONE (18:30)
[2019-01-16] MEDS: NIFEdipine E.R. 90 MG TABLET (FP) PO SCH (19:08)
[2019-01-16] MEDS: chlordiazePOXIDE HCL 25 MG CAPSULE PO SCH (22:14)
[2019-01-16] MEDS: THIAMINE HCL 100 MG TABLET (FP) PO SCH (22:14)
[2019-01-16] MEDS: DORZOLAMIDE 2% HCL OPHTHALMIC SOLUTION 10 ML BOTTLE OU SCH (22:15)
[2019-01-16] MEDS: BRIMONIDINE TARTRATE 0.15% OPHTHALMIC 5 ML BOTTLE OU SCH (22:16)
[2019-01-16] MEDS: LATANOPROST 0.005% OPHTH SOLN 2.5ML BOTTLE OU SCH (22:17)
[2019-01-16] MEDS: TIMOLOL 0.25% OPHTHALMIC SOL 5 ML BOTTLE OU SCH (22:17)
[2019-01-17] MEDS: chlordiazePOXIDE HCL 25 MG CAPSULE PO SCH ×4 (05:52→22:38)
[2019-01-17] MEDS: DORZOLAMIDE 2% HCL OPHTHALMIC SOLUTION 10 ML BOTTLE OU SCH ×3 (05:53→22:40)
[2019-01-17] MEDS ORDERED: METHADONE HCL 5 MG TABLET (FOR DETOX USE ONLY) ONE (08:44)
[2019-01-17] MEDS ORDERED: METHADONE HCL 10 MG TABLET (FOR DETOX USE ONLY) ONE (08:44)
[2019-01-17] MEDS ORDERED: METHADONE (DETOX) 20 MG, METHADONE (DETOX) 5 MG PO ONE (10:00)
[2019-01-17] MEDS: PRENATAL VITAMINS W/ FOLIC ACID TABLET (FP) PO SCH (10:34)
[2019-01-17] MEDS: TIMOLOL 0.25% OPHTHALMIC SOL 5 ML BOTTLE OU SCH ×2 (10:34→22:39)
[2019-01-17] MEDS: NIFEdipine E.R. 90 MG TABLET (FP) PO SCH (10:34)
[2019-01-17] MEDS: ASPIRIN 81 MG CHEWABLE TABLETS PO SCH (10:34)
[2019-01-17] MEDS: BRIMONIDINE TARTRATE 0.15% OPHTHALMIC 5 ML BOTTLE OU SCH ×2 (10:34→22:40)
[2019-01-17 12:21] LABS: HEMATOCRIT 38.8 % (32.4-45.2); HEMOGLOBIN 12.4 GM/dL (10.7-15.3); MCH 29.1 pg (25.7-33.7); MCHC 31.9 g/dl (32.0-36.0); MEAN PLT VOLUME 9.4 fl (7.5-11.1); PLATELET COUNT 226 K/MM3 (134-434); RBC 4.26 M/mm3 (3.60-5.2); RDW 14.5 % (11.6-15.6); WHITE BLOOD COUNT 4.9 K/mm3 (4.0-10.0)
[2019-01-17 12:47] LABS: ALBUMIN 2.9 g/dl (3.4-5.0); BILIRUBIN,TOTAL 0.4 mg/dL (0.2-1); BLOOD UREA NITROGEN 17.2 mg/dL (7-18); CALCIUM 8.9 mg/dL (8.5-10.1); CREATININE 1.3 mg/dL (0.55-1.3); TOT PROT 5.7 g/dl (6.4-8.2)
--- NOTE | 2019-01-17 13:25 | PN ---
Teaching Attending Note Name of Resident: Kameron Donahue ATTENDING PHYSICIAN STATEMENT I saw and evaluated the patient. I reviewed the resident's note and discussed the case with the resident. I agree with the resident's findings and plan as documented. SUBJECTIVE: Pt here for alcohol and heroin detox: pt states she was in detox recently and relapsed shortly after completing detox- also uses illicit klonopin OBJECTIVE: Vital Signs - 24 hr 01/16/19 01/16/19 01/16/19 14:59 19:10 22:37 Temperature 97.1 F L 97.1 F L Pulse Rate 80 71 71 Respiratory 20 18 Rate Blood Pressure 130/86 120/89 01/17/19 01/17/19 01/17/19 00:30 03:30 06:55 Temperature 97.4 F L Pulse Rate 59 L Respiratory 18 19 18 Rate Blood Pressure 101/65 01/17/19 01/17/19 09:04 13:03 Temperature 98.1 F 97.6 F Pulse Rate 59 L 71 Respiratory 18 18 Rate Blood Pressure 111/73 120/83 pt with tremors ASSESSMENT AND PLAN: Pt to be admitted for alcohol and heroin detox per protocols
--- NOTE | 2019-01-17 13:55 | PN ---
[facility] CIWA - CIWA Score Nausea/Vomitin-Mild Nausea/No Vomiting Muscle Tremors: 3 Anxiety: 2 Agitation: 2 Paroxysmal Sweats: 1-Minimal Palms Moist Orientation: 1-Uncertain about Date Tacttile Disturbances: 1-Very Mild Itch/Numbness Auditory Disturbances: 0-None Visual Disturbances: 0-None Headache: 0-None Present CIWA-Ar Total Score: 11 BHS COWS - Scale Resting Pulse: 0= [place] 80 or Below Sweatin= Chills/Flushing Restless Observation: 0= Sits Still Pupil Size: 0= Normal to Room Light Bone or Joint Aches: 1= Mild Discomfort Runny Nose/ Eye Tearin= Nasal Congestion GI Upset > 30mins: 2= Nausea/Diarrhea Tremor Observation of Outstretched Hands: 2= Slight Tremor Visible Yawning Observation: 2= >3x During Session Anxiety or Irritability: 2=Irritable/Anxious Goose Flesh Skin: 0=Smooth Skin COWS Score: 11 S Progress Note (SOAP) Subjective: patient reported that she is doing well with librium and methadone protocol less body ache and tremor able to "finally" resting on bed Objective: 01/17/19 13:55 Vital Signs Temperature 97.6 F 01/17/19 13:03 Pulse Rate 71 01/17/19 13:03 Respiratory Rate 18 01/17/19 13:03 Blood Pressure 120/83 01/17/19 13:03 O2 Sat by Pulse Oximetry (%) Laboratory Last Values WBC 4.9 K/mm3 (4.0-10.0) 01/17/19 08:30 RBC 4.26 M/mm3 (3.60-5.2) 01/17/19 08:30 Hgb 12.4 GM/dL (10.7-15.3) 01/17/19 08:30 Hct 38.8 % (32.4-45.2) 01/17/19 08:30 MCV 91.0 fl (80-96) 01/17/19 08:30 MCH 29.1 pg (25.7-33.7) 01/17/19 08:30 MCHC 31.9 g/dl (32.0-36.0) L 01/17/19 08:30 RDW 14.5 % (11.6-15.6) 01/17/19 08:30 Plt Count 226 K/MM3 (134-434) 01/17/19 08:30 MPV 9.4 fl (7.5-11.1) D 01/17/19 08:30 Sodium 144 mmol/L (136-145) 01/17/19 08:30 Potassium 4.0 mmol/L (3.5-5.1) 01/17/19 08:30 Chloride 110 mmol/L (98-107) H 01/17/19 08:30 Carbon Dioxide 28 mmol/L (21-32) 01/17/19 08:30 Anion Gap 6 MMOL/L (8-16) L 01/17/19 08:30 BUN 17.2 mg/dL (7-18) 01/17/19 08:30 Creatinine 1.3 mg/dL (0.55-1.3) 01/17/19 08:30 Est GFR (CKD-EPI)AfAm 54.62 01/17/19 08:30 Est GFR (CKD-EPI)NonAf 47.13 01/17/19 08:30 Random Glucose 126 mg/dL (74-106) H 01/17/19 08:30 Calcium 8.9 mg/dL (8.5-10.1) 01/17/19 08:30 Total Bilirubin 0.4 mg/dL (0.2-1) 01/17/19 08:30 AST 13 U/L (15-37) L 01/17/19 08:30 ALT 18 U/L (13-61) 01/17/19 08:30 Alkaline Phosphatase 84 U/L (45-117) 01/17/19 08:30 Total Protein 5.7 g/dl (6.4-8.2) L 01/17/19 08:30 Albumin 2.9 g/dl (3.4-5.0) L 01/17/19 08:30 POC Urine HCG, Qual Negative 01/16/19 17:01 HIV 1&2 Antibody Screen Negative 01/17/19 08:30 HIV P24 Antigen Negative 01/17/19 08:30 lab noted Assessment: 01/17/19 13:55 alcohol and opiate withdrawal sx Plan: continue alcohol and opiate detox
[2019-01-17] MEDS: THIAMINE HCL 100 MG TABLET (FP) PO SCH (22:38)
[2019-01-17] MEDS: MELATONIN 5 MG TABLETS PO PRN (22:39)
[2019-01-17] MEDS: LATANOPROST 0.005% OPHTH SOLN 2.5ML BOTTLE OU SCH (22:41)
[2019-01-18] MEDS: chlordiazePOXIDE HCL 25 MG CAPSULE PO SCH ×4 (06:15→22:18)
[2019-01-18] MEDS: DORZOLAMIDE 2% HCL OPHTHALMIC SOLUTION 10 ML BOTTLE OU SCH ×3 (06:15→22:16)
[2019-01-18] MEDS: ACETAMINOPHEN 325 MG TABLET (FP) PO PRN (06:31)
[2019-01-18] MEDS ORDERED: METHADONE HCL 10 MG TABLET (FOR DETOX USE ONLY) PO ONE (10:00)
[2019-01-18] MEDS: BRIMONIDINE TARTRATE 0.15% OPHTHALMIC 5 ML BOTTLE OU SCH ×2 (10:28→22:15)
[2019-01-18] MEDS: PRENATAL VITAMINS W/ FOLIC ACID TABLET (FP) PO SCH (10:28)
[2019-01-18] MEDS: ASPIRIN 81 MG CHEWABLE TABLETS PO SCH (10:28)
[2019-01-18] MEDS: TIMOLOL 0.25% OPHTHALMIC SOL 5 ML BOTTLE OU SCH ×2 (10:28→22:16)
[2019-01-18] MEDS: NIFEdipine E.R. 90 MG TABLET (FP) PO SCH (10:28)
[2019-01-18] MEDS: METHOCARBAMOL 500 MG TABLET PO PRN (10:31)
--- NOTE | 2019-01-18 12:44 | PN ---
[facility] CIWA - CIWA Score Nausea/Vomitin-No Nausea/No Vomiting Muscle Tremors: 2 Anxiety: 2 Agitation: 3 Paroxysmal Sweats: 1-Minimal Palms Moist Orientation: 0-Oriented Tacttile Disturbances: 1-Very Mild Itch/Numbness Auditory Disturbances: 0-None Visual Disturbances: 0-None Headache: 0-None Present CIWA-Ar Total Score: 9 BHS COWS - Scale Resting Pulse: 0= [place] 80 or Below Sweatin= Chills/Flushing Restless Observation: 0= Sits Still Pupil Size: 0= Normal to Room Light Bone or Joint Aches: 1= Mild Discomfort Runny Nose/ Eye Tearin= Nasal Congestion GI Upset > 30mins: 1= Stomach Cramp Tremor Observation of Outstretched Hands: 2= Slight Tremor Visible Yawning Observation: 1= 1-2x During Session Anxiety or Irritability: 2=Irritable/Anxious Goose Flesh Skin: 0=Smooth Skin COWS Score: 9 [facility] Progress Note (SOAP) Subjective: tremro body aches tolerate food and fluid better today Objective: 01/18/19 12:43 Vital Signs Temperature 98.1 F 01/18/19 06:49 Pulse Rate 59 L 01/18/19 09:08 Respiratory Rate 18 01/18/19 09:08 Blood Pressure 118/70 01/18/19 09:08 O2 Sat by Pulse Oximetry (%) Laboratory Last Values WBC 4.9 K/mm3 (4.0-10.0) 01/17/19 08:30 RBC 4.26 M/mm3 (3.60-5.2) 01/17/19 08:30 Hgb 12.4 GM/dL (10.7-15.3) 01/17/19 08:30 Hct 38.8 % (32.4-45.2) 01/17/19 08:30 MCV 91.0 fl (80-96) 01/17/19 08:30 MCH 29.1 pg (25.7-33.7) 01/17/19 08:30 MCHC 31.9 g/dl (32.0-36.0) L 01/17/19 08:30 RDW 14.5 % (11.6-15.6) 01/17/19 08:30 Plt Count 226 K/MM3 (134-434) 01/17/19 08:30 MPV 9.4 fl (7.5-11.1) D 01/17/19 08:30 Sodium 144 mmol/L (136-145) 01/17/19 08:30 Potassium 4.0 mmol/L (3.5-5.1) 01/17/19 08:30 Chloride 110 mmol/L (98-107) H 01/17/19 08:30 Carbon Dioxide 28 mmol/L (21-32) 01/17/19 08:30 Anion Gap 6 MMOL/L (8-16) L 01/17/19 08:30 BUN 17.2 mg/dL (7-18) 01/17/19 08:30 Creatinine 1.3 mg/dL (0.55-1.3) 01/17/19 08:30 Est GFR (CKD-EPI)AfAm 54.62 01/17/19 08:30 Est GFR (CKD-EPI)NonAf 47.13 01/17/19 08:30 Random Glucose 126 mg/dL (74-106) H 01/17/19 08:30 Calcium 8.9 mg/dL (8.5-10.1) 01/17/19 08:30 Total Bilirubin 0.4 mg/dL (0.2-1) 01/17/19 08:30 AST 13 U/L (15-37) L 01/17/19 08:30 ALT 18 U/L (13-61) 01/17/19 08:30 Alkaline Phosphatase 84 U/L (45-117) 01/17/19 08:30 Total Protein 5.7 g/dl (6.4-8.2) L 01/17/19 08:30 Albumin 2.9 g/dl (3.4-5.0) L 01/17/19 08:30 POC Urine HCG, Qual Negative 01/16/19 17:01 RPR Titer Nonreactive (NONREACTIVE) 01/17/19 08:30 HIV 1&2 Antibody Screen Negative 01/17/19 08:30 HIV P24 Antigen Negative 01/17/19 08:30 lab noted Assessment: 01/18/19 12:44 alcohol and opiate withdrawal sx Plan: continue alcohol and opiate detox
[2019-01-18] MEDS: HYDROCORTISONE 1% TOPICAL CREAM 30 GM TUBE TP SCH ×2 (15:53→22:18)
[2019-01-18] MEDS: LATANOPROST 0.005% OPHTH SOLN 2.5ML BOTTLE OU SCH (22:16)
[2019-01-18] MEDS: THIAMINE HCL 100 MG TABLET (FP) PO SCH (22:17)
[2019-01-18] MEDS: CLOTRIMAZOLE 1% CREAM 15 GM TUBE TP SCH (22:18)
[2019-01-19] MEDS: chlordiazePOXIDE HCL 10 MG CAPSULE PO SCH ×4 (05:35→22:25)
[2019-01-19] MEDS: DORZOLAMIDE 2% HCL OPHTHALMIC SOLUTION 10 ML BOTTLE OU SCH ×3 (05:36→22:23)
[2019-01-19] MEDS: ACETAMINOPHEN 325 MG TABLET (FP) PO PRN (06:01)
[2019-01-19] MEDS: HYDROCORTISONE 1% TOPICAL CREAM 30 GM TUBE TP SCH ×3 (06:03→22:25)
[2019-01-19] MEDS ORDERED: METHADONE HCL 10 MG TABLET (FOR DETOX USE ONLY) ONE (09:33)
[2019-01-19] MEDS ORDERED: METHADONE HCL 5 MG TABLET (FOR DETOX USE ONLY) ONE (09:34)
[2019-01-19] MEDS ORDERED: METHADONE (DETOX) 10 MG, METHADONE (DETOX) 5 MG PO ONE (10:00)
[2019-01-19] MEDS: NIFEdipine E.R. 90 MG TABLET (FP) PO SCH (10:23)
[2019-01-19] MEDS: PRENATAL VITAMINS W/ FOLIC ACID TABLET (FP) PO SCH (10:23)
[2019-01-19] MEDS: ASPIRIN 81 MG CHEWABLE TABLETS PO SCH (10:23)
[2019-01-19] MEDS: TIMOLOL 0.25% OPHTHALMIC SOL 5 ML BOTTLE OU SCH ×2 (10:24→22:23)
[2019-01-19] MEDS: BRIMONIDINE TARTRATE 0.15% OPHTHALMIC 5 ML BOTTLE OU SCH ×2 (10:28→22:23)
[2019-01-19] MEDS: CLOTRIMAZOLE 1% CREAM 15 GM TUBE TP SCH ×2 (10:29→22:25)
[2019-01-19] MEDS: chlordiazePOXIDE HCL 10 MG CAPSULE PO PRN ×2 (13:45→17:22)
--- NOTE | 2019-01-19 15:14 | PN ---
S CIWA - CIWA Score Nausea/Vomitin-Mild Nausea/No Vomiting Muscle Tremors: 1-None Visible, but [place] Anxiety: 1-Mildly Anxious Agitation: 2 Paroxysmal Sweats: 1-Minimal Palms Moist Orientation: 0-Oriented Tacttile Disturbances: 0-None Auditory Disturbances: 0-None Visual Disturbances: 0-None Headache: 0-None Present CIWA-Ar Total Score: 6 BHS COWS - Scale Resting Pulse: 0= [place] 80 or Below Sweatin= Chills/Flushing Restless Observation: 0= Sits Still Pupil Size: 0= Normal to Room Light Bone or Joint Aches: 1= Mild Discomfort Runny Nose/ Eye Tearin= None GI Upset > 30mins: 1= Stomach Cramp Tremor Observation of Outstretched Hands: 1= Tremor [place], Not Seen Yawning Observation: 1= 1-2x During Session Anxiety or Irritability: 1=Feels Anxious/Irritable Goose Flesh Skin: 0=Smooth Skin COWS Score: 6 S Progress Note (SOAP) Subjective: 53 years old female admitted on 01/16/19 for alcohol and opiate withdrawal sx medial history of glaucoma hypertension and asthma denies headache denies pressure behind eyes patient prefers to go to [facility] for recovery Objective: 01/19/19 15:19 Vital Signs Temperature 97.1 F L 01/19/19 14:29 Pulse Rate 58 L 01/19/19 14:29 Respiratory Rate 18 01/19/19 14:29 Blood Pressure 144/98 01/19/19 14:29 O2 Sat by Pulse Oximetry (%) Laboratory Last Values WBC 4.9 K/mm3 (4.0-10.0) 01/17/19 08:30 RBC 4.26 M/mm3 (3.60-5.2) 01/17/19 08:30 Hgb 12.4 GM/dL (10.7-15.3) 01/17/19 08:30 Hct 38.8 % (32.4-45.2) 01/17/19 08:30 MCV 91.0 fl (80-96) 01/17/19 08:30 MCH 29.1 pg (25.7-33.7) 01/17/19 08:30 MCHC 31.9 g/dl (32.0-36.0) L 01/17/19 08:30 RDW 14.5 % (11.6-15.6) 01/17/19 08:30 Plt Count 226 K/MM3 (134-434) 01/17/19 08:30 MPV 9.4 fl (7.5-11.1) D 01/17/19 08:30 Sodium 144 mmol/L (136-145) 01/17/19 08:30 Potassium 4.0 mmol/L (3.5-5.1) 01/17/19 08:30 Chloride 110 mmol/L (98-107) H 01/17/19 08:30 Carbon Dioxide 28 mmol/L (21-32) 01/17/19 08:30 Anion Gap 6 MMOL/L (8-16) L 01/17/19 08:30 BUN 17.2 mg/dL (7-18) 01/17/19 08:30 Creatinine 1.3 mg/dL (0.55-1.3) 01/17/19 08:30 Est GFR (CKD-EPI)AfAm 54.62 01/17/19 08:30 Est GFR (CKD-EPI)NonAf 47.13 01/17/19 08:30 Random Glucose 126 mg/dL (74-106) H 01/17/19 08:30 Calcium 8.9 mg/dL (8.5-10.1) 01/17/19 08:30 Total Bilirubin 0.4 mg/dL (0.2-1) 01/17/19 08:30 AST 13 U/L (15-37) L 01/17/19 08:30 ALT 18 U/L (13-61) 01/17/19 08:30 Alkaline Phosphatase 84 U/L (45-117) 01/17/19 08:30 Total Protein 5.7 g/dl (6.4-8.2) L 01/17/19 08:30 Albumin 2.9 g/dl (3.4-5.0) L 01/17/19 08:30 POC Urine HCG, Qual Negative 01/16/19 17:01 RPR Titer Nonreactive (NONREACTIVE) 01/17/19 08:30 HIV 1&2 Antibody Screen Negative 01/17/19 08:30 HIV P24 Antigen Negative 01/17/19 08:30 lab noted Assessment: 01/19/19 15:19 alcohol and opiate withdrawal sx Plan: continue alcohol and opiate detox
[2019-01-19] MEDS: LATANOPROST 0.005% OPHTH SOLN 2.5ML BOTTLE OU SCH (22:24)
[2019-01-19] MEDS: THIAMINE HCL 100 MG TABLET (FP) PO SCH (22:25)
[2019-01-19] MEDS: MELATONIN 5 MG TABLETS PO PRN (22:27)
[2019-01-20] MEDS: chlordiazePOXIDE HCL 10 MG CAPSULE PO SCH ×2 (05:59→16:55)
[2019-01-20] MEDS: DORZOLAMIDE 2% HCL OPHTHALMIC SOLUTION 10 ML BOTTLE OU SCH ×3 (06:00→22:26)
[2019-01-20] MEDS: HYDROCORTISONE 1% TOPICAL CREAM 30 GM TUBE TP SCH ×3 (06:00→22:32)
[2019-01-20] MEDS ORDERED: METHADONE HCL 10 MG TABLET (FOR DETOX USE ONLY) PO ONE (10:00)
[2019-01-20] MEDS: TIMOLOL 0.25% OPHTHALMIC SOL 5 ML BOTTLE OU SCH ×2 (10:38→22:27)
[2019-01-20] MEDS: ASPIRIN 81 MG CHEWABLE TABLETS PO SCH (10:38)
[2019-01-20] MEDS: BRIMONIDINE TARTRATE 0.15% OPHTHALMIC 5 ML BOTTLE OU SCH ×2 (10:38→22:26)
[2019-01-20] MEDS: CLOTRIMAZOLE 1% CREAM 15 GM TUBE TP SCH ×2 (10:39→22:33)
[2019-01-20] MEDS: PRENATAL VITAMINS W/ FOLIC ACID TABLET (FP) PO SCH (10:39)
[2019-01-20] MEDS: NIFEdipine E.R. 90 MG TABLET (FP) PO SCH (10:39)
[2019-01-20] MEDS: METHOCARBAMOL 500 MG TABLET PO PRN (10:40)
[2019-01-20] MEDS: hydrOXYzine HCL 25 MG TABLET (FP) PO PRN ×2 (13:00→22:32)
[2019-01-20] MEDS: ACETAMINOPHEN 325 MG TABLET (FP) PO PRN (13:04)
[2019-01-20] MEDS ORDERED: PROCHLORPERAZINE MALEATE 5 MG TABLET PO PRN (13:38)
[2019-01-20] MEDS ORDERED: TRIMETHOBENZAMIDE HCL 300 MG CAPSULE PO PRN (13:57)
--- NOTE | 2019-01-20 16:25 | PN ---
S CIWA - CIWA Score Nausea/Vomitin Muscle Tremors: 3 Anxiety: 1-Mildly Anxious Agitation: 0-Normal Activity Paroxysmal Sweats: 2 Orientation: 0-Oriented Tacttile Disturbances: 0-None Auditory Disturbances: 0-None Visual Disturbances: 2-Mild Sensitivity Headache: 0-None Present CIWA-Ar Total Score: 11 BHS COWS - Scale Resting Pulse: 0= [place] 80 or Below Sweatin= Chills/Flushing Restless Observation: 0= Sits Still Pupil Size: 0= Normal to Room Light Bone or Joint Aches: 2= Severe Diffuse Aches Runny Nose/ Eye Tearin= Runny Nose/Eyes GI Upset > 30mins: 2= Nausea/Diarrhea Tremor Observation of Outstretched Hands: 2= Slight Tremor Visible Yawning Observation: 1= 1-2x During Session Anxiety or Irritability: 2=Irritable/Anxious Goose Flesh Skin: 0=Smooth Skin COWS Score: 12 S Progress Note (SOAP) Subjective: Sweating, Interrupted Sleep, Runny Nose, Body Aches, Tremors, Nausea. Objective: PATIENT A & O X 3. IN NO ACUTE DISTRESS. 01/20/19 16:24 Vital Signs Temperature 96.9 F L 01/20/19 13:16 Pulse Rate 76 01/20/19 13:16 Respiratory Rate 18 01/20/19 13:16 Blood Pressure 102/63 01/20/19 13:16 O2 Sat by Pulse Oximetry (%) Laboratory Tests 01/16/19 01/17/19 01/17/19 17:01 08:30 08:30 WBC 4.9 RBC 4.26 Hgb 12.4 Hct 38.8 MCV 91.0 MCH 29.1 MCHC 31.9 L RDW 14.5 Plt Count 226 MPV 9.4 D Sodium 144 Potassium 4.0 Chloride 110 H Carbon Dioxide 28 Anion Gap 6 L BUN 17.2 Creatinine 1.3 Est GFR (CKD-EPI)AfAm 54.62 Est GFR (CKD-EPI)NonAf 47.13 Random Glucose 126 H Calcium 8.9 Total Bilirubin 0.4 AST 13 L ALT 18 Alkaline Phosphatase 84 Total Protein 5.7 L Albumin 2.9 L POC Urine HCG, Qual Negative RPR Titer HIV 1&2 Antibody Screen HIV P24 Antigen 01/17/19 01/17/19 08:30 08:30 WBC RBC Hgb Hct MCV MCH MCHC RDW Plt Count MPV Sodium Potassium Chloride Carbon Dioxide Anion Gap BUN Creatinine Est GFR (CKD-EPI)AfAm Est GFR (CKD-EPI)NonAf Random Glucose Calcium Total Bilirubin AST ALT Alkaline Phosphatase Total Protein Albumin POC Urine HCG, Qual RPR Titer Nonreactive HIV 1&2 Antibody Screen Negative HIV P24 Antigen Negative LABS NOTED. Assessment: 01/20/19 16:24 WITHDRAWAL SYMPTOMS. Plan: CONTINUE DETOX. PRN TIGAN PO FOR NAUSEA. PATIENT SCHEDULED FOR D/C FROM DETOX UNIT TOMORROW.
[2019-01-20] MEDS ORDERED: SENNOSIDES/DOCUSATE COMBO (SENNA PLUS) TABLET (UD) PO SCH (22:00)
[2019-01-20] MEDS: THIAMINE HCL 100 MG TABLET (FP) PO SCH (22:25)
[2019-01-20] MEDS: LATANOPROST 0.005% OPHTH SOLN 2.5ML BOTTLE OU SCH (22:27)
[2019-01-20] MEDS: MELATONIN 5 MG TABLETS PO PRN (22:30)
[2019-01-21] MEDS ORDERED: chlordiazePOXIDE HCL 10 MG CAPSULE PO ONE (05:00)
[2019-01-21] MEDS ORDERED: METHADONE HCL 5 MG TABLET (FOR DETOX USE ONLY) PO ONE (06:00)
[2019-01-21] MEDS: HYDROCORTISONE 1% TOPICAL CREAM 30 GM TUBE TP SCH (07:51)
[2019-01-21] MEDS: DORZOLAMIDE 2% HCL OPHTHALMIC SOLUTION 10 ML BOTTLE OU SCH (07:52)
[2019-01-21] MEDS: NIFEdipine E.R. 90 MG TABLET (FP) PO SCH (09:26)
[2019-01-21] MEDS: PRENATAL VITAMINS W/ FOLIC ACID TABLET (FP) PO SCH (09:26)
[2019-01-21] MEDS: TIMOLOL 0.25% OPHTHALMIC SOL 5 ML BOTTLE OU SCH (09:27)
[2019-01-21] MEDS: BRIMONIDINE TARTRATE 0.15% OPHTHALMIC 5 ML BOTTLE OU SCH (09:27)
[2019-01-21] MEDS: CLOTRIMAZOLE 1% CREAM 15 GM TUBE TP SCH (09:28)
[2019-01-21 09:34] VITALS: BP 116/70; PULSE 70; TEMP 97.6
[2019-01-21] MEDS: ASPIRIN 81 MG CHEWABLE TABLETS PO SCH (10:26)
--- NOTE | 2019-01-21 14:30 | DS ---
[facility] Detox Discharge Summary Admission Date: 01/16/19 Discharge Date: 01/21/19 - History Present History: Alcohol Dependence, Cannabis Dependence, Cocaine Dependence, Opioid Dependence Additional Comments: PATIENT GOING TO [facility] ([place] FOR AFTERCARE. PATIENT WAS DISCHARGED FROM DETOX UNIT TO BE TAKEN OVER TO REHAB UNIT IN STABLE MEDICAL CONDITION. Pertinent Past History: HTN, Depression, Bipolar Disorder. - Physical Exam Results Vital Signs: Vital Signs Temperature 97.6 F 01/21/19 09:33 Pulse Rate 70 01/21/19 09:33 Respiratory Rate 18 01/21/19 09:33 Blood Pressure 116/70 01/21/19 09:33 O2 Sat by Pulse Oximetry (%) Pertinent Admission Physical Exam Findings: WITHDRAWAL SYMPTOMS. Laboratory Tests 01/16/19 01/17/19 01/17/19 17:01 08:30 08:30 WBC 4.9 RBC 4.26 Hgb 12.4 Hct 38.8 MCV 91.0 MCH 29.1 MCHC 31.9 L RDW 14.5 Plt Count 226 MPV 9.4 D Sodium 144 Potassium 4.0 Chloride 110 H Carbon Dioxide 28 Anion Gap 6 L BUN 17.2 Creatinine 1.3 Est GFR (CKD-EPI)AfAm 54.62 Est GFR (CKD-EPI)NonAf 47.13 Random Glucose 126 H Calcium 8.9 Total Bilirubin 0.4 AST 13 L ALT 18 Alkaline Phosphatase 84 Total Protein 5.7 L Albumin 2.9 L POC Urine HCG, Qual Negative RPR Titer HIV 1&2 Antibody Screen HIV P24 Antigen 01/17/19 01/17/19 08:30 08:30 WBC RBC Hgb Hct MCV MCH MCHC RDW Plt Count MPV Sodium Potassium Chloride Carbon Dioxide Anion Gap BUN Creatinine Est GFR (CKD-EPI)AfAm Est GFR (CKD-EPI)NonAf Random Glucose Calcium Total Bilirubin AST ALT Alkaline Phosphatase Total Protein Albumin POC Urine HCG, Qual RPR Titer Nonreactive HIV 1&2 Antibody Screen Negative HIV P24 Antigen Negative LABS NOTED. - Treatment Hospital Course: Detox Protocol Followed, Detoxed Safely, Responded well, Discharged Condition Good, Rehab Referral Accepted Patient has Accepted a Rehab Referral to: [facility] ([place]). - Medication Discharge Medications: Ambulatory Orders Albuterol Sulfate Inhaler - [Ventolin HFA Inhaler -] 2 puff IH Q4H PRN #1 inhaler 11/17/17 Brimonidine Tartrate [Alphagan 0.15% -] 1 drop OU BID #1 drop 11/17/17 Dorzolamide HCl [Trusopt 2% -] 1 drop OU TID #1 drop 11/17/17 Latanoprost 0.005% Eye Drops [Xalatan 0.005% Eye Drops -] 1 drop OP HS #1 drops 11/17/17 Nifedipine ER [Procardia XL -] 90 mg PO DAILY #30 tab.er.24 11/17/17 Aspirin [ASA -] 81 mg PO DAILY 30 Days tab.chew 12/14/17 Timolol 0.25% [Timoptic 0.25%] 1 drop OU BID 30 Days drops 12/14/17 - Diagnosis (1) Alcohol dependence with uncomplicated withdrawal Status: Acute (2) Cannabis dependence Status: Chronic (3) Cocaine dependence Status: Chronic Qualifiers: Substance use status: uncomplicated Qualified Code(s): F14.20 - Cocaine dependence, uncomplicated (4) Opioid dependence with withdrawal Status: Acute - AMA Did Patient Leave Against Medical Advice: No
== END 2019-01-21 13:03 | disposition other institution (70) | DRG 897 ==
LOC: YASAS 12:48 → Y3N 18:20
PROVIDERS: ADMIT Surgery; ATTEND Surgery
PROC: HZ2ZZZZ Detoxification Services for Substance Abuse Treatment (ICD-10-PCS; principal; 2019-01-16)
DX: F10.230 Alcohol dependence with withdrawal, uncomplicated (principal); F14.20 Cocaine dependence, uncomplicated; F11.23 Opioid dependence with withdrawal; F12.20 Cannabis dependence, uncomplicated; F31.9 Bipolar disorder, unspecified; I10 Essential (primary) hypertension; Z88.0 Allergy status to penicillin
CPT/HCPCS: 36415; 80053; 81025; 85027; 86593; 87389

== ENCOUNTER 2019-01-21 13:26 | Inpatient (IN) | payer OTHER ==
[2019-01-21] MEDS ORDERED: P-EPHED 60MG/TRIPROLIDI 2.5MG TABLET PO PRN (14:38)
[2019-01-21] MEDS ORDERED: LOPERAMIDE HCL 2 MG CAPSULE PO PRN (14:38)
[2019-01-21] MEDS ORDERED: MAG HYDROX/AL HYDROX/SIMETH 30 ML UNIT-DOSE CUP PO PRN (14:38)
[2019-01-21] MEDS ORDERED: guaiFENesin 200 MG/10 ML 10 ML UNIT-DOSE CUPS PO PRN (14:38)
[2019-01-21] MEDS ORDERED: MENTHOL/PHENOL 1 EACH UD MM PRN (14:38)
[2019-01-21] MEDS ORDERED: MAGNESIUM CITRATE 300 ML BOTTLE PO PRN (14:38)
[2019-01-21] MEDS ORDERED: MAGNESIUM HYDROX 2400MG/30ML ORAL SUSPENSION 30 ML CUP PO PRN (14:38)
[2019-01-21] MEDS ORDERED: ALBUTEROL SO4 8 GM HFA INHALER IH PRN (14:39)
--- NOTE | 2019-01-21 14:42 | HP ---
[facility] Rehab Assess/Revision - Admission History Admitted to Rehab from: [facility] Date of Admission to Rehab: 01/21/2019 - Vital signs Vital Signs: Vital Signs Period Temp Pulse Resp BP Sys/Harmon Pulse Ox Last 24 Hr 97.2 F 80 16 150/93 - Findings Detox History & Physical reviewed: Yes Concur with findings: Yes Comments/Additional Findings: PATIENT'S MEDICAL / MEDICATION HISTORY REVIEWED PRIOR TO DISCHARGE FROM DETOX UNIT. PATIENT WAS DISCHARGED FROM DETOX UNIT TO BE TAKEN OVER TO REHAB UNIT IN STABLE MEDICAL CONDITION. Inpatient Rehab Admission - Rehab Decision to Admit Inpatient rehab admission?: Yes - Initial Determination Are CD services needed?: Yes Free of communicable disease: Yes Not in need of hospitalization: Yes - Rehab Admission Criteria Previous failed treatment: Yes Poor recovery environment: Yes Comorbidities: Yes Lacks judgement: No Patient is meeting Inpatient Rehab admission criteria:: Yes
[2019-01-21] MEDS ORDERED: PT OWN MED DRAWER 7, Y5N ONE ×3 (15:15→21:43)
[2019-01-21] MEDS: THIAMINE HCL 100 MG TABLET (FP) PO SCH (21:40)
[2019-01-21] MEDS: MELATONIN 5 MG TABLETS PO PRN (21:40)
[2019-01-21] MEDS: ACETAMINOPHEN 325 MG TABLET (FP) PO PRN (21:43)
[2019-01-21] MEDS: TIMOLOL 0.25% OPHTHALMIC SOL 5 ML BOTTLE OU SCH (21:44)
[2019-01-21] MEDS: BRIMONIDINE TARTRATE 0.15% OPHTHALMIC 5 ML BOTTLE OU SCH (21:44)
[2019-01-21] MEDS: HYDROCORTISONE 1% TOPICAL CREAM 30 GM TUBE TP SCH (21:44)
[2019-01-21] MEDS: LATANOPROST 0.005% OPHTH SOLN 2.5ML BOTTLE OU SCH (21:45)
[2019-01-21] MEDS: DORZOLAMIDE 2% HCL OPHTHALMIC SOLUTION 10 ML BOTTLE OU SCH (21:45)
[2019-01-21] MEDS ORDERED: LATANOPROST 0.005% OPHTH SOLN 2.5ML BOTTLE OD SCH (22:00)
[2019-01-22] MEDS ORDERED: PT OWN MED DRAWER 7, Y5N ONE ×4 (03:23→13:43)
[2019-01-22] MEDS: DORZOLAMIDE 2% HCL OPHTHALMIC SOLUTION 10 ML BOTTLE OU SCH ×3 (06:47→21:30)
[2019-01-22] MEDS: ACETAMINOPHEN 325 MG TABLET (FP) PO PRN ×2 (06:49→16:46)
[2019-01-22] MEDS: ASPIRIN 81 MG CHEWABLE TABLETS PO SCH (10:33)
[2019-01-22] MEDS: PRENATAL VITAMINS W/ FOLIC ACID TABLET (FP) PO SCH (10:34)
[2019-01-22] MEDS: HYDROCORTISONE 1% TOPICAL CREAM 30 GM TUBE TP SCH ×2 (10:34→21:30)
[2019-01-22] MEDS: BRIMONIDINE TARTRATE 0.15% OPHTHALMIC 5 ML BOTTLE OU SCH ×2 (10:34→21:30)
[2019-01-22] MEDS: NIFEdipine E.R. 90 MG TABLET (FP) PO SCH (10:34)
[2019-01-22] MEDS: TIMOLOL 0.25% OPHTHALMIC SOL 5 ML BOTTLE OU SCH ×2 (10:35→21:30)
[2019-01-22] MEDS: hydrOXYzine HCL 25 MG TABLET (FP) PO PRN ×3 (12:05→21:29)
[2019-01-22] MEDS: THIAMINE HCL 100 MG TABLET (FP) PO SCH (21:29)
[2019-01-22] MEDS: MELATONIN 5 MG TABLETS PO PRN (21:29)
[2019-01-22] MEDS: LATANOPROST 0.005% OPHTH SOLN 2.5ML BOTTLE OU SCH (21:30)
[2019-01-23] MEDS: DORZOLAMIDE 2% HCL OPHTHALMIC SOLUTION 10 ML BOTTLE OU SCH ×3 (06:52→21:33)
[2019-01-23] MEDS ORDERED: PT OWN MED DRAWER 7, Y5N ONE ×2 (09:11→13:59)
[2019-01-23] MEDS: ASPIRIN 81 MG CHEWABLE TABLETS PO SCH (09:54)
[2019-01-23] MEDS: PRENATAL VITAMINS W/ FOLIC ACID TABLET (FP) PO SCH (09:54)
[2019-01-23] MEDS: NIFEdipine E.R. 90 MG TABLET (FP) PO SCH (09:55)
[2019-01-23] MEDS: hydrOXYzine HCL 25 MG TABLET (FP) PO PRN ×3 (09:56→21:35)
[2019-01-23] MEDS: BRIMONIDINE TARTRATE 0.15% OPHTHALMIC 5 ML BOTTLE OU SCH ×2 (09:58→21:32)
[2019-01-23] MEDS: TIMOLOL 0.25% OPHTHALMIC SOL 5 ML BOTTLE OU SCH ×2 (09:58→21:33)
[2019-01-23] MEDS: NICOTINE POLACRILEX 2 MG GUM BUC PRN (09:59)
[2019-01-23] MEDS: HYDROCORTISONE 1% TOPICAL CREAM 30 GM TUBE TP SCH ×2 (09:59→21:34)
[2019-01-23] MEDS: CYCLOBENZAPRINE HCL 10 MG TABLET (FP) PO PRN (14:00)
[2019-01-23] MEDS: THIAMINE HCL 100 MG TABLET (FP) PO SCH (21:32)
[2019-01-23] MEDS: LATANOPROST 0.005% OPHTH SOLN 2.5ML BOTTLE OU SCH (21:33)
[2019-01-24] MEDS ORDERED: PT OWN MED DRAWER 7, Y5N ONE ×2 (05:57→08:47)
[2019-01-24] MEDS: DORZOLAMIDE 2% HCL OPHTHALMIC SOLUTION 10 ML BOTTLE OU SCH ×3 (07:06→21:35)
[2019-01-24] MEDS: hydrOXYzine HCL 25 MG TABLET (FP) PO PRN ×4 (07:07→21:33)
[2019-01-24] MEDS: BRIMONIDINE TARTRATE 0.15% OPHTHALMIC 5 ML BOTTLE OU SCH ×2 (09:48→21:36)
[2019-01-24] MEDS: HYDROCORTISONE 1% TOPICAL CREAM 30 GM TUBE TP SCH ×2 (09:49→21:34)
[2019-01-24] MEDS: ASPIRIN 81 MG CHEWABLE TABLETS PO SCH (09:49)
[2019-01-24] MEDS: PRENATAL VITAMINS W/ FOLIC ACID TABLET (FP) PO SCH (09:50)
[2019-01-24] MEDS: NIFEdipine E.R. 90 MG TABLET (FP) PO SCH (09:50)
[2019-01-24] MEDS: TIMOLOL 0.25% OPHTHALMIC SOL 5 ML BOTTLE OU SCH ×2 (09:51→21:35)
[2019-01-24] MEDS: CYCLOBENZAPRINE HCL 10 MG TABLET (FP) PO PRN ×2 (09:52→18:29)
--- NOTE | 2019-01-24 12:53 | PN ---
BHS COWS - Scale Resting Pulse: 0= [place] 80 or Below Sweatin= Chills/Flushing (hot/cold chills) Restless Observation: 3= Extraneous Movement Pupil Size: 0= Normal to Room Light Bone or Joint Aches: 1= Mild Discomfort Runny Nose/ Eye Tearin= Nasal Congestion GI Upset > 30mins: 2= Nausea/Diarrhea (nausea) Tremor Observation of Outstretched Hands: 0= None Yawning Observation: 0= None Anxiety or Irritability: 2=Irritable/Anxious Goose Flesh Skin: 0=Smooth Skin COWS Score: 10 BHS Progress Note (SOAP) Subjective: pt reports withdrawal sx. Requesting to start suboxone treatment. Reports she was on it in september of 2018 at [place], [place] but could not fill Rx due to insurance issues. P was on 8mg /2mg sl daily in November 2018 here. Pt is agitated and wants treatment so she can follow up with aftercare. Objective: 01/24/19 12:51 Vital Signs 01/24/19 01/24/19 07:23 09:32 Temperature 97.0 F L Pulse Rate 66 78 Respiratory 18 18 Rate Blood Pressure 131/100 123/87 Laboratory Tests 01/24/19 07:06 POC Glucometer 97 01/24/19 14:48 URINE DRUG SCREEN RESULTS Drug Screen Negative No Urine Drug Screen Results OPI-Opiates,BZO-Benzodiazepines,MTD-Methadone Assessment: 01/24/19 12:51 protracted w/s oud Plan: uds today. D/w pt to follow up with counselor to set up aftercare. will start suboxone per protocol.
[2019-01-24] MEDS: MELATONIN 5 MG TABLETS PO PRN (21:33)
[2019-01-24] MEDS: THIAMINE HCL 100 MG TABLET (FP) PO SCH (21:33)
[2019-01-24] MEDS: LATANOPROST 0.005% OPHTH SOLN 2.5ML BOTTLE OU SCH (21:34)
[2019-01-25] MEDS ORDERED: PT OWN MED DRAWER 7, Y5N ONE ×3 (06:35→13:53)
[2019-01-25] MEDS: hydrOXYzine HCL 25 MG TABLET (FP) PO PRN ×3 (06:36→21:27)
[2019-01-25] MEDS: DORZOLAMIDE 2% HCL OPHTHALMIC SOLUTION 10 ML BOTTLE OU SCH ×3 (06:36→21:25)
[2019-01-25] MEDS: ASPIRIN 81 MG CHEWABLE TABLETS PO SCH (10:16)
[2019-01-25] MEDS: NIFEdipine E.R. 90 MG TABLET (FP) PO SCH (10:16)
[2019-01-25] MEDS: PRENATAL VITAMINS W/ FOLIC ACID TABLET (FP) PO SCH (10:16)
[2019-01-25] MEDS: BRIMONIDINE TARTRATE 0.15% OPHTHALMIC 5 ML BOTTLE OU SCH ×2 (10:17→21:25)
[2019-01-25] MEDS: TIMOLOL 0.25% OPHTHALMIC SOL 5 ML BOTTLE OU SCH ×2 (10:18→21:25)
[2019-01-25] MEDS: HYDROCORTISONE 1% TOPICAL CREAM 30 GM TUBE TP SCH ×2 (10:19→21:26)
--- NOTE | 2019-01-25 10:32 | PN ---
BHS Progress Note Note: Suboxone treatment started for OUD. Pt to f/u with outpt program as arranged by counselor
[2019-01-25] MEDS ORDERED: BUPRENORPHINE/NALOXONE 4 MG/1 MG FILM PACKET SL ONE (12:30)
[2019-01-25] MEDS ORDERED: BUPRENORPHINE/NALOXONE 2 MG/0.5 MG FILM PACKET SL ONE (12:35)
[2019-01-25] MEDS: LATANOPROST 0.005% OPHTH SOLN 2.5ML BOTTLE OU SCH (21:25)
[2019-01-25] MEDS: THIAMINE HCL 100 MG TABLET (FP) PO SCH (21:25)
[2019-01-25] MEDS: MELATONIN 5 MG TABLETS PO PRN (21:26)
[2019-01-26] MEDS: DORZOLAMIDE 2% HCL OPHTHALMIC SOLUTION 10 ML BOTTLE OU SCH ×3 (06:41→21:27)
[2019-01-26] MEDS: BUPRENORPHINE/NALOXONE 2 MG/0.5 MG FILM PACKET SL SCH (06:42)
[2019-01-26] MEDS ORDERED: PT OWN MED DRAWER 7, Y5N ONE (08:26)
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
[2019-01-26] MEDS: BRIMONIDINE TARTRATE 0.15% OPHTHALMIC 5 ML BOTTLE OU SCH ×2 (10:16→21:28)
[2019-01-26] MEDS: PRENATAL VITAMINS W/ FOLIC ACID TABLET (FP) PO SCH (10:17)
[2019-01-26] MEDS: HYDROCORTISONE 1% TOPICAL CREAM 30 GM TUBE TP SCH ×2 (10:17→21:29)
[2019-01-26] MEDS: NIFEdipine E.R. 90 MG TABLET (FP) PO SCH (10:17)
[2019-01-26] MEDS: ASPIRIN 81 MG CHEWABLE TABLETS PO SCH (10:17)
[2019-01-26] MEDS: TIMOLOL 0.25% OPHTHALMIC SOL 5 ML BOTTLE OU SCH ×2 (10:18→21:27)
[2019-01-26] MEDS: hydrOXYzine HCL 25 MG TABLET (FP) PO PRN ×4 (10:19→21:29)
[2019-01-26] MEDS: CYCLOBENZAPRINE HCL 10 MG TABLET (FP) PO PRN (10:19)
[2019-01-26] MEDS: NICOTINE POLACRILEX 2 MG GUM BUC PRN (10:21)
[2019-01-26] MEDS ORDERED: BUPRENORPHINE/NALOXONE 4 MG/1 MG FILM PACKET SL ONE (10:30)
[2019-01-26] MEDS: THIAMINE HCL 100 MG TABLET (FP) PO SCH (21:27)
[2019-01-26] MEDS: LATANOPROST 0.005% OPHTH SOLN 2.5ML BOTTLE OU SCH (21:27)
[2019-01-26] MEDS: MELATONIN 5 MG TABLETS PO PRN (21:27)
[2019-01-26] MEDS: QUEtiapine FUMARATE 100 MG TABLET (FP) PO SCH (21:30)
[2019-01-27] MEDS: DORZOLAMIDE 2% HCL OPHTHALMIC SOLUTION 10 ML BOTTLE OU SCH ×3 (06:38→21:15)
[2019-01-27] MEDS: BUPRENORPHINE/NALOXONE 2 MG/0.5 MG FILM PACKET SL SCH (06:38)
--- NOTE | 2019-01-27 08:31 | PN ---
BHS COWS - Scale Resting Pulse: 0= [place] 80 or Below Sweatin= No chills or Flushing Restless Observation: 1= Difficult to Sit Still Pupil Size: 0= Normal to Room Light Bone or Joint Aches: 2= Severe Diffuse Aches Runny Nose/ Eye Tearin= None GI Upset > 30mins: 1= Stomach Cramp Tremor Observation of Outstretched Hands: 0= None Yawning Observation: 0= None Anxiety or Irritability: 2=Irritable/Anxious Goose Flesh Skin: 0=Smooth Skin COWS Score: 6 BHS Progress Note (SOAP) Subjective: Patient seen for request for increase in suboxone MAT. Patient reports having opiod cravings, restlessness, anxiety, body aches and chills. Objective: 01/27/19 08:28 Laboratory Tests 01/24/19 07:06 POC Glucometer 97 Vital Signs (72 hours) 01/24/19 01/25/19 01/25/19 09:32 03:30 07:29 Temperature 97.7 F Pulse Rate 78 65 Respiratory 18 18 18 Rate Blood Pressure 123/87 129/93 01/26/19 01/26/19 01/26/19 00:30 03:30 07:31 Temperature 97.5 F L Pulse Rate 67 Respiratory 18 18 18 Rate Blood Pressure 149/93 01/26/19 01/27/19 01/27/19 09:19 00:30 03:30 Temperature Pulse Rate 89 Respiratory 18 18 Rate Blood Pressure 123/82 01/27/19 07:01 Temperature 97.6 F Pulse Rate 69 Respiratory 18 Rate Blood Pressure 134/93 PE; alert and oriented x3 Skin warm and dry +perrla, eoms intact bl ext no visible tremors, full rom amb ad charmaine anxious, restless, pacing in room Assessment: 01/27/19 08:30 Suboxone MAT Opiod use disorder Plan: Will increase suboxone to 8mg/2mg sl daily starting today continue group meetings and inpatient rehab monitor clinically
[2019-01-27] MEDS ORDERED: PT OWN MED DRAWER 7, Y5N ONE ×5 (08:57→19:44)
[2019-01-27] MEDS: ASPIRIN 81 MG CHEWABLE TABLETS PO SCH (11:04)
[2019-01-27] MEDS: PRENATAL VITAMINS W/ FOLIC ACID TABLET (FP) PO SCH (11:04)
[2019-01-27] MEDS: BUPRENORPHINE/NALOXONE 8 MG/2 MG FILM PACKET SL SCH (11:04)
[2019-01-27] MEDS: NIFEdipine E.R. 90 MG TABLET (FP) PO SCH (11:04)
[2019-01-27] MEDS: TIMOLOL 0.25% OPHTHALMIC SOL 5 ML BOTTLE OU SCH ×2 (11:06→21:15)
[2019-01-27] MEDS: hydrOXYzine HCL 25 MG TABLET (FP) PO PRN ×3 (11:09→19:45)
[2019-01-27] MEDS: HYDROCORTISONE 1% TOPICAL CREAM 30 GM TUBE TP SCH ×2 (11:11→21:15)
[2019-01-27] MEDS: BRIMONIDINE TARTRATE 0.15% OPHTHALMIC 5 ML BOTTLE OU SCH ×2 (11:11→21:14)
[2019-01-27] MEDS: CYCLOBENZAPRINE HCL 10 MG TABLET (FP) PO PRN (15:43)
[2019-01-27] MEDS: MELATONIN 5 MG TABLETS PO PRN (21:13)
[2019-01-27] MEDS: QUEtiapine FUMARATE 100 MG TABLET (FP) PO SCH (21:13)
[2019-01-27] MEDS: THIAMINE HCL 100 MG TABLET (FP) PO SCH (21:13)
[2019-01-27] MEDS: LATANOPROST 0.005% OPHTH SOLN 2.5ML BOTTLE OU SCH (21:15)
[2019-01-28] MEDS ORDERED: PT OWN MED DRAWER 7, Y5N ONE ×3 (06:03→13:54)
[2019-01-28] MEDS: CYCLOBENZAPRINE HCL 10 MG TABLET (FP) PO PRN (06:33)
[2019-01-28] MEDS: DORZOLAMIDE 2% HCL OPHTHALMIC SOLUTION 10 ML BOTTLE OU SCH ×3 (06:33→21:45)
[2019-01-28] MEDS: hydrOXYzine HCL 25 MG TABLET (FP) PO PRN ×4 (06:33→21:45)
[2019-01-28] MEDS: BRIMONIDINE TARTRATE 0.15% OPHTHALMIC 5 ML BOTTLE OU SCH ×2 (09:47→21:45)
[2019-01-28] MEDS: TIMOLOL 0.25% OPHTHALMIC SOL 5 ML BOTTLE OU SCH ×2 (09:47→21:44)
[2019-01-28] MEDS: HYDROCORTISONE 1% TOPICAL CREAM 30 GM TUBE TP SCH (09:48)
[2019-01-28] MEDS: ASPIRIN 81 MG CHEWABLE TABLETS PO SCH (09:49)
[2019-01-28] MEDS: NIFEdipine E.R. 90 MG TABLET (FP) PO SCH (09:49)
[2019-01-28] MEDS: PRENATAL VITAMINS W/ FOLIC ACID TABLET (FP) PO SCH (09:49)
[2019-01-28] MEDS: BUPRENORPHINE/NALOXONE 8 MG/2 MG FILM PACKET SL SCH (09:49)
[2019-01-28] MEDS: LATANOPROST 0.005% OPHTH SOLN 2.5ML BOTTLE OU SCH (21:44)
[2019-01-28] MEDS: THIAMINE HCL 100 MG TABLET (FP) PO SCH (21:45)
[2019-01-28] MEDS: QUEtiapine FUMARATE 100 MG TABLET (FP) PO SCH (21:46)
[2019-01-29] MEDS: hydrOXYzine HCL 25 MG TABLET (FP) PO PRN ×3 (06:19→18:27)
[2019-01-29] MEDS: DORZOLAMIDE 2% HCL OPHTHALMIC SOLUTION 10 ML BOTTLE OU SCH ×3 (06:19→21:38)
[2019-01-29] MEDS: CYCLOBENZAPRINE HCL 10 MG TABLET (FP) PO PRN ×2 (06:19→18:27)
[2019-01-29] MEDS: BUPRENORPHINE/NALOXONE 8 MG/2 MG FILM PACKET SL SCH (10:10)
[2019-01-29] MEDS: NIFEdipine E.R. 90 MG TABLET (FP) PO SCH (10:10)
[2019-01-29] MEDS: PRENATAL VITAMINS W/ FOLIC ACID TABLET (FP) PO SCH (10:10)
[2019-01-29] MEDS: ASPIRIN 81 MG CHEWABLE TABLETS PO SCH (10:10)
[2019-01-29] MEDS: BRIMONIDINE TARTRATE 0.15% OPHTHALMIC 5 ML BOTTLE OU SCH ×2 (10:12→21:39)
[2019-01-29] MEDS: TIMOLOL 0.25% OPHTHALMIC SOL 5 ML BOTTLE OU SCH ×2 (10:12→21:39)
[2019-01-29] MEDS: THIAMINE HCL 100 MG TABLET (FP) PO SCH (21:38)
[2019-01-29] MEDS: QUEtiapine FUMARATE 100 MG TABLET (FP) PO SCH (21:38)
[2019-01-29] MEDS: MELATONIN 5 MG TABLETS PO PRN (21:39)
[2019-01-29] MEDS: LATANOPROST 0.005% OPHTH SOLN 2.5ML BOTTLE OU SCH (21:41)
[2019-01-30] MEDS: DORZOLAMIDE 2% HCL OPHTHALMIC SOLUTION 10 ML BOTTLE OU SCH ×3 (06:18→21:35)
[2019-01-30] MEDS: hydrOXYzine HCL 25 MG TABLET (FP) PO PRN ×4 (06:18→21:37)
[2019-01-30] MEDS ORDERED: PT OWN MED DRAWER 7, Y5N ONE (09:24)
[2019-01-30] MEDS: TIMOLOL 0.25% OPHTHALMIC SOL 5 ML BOTTLE OU SCH ×2 (10:16→21:35)
[2019-01-30] MEDS: ASPIRIN 81 MG CHEWABLE TABLETS PO SCH (10:17)
[2019-01-30] MEDS: NIFEdipine E.R. 90 MG TABLET (FP) PO SCH (10:17)
[2019-01-30] MEDS: BUPRENORPHINE/NALOXONE 8 MG/2 MG FILM PACKET SL SCH (10:17)
[2019-01-30] MEDS: PRENATAL VITAMINS W/ FOLIC ACID TABLET (FP) PO SCH (10:17)
[2019-01-30] MEDS: BRIMONIDINE TARTRATE 0.15% OPHTHALMIC 5 ML BOTTLE OU SCH ×2 (10:18→21:35)
[2019-01-30] MEDS: NICOTINE 14 MG/24 HOURS TOPICAL PATCH TD SCH (10:19)
[2019-01-30] MEDS: CYCLOBENZAPRINE HCL 10 MG TABLET (FP) PO PRN ×2 (10:21→21:34)
[2019-01-30] MEDS: COLLOIDAL OATMEAL 1 BAR EACH TP PRN (10:21)
[2019-01-30] MEDS: QUEtiapine FUMARATE 100 MG TABLET (FP) PO SCH (21:34)
[2019-01-30] MEDS: THIAMINE HCL 100 MG TABLET (FP) PO SCH (21:34)
[2019-01-30] MEDS: MELATONIN 5 MG TABLETS PO PRN (21:34)
[2019-01-30] MEDS: LATANOPROST 0.005% OPHTH SOLN 2.5ML BOTTLE OU SCH (21:35)
[2019-01-31] MEDS: DORZOLAMIDE 2% HCL OPHTHALMIC SOLUTION 10 ML BOTTLE OU SCH ×3 (07:00→22:01)
[2019-01-31] MEDS: hydrOXYzine HCL 25 MG TABLET (FP) PO PRN ×3 (07:01→21:28)
[2019-01-31] MEDS: CYCLOBENZAPRINE HCL 10 MG TABLET (FP) PO PRN ×2 (07:01→21:28)
[2019-01-31] MEDS ORDERED: PT OWN MED DRAWER 7, Y5N ONE ×3 (08:42→21:32)
[2019-01-31] MEDS: BRIMONIDINE TARTRATE 0.15% OPHTHALMIC 5 ML BOTTLE OU SCH ×2 (10:08→21:28)
[2019-01-31] MEDS: ASPIRIN 81 MG CHEWABLE TABLETS PO SCH (10:08)
[2019-01-31] MEDS: PRENATAL VITAMINS W/ FOLIC ACID TABLET (FP) PO SCH (10:08)
[2019-01-31] MEDS: NICOTINE 14 MG/24 HOURS TOPICAL PATCH TD SCH (10:08)
[2019-01-31] MEDS: TIMOLOL 0.25% OPHTHALMIC SOL 5 ML BOTTLE OU SCH ×2 (10:09→21:29)
[2019-01-31] MEDS: BUPRENORPHINE/NALOXONE 8 MG/2 MG FILM PACKET SL SCH ×2 (10:09→17:12)
[2019-01-31] MEDS: NIFEdipine E.R. 90 MG TABLET (FP) PO SCH (11:45)
--- NOTE | 2019-01-31 13:48 | PN ---
BHS Progress Note Note: PT REQUESTING INCREASED SUBOXONE DOSE, STATING "I TAKE 8MG TWICE A DAY ON THE STREET". C/O HOT/COLD, CRAVINGS. ALSO C/O CONSTIPATION AND ITCHY RASH ON LEFT FOREARM. ALERT O X 3. Vital Signs - 24 hr 01/31/19 01/31/19 01/31/19 00:30 03:30 07:23 Temperature 98.0 F Pulse Rate 78 Respiratory 18 18 18 Rate Blood Pressure 112/71 01/31/19 09:05 Temperature Pulse Rate 95 H Respiratory Rate Blood Pressure 127/90 CARDIAC;S1 S2, NO MM/R; RRR LUNGS:CTA, JERONIMO. ABDOMEN:SOFT,+BS; NT/ND EXTREMITIES:NO E/C/C,JERONIMO. TOE NAILS BROWN, DRY AND THICKENED SKIN;LEFT PROXYMAL WRIST AREA WITH FEW SPOTS OF RED PAPULAR RASH-NO PUS. A:OUD PROTRACTED W/S ONYCCHOMYCOSIS TINEA PEDIS ATYPICAL RASH PLAN:TINACTIN CREAM APPLY DIRECTED INCREASE SUBOXONE 8MG/2 MG SL [id number] HYDROCORTISONE CREAM BID APPLY TO AFFECTED AREAS.
[2019-01-31] MEDS: LATANOPROST 0.005% OPHTH SOLN 2.5ML BOTTLE OU SCH (21:27)
[2019-01-31] MEDS: QUEtiapine FUMARATE 100 MG TABLET (FP) PO SCH (21:28)
[2019-01-31] MEDS: THIAMINE HCL 100 MG TABLET (FP) PO SCH (21:28)
[2019-01-31] MEDS: HYDROCORTISONE 1% TOPICAL CREAM 30 GM TUBE TP SCH (21:32)
[2019-02-01] MEDS: DORZOLAMIDE 2% HCL OPHTHALMIC SOLUTION 10 ML BOTTLE OU SCH ×3 (06:52→21:42)
[2019-02-01] MEDS: CYCLOBENZAPRINE HCL 10 MG TABLET (FP) PO PRN ×2 (06:52→21:44)
[2019-02-01] MEDS: hydrOXYzine HCL 25 MG TABLET (FP) PO PRN ×4 (06:52→21:44)
[2019-02-01] MEDS ORDERED: PT OWN MED DRAWER 7, Y5N ONE ×2 (08:35→15:36)
[2019-02-01] MEDS: BRIMONIDINE TARTRATE 0.15% OPHTHALMIC 5 ML BOTTLE OU SCH ×2 (09:56→21:41)
[2019-02-01] MEDS: NICOTINE 14 MG/24 HOURS TOPICAL PATCH TD SCH (09:56)
[2019-02-01] MEDS: ASPIRIN 81 MG CHEWABLE TABLETS PO SCH (09:56)
[2019-02-01] MEDS: HYDROCORTISONE 1% TOPICAL CREAM 30 GM TUBE TP SCH ×2 (09:56→23:06)
[2019-02-01] MEDS: PRENATAL VITAMINS W/ FOLIC ACID TABLET (FP) PO SCH (09:57)
[2019-02-01] MEDS: NIFEdipine E.R. 90 MG TABLET (FP) PO SCH (09:57)
[2019-02-01] MEDS: TIMOLOL 0.25% OPHTHALMIC SOL 5 ML BOTTLE OU SCH ×2 (09:57→21:42)
[2019-02-01] MEDS: BUPRENORPHINE/NALOXONE 8 MG/2 MG FILM PACKET SL SCH ×2 (09:57→17:44)
[2019-02-01] MEDS: THIAMINE HCL 100 MG TABLET (FP) PO SCH (21:41)
[2019-02-01] MEDS: LATANOPROST 0.005% OPHTH SOLN 2.5ML BOTTLE OU SCH (21:42)
[2019-02-01] MEDS: QUEtiapine FUMARATE 100 MG TABLET (FP) PO SCH (21:44)
[2019-02-02] MEDS: hydrOXYzine HCL 25 MG TABLET (FP) PO PRN ×4 (06:46→21:36)
[2019-02-02] MEDS: CYCLOBENZAPRINE HCL 10 MG TABLET (FP) PO PRN ×3 (06:46→21:36)
[2019-02-02] MEDS: DORZOLAMIDE 2% HCL OPHTHALMIC SOLUTION 10 ML BOTTLE OU SCH ×3 (06:46→21:37)
[2019-02-02] MEDS: BRIMONIDINE TARTRATE 0.15% OPHTHALMIC 5 ML BOTTLE OU SCH ×2 (10:40→21:36)
[2019-02-02] MEDS: NICOTINE 14 MG/24 HOURS TOPICAL PATCH TD SCH (10:40)
[2019-02-02] MEDS: BUPRENORPHINE/NALOXONE 8 MG/2 MG FILM PACKET SL SCH ×2 (10:40→17:47)
[2019-02-02] MEDS: ASPIRIN 81 MG CHEWABLE TABLETS PO SCH (10:40)
[2019-02-02] MEDS: PRENATAL VITAMINS W/ FOLIC ACID TABLET (FP) PO SCH (10:40)
[2019-02-02] MEDS: TIMOLOL 0.25% OPHTHALMIC SOL 5 ML BOTTLE OU SCH ×2 (10:41→21:36)
[2019-02-02] MEDS: HYDROCORTISONE 1% TOPICAL CREAM 30 GM TUBE TP SCH ×2 (10:41→21:37)
[2019-02-02] MEDS: NIFEdipine E.R. 90 MG TABLET (FP) PO SCH (10:43)
[2019-02-02] MEDS ORDERED: PT OWN MED DRAWER 7, Y5N ONE ×3 (10:57→17:49)
--- NOTE | 2019-02-02 15:46 | PN ---
BHS Progress Note Note: c/o rash on left hand x 24 hours. Vital Signs - 24 hr 02/02/19 02/02/19 02/02/19 00:30 03:30 07:12 Temperature 97.3 F L Pulse Rate 86 Respiratory 18 18 18 Rate Blood Pressure 108/75 02/02/19 09:12 Temperature Pulse Rate 98 H Respiratory 17 Rate Blood Pressure 116/74 extremity exam:left wrist with 2 areas of wheal-like lesion. A:Rash Plan:hydrocortisone cream 1% apply to affected areas bid
[2019-02-02] MEDS: MELATONIN 5 MG TABLETS PO PRN (21:35)
[2019-02-02] MEDS: THIAMINE HCL 100 MG TABLET (FP) PO SCH (21:35)
[2019-02-02] MEDS: LATANOPROST 0.005% OPHTH SOLN 2.5ML BOTTLE OU SCH (21:36)
[2019-02-02] MEDS: QUEtiapine FUMARATE 100 MG TABLET (FP) PO SCH (21:36)
[2019-02-02] MEDS: DOCUSATE SODIUM 100 MG CAPSULE (FP) PO SCH (21:38)
[2019-02-03] MEDS: CYCLOBENZAPRINE HCL 10 MG TABLET (FP) PO PRN (06:25)
[2019-02-03] MEDS: hydrOXYzine HCL 25 MG TABLET (FP) PO PRN ×4 (06:25→21:19)
[2019-02-03] MEDS: DORZOLAMIDE 2% HCL OPHTHALMIC SOLUTION 10 ML BOTTLE OU SCH ×3 (06:26→21:20)
[2019-02-03] MEDS: PRENATAL VITAMINS W/ FOLIC ACID TABLET (FP) PO SCH (10:18)
[2019-02-03] MEDS: ASPIRIN 81 MG CHEWABLE TABLETS PO SCH (10:19)
[2019-02-03] MEDS: BUPRENORPHINE/NALOXONE 8 MG/2 MG FILM PACKET SL SCH ×2 (10:19→17:23)
[2019-02-03] MEDS: NIFEdipine E.R. 90 MG TABLET (FP) PO SCH (10:19)
[2019-02-03] MEDS: HYDROCORTISONE 1% TOPICAL CREAM 30 GM TUBE TP SCH ×2 (10:20→21:20)
[2019-02-03] MEDS: BRIMONIDINE TARTRATE 0.15% OPHTHALMIC 5 ML BOTTLE OU SCH ×2 (10:20→21:20)
[2019-02-03] MEDS: NICOTINE 14 MG/24 HOURS TOPICAL PATCH TD SCH (10:21)
[2019-02-03] MEDS: TIMOLOL 0.25% OPHTHALMIC SOL 5 ML BOTTLE OU SCH ×2 (10:22→21:20)
[2019-02-03] MEDS ORDERED: PT OWN MED DRAWER 7, Y5N ONE (14:16)
[2019-02-03] MEDS: QUEtiapine FUMARATE 100 MG TABLET (FP) PO SCH (21:19)
[2019-02-03] MEDS: THIAMINE HCL 100 MG TABLET (FP) PO SCH (21:19)
[2019-02-03] MEDS: MELATONIN 5 MG TABLETS PO PRN (21:19)
[2019-02-03] MEDS: DOCUSATE SODIUM 100 MG CAPSULE (FP) PO SCH (21:19)
[2019-02-03] MEDS: LATANOPROST 0.005% OPHTH SOLN 2.5ML BOTTLE OU SCH (21:21)
[2019-02-04] MEDS ORDERED: PT OWN MED DRAWER 7, Y5N ONE ×4 (06:10→18:52)
[2019-02-04] MEDS: DORZOLAMIDE 2% HCL OPHTHALMIC SOLUTION 10 ML BOTTLE OU SCH ×3 (06:10→21:10)
[2019-02-04] MEDS: CYCLOBENZAPRINE HCL 10 MG TABLET (FP) PO PRN ×2 (06:11→19:09)
[2019-02-04] MEDS: hydrOXYzine HCL 25 MG TABLET (FP) PO PRN ×3 (06:11→19:09)
[2019-02-04] MEDS: TIMOLOL 0.25% OPHTHALMIC SOL 5 ML BOTTLE OU SCH ×2 (09:37→21:11)
[2019-02-04] MEDS: BRIMONIDINE TARTRATE 0.15% OPHTHALMIC 5 ML BOTTLE OU SCH ×2 (09:37→21:11)
[2019-02-04] MEDS: PRENATAL VITAMINS W/ FOLIC ACID TABLET (FP) PO SCH (09:38)
[2019-02-04] MEDS: NICOTINE 14 MG/24 HOURS TOPICAL PATCH TD SCH (09:38)
[2019-02-04] MEDS: ASPIRIN 81 MG CHEWABLE TABLETS PO SCH (09:38)
[2019-02-04] MEDS: HYDROCORTISONE 1% TOPICAL CREAM 30 GM TUBE TP SCH ×2 (09:39→21:10)
[2019-02-04] MEDS: BUPRENORPHINE/NALOXONE 8 MG/2 MG FILM PACKET SL SCH ×2 (09:39→17:38)
[2019-02-04] MEDS: NIFEdipine E.R. 90 MG TABLET (FP) PO SCH (09:39)
[2019-02-04] MEDS: LATANOPROST 0.005% OPHTH SOLN 2.5ML BOTTLE OU SCH (21:09)
[2019-02-04] MEDS: QUEtiapine FUMARATE 100 MG TABLET (FP) PO SCH (21:09)
[2019-02-04] MEDS: THIAMINE HCL 100 MG TABLET (FP) PO SCH (21:09)
[2019-02-04] MEDS: DOCUSATE SODIUM 100 MG CAPSULE (FP) PO SCH (21:10)
[2019-02-04] MEDS: MELATONIN 5 MG TABLETS PO PRN (21:12)
[2019-02-05] MEDS: CYCLOBENZAPRINE HCL 10 MG TABLET (FP) PO PRN ×2 (06:15→21:05)
[2019-02-05] MEDS: DORZOLAMIDE 2% HCL OPHTHALMIC SOLUTION 10 ML BOTTLE OU SCH ×3 (06:15→21:51)
[2019-02-05] MEDS: hydrOXYzine HCL 25 MG TABLET (FP) PO PRN ×3 (06:15→22:14)
[2019-02-05] MEDS ORDERED: PT OWN MED DRAWER 7, Y5N ONE ×3 (08:34→22:16)
[2019-02-05] MEDS: ASPIRIN 81 MG CHEWABLE TABLETS PO SCH (09:56)
[2019-02-05] MEDS: NICOTINE 14 MG/24 HOURS TOPICAL PATCH TD SCH (09:56)
[2019-02-05] MEDS: NIFEdipine E.R. 90 MG TABLET (FP) PO SCH (09:56)
[2019-02-05] MEDS: PRENATAL VITAMINS W/ FOLIC ACID TABLET (FP) PO SCH (09:56)
[2019-02-05] MEDS: HYDROCORTISONE 1% TOPICAL CREAM 30 GM TUBE TP SCH ×2 (09:58→21:51)
[2019-02-05] MEDS: BRIMONIDINE TARTRATE 0.15% OPHTHALMIC 5 ML BOTTLE OU SCH ×2 (09:58→21:51)
[2019-02-05] MEDS: BUPRENORPHINE/NALOXONE 8 MG/2 MG FILM PACKET SL SCH ×2 (09:59→17:49)
[2019-02-05] MEDS: TIMOLOL 0.25% OPHTHALMIC SOL 5 ML BOTTLE OU SCH ×2 (10:00→21:51)
[2019-02-05] MEDS: THIAMINE HCL 100 MG TABLET (FP) PO SCH (21:04)
[2019-02-05] MEDS: DOCUSATE SODIUM 100 MG CAPSULE (FP) PO SCH (21:04)
[2019-02-05] MEDS: QUEtiapine FUMARATE 100 MG TABLET (FP) PO SCH (21:04)
[2019-02-05] MEDS: MELATONIN 5 MG TABLETS PO PRN (21:05)
[2019-02-05] MEDS: LATANOPROST 0.005% OPHTH SOLN 2.5ML BOTTLE OU SCH (21:51)
[2019-02-05] MEDS ORDERED: ACETAMINOPHEN 325 MG TABLET (FP) ONE (22:16)
[2019-02-06] MEDS: DORZOLAMIDE 2% HCL OPHTHALMIC SOLUTION 10 ML BOTTLE OU SCH ×3 (06:13→21:41)
[2019-02-06] MEDS: CYCLOBENZAPRINE HCL 10 MG TABLET (FP) PO PRN ×2 (06:13→21:42)
[2019-02-06] MEDS: hydrOXYzine HCL 25 MG TABLET (FP) PO PRN ×3 (06:13→21:42)
[2019-02-06] MEDS ORDERED: PT OWN MED DRAWER 7, Y5N ONE ×2 (08:53→14:13)
[2019-02-06] MEDS: BRIMONIDINE TARTRATE 0.15% OPHTHALMIC 5 ML BOTTLE OU SCH ×2 (10:10→21:41)
[2019-02-06] MEDS: ASPIRIN 81 MG CHEWABLE TABLETS PO SCH (10:10)
[2019-02-06] MEDS: PRENATAL VITAMINS W/ FOLIC ACID TABLET (FP) PO SCH (10:10)
[2019-02-06] MEDS: BUPRENORPHINE/NALOXONE 8 MG/2 MG FILM PACKET SL SCH ×2 (10:10→17:04)
[2019-02-06] MEDS: TIMOLOL 0.25% OPHTHALMIC SOL 5 ML BOTTLE OU SCH ×2 (10:10→21:41)
[2019-02-06] MEDS: NIFEdipine E.R. 90 MG TABLET (FP) PO SCH (10:10)
[2019-02-06] MEDS: NICOTINE 14 MG/24 HOURS TOPICAL PATCH TD SCH (10:10)
[2019-02-06] MEDS: HYDROCORTISONE 1% TOPICAL CREAM 30 GM TUBE TP SCH ×2 (10:11→21:43)
[2019-02-06] MEDS: LATANOPROST 0.005% OPHTH SOLN 2.5ML BOTTLE OU SCH (21:41)
[2019-02-06] MEDS: DOCUSATE SODIUM 100 MG CAPSULE (FP) PO SCH (21:42)
[2019-02-06] MEDS: QUEtiapine FUMARATE 100 MG TABLET (FP) PO SCH (21:42)
[2019-02-06] MEDS: THIAMINE HCL 100 MG TABLET (FP) PO SCH (21:44)
[2019-02-07] MEDS ORDERED: PT OWN MED DRAWER 7, Y5N ONE ×2 (06:25→12:36)
[2019-02-07] MEDS: CYCLOBENZAPRINE HCL 10 MG TABLET (FP) PO PRN (06:42)
[2019-02-07] MEDS: DORZOLAMIDE 2% HCL OPHTHALMIC SOLUTION 10 ML BOTTLE OU SCH ×3 (06:43→21:46)
[2019-02-07] MEDS: hydrOXYzine HCL 25 MG TABLET (FP) PO PRN ×2 (06:43→21:45)
[2019-02-07] MEDS: NIFEdipine E.R. 90 MG TABLET (FP) PO SCH (10:04)
[2019-02-07] MEDS: PRENATAL VITAMINS W/ FOLIC ACID TABLET (FP) PO SCH (10:04)
[2019-02-07] MEDS: NICOTINE 14 MG/24 HOURS TOPICAL PATCH TD SCH (10:04)
[2019-02-07] MEDS: ASPIRIN 81 MG CHEWABLE TABLETS PO SCH (10:04)
[2019-02-07] MEDS: TIMOLOL 0.25% OPHTHALMIC SOL 5 ML BOTTLE OU SCH ×2 (10:05→21:46)
[2019-02-07] MEDS: BRIMONIDINE TARTRATE 0.15% OPHTHALMIC 5 ML BOTTLE OU SCH ×2 (10:05→21:46)
[2019-02-07] MEDS: BUPRENORPHINE/NALOXONE 8 MG/2 MG FILM PACKET SL SCH ×2 (10:05→17:53)
[2019-02-07] MEDS: HYDROCORTISONE 1% TOPICAL CREAM 30 GM TUBE TP SCH ×2 (10:06→21:47)
[2019-02-07] MEDS: MINERAL OIL/PETROLAT/WATER TOPICAL CREAM 113 GM JAR TP PRN (14:23)
[2019-02-07] MEDS ORDERED: BUPRENORPHINE/NALOXONE 8 MG/2 MG FILM PACKET SL SCH (18:00)
[2019-02-07] MEDS: MELATONIN 5 MG TABLETS PO PRN (21:45)
[2019-02-07] MEDS: DOCUSATE SODIUM 100 MG CAPSULE (FP) PO SCH (21:45)
[2019-02-07] MEDS: QUEtiapine FUMARATE 100 MG TABLET (FP) PO SCH (21:45)
[2019-02-07] MEDS: THIAMINE HCL 100 MG TABLET (FP) PO SCH (21:45)
[2019-02-07] MEDS: LATANOPROST 0.005% OPHTH SOLN 2.5ML BOTTLE OU SCH (21:46)
[2019-02-08] MEDS ORDERED: PT OWN MED DRAWER 7, Y5N ONE ×4 (04:47→13:02)
[2019-02-08] MEDS: hydrOXYzine HCL 25 MG TABLET (FP) PO PRN ×4 (06:30→21:30)
[2019-02-08] MEDS: DORZOLAMIDE 2% HCL OPHTHALMIC SOLUTION 10 ML BOTTLE OU SCH ×3 (06:30→21:32)
[2019-02-08] MEDS: CYCLOBENZAPRINE HCL 10 MG TABLET (FP) PO PRN ×2 (06:30→21:30)
[2019-02-08] MEDS: BRIMONIDINE TARTRATE 0.15% OPHTHALMIC 5 ML BOTTLE OU SCH ×2 (09:25→21:32)
[2019-02-08] MEDS: ASPIRIN 81 MG CHEWABLE TABLETS PO SCH (09:26)
[2019-02-08] MEDS: NICOTINE 14 MG/24 HOURS TOPICAL PATCH TD SCH (09:26)
[2019-02-08] MEDS: HYDROCORTISONE 1% TOPICAL CREAM 30 GM TUBE TP SCH ×2 (09:26→21:33)
[2019-02-08] MEDS: NIFEdipine E.R. 90 MG TABLET (FP) PO SCH (09:27)
[2019-02-08] MEDS: PRENATAL VITAMINS W/ FOLIC ACID TABLET (FP) PO SCH (09:27)
[2019-02-08] MEDS: BUPRENORPHINE/NALOXONE 8 MG/2 MG FILM PACKET SL SCH ×2 (09:28→17:04)
[2019-02-08] MEDS: TIMOLOL 0.25% OPHTHALMIC SOL 5 ML BOTTLE OU SCH ×2 (09:28→21:32)
[2019-02-08] MEDS: THIAMINE HCL 100 MG TABLET (FP) PO SCH (21:30)
[2019-02-08] MEDS: DOCUSATE SODIUM 100 MG CAPSULE (FP) PO SCH (21:30)
[2019-02-08] MEDS: QUEtiapine FUMARATE 100 MG TABLET (FP) PO SCH (21:30)
[2019-02-08] MEDS: LATANOPROST 0.005% OPHTH SOLN 2.5ML BOTTLE OU SCH (21:32)
[2019-02-09] MEDS ORDERED: PT OWN MED DRAWER 7, Y5N ONE ×3 (05:48→14:12)
[2019-02-09] MEDS: DORZOLAMIDE 2% HCL OPHTHALMIC SOLUTION 10 ML BOTTLE OU SCH ×3 (06:21→21:35)
[2019-02-09] MEDS: CYCLOBENZAPRINE HCL 10 MG TABLET (FP) PO PRN ×2 (06:22→21:36)
[2019-02-09] MEDS: hydrOXYzine HCL 25 MG TABLET (FP) PO PRN ×3 (06:22→21:34)
[2019-02-09] MEDS: BUPRENORPHINE/NALOXONE 8 MG/2 MG FILM PACKET SL SCH ×2 (09:49→17:37)
[2019-02-09] MEDS: ASPIRIN 81 MG CHEWABLE TABLETS PO SCH (09:49)
[2019-02-09] MEDS: HYDROCORTISONE 1% TOPICAL CREAM 30 GM TUBE TP SCH ×2 (09:49→21:37)
[2019-02-09] MEDS: PRENATAL VITAMINS W/ FOLIC ACID TABLET (FP) PO SCH (09:49)
[2019-02-09] MEDS: NICOTINE 14 MG/24 HOURS TOPICAL PATCH TD SCH (09:49)
[2019-02-09] MEDS: BRIMONIDINE TARTRATE 0.15% OPHTHALMIC 5 ML BOTTLE OU SCH ×2 (09:50→21:35)
[2019-02-09] MEDS: NIFEdipine E.R. 90 MG TABLET (FP) PO SCH (09:50)
[2019-02-09] MEDS: TIMOLOL 0.25% OPHTHALMIC SOL 5 ML BOTTLE OU SCH ×2 (09:51→21:37)
[2019-02-09] MEDS: COLLOIDAL OATMEAL 1 BAR EACH TP PRN (14:08)
[2019-02-09] MEDS: DOCUSATE SODIUM 100 MG CAPSULE (FP) PO SCH (21:34)
[2019-02-09] MEDS: QUEtiapine FUMARATE 100 MG TABLET (FP) PO SCH (21:35)
[2019-02-09] MEDS: THIAMINE HCL 100 MG TABLET (FP) PO SCH (21:35)
[2019-02-09] MEDS: LATANOPROST 0.005% OPHTH SOLN 2.5ML BOTTLE OU SCH (21:36)
[2019-02-10] MEDS ORDERED: PT OWN MED DRAWER 7, Y5N ONE ×5 (05:45→21:23)
[2019-02-10] MEDS: CYCLOBENZAPRINE HCL 10 MG TABLET (FP) PO PRN ×3 (06:16→21:19)
[2019-02-10] MEDS: DORZOLAMIDE 2% HCL OPHTHALMIC SOLUTION 10 ML BOTTLE OU SCH ×3 (06:16→21:23)
[2019-02-10] MEDS: hydrOXYzine HCL 25 MG TABLET (FP) PO PRN ×4 (06:16→21:19)
[2019-02-10] MEDS: BRIMONIDINE TARTRATE 0.15% OPHTHALMIC 5 ML BOTTLE OU SCH ×2 (10:05→21:22)
[2019-02-10] MEDS: TIMOLOL 0.25% OPHTHALMIC SOL 5 ML BOTTLE OU SCH ×2 (10:05→21:23)
[2019-02-10] MEDS: NICOTINE 14 MG/24 HOURS TOPICAL PATCH TD SCH (10:06)
[2019-02-10] MEDS: PRENATAL VITAMINS W/ FOLIC ACID TABLET (FP) PO SCH (10:06)
[2019-02-10] MEDS: ASPIRIN 81 MG CHEWABLE TABLETS PO SCH (10:06)
[2019-02-10] MEDS: NIFEdipine E.R. 90 MG TABLET (FP) PO SCH (10:06)
[2019-02-10] MEDS: HYDROCORTISONE 1% TOPICAL CREAM 30 GM TUBE TP SCH ×2 (10:07→21:23)
[2019-02-10] MEDS: BUPRENORPHINE/NALOXONE 8 MG/2 MG FILM PACKET SL SCH ×2 (10:09→17:20)
[2019-02-10] MEDS: DOCUSATE SODIUM 100 MG CAPSULE (FP) PO SCH (21:17)
[2019-02-10] MEDS: THIAMINE HCL 100 MG TABLET (FP) PO SCH (21:17)
[2019-02-10] MEDS: MELATONIN 5 MG TABLETS PO PRN (21:21)
[2019-02-10] MEDS: QUEtiapine FUMARATE 100 MG TABLET (FP) PO SCH (21:23)
[2019-02-10] MEDS: LATANOPROST 0.005% OPHTH SOLN 2.5ML BOTTLE OU SCH (21:23)
[2019-02-11] MEDS: hydrOXYzine HCL 25 MG TABLET (FP) PO PRN ×4 (06:53→21:27)
[2019-02-11] MEDS: DORZOLAMIDE 2% HCL OPHTHALMIC SOLUTION 10 ML BOTTLE OU SCH ×3 (06:53→21:30)
[2019-02-11] MEDS: CYCLOBENZAPRINE HCL 10 MG TABLET (FP) PO PRN (06:53)
[2019-02-11] MEDS ORDERED: PT OWN MED DRAWER 7, Y5N ONE ×3 (09:03→13:51)
[2019-02-11] MEDS: ASPIRIN 81 MG CHEWABLE TABLETS PO SCH (10:27)
[2019-02-11] MEDS: BUPRENORPHINE/NALOXONE 8 MG/2 MG FILM PACKET SL SCH ×2 (10:27→17:05)
[2019-02-11] MEDS: PRENATAL VITAMINS W/ FOLIC ACID TABLET (FP) PO SCH (10:27)
[2019-02-11] MEDS: NIFEdipine E.R. 90 MG TABLET (FP) PO SCH (10:27)
[2019-02-11] MEDS: NICOTINE 14 MG/24 HOURS TOPICAL PATCH TD SCH (10:28)
[2019-02-11] MEDS: HYDROCORTISONE 1% TOPICAL CREAM 30 GM TUBE TP SCH ×2 (10:28→21:30)
[2019-02-11] MEDS: TIMOLOL 0.25% OPHTHALMIC SOL 5 ML BOTTLE OU SCH ×2 (10:28→21:29)
[2019-02-11] MEDS: BRIMONIDINE TARTRATE 0.15% OPHTHALMIC 5 ML BOTTLE OU SCH ×2 (10:30→21:29)
[2019-02-11] MEDS: NICOTINE POLACRILEX 2 MG GUM BUC PRN (10:32)
[2019-02-11] MEDS: DOCUSATE SODIUM 100 MG CAPSULE (FP) PO SCH (21:27)
[2019-02-11] MEDS: MELATONIN 5 MG TABLETS PO PRN (21:28)
[2019-02-11] MEDS: QUEtiapine FUMARATE 100 MG TABLET (FP) PO SCH (21:28)
[2019-02-11] MEDS: LATANOPROST 0.005% OPHTH SOLN 2.5ML BOTTLE OU SCH (21:30)
[2019-02-11] MEDS: THIAMINE HCL 100 MG TABLET (FP) PO SCH (21:30)
[2019-02-12] MEDS: DORZOLAMIDE 2% HCL OPHTHALMIC SOLUTION 10 ML BOTTLE OU SCH ×3 (06:38→21:32)
[2019-02-12] MEDS: hydrOXYzine HCL 25 MG TABLET (FP) PO PRN ×3 (06:39→21:31)
[2019-02-12] MEDS: CYCLOBENZAPRINE HCL 10 MG TABLET (FP) PO PRN ×2 (06:39→21:31)
[2019-02-12] MEDS: ASPIRIN 81 MG CHEWABLE TABLETS PO SCH (09:55)
[2019-02-12] MEDS: PRENATAL VITAMINS W/ FOLIC ACID TABLET (FP) PO SCH (09:55)
[2019-02-12] MEDS: BUPRENORPHINE/NALOXONE 8 MG/2 MG FILM PACKET SL SCH ×2 (09:56→17:04)
[2019-02-12] MEDS: MINERAL OIL/PETROLAT/WATER TOPICAL CREAM 113 GM JAR TP PRN (09:56)
[2019-02-12] MEDS: TIMOLOL 0.25% OPHTHALMIC SOL 5 ML BOTTLE OU SCH ×2 (09:56→21:31)
[2019-02-12] MEDS: BRIMONIDINE TARTRATE 0.15% OPHTHALMIC 5 ML BOTTLE OU SCH ×2 (09:56→21:31)
[2019-02-12] MEDS: NICOTINE 14 MG/24 HOURS TOPICAL PATCH TD SCH (09:57)
[2019-02-12] MEDS: HYDROCORTISONE 1% TOPICAL CREAM 30 GM TUBE TP SCH ×2 (09:57→21:33)
[2019-02-12] MEDS ORDERED: PT OWN MED DRAWER 7, Y5N ONE (11:03)
[2019-02-12] MEDS: NIFEdipine E.R. 90 MG TABLET (FP) PO SCH (11:12)
[2019-02-12] MEDS: THIAMINE HCL 100 MG TABLET (FP) PO SCH (21:30)
[2019-02-12] MEDS: MELATONIN 5 MG TABLETS PO PRN (21:31)
[2019-02-12] MEDS: DOCUSATE SODIUM 100 MG CAPSULE (FP) PO SCH (21:31)
[2019-02-12] MEDS: QUEtiapine FUMARATE 100 MG TABLET (FP) PO SCH (21:31)
[2019-02-12] MEDS: LATANOPROST 0.005% OPHTH SOLN 2.5ML BOTTLE OU SCH (21:32)
[2019-02-13] MEDS: DORZOLAMIDE 2% HCL OPHTHALMIC SOLUTION 10 ML BOTTLE OU SCH ×3 (06:51→21:16)
[2019-02-13] MEDS: hydrOXYzine HCL 25 MG TABLET (FP) PO PRN ×3 (06:51→21:15)
[2019-02-13] MEDS: CYCLOBENZAPRINE HCL 10 MG TABLET (FP) PO PRN ×2 (06:51→21:15)
[2019-02-13] MEDS ORDERED: PT OWN MED DRAWER 7, Y5N ONE ×3 (06:52→10:04)
[2019-02-13] MEDS: NICOTINE 14 MG/24 HOURS TOPICAL PATCH TD SCH (10:00)
[2019-02-13] MEDS: ASPIRIN 81 MG CHEWABLE TABLETS PO SCH (10:01)
[2019-02-13] MEDS: NIFEdipine E.R. 90 MG TABLET (FP) PO SCH (10:01)
[2019-02-13] MEDS: PRENATAL VITAMINS W/ FOLIC ACID TABLET (FP) PO SCH (10:01)
[2019-02-13] MEDS: HYDROCORTISONE 1% TOPICAL CREAM 30 GM TUBE TP SCH ×2 (10:02→21:19)
[2019-02-13] MEDS: TIMOLOL 0.25% OPHTHALMIC SOL 5 ML BOTTLE OU SCH ×2 (10:02→21:17)
[2019-02-13] MEDS: BRIMONIDINE TARTRATE 0.15% OPHTHALMIC 5 ML BOTTLE OU SCH ×2 (10:02→21:17)
[2019-02-13] MEDS: BUPRENORPHINE/NALOXONE 8 MG/2 MG FILM PACKET SL SCH ×2 (10:03→17:03)
[2019-02-13] MEDS: MINERAL OIL/PETROLAT/WATER TOPICAL CREAM 113 GM JAR TP PRN (10:04)
[2019-02-13] MEDS: NICOTINE POLACRILEX 2 MG GUM BUC PRN (10:05)
--- NOTE | 2019-02-13 14:30 | PN ---
S Progress Note Note: Patient seen for c/o swelling to legs and itchy feet. Patient denies any recent injuries, pain to extremities. Vital Signs Temperature 97.9 F 02/13/19 07:23 Pulse Rate 103 H 02/13/19 09:05 Respiratory Rate 18 02/13/19 07:23 Blood Pressure 131/85 02/13/19 09:05 O2 Sat by Pulse Oximetry (%) Laboratory Tests 01/24/19 07:06 POC Glucometer 97 PE alert and oriented x 3 skin warm and dry +perrla, eoms intact bl ext full rom, no visible edema or redness + PT pulses bilaterally dry cracked skin to heels AP: tinea pedis tinactin cr ordered leg elevation prn monitor clinically
[2019-02-13] MEDS: THIAMINE HCL 100 MG TABLET (FP) PO SCH (21:15)
[2019-02-13] MEDS: QUEtiapine FUMARATE 100 MG TABLET (FP) PO SCH (21:15)
[2019-02-13] MEDS: DOCUSATE SODIUM 100 MG CAPSULE (FP) PO SCH (21:16)
[2019-02-13] MEDS: LATANOPROST 0.005% OPHTH SOLN 2.5ML BOTTLE OU SCH (21:17)
[2019-02-13] MEDS: TOLNAFTATE 1% CREAM 15 GM TUBE TP SCH (21:18)
[2019-02-14] MEDS ORDERED: PT OWN MED DRAWER 7, Y5N ONE ×6 (06:28→22:27)
[2019-02-14] MEDS: DORZOLAMIDE 2% HCL OPHTHALMIC SOLUTION 10 ML BOTTLE OU SCH ×3 (06:45→21:09)
[2019-02-14] MEDS: hydrOXYzine HCL 25 MG TABLET (FP) PO PRN ×3 (06:45→21:15)
[2019-02-14] MEDS: CYCLOBENZAPRINE HCL 10 MG TABLET (FP) PO PRN ×2 (06:45→21:10)
[2019-02-14] MEDS: HYDROCORTISONE 1% TOPICAL CREAM 30 GM TUBE TP SCH ×2 (09:39→21:15)
[2019-02-14] MEDS: BRIMONIDINE TARTRATE 0.15% OPHTHALMIC 5 ML BOTTLE OU SCH ×2 (09:41→21:08)
[2019-02-14] MEDS: ASPIRIN 81 MG CHEWABLE TABLETS PO SCH (09:42)
[2019-02-14] MEDS: TIMOLOL 0.25% OPHTHALMIC SOL 5 ML BOTTLE OU SCH ×2 (09:42→21:08)
[2019-02-14] MEDS: NICOTINE 14 MG/24 HOURS TOPICAL PATCH TD SCH (09:42)
[2019-02-14] MEDS: PRENATAL VITAMINS W/ FOLIC ACID TABLET (FP) PO SCH (09:42)
[2019-02-14] MEDS: TOLNAFTATE 1% CREAM 15 GM TUBE TP SCH ×2 (09:43→21:16)
[2019-02-14] MEDS: BUPRENORPHINE/NALOXONE 8 MG/2 MG FILM PACKET SL SCH ×2 (09:43→17:06)
[2019-02-14] MEDS: NIFEdipine E.R. 90 MG TABLET (FP) PO SCH (09:43)
[2019-02-14] MEDS: DOCUSATE SODIUM 100 MG CAPSULE (FP) PO SCH (21:09)
[2019-02-14] MEDS: QUEtiapine FUMARATE 100 MG TABLET (FP) PO SCH (21:09)
[2019-02-14] MEDS: THIAMINE HCL 100 MG TABLET (FP) PO SCH (21:10)
[2019-02-14] MEDS: MELATONIN 5 MG TABLETS PO PRN (21:10)
[2019-02-15] MEDS: LATANOPROST 0.005% OPHTH SOLN 2.5ML BOTTLE OU SCH ×2 (00:48→21:11)
[2019-02-15] MEDS ORDERED: PT OWN MED DRAWER 7, Y5N ONE ×5 (03:41→17:04)
[2019-02-15] MEDS: hydrOXYzine HCL 25 MG TABLET (FP) PO PRN ×3 (06:09→21:11)
[2019-02-15] MEDS: CYCLOBENZAPRINE HCL 10 MG TABLET (FP) PO PRN ×2 (06:09→21:11)
[2019-02-15] MEDS: DORZOLAMIDE 2% HCL OPHTHALMIC SOLUTION 10 ML BOTTLE OU SCH ×3 (06:09→21:11)
[2019-02-15] MEDS: BUPRENORPHINE/NALOXONE 8 MG/2 MG FILM PACKET SL SCH ×2 (10:06→17:03)
[2019-02-15] MEDS: NICOTINE 14 MG/24 HOURS TOPICAL PATCH TD SCH (10:06)
[2019-02-15] MEDS: HYDROCORTISONE 1% TOPICAL CREAM 30 GM TUBE TP SCH ×2 (10:07→21:13)
[2019-02-15] MEDS: BRIMONIDINE TARTRATE 0.15% OPHTHALMIC 5 ML BOTTLE OU SCH ×2 (10:07→21:11)
[2019-02-15] MEDS: NIFEdipine E.R. 90 MG TABLET (FP) PO SCH (10:07)
[2019-02-15] MEDS: ASPIRIN 81 MG CHEWABLE TABLETS PO SCH (10:07)
[2019-02-15] MEDS: PRENATAL VITAMINS W/ FOLIC ACID TABLET (FP) PO SCH (10:07)
[2019-02-15] MEDS: TOLNAFTATE 1% CREAM 15 GM TUBE TP SCH ×2 (10:07→21:13)
[2019-02-15] MEDS: TIMOLOL 0.25% OPHTHALMIC SOL 5 ML BOTTLE OU SCH ×2 (10:08→21:11)
[2019-02-15] MEDS: THIAMINE HCL 100 MG TABLET (FP) PO SCH (21:10)
[2019-02-15] MEDS: QUEtiapine FUMARATE 100 MG TABLET (FP) PO SCH (21:11)
[2019-02-15] MEDS: DOCUSATE SODIUM 100 MG CAPSULE (FP) PO SCH (21:11)
[2019-02-15] MEDS: MELATONIN 5 MG TABLETS PO PRN (21:11)
[2019-02-16] MEDS ORDERED: PT OWN MED DRAWER 7, Y5N ONE ×2 (03:11→14:32)
[2019-02-16] MEDS: CYCLOBENZAPRINE HCL 10 MG TABLET (FP) PO PRN ×2 (06:32→21:28)
[2019-02-16] MEDS: hydrOXYzine HCL 25 MG TABLET (FP) PO PRN ×3 (06:32→21:28)
[2019-02-16] MEDS: DORZOLAMIDE 2% HCL OPHTHALMIC SOLUTION 10 ML BOTTLE OU SCH ×3 (06:32→21:29)
[2019-02-16] MEDS: ASPIRIN 81 MG CHEWABLE TABLETS PO SCH (10:02)
[2019-02-16] MEDS: NIFEdipine E.R. 90 MG TABLET (FP) PO SCH (10:02)
[2019-02-16] MEDS: PRENATAL VITAMINS W/ FOLIC ACID TABLET (FP) PO SCH (10:02)
[2019-02-16] MEDS: BUPRENORPHINE/NALOXONE 8 MG/2 MG FILM PACKET SL SCH ×2 (10:02→17:05)
[2019-02-16] MEDS: NICOTINE 14 MG/24 HOURS TOPICAL PATCH TD SCH (10:02)
[2019-02-16] MEDS: TOLNAFTATE 1% CREAM 15 GM TUBE TP SCH ×2 (10:03→21:30)
[2019-02-16] MEDS: BRIMONIDINE TARTRATE 0.15% OPHTHALMIC 5 ML BOTTLE OU SCH ×2 (10:04→21:29)
[2019-02-16] MEDS: MINERAL OIL/PETROLAT/WATER TOPICAL CREAM 113 GM JAR TP PRN (10:04)
[2019-02-16] MEDS: TIMOLOL 0.25% OPHTHALMIC SOL 5 ML BOTTLE OU SCH ×2 (10:04→21:29)
[2019-02-16] MEDS: HYDROCORTISONE 1% TOPICAL CREAM 30 GM TUBE TP SCH ×2 (10:05→21:30)
--- NOTE | 2019-02-16 10:52 | PN ---
S Progress Note (SOAP) Subjective: Patient to be discharged tomorrow. HOSPITAL COURSE: patient attended groups, hadf 1;1 session with her counselor, was seen by mental health, and was adherent to her treatment plan and medication regimen. She was started on Suboxone MAT while in rehab and is doing well on it and will continue in the community. She had not major or urgent medical problems while in rehab. She was treated for a rash on her hands and tinea pedis. 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, Motor Strength 11/1302/16/19 10:48 Vital Signs (72 hours) 02/14/19 02/14/19 02/14/19 00:30 06:52 09:06 Temperature 97.3 F L Pulse Rate 89 109 H Respiratory 18 18 18 Rate Blood Pressure 123/86 122/85 02/15/19 02/15/19 02/15/19 00:30 03:30 07:11 Temperature 97.1 F L Pulse Rate 86 Respiratory 18 18 18 Rate Blood Pressure 122/88 02/15/19 02/16/19 02/16/19 09:07 00:30 07:18 Temperature 97.8 F Pulse Rate 108 H 80 Respiratory 18 18 Rate Blood Pressure 127/86 113/94 02/16/19 09:30 Temperature Pulse Rate 101 H Respiratory 18 Rate Blood Pressure 132/88 02/16/19 10:55 Assessment: Medically stable for discharge Discharge Dx: Opioid dependence Cannabis dependence ETOH dependence 02/16/19 10:59 02/16/19 10:59 Plan: Patient will continue treatment at [facility] including Suboxone MAT. She receives medical care from a clinic on [facility] in the [place]. Prescriptions transmitted to her pharmacy.
--- NOTE | 2019-02-16 12:15 | PN ---
[facility] Progress Note Note: Patient is scheduled for discharge tomorrow. Script for 30 days supply of Seroquel 100 mg/hs will be electronicaly transmitted to [facility] at [address] [place], [place] [id number]
[2019-02-16] MEDS: COLLOIDAL OATMEAL 1 BAR EACH TP PRN (13:57)
[2019-02-16] MEDS: THIAMINE HCL 100 MG TABLET (FP) PO SCH (21:27)
[2019-02-16] MEDS: DOCUSATE SODIUM 100 MG CAPSULE (FP) PO SCH (21:28)
[2019-02-16] MEDS: MELATONIN 5 MG TABLETS PO PRN (21:28)
[2019-02-16] MEDS: QUEtiapine FUMARATE 100 MG TABLET (FP) PO SCH (21:28)
[2019-02-16] MEDS: LATANOPROST 0.005% OPHTH SOLN 2.5ML BOTTLE OU SCH (21:29)
[2019-02-16] MEDS ORDERED: QUEtiapine FUMARATE 100 MG TABLET (FP) PO SCH (22:00)
[2019-02-17] MEDS: CYCLOBENZAPRINE HCL 10 MG TABLET (FP) PO PRN (06:19)
[2019-02-17] MEDS ORDERED: PT OWN MED DRAWER 7, Y5N ONE ×2 (06:19→08:56)
[2019-02-17] MEDS: hydrOXYzine HCL 25 MG TABLET (FP) PO PRN (06:19)
[2019-02-17] MEDS: DORZOLAMIDE 2% HCL OPHTHALMIC SOLUTION 10 ML BOTTLE OU SCH (06:19)
[2019-02-17 06:50] VITALS: TEMP 97.7
[2019-02-17 09:19] VITALS: BP 121/82; PULSE 106
[2019-02-17] MEDS: BUPRENORPHINE/NALOXONE 8 MG/2 MG FILM PACKET SL SCH (09:22)
[2019-02-17] MEDS: ASPIRIN 81 MG CHEWABLE TABLETS PO SCH (09:22)
[2019-02-17] MEDS: PRENATAL VITAMINS W/ FOLIC ACID TABLET (FP) PO SCH (09:22)
[2019-02-17] MEDS: NIFEdipine E.R. 90 MG TABLET (FP) PO SCH (09:22)
[2019-02-17] MEDS: BRIMONIDINE TARTRATE 0.15% OPHTHALMIC 5 ML BOTTLE OU SCH (09:23)
[2019-02-17] MEDS: TIMOLOL 0.25% OPHTHALMIC SOL 5 ML BOTTLE OU SCH (09:23)
[2019-02-17] MEDS: HYDROCORTISONE 1% TOPICAL CREAM 30 GM TUBE TP SCH (09:24)
[2019-02-17] MEDS: TOLNAFTATE 1% CREAM 15 GM TUBE TP SCH (09:24)
[2019-02-17] MEDS: NICOTINE 14 MG/24 HOURS TOPICAL PATCH TD SCH (09:25)
--- NOTE | 2019-02-17 10:51 | PN ---
[facility] Progress Note Note: Pt is discharged today as scheduled. Alert o x 3. Nad. Pt will follow up with CD aftercare as recommended at [facility]. Vital Signs - 8 hr 02/17/19 02/17/19 02/17/19 03:26 06:00 09:17 Temperature 97.7 F Pulse Rate 83 106 H Respiratory 18 18 18 Rate Blood Pressure 122/86 121/82 Home Medications Medication Instructions Recorded Brimonidine Tartrate [Alphagan 1 drop OU BID #1 drop 11/17/17 0.15% -] Timolol 0.25% [Timoptic 0.25%] 1 drop OU BID 30 Days drops 12/14/17 Sennosides/Docusate Sodium 1 each PO HS 01/21/19 [Pericolace -] Albuterol Sulfate Inhaler - 2 puff IH Q4H PRN #1 inhaler 02/16/19 [Ventolin HFA Inhaler -] Aspirin [ASA -] 81 mg PO DAILY #30 tab.chew 02/16/19 Buprenorphine/Naloxone [Suboxone 1 each SL BID 7 Days #14 packet 02/16/19 8Mg/2Mg Sl Film -] MDD 2 Dorzolamide HCl [Trusopt 2% -] 1 drop OU TID #1 drop 02/16/19 Latanoprost 0.005% Eye Drops 1 drop OU HS #1 drops 02/16/19 [Xalatan 0.005% Eye Drops -] Nifedipine ER [Procardia XL -] 90 mg PO DAILY #30 tab.er.24 02/16/19 Quetiapine Fumarate [Seroquel] 100 mg PO HS #30 tablet 02/16/19 Courtesy 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
== END 2019-02-17 09:40 | disposition home or self-care (01) | DRG 895 ==
LOC: YASAS 13:26 → Y3E 13:28
PROVIDERS: ADMIT Neuromusculoskeletal Medicine & OMM; ATTEND Neuromusculoskeletal Medicine & OMM
PROC: HZ42ZZZ Group Counseling for Substance Abuse Treatment, Cognitive-Behavioral (ICD-10-PCS; principal; 2019-01-21)
DX: F11.20 Opioid dependence, uncomplicated (principal); F14.20 Cocaine dependence, uncomplicated; F19.282 Other psychoactive substance dependence with psychoactive substance-induced sleep disorder; F10.20 Alcohol dependence, uncomplicated; F12.20 Cannabis dependence, uncomplicated; F17.210 Nicotine dependence, cigarettes, uncomplicated; F19.24 Other psychoactive substance dependence with psychoactive substance-induced mood disorder; F39 Unspecified mood [affective] disorder; F43.10 Post-traumatic stress disorder, unspecified; I10 Essential (primary) hypertension; B35.3 Tinea pedis; B35.1 Tinea unguium; R21 Rash and other nonspecific skin eruption; Z88.0 Allergy status to penicillin
CPT/HCPCS: 82962

== ENCOUNTER 2021-06-06 13:13 | Inpatient (IN) | payer OTHER ==
[2021-06-06 14:36] VITALS: BMI 32.3
[2021-06-06] MEDS ORDERED: MENTHOL/PHENOL 1 EACH UD MM PRN (15:18)
[2021-06-06] MEDS ORDERED: MAGNESIUM CITRATE 300 ML BOTTLE PO PRN (15:18)
[2021-06-06] MEDS ORDERED: MAGNESIUM HYDROX 2400MG/30ML ORAL SUSPENSION 30 ML CUP PO PRN (15:18)
[2021-06-06] MEDS ORDERED: NICOTINE 10 MG CARTRIDGE (INHALER) IH PRN (15:18)
[2021-06-06] MEDS ORDERED: BISMUTH SUBSALICYLATE 524 MG/30 ML PO PRN (15:18)
[2021-06-06] MEDS ORDERED: MAG HYDROX/AL HYDROX/SIMETH 30 ML UNIT-DOSE CUP PO PRN (15:18)
[2021-06-06] MEDS ORDERED: diazePAM 5 MG TABLET PO PRN (15:18)
[2021-06-06] MEDS ORDERED: IBUPROFEN 400 MG TABLET (FP) PO PRN (15:18)
[2021-06-06] MEDS ORDERED: ACETAMINOPHEN 325 MG TABLET (FP) PO PRN (15:18)
[2021-06-06] MEDS ORDERED: ALBUTEROL SO4 HFA INHALER IH PRN (15:22)
[2021-06-06] MEDS ORDERED: cloNIDine HCL 0.1 MG TABLET PO PRN (16:57)
[2021-06-06] MEDS ORDERED: methaDONE HCL 10 MG TABLET (FOR DETOX USE ONLY) PO ONE (16:57)
[2021-06-06] MEDS ORDERED: cloNIDine HCL 0.1 MG TABLET PO ONE (16:59)
[2021-06-06] MEDS: diazePAM 5 MG TABLET PO SCH ×2 (17:23→22:05)
[2021-06-06] MEDS: NIFEdipine E.R. 90 MG TABLET PO SCH (17:24)
[2021-06-06] MEDS: hydrOXYzine PAMOATE 25 MG CAPSULE (FP) PO SCH ×2 (17:25→22:05)
[2021-06-06] MEDS ORDERED: TIMOLOL 0.25% OPHTHALMIC SOL 5 ML BOTTLE OU SCH (22:00)
[2021-06-06] MEDS: THIAMINE HCL 100 MG TABLET (FP) PO SCH (22:05)
[2021-06-06] MEDS: MELATONIN 5 MG TABLETS PO SCH (22:05)
[2021-06-06] MEDS: DORZOLAMIDE 2% HCL OPHTHALMIC SOLUTION 10 ML BOTTLE OU SCH (22:08)
[2021-06-06] MEDS: BRIMONIDINE TARTRATE 0.15% OPHTHALMIC 5 ML BOTTLE OU SCH (22:08)
[2021-06-06] MEDS: LATANOPROST 0.005% OPHTH SOLN 2.5ML BOTTLE OU SCH (22:08)
[2021-06-07] MEDS: DORZOLAMIDE 2% HCL OPHTHALMIC SOLUTION 10 ML BOTTLE OU SCH ×3 (06:07→22:19)
[2021-06-07] MEDS: hydrOXYzine PAMOATE 25 MG CAPSULE (FP) PO SCH ×5 (06:08→22:18)
[2021-06-07] MEDS: diazePAM 5 MG TABLET PO SCH ×4 (06:08→22:19)
[2021-06-07] MEDS ORDERED: methaDONE HCL 10 MG TABLET (FOR DETOX USE ONLY) ONE (09:29)
[2021-06-07] MEDS: BRIMONIDINE TARTRATE 0.15% OPHTHALMIC 5 ML BOTTLE OU SCH ×2 (10:40→22:18)
[2021-06-07] MEDS: PRENATAL VITAMINS W/ FOLIC ACID TABLET (FP) PO SCH (10:41)
[2021-06-07] MEDS: METHOCARBAMOL 500 MG TABLET PO PRN (10:43)
[2021-06-07] MEDS: ASPIRIN 81 MG CHEWABLE TABLETS PO SCH (10:43)
[2021-06-07] MEDS: DOCUSATE SODIUM 100 MG CAPSULE (FP) PO SCH (10:44)
[2021-06-07] MEDS: NIFEdipine E.R. 90 MG TABLET PO SCH (10:44)
[2021-06-07 12:25] LABS: HEMOGLOBIN 14.5 GM/dL (10.7-15.3); MCHC 31.5 g/dl (32.0-36.0); MEAN CELL VOLUME 88.8 fl (80-96); PLATELET COUNT 275 10^3/uL (134-434); RBC 5.18 M/mm3 (3.60-5.2); WHITE BLOOD COUNT 7.3 K/mm3 (4.0-10.0)
[2021-06-07 12:35] LABS: ALBUMIN 3.1 g/dl (3.4-5.0); BLOOD UREA NITROGEN 22.3 mg/dL (7-18); CALCIUM 9.5 mg/dL (8.5-10.1)
[2021-06-07 12:38] LABS: CREATININE 1.3 mg/dL (0.55-1.3)
[2021-06-07 12:40] LABS: BILIRUBIN,TOTAL 0.2 mg/dL (0.2-1)
[2021-06-07] MEDS: MELATONIN 5 MG TABLETS PO SCH (22:18)
[2021-06-07] MEDS: QUEtiapine FUMARATE 100 MG TABLET (FP) PO SCH (22:19)
[2021-06-07] MEDS: THIAMINE HCL 100 MG TABLET (FP) PO SCH (22:19)
[2021-06-07] MEDS: ACETAMINOPHEN 325 MG TABLET (FP) PO PRN (22:21)
[2021-06-07] MEDS: LATANOPROST 0.005% OPHTH SOLN 2.5ML BOTTLE OU SCH (22:24)
[2021-06-08] MEDS: DORZOLAMIDE 2% HCL OPHTHALMIC SOLUTION 10 ML BOTTLE OU SCH ×3 (05:33→22:11)
[2021-06-08] MEDS: hydrOXYzine PAMOATE 25 MG CAPSULE (FP) PO SCH ×5 (05:34→22:14)
[2021-06-08] MEDS: diazePAM 5 MG TABLET PO SCH ×3 (05:34→22:10)
[2021-06-08] MEDS ORDERED: methaDONE HCL 10 MG TABLET (FOR DETOX USE ONLY) PO ONE (10:00)
[2021-06-08] MEDS: DOCUSATE SODIUM 100 MG CAPSULE (FP) PO SCH (10:20)
[2021-06-08] MEDS: ASPIRIN 81 MG CHEWABLE TABLETS PO SCH (10:20)
[2021-06-08] MEDS: METHOCARBAMOL 500 MG TABLET PO PRN (10:20)
[2021-06-08] MEDS: PRENATAL VITAMINS W/ FOLIC ACID TABLET (FP) PO SCH (10:21)
[2021-06-08] MEDS: NIFEdipine E.R. 90 MG TABLET PO SCH (10:21)
[2021-06-08] MEDS: BRIMONIDINE TARTRATE 0.15% OPHTHALMIC 5 ML BOTTLE OU SCH ×2 (10:23→22:14)
[2021-06-08] MEDS: ONDANSETRON *ODT* 4 MG TABLET SL PRN (17:38)
[2021-06-08] MEDS: QUEtiapine FUMARATE 100 MG TABLET (FP) PO SCH (22:10)
[2021-06-08] MEDS: THIAMINE HCL 100 MG TABLET (FP) PO SCH (22:11)
[2021-06-08] MEDS: MELATONIN 5 MG TABLETS PO SCH (22:11)
[2021-06-08] MEDS: LATANOPROST 0.005% OPHTH SOLN 2.5ML BOTTLE OU SCH (22:14)
[2021-06-09] MEDS: diazePAM 5 MG TABLET PO SCH ×2 (05:37→18:15)
[2021-06-09] MEDS: hydrOXYzine PAMOATE 25 MG CAPSULE (FP) PO SCH ×5 (05:37→22:13)
[2021-06-09] MEDS: DORZOLAMIDE 2% HCL OPHTHALMIC SOLUTION 10 ML BOTTLE OU SCH ×3 (05:37→22:15)
[2021-06-09] MEDS ORDERED: methaDONE HCL 10 MG TABLET (FOR DETOX USE ONLY) ONE (09:01)
[2021-06-09] MEDS: DOCUSATE SODIUM 100 MG CAPSULE (FP) PO SCH (10:13)
[2021-06-09] MEDS: PRENATAL VITAMINS W/ FOLIC ACID TABLET (FP) PO SCH (10:15)
[2021-06-09] MEDS: ASPIRIN 81 MG CHEWABLE TABLETS PO SCH (10:15)
[2021-06-09] MEDS: NIFEdipine E.R. 90 MG TABLET PO SCH (10:15)
[2021-06-09] MEDS: ACETAMINOPHEN 325 MG TABLET (FP) PO PRN (10:16)
[2021-06-09] MEDS: BRIMONIDINE TARTRATE 0.15% OPHTHALMIC 5 ML BOTTLE OU SCH (10:18)
[2021-06-09] MEDS: ONDANSETRON *ODT* 4 MG TABLET SL PRN (13:46)
[2021-06-09] MEDS: VITAMINS A AND D TOPICAL OINTMENT 60 GM TUBE TP SCH ×3 (13:47→23:05)
[2021-06-09] MEDS: QUEtiapine FUMARATE 100 MG TABLET (FP) PO SCH (22:13)
[2021-06-09] MEDS: THIAMINE HCL 100 MG TABLET (FP) PO SCH (22:13)
[2021-06-09] MEDS: LATANOPROST 0.005% OPHTH SOLN 2.5ML BOTTLE OU SCH (22:15)
[2021-06-09] MEDS: BRIMONIDINE TARTRATE 0.2% OPHTHALMIC 5 ML BOTTLE OU SCH (22:15)
[2021-06-09] MEDS: MELATONIN 5 MG TABLETS PO SCH (22:16)
[2021-06-10] MEDS: hydrOXYzine PAMOATE 25 MG CAPSULE (FP) PO SCH ×2 (05:53→10:10)
[2021-06-10] MEDS: DORZOLAMIDE 2% HCL OPHTHALMIC SOLUTION 10 ML BOTTLE OU SCH ×3 (05:54→22:12)
[2021-06-10] MEDS: VITAMINS A AND D TOPICAL OINTMENT 60 GM TUBE TP SCH ×3 (05:54→18:12)
[2021-06-10] MEDS ORDERED: diazePAM 5 MG TABLET PO ONE (06:00)
[2021-06-10] MEDS ORDERED: methaDONE HCL 10 MG TABLET (FOR DETOX USE ONLY) PO ONE (10:00)
[2021-06-10] MEDS: NIFEdipine E.R. 90 MG TABLET PO SCH (10:08)
[2021-06-10] MEDS: ASPIRIN 81 MG CHEWABLE TABLETS PO SCH (10:08)
[2021-06-10] MEDS: PRENATAL VITAMINS W/ FOLIC ACID TABLET (FP) PO SCH (10:08)
[2021-06-10] MEDS: DOCUSATE SODIUM 100 MG CAPSULE (FP) PO SCH (10:08)
[2021-06-10] MEDS: METHOCARBAMOL 500 MG TABLET PO PRN (10:10)
[2021-06-10] MEDS: BRIMONIDINE TARTRATE 0.2% OPHTHALMIC 5 ML BOTTLE OU SCH ×2 (10:13→22:13)
[2021-06-10] MEDS: hydrOXYzine PAMOATE 50 MG CAPSULE (FP) PO PRN ×3 (13:22→22:16)
[2021-06-10] MEDS ORDERED: SUVOREXANT 10 MG TABLET PO PRN (22:00)
[2021-06-10] MEDS: LATANOPROST 0.005% OPHTH SOLN 2.5ML BOTTLE OU SCH (22:13)
[2021-06-10] MEDS: QUEtiapine FUMARATE 100 MG TABLET (FP) PO SCH (22:14)
[2021-06-10] MEDS: THIAMINE HCL 100 MG TABLET (FP) PO SCH (22:14)
[2021-06-11] MEDS: VITAMINS A AND D TOPICAL OINTMENT 60 GM TUBE TP SCH ×2 (01:17→06:03)
[2021-06-11] MEDS: DORZOLAMIDE 2% HCL OPHTHALMIC SOLUTION 10 ML BOTTLE OU SCH (06:03)
[2021-06-11 09:07] VITALS: BP 123/78; PULSE 81; TEMP 98.2
[2021-06-11] MEDS: BRIMONIDINE TARTRATE 0.2% OPHTHALMIC 5 ML BOTTLE OU SCH (10:34)
[2021-06-11] MEDS: DOCUSATE SODIUM 100 MG CAPSULE (FP) PO SCH (10:35)
[2021-06-11] MEDS: NIFEdipine E.R. 90 MG TABLET PO SCH (10:35)
[2021-06-11] MEDS: ASPIRIN 81 MG CHEWABLE TABLETS PO SCH (10:35)
[2021-06-11] MEDS: METHOCARBAMOL 500 MG TABLET PO PRN (10:35)
[2021-06-11] MEDS: PRENATAL VITAMINS W/ FOLIC ACID TABLET (FP) PO SCH (10:35)
[2021-06-11] MEDS: hydrOXYzine PAMOATE 50 MG CAPSULE (FP) PO PRN (10:35)
== END 2021-06-11 12:00 | disposition other institution (70) | DRG 897 ==
LOC: YASAS 13:13 → Y6N 15:43
PROVIDERS: ADMIT Allergy & Immunology; ATTEND Allergy & Immunology
PROC: HZ2ZZZZ Detoxification Services for Substance Abuse Treatment (ICD-10-PCS; principal; 2021-06-06)
DX: F11.23 Opioid dependence with withdrawal (principal); F14.20 Cocaine dependence, uncomplicated; F10.230 Alcohol dependence with withdrawal, uncomplicated; F17.210 Nicotine dependence, cigarettes, uncomplicated; F43.10 Post-traumatic stress disorder, unspecified; F19.24 Other psychoactive substance dependence with psychoactive substance-induced mood disorder; I10 Essential (primary) hypertension; H54.40 Blindness, one eye, unspecified eye; H40.10X2 Unspecified open-angle glaucoma, moderate stage; G47.00 Insomnia, unspecified; R73.9 Hyperglycemia, unspecified; R79.89 Other specified abnormal findings of blood chemistry; Z91.018 Allergy to other foods; Z88.0 Allergy status to penicillin; Z91.14 Patient's other noncompliance with medication regimen; Z56.0 Unemployment, unspecified
CPT/HCPCS: 36415; 80053; 82962; 85027; 86780; C9803; J0735; Q0162; U0003; U0005

== ENCOUNTER 2021-06-11 12:14 | Inpatient (IN) | payer OTHER ==
[2021-06-11] MEDS ORDERED: guaiFENesin 200 MG/10 ML 10 ML UNIT-DOSE CUPS PO PRN (12:38)
[2021-06-11] MEDS ORDERED: ALBUTEROL SO4 HFA INHALER IH PRN (12:38)
[2021-06-11] MEDS ORDERED: LOPERAMIDE HCL 2 MG CAPSULE PO PRN (12:38)
[2021-06-11] MEDS ORDERED: MAG HYDROX/AL HYDROX/SIMETH 30 ML UNIT-DOSE CUP PO PRN (12:38)
[2021-06-11] MEDS ORDERED: NICOTINE 10 MG CARTRIDGE (INHALER) IH PRN (12:38)
[2021-06-11] MEDS ORDERED: MENTHOL/PHENOL 1 EACH UD MM PRN (12:38)
[2021-06-11] MEDS ORDERED: IBUPROFEN 400 MG TABLET (FP) PO PRN (12:38)
[2021-06-11] MEDS ORDERED: P-EPHED 60MG/TRIPROLIDI 2.5MG TABLET PO PRN (12:38)
[2021-06-11] MEDS ORDERED: MAGNESIUM CITRATE 300 ML BOTTLE PO PRN (12:38)
[2021-06-11] MEDS: DORZOLAMIDE 2% HCL OPHTHALMIC SOLUTION 10 ML BOTTLE OU SCH ×2 (15:15→22:07)
[2021-06-11] MEDS: MELATONIN 5 MG TABLETS PO SCH (22:07)
[2021-06-11] MEDS: LATANOPROST 0.005% OPHTH SOLN 2.5ML BOTTLE OU SCH (22:08)
[2021-06-11] MEDS: BRIMONIDINE TARTRATE 0.2% OPHTHALMIC 5 ML BOTTLE OU SCH (22:09)
[2021-06-11] MEDS: THIAMINE HCL 100 MG TABLET (FP) PO SCH (22:09)
[2021-06-11] MEDS: QUEtiapine FUMARATE 100 MG TABLET (FP) PO SCH (22:11)
[2021-06-11] MEDS: hydrOXYzine PAMOATE 25 MG CAPSULE (FP) PO PRN (22:12)
[2021-06-12] MEDS: DORZOLAMIDE 2% HCL OPHTHALMIC SOLUTION 10 ML BOTTLE OU SCH ×3 (06:36→21:09)
[2021-06-12] MEDS: hydrOXYzine PAMOATE 25 MG CAPSULE (FP) PO PRN ×4 (06:37→18:11)
[2021-06-12] MEDS: PRENATAL VITAMINS W/ FOLIC ACID TABLET (FP) PO SCH (10:33)
[2021-06-12] MEDS: NICOTINE 7 MG/24 HOURS TOPICAL PATCH TD SCH (10:34)
[2021-06-12] MEDS: NIFEdipine E.R. 90 MG TABLET PO SCH (10:34)
[2021-06-12] MEDS: DOCUSATE SODIUM 100 MG CAPSULE (FP) PO SCH (10:34)
[2021-06-12] MEDS: ASPIRIN COATED 81 MG TABLET.EC PO SCH (10:34)
[2021-06-12] MEDS: BRIMONIDINE TARTRATE 0.2% OPHTHALMIC 5 ML BOTTLE OU SCH ×2 (10:35→21:10)
[2021-06-12] MEDS ORDERED: ONDANSETRON *ODT* 4 MG TABLET SL PRN (14:50)
[2021-06-12] MEDS: ACETAMINOPHEN 325 MG TABLET (FP) PO PRN (15:14)
[2021-06-12] MEDS: cloNIDine HCL 0.1 MG TABLET PO PRN (15:14)
[2021-06-12] MEDS: METHOCARBAMOL 500 MG TABLET PO PRN ×2 (15:14→21:11)
[2021-06-12] MEDS ORDERED: PT OWN MED DRAWER 7, Y5N ONE (20:31)
[2021-06-12] MEDS: LATANOPROST 0.005% OPHTH SOLN 2.5ML BOTTLE OU SCH (21:11)
[2021-06-12] MEDS: THIAMINE HCL 100 MG TABLET (FP) PO SCH (21:12)
[2021-06-12] MEDS: MELATONIN 5 MG TABLETS PO SCH (21:12)
[2021-06-12] MEDS: QUEtiapine FUMARATE 100 MG TABLET (FP) PO SCH (21:12)
[2021-06-13] MEDS: cloNIDine HCL 0.1 MG TABLET PO PRN ×2 (06:22→20:09)
[2021-06-13] MEDS: METHOCARBAMOL 500 MG TABLET PO PRN ×3 (06:22→21:11)
[2021-06-13] MEDS: hydrOXYzine PAMOATE 25 MG CAPSULE (FP) PO PRN ×4 (06:22→21:12)
[2021-06-13] MEDS: DORZOLAMIDE 2% HCL OPHTHALMIC SOLUTION 10 ML BOTTLE OU SCH ×4 (06:23→21:10)
[2021-06-13] MEDS: NIFEdipine E.R. 90 MG TABLET PO SCH (10:38)
[2021-06-13] MEDS: NICOTINE 7 MG/24 HOURS TOPICAL PATCH TD SCH (10:38)
[2021-06-13] MEDS: BRIMONIDINE TARTRATE 0.2% OPHTHALMIC 5 ML BOTTLE OU SCH ×2 (10:38→21:10)
[2021-06-13] MEDS: DOCUSATE SODIUM 100 MG CAPSULE (FP) PO SCH (10:38)
[2021-06-13] MEDS: PRENATAL VITAMINS W/ FOLIC ACID TABLET (FP) PO SCH (10:38)
[2021-06-13] MEDS: ASPIRIN COATED 81 MG TABLET.EC PO SCH (10:38)
[2021-06-13] MEDS: VITAMINS A AND D TOPICAL OINTMENT 60 GM TUBE TP SCH ×3 (14:19→18:25)
[2021-06-13] MEDS: ACETAMINOPHEN 325 MG TABLET (FP) PO PRN (14:54)
[2021-06-13] MEDS: LATANOPROST 0.005% OPHTH SOLN 2.5ML BOTTLE OU SCH (21:10)
[2021-06-13] MEDS: MELATONIN 5 MG TABLETS PO SCH (21:11)
[2021-06-13] MEDS: QUEtiapine FUMARATE 100 MG TABLET (FP) PO SCH (21:11)
[2021-06-13] MEDS: THIAMINE HCL 100 MG TABLET (FP) PO SCH (21:11)
[2021-06-14] MEDS: VITAMINS A AND D TOPICAL OINTMENT 60 GM TUBE TP SCH ×4 (03:19→17:44)
[2021-06-14] MEDS: DORZOLAMIDE 2% HCL OPHTHALMIC SOLUTION 10 ML BOTTLE OU SCH ×3 (06:11→21:57)
[2021-06-14] MEDS ORDERED: PT OWN MED DRAWER 7, Y5N ONE (09:06)
[2021-06-14] MEDS: PRENATAL VITAMINS W/ FOLIC ACID TABLET (FP) PO SCH (09:11)
[2021-06-14] MEDS: cloNIDine HCL 0.1 MG TABLET PO PRN ×2 (09:12→21:55)
[2021-06-14] MEDS: DOCUSATE SODIUM 100 MG CAPSULE (FP) PO SCH (09:12)
[2021-06-14] MEDS: NICOTINE 14 MG/24 HOURS TOPICAL PATCH TD SCH (09:12)
[2021-06-14] MEDS: ASPIRIN COATED 81 MG TABLET.EC PO SCH (09:12)
[2021-06-14] MEDS: NIFEdipine E.R. 90 MG TABLET PO SCH (09:13)
[2021-06-14] MEDS: hydrOXYzine PAMOATE 25 MG CAPSULE (FP) PO PRN (09:14)
[2021-06-14] MEDS: BRIMONIDINE TARTRATE 0.2% OPHTHALMIC 5 ML BOTTLE OU SCH ×2 (09:15→21:56)
[2021-06-14 13:17] LABS: HEMATOCRIT 41.7 % (32.4-45.2); HEMOGLOBIN 13.4 GM/dL (10.7-15.3); MCH 28.7 pg (25.7-33.7); MCHC 32.2 g/dl (32.0-36.0); MEAN PLT VOLUME 8.6 fl (7.5-11.1); PLATELET COUNT 294 10^3/uL (134-434); RBC 4.68 M/mm3 (3.60-5.2); RDW 16.3 % (11.6-15.6); WHITE BLOOD COUNT 7.6 K/mm3 (4.0-10.0)
[2021-06-14 13:38] LABS: ALBUMIN 3.5 g/dl (3.4-5.0); CALCIUM 9.3 mg/dL (8.5-10.1)
[2021-06-14 13:39] LABS: BLOOD UREA NITROGEN 24.6 mg/dL (7-18)
[2021-06-14 13:42] LABS: CREATININE 1.3 mg/dL (0.55-1.3)
[2021-06-14 13:43] LABS: BILIRUBIN,TOTAL 0.6 mg/dL (0.2-1); TOT PROT 7.6 g/dl (6.4-8.2)
[2021-06-14] MEDS: QUEtiapine FUMARATE 100 MG TABLET (FP) PO SCH (21:55)
[2021-06-14] MEDS: MELATONIN 5 MG TABLETS PO SCH (21:55)
[2021-06-14] MEDS: METHOCARBAMOL 500 MG TABLET PO PRN (21:55)
[2021-06-14] MEDS: LATANOPROST 0.005% OPHTH SOLN 2.5ML BOTTLE OU SCH (21:56)
[2021-06-14] MEDS: THIAMINE HCL 100 MG TABLET (FP) PO SCH (21:57)
[2021-06-15] MEDS: VITAMINS A AND D TOPICAL OINTMENT 60 GM TUBE TP SCH ×4 (02:26→19:16)
[2021-06-15] MEDS: DORZOLAMIDE 2% HCL OPHTHALMIC SOLUTION 10 ML BOTTLE OU SCH ×3 (07:05→21:59)
[2021-06-15] MEDS: hydrOXYzine PAMOATE 25 MG CAPSULE (FP) PO PRN ×2 (07:06→15:38)
[2021-06-15] MEDS: cloNIDine HCL 0.1 MG TABLET PO PRN (07:07)
[2021-06-15] MEDS: PRENATAL VITAMINS W/ FOLIC ACID TABLET (FP) PO SCH (10:23)
[2021-06-15] MEDS: NICOTINE 14 MG/24 HOURS TOPICAL PATCH TD SCH (10:24)
[2021-06-15] MEDS: DOCUSATE SODIUM 100 MG CAPSULE (FP) PO SCH (10:24)
[2021-06-15] MEDS: ASPIRIN COATED 81 MG TABLET.EC PO SCH (10:24)
[2021-06-15] MEDS: NIFEdipine E.R. 90 MG TABLET PO SCH (10:25)
[2021-06-15] MEDS: BRIMONIDINE TARTRATE 0.2% OPHTHALMIC 5 ML BOTTLE OU SCH ×2 (10:27→21:58)
[2021-06-15] MEDS: THIAMINE HCL 100 MG TABLET (FP) PO SCH (21:57)
[2021-06-15] MEDS: QUEtiapine FUMARATE 100 MG TABLET (FP) PO SCH (21:57)
[2021-06-15] MEDS: MELATONIN 5 MG TABLETS PO SCH (21:58)
[2021-06-15] MEDS: LATANOPROST 0.005% OPHTH SOLN 2.5ML BOTTLE OU SCH (21:58)
[2021-06-16] MEDS: VITAMINS A AND D TOPICAL OINTMENT 60 GM TUBE TP SCH ×4 (00:45→17:59)
[2021-06-16] MEDS: METHOCARBAMOL 500 MG TABLET PO PRN ×2 (06:51→21:15)
[2021-06-16] MEDS: hydrOXYzine PAMOATE 25 MG CAPSULE (FP) PO PRN ×3 (06:51→21:15)
[2021-06-16] MEDS ORDERED: PT OWN MED DRAWER 7, Y5N ONE (06:53)
[2021-06-16] MEDS: DORZOLAMIDE 2% HCL OPHTHALMIC SOLUTION 10 ML BOTTLE OU SCH ×3 (06:54→21:14)
[2021-06-16] MEDS: PRENATAL VITAMINS W/ FOLIC ACID TABLET (FP) PO SCH (10:26)
[2021-06-16] MEDS: DOCUSATE SODIUM 100 MG CAPSULE (FP) PO SCH (10:27)
[2021-06-16] MEDS: NICOTINE 14 MG/24 HOURS TOPICAL PATCH TD SCH (10:27)
[2021-06-16] MEDS: ASPIRIN COATED 81 MG TABLET.EC PO SCH (10:27)
[2021-06-16] MEDS: BRIMONIDINE TARTRATE 0.2% OPHTHALMIC 5 ML BOTTLE OU SCH ×2 (10:28→21:14)
[2021-06-16] MEDS: NIFEdipine E.R. 90 MG TABLET PO SCH (10:28)
[2021-06-16] MEDS ORDERED: BUPRENORPHINE/NALOXONE 2 MG/0.5 MG FILM PACKET SL ONE ×2 (11:30→18:00)
[2021-06-16] MEDS ORDERED: BUPRENORPHINE/NALOXONE 4 MG/1 MG FILM PACKET SL SCH (18:00)
[2021-06-16] MEDS: LATANOPROST 0.005% OPHTH SOLN 2.5ML BOTTLE OU SCH (21:13)
[2021-06-16] MEDS: THIAMINE HCL 100 MG TABLET (FP) PO SCH (21:15)
[2021-06-16] MEDS: QUEtiapine FUMARATE 100 MG TABLET (FP) PO SCH (21:15)
[2021-06-16] MEDS: MELATONIN 5 MG TABLETS PO SCH (21:15)
[2021-06-16] MEDS: HYDROCORTISONE 0.5% TOPICAL CREAM 30 GM TUBE TP PRN (22:19)
[2021-06-17] MEDS: VITAMINS A AND D TOPICAL OINTMENT 60 GM TUBE TP SCH ×4 (01:07→17:56)
[2021-06-17] MEDS: BUPRENORPHINE/NALOXONE 4 MG/1 MG FILM PACKET SL SCH ×2 (06:20→17:55)
[2021-06-17] MEDS: DORZOLAMIDE 2% HCL OPHTHALMIC SOLUTION 10 ML BOTTLE OU SCH ×3 (06:20→21:09)
[2021-06-17] MEDS: NIFEdipine E.R. 90 MG TABLET PO SCH (09:38)
[2021-06-17] MEDS: DOCUSATE SODIUM 100 MG CAPSULE (FP) PO SCH ×2 (09:38→21:10)
[2021-06-17] MEDS: ASPIRIN COATED 81 MG TABLET.EC PO SCH (09:38)
[2021-06-17] MEDS: NICOTINE 14 MG/24 HOURS TOPICAL PATCH TD SCH (09:38)
[2021-06-17] MEDS: PRENATAL VITAMINS W/ FOLIC ACID TABLET (FP) PO SCH (09:38)
[2021-06-17] MEDS: BRIMONIDINE TARTRATE 0.2% OPHTHALMIC 5 ML BOTTLE OU SCH ×2 (09:39→21:08)
[2021-06-17] MEDS: QUEtiapine FUMARATE 100 MG TABLET (FP) PO SCH (21:08)
[2021-06-17] MEDS: THIAMINE HCL 100 MG TABLET (FP) PO SCH (21:08)
[2021-06-17] MEDS: MELATONIN 5 MG TABLETS PO SCH (21:08)
[2021-06-17] MEDS: METHOCARBAMOL 500 MG TABLET PO PRN (21:08)
[2021-06-17] MEDS: LATANOPROST 0.005% OPHTH SOLN 2.5ML BOTTLE OU SCH (21:09)
[2021-06-18] MEDS: VITAMINS A AND D TOPICAL OINTMENT 60 GM TUBE TP SCH ×4 (01:11→17:57)
[2021-06-18] MEDS: BUPRENORPHINE/NALOXONE 4 MG/1 MG FILM PACKET SL SCH ×2 (06:25→17:58)
[2021-06-18] MEDS: DORZOLAMIDE 2% HCL OPHTHALMIC SOLUTION 10 ML BOTTLE OU SCH ×3 (06:25→21:40)
[2021-06-18] MEDS: DOCUSATE SODIUM 100 MG CAPSULE (FP) PO SCH ×3 (06:25→21:40)
[2021-06-18] MEDS: NIFEdipine E.R. 90 MG TABLET PO SCH (09:30)
[2021-06-18] MEDS: PRENATAL VITAMINS W/ FOLIC ACID TABLET (FP) PO SCH (09:30)
[2021-06-18] MEDS: ASPIRIN COATED 81 MG TABLET.EC PO SCH (09:30)
[2021-06-18] MEDS: NICOTINE 14 MG/24 HOURS TOPICAL PATCH TD SCH (09:30)
[2021-06-18] MEDS: BRIMONIDINE TARTRATE 0.2% OPHTHALMIC 5 ML BOTTLE OU SCH ×2 (09:31→21:40)
[2021-06-18] MEDS ORDERED: PT OWN MED DRAWER 7, Y5N ONE (12:07)
[2021-06-18] MEDS: hydrOXYzine PAMOATE 25 MG CAPSULE (FP) PO PRN (14:29)
[2021-06-18] MEDS: THIAMINE HCL 100 MG TABLET (FP) PO SCH (21:39)
[2021-06-18] MEDS: QUEtiapine FUMARATE 100 MG TABLET (FP) PO SCH (21:40)
[2021-06-18] MEDS: LATANOPROST 0.005% OPHTH SOLN 2.5ML BOTTLE OU SCH (21:40)
[2021-06-18] MEDS: MELATONIN 5 MG TABLETS PO SCH (21:41)
[2021-06-19] MEDS: VITAMINS A AND D TOPICAL OINTMENT 60 GM TUBE TP SCH ×4 (01:33→18:02)
[2021-06-19] MEDS: DORZOLAMIDE 2% HCL OPHTHALMIC SOLUTION 10 ML BOTTLE OU SCH ×3 (05:57→21:53)
[2021-06-19] MEDS ORDERED: PT OWN MED DRAWER 7, Y5N ONE (05:58)
[2021-06-19] MEDS: DOCUSATE SODIUM 100 MG CAPSULE (FP) PO SCH ×3 (05:58→21:53)
[2021-06-19] MEDS: BUPRENORPHINE/NALOXONE 4 MG/1 MG FILM PACKET SL SCH ×2 (05:59→17:59)
[2021-06-19] MEDS: PRENATAL VITAMINS W/ FOLIC ACID TABLET (FP) PO SCH (10:11)
[2021-06-19] MEDS: BRIMONIDINE TARTRATE 0.2% OPHTHALMIC 5 ML BOTTLE OU SCH ×2 (10:11→21:53)
[2021-06-19] MEDS: ASPIRIN COATED 81 MG TABLET.EC PO SCH (10:11)
[2021-06-19] MEDS: NICOTINE 14 MG/24 HOURS TOPICAL PATCH TD SCH (10:12)
[2021-06-19] MEDS: NIFEdipine E.R. 90 MG TABLET PO SCH (10:12)
[2021-06-19] MEDS: hydrOXYzine PAMOATE 25 MG CAPSULE (FP) PO PRN ×3 (10:12→21:54)
[2021-06-19] MEDS: THIAMINE HCL 100 MG TABLET (FP) PO SCH (21:53)
[2021-06-19] MEDS: METHOCARBAMOL 500 MG TABLET PO PRN (21:53)
[2021-06-19] MEDS: QUEtiapine FUMARATE 100 MG TABLET (FP) PO SCH (21:53)
[2021-06-19] MEDS: LATANOPROST 0.005% OPHTH SOLN 2.5ML BOTTLE OU SCH (21:55)
[2021-06-19] MEDS: MELATONIN 5 MG TABLETS PO SCH (21:56)
[2021-06-20] MEDS: VITAMINS A AND D TOPICAL OINTMENT 60 GM TUBE TP SCH ×4 (02:50→18:02)
[2021-06-20] MEDS: DORZOLAMIDE 2% HCL OPHTHALMIC SOLUTION 10 ML BOTTLE OU SCH ×3 (06:19→22:19)
[2021-06-20] MEDS: BUPRENORPHINE/NALOXONE 4 MG/1 MG FILM PACKET SL SCH (06:19)
[2021-06-20] MEDS: DOCUSATE SODIUM 100 MG CAPSULE (FP) PO SCH ×3 (06:19→22:18)
[2021-06-20] MEDS: PRENATAL VITAMINS W/ FOLIC ACID TABLET (FP) PO SCH (10:28)
[2021-06-20] MEDS: NICOTINE 14 MG/24 HOURS TOPICAL PATCH TD SCH (10:28)
[2021-06-20] MEDS: BRIMONIDINE TARTRATE 0.2% OPHTHALMIC 5 ML BOTTLE OU SCH ×2 (10:29→22:18)
[2021-06-20] MEDS: ASPIRIN COATED 81 MG TABLET.EC PO SCH (10:29)
[2021-06-20] MEDS: NIFEdipine E.R. 90 MG TABLET PO SCH (10:29)
[2021-06-20] MEDS: MAGNESIUM HYDROX 2400MG/30ML ORAL SUSPENSION 30 ML CUP PO PRN (10:31)
[2021-06-20] MEDS: hydrOXYzine PAMOATE 25 MG CAPSULE (FP) PO PRN ×2 (10:33→15:58)
[2021-06-20] MEDS: METHOCARBAMOL 500 MG TABLET PO PRN ×2 (10:33→15:58)
[2021-06-20] MEDS: BUPRENORPHINE/NALOXONE 8 MG/2 MG FILM PACKET SL SCH (18:03)
[2021-06-20] MEDS: QUEtiapine FUMARATE 100 MG TABLET (FP) PO SCH (22:17)
[2021-06-20] MEDS: MELATONIN 5 MG TABLETS PO SCH (22:18)
[2021-06-20] MEDS: cloNIDine HCL 0.1 MG TABLET PO PRN (22:18)
[2021-06-20] MEDS: THIAMINE HCL 100 MG TABLET (FP) PO SCH (22:18)
[2021-06-20] MEDS: LATANOPROST 0.005% OPHTH SOLN 2.5ML BOTTLE OU SCH (22:19)
[2021-06-21] MEDS: VITAMINS A AND D TOPICAL OINTMENT 60 GM TUBE TP SCH ×4 (01:07→17:42)
[2021-06-21] MEDS: DOCUSATE SODIUM 100 MG CAPSULE (FP) PO SCH ×3 (05:56→21:57)
[2021-06-21] MEDS: MAGNESIUM HYDROX 2400MG/30ML ORAL SUSPENSION 30 ML CUP PO PRN (05:58)
[2021-06-21] MEDS: DORZOLAMIDE 2% HCL OPHTHALMIC SOLUTION 10 ML BOTTLE OU SCH ×3 (06:00→21:55)
[2021-06-21] MEDS: BUPRENORPHINE/NALOXONE 8 MG/2 MG FILM PACKET SL SCH ×2 (07:58→17:41)
[2021-06-21] MEDS: ASPIRIN COATED 81 MG TABLET.EC PO SCH (10:33)
[2021-06-21] MEDS: PRENATAL VITAMINS W/ FOLIC ACID TABLET (FP) PO SCH (10:33)
[2021-06-21] MEDS: BRIMONIDINE TARTRATE 0.2% OPHTHALMIC 5 ML BOTTLE OU SCH ×2 (10:34→21:56)
[2021-06-21] MEDS: NIFEdipine E.R. 90 MG TABLET PO SCH (10:35)
[2021-06-21] MEDS: NICOTINE 14 MG/24 HOURS TOPICAL PATCH TD SCH (10:35)
[2021-06-21] MEDS: hydrOXYzine PAMOATE 25 MG CAPSULE (FP) PO PRN ×3 (10:46→21:57)
[2021-06-21] MEDS ORDERED: PT OWN MED DRAWER 7, Y5N ONE (19:16)
[2021-06-21] MEDS: LATANOPROST 0.005% OPHTH SOLN 2.5ML BOTTLE OU SCH (21:56)
[2021-06-21] MEDS: QUEtiapine FUMARATE 100 MG TABLET (FP) PO SCH (21:57)
[2021-06-21] MEDS: THIAMINE HCL 100 MG TABLET (FP) PO SCH (21:57)
[2021-06-21] MEDS: MELATONIN 5 MG TABLETS PO SCH (21:57)
[2021-06-22] MEDS: VITAMINS A AND D TOPICAL OINTMENT 60 GM TUBE TP SCH ×4 (00:08→17:47)
[2021-06-22] MEDS: BUPRENORPHINE/NALOXONE 8 MG/2 MG FILM PACKET SL SCH ×2 (06:01→17:47)
[2021-06-22] MEDS: DOCUSATE SODIUM 100 MG CAPSULE (FP) PO SCH ×3 (06:01→22:01)
[2021-06-22] MEDS: DORZOLAMIDE 2% HCL OPHTHALMIC SOLUTION 10 ML BOTTLE OU SCH ×3 (06:02→22:06)
[2021-06-22] MEDS: hydrOXYzine PAMOATE 25 MG CAPSULE (FP) PO PRN ×2 (10:24→14:43)
[2021-06-22] MEDS: BRIMONIDINE TARTRATE 0.2% OPHTHALMIC 5 ML BOTTLE OU SCH ×2 (10:24→22:01)
[2021-06-22] MEDS: ASPIRIN COATED 81 MG TABLET.EC PO SCH (10:24)
[2021-06-22] MEDS: NICOTINE 14 MG/24 HOURS TOPICAL PATCH TD SCH (10:25)
[2021-06-22] MEDS: PRENATAL VITAMINS W/ FOLIC ACID TABLET (FP) PO SCH (10:25)
[2021-06-22] MEDS: NIFEdipine E.R. 90 MG TABLET PO SCH (10:25)
[2021-06-22] MEDS: QUEtiapine FUMARATE 100 MG TABLET (FP) PO SCH (22:01)
[2021-06-22] MEDS: THIAMINE HCL 100 MG TABLET (FP) PO SCH (22:01)
[2021-06-22] MEDS: MELATONIN 5 MG TABLETS PO SCH (22:01)
[2021-06-22] MEDS: LATANOPROST 0.005% OPHTH SOLN 2.5ML BOTTLE OU SCH (22:12)
[2021-06-23] MEDS: VITAMINS A AND D TOPICAL OINTMENT 60 GM TUBE TP SCH ×4 (01:52→17:55)
[2021-06-23] MEDS: BUPRENORPHINE/NALOXONE 8 MG/2 MG FILM PACKET SL SCH ×2 (06:01→17:54)
[2021-06-23] MEDS: DOCUSATE SODIUM 100 MG CAPSULE (FP) PO SCH ×3 (06:01→22:08)
[2021-06-23] MEDS: DORZOLAMIDE 2% HCL OPHTHALMIC SOLUTION 10 ML BOTTLE OU SCH ×3 (06:02→22:12)
[2021-06-23] MEDS: PRENATAL VITAMINS W/ FOLIC ACID TABLET (FP) PO SCH (10:29)
[2021-06-23] MEDS: NICOTINE 14 MG/24 HOURS TOPICAL PATCH TD SCH (10:29)
[2021-06-23] MEDS: BRIMONIDINE TARTRATE 0.2% OPHTHALMIC 5 ML BOTTLE OU SCH ×2 (10:31→22:10)
[2021-06-23] MEDS: NIFEdipine E.R. 90 MG TABLET PO SCH (10:32)
[2021-06-23] MEDS: hydrOXYzine PAMOATE 25 MG CAPSULE (FP) PO PRN ×3 (10:34→22:08)
[2021-06-23] MEDS: METHOCARBAMOL 500 MG TABLET PO PRN ×3 (10:34→22:08)
[2021-06-23] MEDS: ASPIRIN COATED 81 MG TABLET.EC PO SCH (12:11)
[2021-06-23] MEDS ORDERED: PT OWN MED DRAWER 7, Y5N ONE (14:33)
[2021-06-23] MEDS: QUEtiapine FUMARATE 100 MG TABLET (FP) PO SCH (22:08)
[2021-06-23] MEDS: THIAMINE HCL 100 MG TABLET (FP) PO SCH (22:08)
[2021-06-23] MEDS: MELATONIN 5 MG TABLETS PO SCH (22:09)
[2021-06-23] MEDS: LATANOPROST 0.005% OPHTH SOLN 2.5ML BOTTLE OU SCH (22:10)
[2021-06-24] MEDS: DOCUSATE SODIUM 100 MG CAPSULE (FP) PO SCH ×3 (06:22→22:26)
[2021-06-24] MEDS: BUPRENORPHINE/NALOXONE 8 MG/2 MG FILM PACKET SL SCH ×2 (06:22→17:56)
[2021-06-24] MEDS: DORZOLAMIDE 2% HCL OPHTHALMIC SOLUTION 10 ML BOTTLE OU SCH ×3 (06:23→22:28)
[2021-06-24] MEDS: VITAMINS A AND D TOPICAL OINTMENT 60 GM TUBE TP SCH ×4 (06:24→22:28)
[2021-06-24] MEDS: PRENATAL VITAMINS W/ FOLIC ACID TABLET (FP) PO SCH (10:27)
[2021-06-24] MEDS: NICOTINE 14 MG/24 HOURS TOPICAL PATCH TD SCH (10:27)
[2021-06-24] MEDS: NIFEdipine E.R. 90 MG TABLET PO SCH (10:27)
[2021-06-24] MEDS: ASPIRIN COATED 81 MG TABLET.EC PO SCH (10:28)
[2021-06-24] MEDS: BRIMONIDINE TARTRATE 0.2% OPHTHALMIC 5 ML BOTTLE OU SCH ×2 (10:28→22:27)
[2021-06-24] MEDS: METHOCARBAMOL 500 MG TABLET PO PRN ×3 (10:29→17:56)
[2021-06-24] MEDS: hydrOXYzine PAMOATE 25 MG CAPSULE (FP) PO PRN ×4 (10:29→22:26)
[2021-06-24] MEDS ORDERED: PT OWN MED DRAWER 7, Y5N ONE (15:56)
[2021-06-24] MEDS: HYDROCORTISONE 0.5% TOPICAL CREAM 30 GM TUBE TP PRN (15:56)
[2021-06-24] MEDS: LATANOPROST 0.005% OPHTH SOLN 2.5ML BOTTLE OU SCH (22:00)
[2021-06-24] MEDS: MELATONIN 5 MG TABLETS PO SCH (22:26)
[2021-06-24] MEDS: THIAMINE HCL 100 MG TABLET (FP) PO SCH (22:26)
[2021-06-24] MEDS: QUEtiapine FUMARATE 100 MG TABLET (FP) PO SCH (22:26)
[2021-06-25] MEDS: VITAMINS A AND D TOPICAL OINTMENT 60 GM TUBE TP SCH ×2 (01:05→06:39)
[2021-06-25] MEDS: hydrOXYzine PAMOATE 25 MG CAPSULE (FP) PO PRN ×2 (06:38→10:00)
[2021-06-25] MEDS: BUPRENORPHINE/NALOXONE 8 MG/2 MG FILM PACKET SL SCH (06:38)
[2021-06-25] MEDS: DORZOLAMIDE 2% HCL OPHTHALMIC SOLUTION 10 ML BOTTLE OU SCH (06:38)
[2021-06-25] MEDS: DOCUSATE SODIUM 100 MG CAPSULE (FP) PO SCH (06:38)
[2021-06-25 07:34] VITALS: BP 131/87; PULSE 91; TEMP 96.5
[2021-06-25] MEDS: BRIMONIDINE TARTRATE 0.2% OPHTHALMIC 5 ML BOTTLE OU SCH (09:59)
[2021-06-25] MEDS: NIFEdipine E.R. 90 MG TABLET PO SCH (09:59)
[2021-06-25] MEDS: ASPIRIN COATED 81 MG TABLET.EC PO SCH (09:59)
[2021-06-25] MEDS: NICOTINE 14 MG/24 HOURS TOPICAL PATCH TD SCH (09:59)
[2021-06-25] MEDS: PRENATAL VITAMINS W/ FOLIC ACID TABLET (FP) PO SCH (09:59)
[2021-06-25] MEDS: METHOCARBAMOL 500 MG TABLET PO PRN (10:00)
== END 2021-06-25 10:00 | disposition home or self-care (01) | DRG 895 ==
LOC: YASAS 12:14 → Y5N 12:16
PROVIDERS: ADMIT Allergy & Immunology; ATTEND Allergy & Immunology
PROC: HZ42ZZZ Group Counseling for Substance Abuse Treatment, Cognitive-Behavioral (ICD-10-PCS; principal; 2021-06-11)
DX: F10.20 Alcohol dependence, uncomplicated (principal); F14.20 Cocaine dependence, uncomplicated; F12.20 Cannabis dependence, uncomplicated; F17.210 Nicotine dependence, cigarettes, uncomplicated; I10 Essential (primary) hypertension; J44.9 Chronic obstructive pulmonary disease, unspecified; H54.40 Blindness, one eye, unspecified eye; H40.9 Unspecified glaucoma; R21 Rash and other nonspecific skin eruption
CPT/HCPCS: 36415; 80053; 85027; J0735; Q0162

== ENCOUNTER 2021-10-22 17:17 | Inpatient (IN) | payer OTHER ==
[2021-10-22] MEDS ORDERED: ACETAMINOPHEN 325 MG TABLET (FP) PO PRN ×2 (20:03)
[2021-10-22] MEDS ORDERED: IBUPROFEN 400 MG TABLET (FP) PO PRN (20:03)
[2021-10-22] MEDS ORDERED: MAG HYDROX/AL HYDROX/SIMETH 30 ML UNIT-DOSE CUP PO PRN (20:03)
[2021-10-22] MEDS ORDERED: MAGNESIUM HYDROX 2400MG/30ML ORAL SUSPENSION 30 ML CUP PO PRN (20:03)
[2021-10-22] MEDS ORDERED: ONDANSETRON *ODT* 4 MG TABLET SL PRN (20:03)
[2021-10-22] MEDS ORDERED: BENZOCAINE/MENTHOL (CHLORASEPTIC ) LOZENGE MM PRN (20:03)
[2021-10-22] MEDS ORDERED: BISMUTH SUBSALICYLATE 524 MG/30 ML PO PRN (20:03)
[2021-10-22] MEDS ORDERED: LOPERAMIDE HCL 2 MG CAPSULE PO PRN (20:03)
[2021-10-22] MEDS ORDERED: MAGNESIUM CITRATE 300 ML BOTTLE PO PRN (20:03)
[2021-10-22] MEDS ORDERED: cloNIDine HCL 0.1 MG TABLET PO PRN (20:06)
[2021-10-22] MEDS ORDERED: methaDONE HCL 10 MG TABLET (FOR DETOX USE ONLY) PO ONE (20:06)
[2021-10-22] MEDS ORDERED: NALOXONE (NARCAN) HCL 4 MG/0.1 ML SPRAY NS PRN (20:06)
[2021-10-22 22:31] VITALS: BMI 28.8
[2021-10-22] MEDS: METHOCARBAMOL 500 MG TABLET PO PRN (23:26)
[2021-10-22] MEDS: NIFEdipine E.R. 30 MG TABLET PO SCH (23:26)
[2021-10-22] MEDS: hydrOXYzine PAMOATE 25 MG CAPSULE (FP) PO PRN (23:26)
[2021-10-22] MEDS: THIAMINE HCL 100 MG TABLET (FP) PO SCH (23:26)
[2021-10-22] MEDS: MELATONIN 5 MG TABLETS PO PRN (23:26)
[2021-10-22] MEDS: ASPIRIN COATED 81 MG TABLET.EC PO SCH (23:26)
[2021-10-22] MEDS: BRIMONIDINE TARTRATE 0.2% OPHTHALMIC 5 ML BOTTLE OU SCH (23:31)
[2021-10-22] MEDS: DORZOLAMIDE 2% HCL OPHTHALMIC SOLUTION 10 ML BOTTLE OU SCH (23:32)
[2021-10-22] MEDS: LATANOPROST 0.005% OPHTH SOLN 2.5ML BOTTLE OU SCH (23:32)
[2021-10-23] MEDS: hydrOXYzine PAMOATE 25 MG CAPSULE (FP) PO PRN (06:00)
[2021-10-23] MEDS: DORZOLAMIDE 2% HCL OPHTHALMIC SOLUTION 10 ML BOTTLE OU SCH ×3 (06:14→22:18)
[2021-10-23 10:01] LABS: CALCIUM 8.8 mg/dL (8.5-10.1); HEMATOCRIT 40.3 % (32.4-45.2); HEMOGLOBIN 13.1 GM/dL (10.7-15.3); MCH 29.1 pg (25.7-33.7); MCHC 32.6 g/dl (32.0-36.0); MEAN CELL VOLUME 89.3 fl (80-96); MEAN PLT VOLUME 8.6 fl (7.5-11.1); PLATELET COUNT 251 10^3/uL (134-434); RBC 4.51 M/mm3 (3.60-5.2); RDW 14.9 % (11.6-15.6)
[2021-10-23 10:02] LABS: ALBUMIN 2.7 g/dl (3.4-5.0); BLOOD UREA NITROGEN 24.8 mg/dL (7-18)
[2021-10-23] MEDS ORDERED: methaDONE HCL 10 MG TABLET (FOR DETOX USE ONLY) ONE (10:04)
[2021-10-23 10:05] LABS: CREATININE 1.9 mg/dL (0.55-1.3)
[2021-10-23 10:06] LABS: BILIRUBIN,TOTAL 0.2 mg/dL (0.2-1); TOT PROT 6.1 g/dl (6.4-8.2)
[2021-10-23] MEDS: NIFEdipine E.R. 30 MG TABLET PO SCH (10:11)
[2021-10-23] MEDS: ASPIRIN COATED 81 MG TABLET.EC PO SCH (10:11)
[2021-10-23] MEDS: PRENATAL VITAMINS W/ FOLIC ACID TABLET (FP) PO SCH (10:12)
[2021-10-23] MEDS: DOCUSATE SODIUM 100 MG CAPSULE (FP) PO SCH (10:12)
[2021-10-23] MEDS: BRIMONIDINE TARTRATE 0.2% OPHTHALMIC 5 ML BOTTLE OU SCH ×2 (10:15→22:18)
[2021-10-23] MEDS: diazePAM 5 MG TABLET PO PRN ×3 (11:54→22:18)
[2021-10-23] MEDS: POTASSIUM CHLORIDE TABS 20 MEQ TABLET.ER (FP) PO SCH ×2 (11:54→22:17)
[2021-10-23] MEDS: MELATONIN 5 MG TABLETS PO PRN (22:16)
[2021-10-23] MEDS: THIAMINE HCL 100 MG TABLET (FP) PO SCH (22:16)
[2021-10-23] MEDS: LATANOPROST 0.005% OPHTH SOLN 2.5ML BOTTLE OU SCH (22:17)
[2021-10-24] MEDS: DORZOLAMIDE 2% HCL OPHTHALMIC SOLUTION 10 ML BOTTLE OU SCH ×3 (05:44→22:26)
[2021-10-24] MEDS: diazePAM 5 MG TABLET PO PRN ×4 (05:45→22:27)
[2021-10-24] MEDS ORDERED: methaDONE HCL 10 MG TABLET (FOR DETOX USE ONLY) PO ONE (10:00)
[2021-10-24] MEDS: DOCUSATE SODIUM 100 MG CAPSULE (FP) PO SCH (10:29)
[2021-10-24] MEDS: NIFEdipine E.R. 30 MG TABLET PO SCH (10:29)
[2021-10-24] MEDS: PRENATAL VITAMINS W/ FOLIC ACID TABLET (FP) PO SCH (10:29)
[2021-10-24] MEDS: ASPIRIN COATED 81 MG TABLET.EC PO SCH (10:30)
[2021-10-24] MEDS: BRIMONIDINE TARTRATE 0.2% OPHTHALMIC 5 ML BOTTLE OU SCH ×2 (10:35→22:26)
[2021-10-24] MEDS: MELATONIN 5 MG TABLETS PO PRN (22:24)
[2021-10-24] MEDS: THIAMINE HCL 100 MG TABLET (FP) PO SCH (22:24)
[2021-10-24] MEDS: LATANOPROST 0.005% OPHTH SOLN 2.5ML BOTTLE OU SCH (22:26)
[2021-10-25] MEDS: diazePAM 5 MG TABLET PO PRN ×3 (07:08→22:11)
[2021-10-25] MEDS: DORZOLAMIDE 2% HCL OPHTHALMIC SOLUTION 10 ML BOTTLE OU SCH ×3 (07:10→22:12)
[2021-10-25] MEDS ORDERED: methaDONE HCL 10 MG TABLET (FOR DETOX USE ONLY) ONE (09:43)
[2021-10-25 10:07] LABS: SARS-CoV-2 NAA Not Detected (Not Detected)
[2021-10-25] MEDS: PRENATAL VITAMINS W/ FOLIC ACID TABLET (FP) PO SCH (11:05)
[2021-10-25] MEDS: NIFEdipine E.R. 30 MG TABLET PO SCH (11:07)
[2021-10-25] MEDS: ASPIRIN COATED 81 MG TABLET.EC PO SCH (11:08)
[2021-10-25] MEDS: DOCUSATE SODIUM 100 MG CAPSULE (FP) PO SCH (11:15)
[2021-10-25] MEDS: BRIMONIDINE TARTRATE 0.2% OPHTHALMIC 5 ML BOTTLE OU SCH ×2 (11:15→22:12)
[2021-10-25] MEDS ORDERED: ONDANSETRON *ODT* 4 MG TABLET SL PRN (12:28)
[2021-10-25] MEDS: THIAMINE HCL 100 MG TABLET (FP) PO SCH (22:10)
[2021-10-25] MEDS: MELATONIN 5 MG TABLETS PO PRN (22:12)
[2021-10-25] MEDS: LATANOPROST 0.005% OPHTH SOLN 2.5ML BOTTLE OU SCH (22:13)
[2021-10-26] MEDS: DORZOLAMIDE 2% HCL OPHTHALMIC SOLUTION 10 ML BOTTLE OU SCH ×3 (06:51→22:34)
[2021-10-26] MEDS: diazePAM 5 MG TABLET PO PRN (06:52)
[2021-10-26] MEDS ORDERED: methaDONE HCL 10 MG TABLET (FOR DETOX USE ONLY) PO ONE (10:00)
[2021-10-26] MEDS: ASPIRIN COATED 81 MG TABLET.EC PO SCH (10:55)
[2021-10-26] MEDS: BRIMONIDINE TARTRATE 0.2% OPHTHALMIC 5 ML BOTTLE OU SCH ×2 (10:55→22:34)
[2021-10-26] MEDS: DOCUSATE SODIUM 100 MG CAPSULE (FP) PO SCH (10:55)
[2021-10-26] MEDS: NIFEdipine E.R. 30 MG TABLET PO SCH (10:55)
[2021-10-26] MEDS: DICYCLOMINE HCL 10 MG CAPSULE PO PRN ×3 (10:57→22:37)
[2021-10-26] MEDS: hydrOXYzine PAMOATE 25 MG CAPSULE (FP) PO PRN ×3 (11:02→22:35)
[2021-10-26] MEDS: PRENATAL VITAMINS W/ FOLIC ACID TABLET (FP) PO SCH (11:29)
[2021-10-26] MEDS: LATANOPROST 0.005% OPHTH SOLN 2.5ML BOTTLE OU SCH (22:35)
[2021-10-26] MEDS: THIAMINE HCL 100 MG TABLET (FP) PO SCH (22:35)
[2021-10-27] MEDS: DORZOLAMIDE 2% HCL OPHTHALMIC SOLUTION 10 ML BOTTLE OU SCH (06:03)
[2021-10-27] MEDS: hydrOXYzine PAMOATE 25 MG CAPSULE (FP) PO PRN ×2 (06:04→10:43)
[2021-10-27] MEDS: BRIMONIDINE TARTRATE 0.2% OPHTHALMIC 5 ML BOTTLE OU SCH (10:43)
[2021-10-27] MEDS: NIFEdipine E.R. 30 MG TABLET PO SCH (10:43)
[2021-10-27] MEDS: ASPIRIN COATED 81 MG TABLET.EC PO SCH (10:43)
[2021-10-27] MEDS: PRENATAL VITAMINS W/ FOLIC ACID TABLET (FP) PO SCH (10:43)
[2021-10-27] MEDS: DOCUSATE SODIUM 100 MG CAPSULE (FP) PO SCH (10:43)
[2021-10-27] MEDS: METHOCARBAMOL 500 MG TABLET PO PRN (10:44)
[2021-10-27 13:14] VITALS: BP 109/77; PULSE 98; TEMP 98.1
== END 2021-10-27 14:57 | disposition other institution (70) | DRG 897 ==
LOC: YASAS 17:17 → Y3N 21:00
PROVIDERS: ADMIT Allergy & Immunology; ATTEND Allergy & Immunology
PROC: HZ2ZZZZ Detoxification Services for Substance Abuse Treatment (ICD-10-PCS; principal; 2021-10-22)
DX: F11.23 Opioid dependence with withdrawal (principal); F14.20 Cocaine dependence, uncomplicated; F13.10 Sedative, hypnotic or anxiolytic abuse, uncomplicated; F17.210 Nicotine dependence, cigarettes, uncomplicated; F19.24 Other psychoactive substance dependence with psychoactive substance-induced mood disorder; F32.A Depression, unspecified; F43.10 Post-traumatic stress disorder, unspecified; D64.9 Anemia, unspecified; I10 Essential (primary) hypertension; Z91.410 Personal history of adult physical and sexual abuse; Z88.0 Allergy status to penicillin; Z91.014 Allergy to mammalian meats; Z59.00 Homelessness unspecified; Z56.0 Unemployment, unspecified
CPT/HCPCS: 36415; 80053; 85027; 86780; 87811; C9803-CS; J0735; Q0162; U0003; U0005

== ENCOUNTER 2021-10-27 15:23 | Inpatient (IN) | payer OTHER ==
[2021-10-27] MEDS ORDERED: guaiFENesin 200 MG/10 ML 10 ML UNIT-DOSE CUPS PO PRN (19:41)
[2021-10-27] MEDS ORDERED: BENZOCAINE/MENTHOL (CHLORASEPTIC ) LOZENGE MM PRN (19:41)
[2021-10-27] MEDS ORDERED: MAG HYDROX/AL HYDROX/SIMETH 30 ML UNIT-DOSE CUP PO PRN (19:41)
[2021-10-27] MEDS ORDERED: P-EPHED 60MG/TRIPROLIDI 2.5MG TABLET PO PRN (19:41)
[2021-10-27] MEDS ORDERED: MAGNESIUM HYDROX 2400MG/30ML ORAL SUSPENSION 30 ML CUP PO PRN (19:41)
[2021-10-27] MEDS ORDERED: ACETAMINOPHEN 325 MG TABLET (FP) PO PRN (19:41)
[2021-10-27] MEDS ORDERED: MAGNESIUM CITRATE 300 ML BOTTLE PO PRN (19:41)
[2021-10-27] MEDS ORDERED: LOPERAMIDE HCL 2 MG CAPSULE PO PRN (19:41)
[2021-10-27] MEDS ORDERED: IBUPROFEN 400 MG TABLET (FP) PO PRN (19:41)
[2021-10-27] MEDS: hydrOXYzine PAMOATE 25 MG CAPSULE (FP) PO PRN (21:30)
[2021-10-27] MEDS: THIAMINE HCL 100 MG TABLET (FP) PO SCH (21:30)
[2021-10-27] MEDS: DORZOLAMIDE 2% HCL OPHTHALMIC SOLUTION 10 ML BOTTLE OU SCH (21:31)
[2021-10-27] MEDS: BRIMONIDINE TARTRATE 0.2% OPHTHALMIC 5 ML BOTTLE OU SCH (21:31)
[2021-10-27] MEDS: LATANOPROST 0.005% OPHTH SOLN 2.5ML BOTTLE OU SCH (21:51)
[2021-10-28] MEDS: DORZOLAMIDE 2% HCL OPHTHALMIC SOLUTION 10 ML BOTTLE OU SCH ×3 (06:22→21:23)
[2021-10-28] MEDS: hydrOXYzine PAMOATE 25 MG CAPSULE (FP) PO PRN ×3 (06:23→20:01)
[2021-10-28] MEDS: ASPIRIN COATED 81 MG TABLET.EC PO SCH (10:25)
[2021-10-28] MEDS: PRENATAL VITAMINS W/ FOLIC ACID TABLET (FP) PO SCH (10:25)
[2021-10-28] MEDS: BRIMONIDINE TARTRATE 0.2% OPHTHALMIC 5 ML BOTTLE OU SCH ×2 (10:26→21:22)
[2021-10-28] MEDS ORDERED: ALBUTEROL SO4 HFA INHALER IH PRN (10:54)
[2021-10-28] MEDS: DOCUSATE SODIUM 100 MG CAPSULE (FP) PO SCH ×2 (12:21→21:23)
[2021-10-28] MEDS: METHOCARBAMOL 500 MG TABLET PO PRN ×2 (12:21→20:01)
[2021-10-28] MEDS: NIFEdipine E.R. 90 MG TABLET PO SCH (12:21)
[2021-10-28] MEDS: LATANOPROST 0.005% OPHTH SOLN 2.5ML BOTTLE OU SCH (21:23)
[2021-10-28] MEDS: THIAMINE HCL 100 MG TABLET (FP) PO SCH (21:23)
[2021-10-28] MEDS: MELATONIN 5 MG TABLETS PO PRN (21:24)
[2021-10-29] MEDS: DORZOLAMIDE 2% HCL OPHTHALMIC SOLUTION 10 ML BOTTLE OU SCH ×3 (06:15→21:41)
[2021-10-29] MEDS: hydrOXYzine PAMOATE 25 MG CAPSULE (FP) PO PRN ×3 (06:16→16:01)
[2021-10-29] MEDS: NIFEdipine E.R. 90 MG TABLET PO SCH (10:24)
[2021-10-29] MEDS: PRENATAL VITAMINS W/ FOLIC ACID TABLET (FP) PO SCH (10:24)
[2021-10-29] MEDS: BRIMONIDINE TARTRATE 0.2% OPHTHALMIC 5 ML BOTTLE OU SCH ×2 (10:25→21:42)
[2021-10-29] MEDS: DOCUSATE SODIUM 100 MG CAPSULE (FP) PO SCH ×2 (10:26→21:40)
[2021-10-29] MEDS: ASPIRIN COATED 81 MG TABLET.EC PO SCH (10:26)
[2021-10-29] MEDS: METHOCARBAMOL 500 MG TABLET PO PRN ×3 (10:26→21:40)
[2021-10-29] MEDS ORDERED: busPIRone HCL 10 MG TABLET (FP) PO ONE (11:15)
[2021-10-29] MEDS ORDERED: BUPRENORPHINE/NALOXONE 4 MG/1 MG FILM PACKET SL ONE (11:59)
[2021-10-29] MEDS: NICOTINE 10 MG CARTRIDGE (INHALER) IH PRN (17:05)
[2021-10-29] MEDS: busPIRone HCL 10 MG TABLET (FP) PO SCH (21:40)
[2021-10-29] MEDS: QUEtiapine FUMARATE 100 MG TABLET (FP) PO SCH (21:40)
[2021-10-29] MEDS: THIAMINE HCL 100 MG TABLET (FP) PO SCH (21:40)
[2021-10-29] MEDS: LATANOPROST 0.005% OPHTH SOLN 2.5ML BOTTLE OU SCH (21:42)
[2021-10-30] MEDS: DORZOLAMIDE 2% HCL OPHTHALMIC SOLUTION 10 ML BOTTLE OU SCH ×3 (06:33→21:31)
[2021-10-30] MEDS: hydrOXYzine PAMOATE 25 MG CAPSULE (FP) PO PRN ×3 (06:34→19:07)
[2021-10-30] MEDS: PRENATAL VITAMINS W/ FOLIC ACID TABLET (FP) PO SCH (10:54)
[2021-10-30] MEDS: ASPIRIN COATED 81 MG TABLET.EC PO SCH (10:55)
[2021-10-30] MEDS: busPIRone HCL 10 MG TABLET (FP) PO SCH ×2 (10:55→21:31)
[2021-10-30] MEDS: DOCUSATE SODIUM 100 MG CAPSULE (FP) PO SCH ×2 (10:55→21:31)
[2021-10-30] MEDS: BRIMONIDINE TARTRATE 0.2% OPHTHALMIC 5 ML BOTTLE OU SCH ×2 (10:55→21:31)
[2021-10-30] MEDS: NIFEdipine E.R. 90 MG TABLET PO SCH (10:56)
[2021-10-30] MEDS: BUPRENORPHINE/NALOXONE 8 MG/2 MG FILM PACKET SL SCH (11:17)
[2021-10-30 15:09] LABS: SARS-CoV-2 NAA Not Detected (Not Detected)
[2021-10-30] MEDS: METHOCARBAMOL 500 MG TABLET PO PRN ×2 (19:07→21:31)
[2021-10-30] MEDS: NICOTINE 10 MG CARTRIDGE (INHALER) IH PRN (19:07)
[2021-10-30] MEDS: QUEtiapine FUMARATE 100 MG TABLET (FP) PO SCH (21:31)
[2021-10-30] MEDS: THIAMINE HCL 100 MG TABLET (FP) PO SCH (21:31)
[2021-10-30] MEDS: LATANOPROST 0.005% OPHTH SOLN 2.5ML BOTTLE OU SCH (21:32)
[2021-10-31] MEDS: DORZOLAMIDE 2% HCL OPHTHALMIC SOLUTION 10 ML BOTTLE OU SCH ×3 (06:11→21:24)
[2021-10-31] MEDS: hydrOXYzine PAMOATE 25 MG CAPSULE (FP) PO PRN ×4 (06:12→21:25)
[2021-10-31] MEDS: NIFEdipine E.R. 90 MG TABLET PO SCH (10:23)
[2021-10-31] MEDS: BRIMONIDINE TARTRATE 0.2% OPHTHALMIC 5 ML BOTTLE OU SCH ×2 (10:23→21:24)
[2021-10-31] MEDS: METHOCARBAMOL 500 MG TABLET PO PRN ×3 (10:23→21:24)
[2021-10-31] MEDS: busPIRone HCL 10 MG TABLET (FP) PO SCH ×2 (10:23→21:24)
[2021-10-31] MEDS: ASPIRIN COATED 81 MG TABLET.EC PO SCH (10:23)
[2021-10-31] MEDS: DOCUSATE SODIUM 100 MG CAPSULE (FP) PO SCH ×2 (10:24→21:24)
[2021-10-31] MEDS: BUPRENORPHINE/NALOXONE 8 MG/2 MG FILM PACKET SL SCH ×2 (10:24→15:58)
[2021-10-31] MEDS: PRENATAL VITAMINS W/ FOLIC ACID TABLET (FP) PO SCH (10:24)
[2021-10-31] MEDS: MELATONIN 5 MG TABLETS PO PRN (21:23)
[2021-10-31] MEDS: THIAMINE HCL 100 MG TABLET (FP) PO SCH (21:24)
[2021-10-31] MEDS: QUEtiapine FUMARATE 100 MG TABLET (FP) PO SCH (21:24)
[2021-10-31] MEDS: LATANOPROST 0.005% OPHTH SOLN 2.5ML BOTTLE OU SCH (23:17)
[2021-11-01] MEDS: METHOCARBAMOL 500 MG TABLET PO PRN ×3 (06:19→21:47)
[2021-11-01] MEDS: DORZOLAMIDE 2% HCL OPHTHALMIC SOLUTION 10 ML BOTTLE OU SCH ×3 (06:19→21:47)
[2021-11-01] MEDS: BUPRENORPHINE/NALOXONE 8 MG/2 MG FILM PACKET SL SCH ×2 (06:19→14:30)
[2021-11-01] MEDS: hydrOXYzine PAMOATE 25 MG CAPSULE (FP) PO PRN ×4 (06:19→21:48)
[2021-11-01] MEDS: NICOTINE 10 MG CARTRIDGE (INHALER) IH PRN (06:20)
[2021-11-01] MEDS: PRENATAL VITAMINS W/ FOLIC ACID TABLET (FP) PO SCH (10:29)
[2021-11-01] MEDS: DOCUSATE SODIUM 100 MG CAPSULE (FP) PO SCH ×2 (10:29→21:47)
[2021-11-01] MEDS: ASPIRIN COATED 81 MG TABLET.EC PO SCH (10:29)
[2021-11-01] MEDS: busPIRone HCL 10 MG TABLET (FP) PO SCH ×2 (10:29→21:47)
[2021-11-01] MEDS: NIFEdipine E.R. 90 MG TABLET PO SCH (10:29)
[2021-11-01] MEDS: BRIMONIDINE TARTRATE 0.2% OPHTHALMIC 5 ML BOTTLE OU SCH ×2 (10:30→22:18)
[2021-11-01] MEDS: QUEtiapine FUMARATE 100 MG TABLET (FP) PO SCH (21:47)
[2021-11-01] MEDS: THIAMINE HCL 100 MG TABLET (FP) PO SCH (21:47)
[2021-11-01] MEDS: MELATONIN 5 MG TABLETS PO PRN (21:48)
[2021-11-01] MEDS: LATANOPROST 0.005% OPHTH SOLN 2.5ML BOTTLE OU SCH (21:50)
[2021-11-02] MEDS: METHOCARBAMOL 500 MG TABLET PO PRN ×2 (06:28→21:35)
[2021-11-02] MEDS: hydrOXYzine PAMOATE 25 MG CAPSULE (FP) PO PRN ×3 (06:28→14:45)
[2021-11-02] MEDS: BUPRENORPHINE/NALOXONE 8 MG/2 MG FILM PACKET SL SCH ×2 (06:28→14:42)
[2021-11-02] MEDS: DORZOLAMIDE 2% HCL OPHTHALMIC SOLUTION 10 ML BOTTLE OU SCH ×3 (06:29→21:36)
[2021-11-02] MEDS: PRENATAL VITAMINS W/ FOLIC ACID TABLET (FP) PO SCH (10:22)
[2021-11-02] MEDS: busPIRone HCL 10 MG TABLET (FP) PO SCH ×2 (10:23→21:35)
[2021-11-02] MEDS: DOCUSATE SODIUM 100 MG CAPSULE (FP) PO SCH ×2 (10:23→21:35)
[2021-11-02] MEDS: ASPIRIN COATED 81 MG TABLET.EC PO SCH (10:23)
[2021-11-02] MEDS: NIFEdipine E.R. 90 MG TABLET PO SCH (10:24)
[2021-11-02] MEDS: BRIMONIDINE TARTRATE 0.2% OPHTHALMIC 5 ML BOTTLE OU SCH ×2 (10:25→21:35)
[2021-11-02] MEDS: QUEtiapine FUMARATE 100 MG TABLET (FP) PO SCH (21:35)
[2021-11-02] MEDS: THIAMINE HCL 100 MG TABLET (FP) PO SCH (21:35)
[2021-11-02] MEDS: MELATONIN 5 MG TABLETS PO PRN (21:36)
[2021-11-02] MEDS: LATANOPROST 0.005% OPHTH SOLN 2.5ML BOTTLE OU SCH (21:39)
[2021-11-02] MEDS: NICOTINE 10 MG CARTRIDGE (INHALER) IH PRN (21:39)
[2021-11-03] MEDS: BUPRENORPHINE/NALOXONE 8 MG/2 MG FILM PACKET SL SCH ×2 (06:11→14:30)
[2021-11-03] MEDS: METHOCARBAMOL 500 MG TABLET PO PRN ×2 (06:13→21:37)
[2021-11-03] MEDS: hydrOXYzine PAMOATE 25 MG CAPSULE (FP) PO PRN ×3 (06:13→21:37)
[2021-11-03] MEDS: DORZOLAMIDE 2% HCL OPHTHALMIC SOLUTION 10 ML BOTTLE OU SCH ×3 (06:13→21:39)
[2021-11-03] MEDS: BRIMONIDINE TARTRATE 0.2% OPHTHALMIC 5 ML BOTTLE OU SCH ×2 (10:30→21:36)
[2021-11-03] MEDS: PRENATAL VITAMINS W/ FOLIC ACID TABLET (FP) PO SCH (10:30)
[2021-11-03] MEDS: ASPIRIN COATED 81 MG TABLET.EC PO SCH (10:31)
[2021-11-03] MEDS: DOCUSATE SODIUM 100 MG CAPSULE (FP) PO SCH ×2 (10:31→21:37)
[2021-11-03] MEDS: NIFEdipine E.R. 90 MG TABLET PO SCH (10:32)
[2021-11-03] MEDS: busPIRone HCL 10 MG TABLET (FP) PO SCH ×2 (11:19→21:37)
[2021-11-03] MEDS: NICOTINE 10 MG CARTRIDGE (INHALER) IH PRN (11:26)
[2021-11-03] MEDS: LATANOPROST 0.005% OPHTH SOLN 2.5ML BOTTLE OU SCH (21:37)
[2021-11-03] MEDS: THIAMINE HCL 100 MG TABLET (FP) PO SCH (21:37)
[2021-11-03] MEDS: QUEtiapine FUMARATE 100 MG TABLET (FP) PO SCH (21:37)
[2021-11-04] MEDS: BUPRENORPHINE/NALOXONE 8 MG/2 MG FILM PACKET SL SCH ×2 (06:08→14:59)
[2021-11-04] MEDS: DORZOLAMIDE 2% HCL OPHTHALMIC SOLUTION 10 ML BOTTLE OU SCH ×3 (06:09→21:16)
[2021-11-04] MEDS: METHOCARBAMOL 500 MG TABLET PO PRN ×3 (06:10→21:17)
[2021-11-04] MEDS: hydrOXYzine PAMOATE 25 MG CAPSULE (FP) PO PRN ×2 (06:10→14:59)
[2021-11-04] MEDS: busPIRone HCL 10 MG TABLET (FP) PO SCH ×2 (10:38→21:17)
[2021-11-04] MEDS: BRIMONIDINE TARTRATE 0.2% OPHTHALMIC 5 ML BOTTLE OU SCH ×2 (10:38→21:16)
[2021-11-04] MEDS: NIFEdipine E.R. 90 MG TABLET PO SCH (10:38)
[2021-11-04] MEDS: PRENATAL VITAMINS W/ FOLIC ACID TABLET (FP) PO SCH (10:38)
[2021-11-04] MEDS: DOCUSATE SODIUM 100 MG CAPSULE (FP) PO SCH ×2 (10:39→21:17)
[2021-11-04] MEDS: ASPIRIN COATED 81 MG TABLET.EC PO SCH (10:39)
[2021-11-04] MEDS: QUEtiapine FUMARATE 100 MG TABLET (FP) PO SCH (21:17)
[2021-11-04] MEDS: THIAMINE HCL 100 MG TABLET (FP) PO SCH (21:18)
[2021-11-04] MEDS: LATANOPROST 0.005% OPHTH SOLN 2.5ML BOTTLE OU SCH (21:18)
[2021-11-05] MEDS: DORZOLAMIDE 2% HCL OPHTHALMIC SOLUTION 10 ML BOTTLE OU SCH ×3 (06:20→21:38)
[2021-11-05] MEDS: hydrOXYzine PAMOATE 25 MG CAPSULE (FP) PO PRN ×4 (06:20→18:26)
[2021-11-05] MEDS: BUPRENORPHINE/NALOXONE 8 MG/2 MG FILM PACKET SL SCH ×2 (06:20→14:55)
[2021-11-05] MEDS: METHOCARBAMOL 500 MG TABLET PO PRN ×3 (06:20→21:37)
[2021-11-05] MEDS: BRIMONIDINE TARTRATE 0.2% OPHTHALMIC 5 ML BOTTLE OU SCH ×2 (10:41→21:38)
[2021-11-05] MEDS: ASPIRIN COATED 81 MG TABLET.EC PO SCH (10:41)
[2021-11-05] MEDS: busPIRone HCL 10 MG TABLET (FP) PO SCH ×2 (10:41→21:37)
[2021-11-05] MEDS: PRENATAL VITAMINS W/ FOLIC ACID TABLET (FP) PO SCH (10:41)
[2021-11-05] MEDS: NIFEdipine E.R. 90 MG TABLET PO SCH (10:42)
[2021-11-05] MEDS: DOCUSATE SODIUM 100 MG CAPSULE (FP) PO SCH ×2 (10:42→21:37)
[2021-11-05] MEDS: NICOTINE 10 MG CARTRIDGE (INHALER) IH PRN (13:33)
[2021-11-05] MEDS: THIAMINE HCL 100 MG TABLET (FP) PO SCH (21:37)
[2021-11-05] MEDS: LATANOPROST 0.005% OPHTH SOLN 2.5ML BOTTLE OU SCH (21:37)
[2021-11-05] MEDS: QUEtiapine FUMARATE 100 MG TABLET (FP) PO SCH (21:37)
[2021-11-06] MEDS: BUPRENORPHINE/NALOXONE 8 MG/2 MG FILM PACKET SL SCH ×2 (06:06→14:30)
[2021-11-06] MEDS: DORZOLAMIDE 2% HCL OPHTHALMIC SOLUTION 10 ML BOTTLE OU SCH ×3 (06:07→21:21)
[2021-11-06] MEDS: METHOCARBAMOL 500 MG TABLET PO PRN ×3 (06:09→21:22)
[2021-11-06] MEDS: hydrOXYzine PAMOATE 25 MG CAPSULE (FP) PO PRN ×3 (06:09→14:01)
[2021-11-06] MEDS: NICOTINE 10 MG CARTRIDGE (INHALER) IH PRN (08:56)
[2021-11-06] MEDS: PRENATAL VITAMINS W/ FOLIC ACID TABLET (FP) PO SCH (10:48)
[2021-11-06] MEDS: DOCUSATE SODIUM 100 MG CAPSULE (FP) PO SCH ×2 (10:49→21:21)
[2021-11-06] MEDS: busPIRone HCL 10 MG TABLET (FP) PO SCH ×2 (10:49→21:22)
[2021-11-06] MEDS: ASPIRIN COATED 81 MG TABLET.EC PO SCH (10:49)
[2021-11-06] MEDS: BRIMONIDINE TARTRATE 0.2% OPHTHALMIC 5 ML BOTTLE OU SCH ×2 (10:49→21:23)
[2021-11-06] MEDS: NIFEdipine E.R. 90 MG TABLET PO SCH (10:50)
[2021-11-06] MEDS: LATANOPROST 0.005% OPHTH SOLN 2.5ML BOTTLE OU SCH (21:21)
[2021-11-06] MEDS: QUEtiapine FUMARATE 100 MG TABLET (FP) PO SCH (21:22)
[2021-11-06] MEDS: THIAMINE HCL 100 MG TABLET (FP) PO SCH (21:22)
[2021-11-06] MEDS: MELATONIN 5 MG TABLETS PO PRN (21:24)
[2021-11-07] MEDS: hydrOXYzine PAMOATE 25 MG CAPSULE (FP) PO PRN ×2 (06:08→10:46)
[2021-11-07] MEDS: METHOCARBAMOL 500 MG TABLET PO PRN ×3 (06:08→21:50)
[2021-11-07] MEDS: BUPRENORPHINE/NALOXONE 8 MG/2 MG FILM PACKET SL SCH ×2 (06:08→14:01)
[2021-11-07] MEDS: DORZOLAMIDE 2% HCL OPHTHALMIC SOLUTION 10 ML BOTTLE OU SCH ×3 (06:10→21:47)
[2021-11-07] MEDS: DOCUSATE SODIUM 100 MG CAPSULE (FP) PO SCH ×2 (10:44→21:46)
[2021-11-07] MEDS: ASPIRIN COATED 81 MG TABLET.EC PO SCH (10:44)
[2021-11-07] MEDS: PRENATAL VITAMINS W/ FOLIC ACID TABLET (FP) PO SCH (10:44)
[2021-11-07] MEDS: busPIRone HCL 10 MG TABLET (FP) PO SCH ×2 (10:44→21:46)
[2021-11-07] MEDS: BRIMONIDINE TARTRATE 0.2% OPHTHALMIC 5 ML BOTTLE OU SCH ×2 (10:45→21:47)
[2021-11-07] MEDS: NIFEdipine E.R. 90 MG TABLET PO SCH (10:45)
[2021-11-07] MEDS: NICOTINE 10 MG CARTRIDGE (INHALER) IH PRN (10:46)
[2021-11-07] MEDS: QUEtiapine FUMARATE 100 MG TABLET (FP) PO SCH (21:46)
[2021-11-07] MEDS: THIAMINE HCL 100 MG TABLET (FP) PO SCH (21:46)
[2021-11-07] MEDS: MELATONIN 5 MG TABLETS PO PRN (21:46)
[2021-11-07] MEDS: LATANOPROST 0.005% OPHTH SOLN 2.5ML BOTTLE OU SCH (21:47)
[2021-11-08] MEDS: BUPRENORPHINE/NALOXONE 8 MG/2 MG FILM PACKET SL SCH ×2 (06:07→14:16)
[2021-11-08] MEDS: hydrOXYzine PAMOATE 25 MG CAPSULE (FP) PO PRN ×4 (06:07→21:49)
[2021-11-08] MEDS: METHOCARBAMOL 500 MG TABLET PO PRN ×2 (06:07→16:31)
[2021-11-08] MEDS: DORZOLAMIDE 2% HCL OPHTHALMIC SOLUTION 10 ML BOTTLE OU SCH ×3 (06:08→21:50)
[2021-11-08] MEDS: NICOTINE 10 MG CARTRIDGE (INHALER) IH PRN ×3 (06:30→18:03)
[2021-11-08] MEDS: busPIRone HCL 10 MG TABLET (FP) PO SCH ×2 (10:09→21:48)
[2021-11-08] MEDS: DOCUSATE SODIUM 100 MG CAPSULE (FP) PO SCH ×2 (10:09→21:48)
[2021-11-08] MEDS: BRIMONIDINE TARTRATE 0.2% OPHTHALMIC 5 ML BOTTLE OU SCH ×2 (10:09→21:49)
[2021-11-08] MEDS: NIFEdipine E.R. 90 MG TABLET PO SCH (10:10)
[2021-11-08] MEDS: ASPIRIN COATED 81 MG TABLET.EC PO SCH (10:10)
[2021-11-08] MEDS: PRENATAL VITAMINS W/ FOLIC ACID TABLET (FP) PO SCH (10:10)
[2021-11-08] MEDS: QUEtiapine FUMARATE 100 MG TABLET (FP) PO SCH (21:48)
[2021-11-08] MEDS: THIAMINE HCL 100 MG TABLET (FP) PO SCH (21:48)
[2021-11-08] MEDS: MELATONIN 5 MG TABLETS PO PRN (21:49)
[2021-11-08] MEDS: LATANOPROST 0.005% OPHTH SOLN 2.5ML BOTTLE OU SCH (21:50)
[2021-11-09] MEDS: METHOCARBAMOL 500 MG TABLET PO PRN ×3 (05:52→21:48)
[2021-11-09] MEDS: DORZOLAMIDE 2% HCL OPHTHALMIC SOLUTION 10 ML BOTTLE OU SCH ×3 (05:53→21:49)
[2021-11-09] MEDS: BUPRENORPHINE/NALOXONE 8 MG/2 MG FILM PACKET SL SCH ×2 (05:53→14:26)
[2021-11-09] MEDS: hydrOXYzine PAMOATE 25 MG CAPSULE (FP) PO PRN ×4 (05:53→21:48)
[2021-11-09] MEDS: NICOTINE 10 MG CARTRIDGE (INHALER) IH PRN ×3 (06:04→17:16)
[2021-11-09] MEDS: NIFEdipine E.R. 90 MG TABLET PO SCH (10:10)
[2021-11-09] MEDS: DOCUSATE SODIUM 100 MG CAPSULE (FP) PO SCH ×2 (10:10→21:48)
[2021-11-09] MEDS: ASPIRIN COATED 81 MG TABLET.EC PO SCH (10:10)
[2021-11-09] MEDS: PRENATAL VITAMINS W/ FOLIC ACID TABLET (FP) PO SCH (10:10)
[2021-11-09] MEDS: busPIRone HCL 10 MG TABLET (FP) PO SCH ×2 (10:10→21:51)
[2021-11-09] MEDS: BRIMONIDINE TARTRATE 0.2% OPHTHALMIC 5 ML BOTTLE OU SCH ×2 (10:11→21:49)
[2021-11-09] MEDS: QUEtiapine FUMARATE 100 MG TABLET (FP) PO SCH (21:48)
[2021-11-09] MEDS: THIAMINE HCL 100 MG TABLET (FP) PO SCH (21:48)
[2021-11-09] MEDS: MELATONIN 5 MG TABLETS PO PRN (21:48)
[2021-11-09] MEDS: LATANOPROST 0.005% OPHTH SOLN 2.5ML BOTTLE OU SCH (21:50)
[2021-11-10] MEDS: METHOCARBAMOL 500 MG TABLET PO PRN (05:54)
[2021-11-10] MEDS: hydrOXYzine PAMOATE 25 MG CAPSULE (FP) PO PRN (05:55)
[2021-11-10] MEDS: BUPRENORPHINE/NALOXONE 8 MG/2 MG FILM PACKET SL SCH (05:55)
[2021-11-10] MEDS: DORZOLAMIDE 2% HCL OPHTHALMIC SOLUTION 10 ML BOTTLE OU SCH (05:55)
[2021-11-10 07:17] VITALS: TEMP 97.8
[2021-11-10] MEDS: NIFEdipine E.R. 90 MG TABLET PO SCH (09:36)
[2021-11-10] MEDS: PRENATAL VITAMINS W/ FOLIC ACID TABLET (FP) PO SCH (09:36)
[2021-11-10] MEDS: DOCUSATE SODIUM 100 MG CAPSULE (FP) PO SCH (09:36)
[2021-11-10] MEDS: busPIRone HCL 10 MG TABLET (FP) PO SCH (09:36)
[2021-11-10] MEDS: ASPIRIN COATED 81 MG TABLET.EC PO SCH (09:36)
[2021-11-10] MEDS: BRIMONIDINE TARTRATE 0.2% OPHTHALMIC 5 ML BOTTLE OU SCH (09:37)
[2021-11-10 11:11] VITALS: BP 127/84; PULSE 87
== END 2021-11-10 09:47 | disposition home or self-care (01) | DRG 895 ==
LOC: YASAS 15:23 → Y5N 15:26
PROVIDERS: ADMIT Allergy & Immunology; ATTEND Allergy & Immunology
PROC: HZ42ZZZ Group Counseling for Substance Abuse Treatment, Cognitive-Behavioral (ICD-10-PCS; principal; 2021-10-27)
DX: F11.20 Opioid dependence, uncomplicated (principal); F13.20 Sedative, hypnotic or anxiolytic dependence, uncomplicated; F14.20 Cocaine dependence, uncomplicated; F19.282 Other psychoactive substance dependence with psychoactive substance-induced sleep disorder; F19.280 Other psychoactive substance dependence with psychoactive substance-induced anxiety disorder; F17.210 Nicotine dependence, cigarettes, uncomplicated; F31.9 Bipolar disorder, unspecified; F43.10 Post-traumatic stress disorder, unspecified; G47.00 Insomnia, unspecified; I10 Essential (primary) hypertension; J44.9 Chronic obstructive pulmonary disease, unspecified; H54.62 Unqualified visual loss, left eye, normal vision right eye; H91.91 Unspecified hearing loss, right ear; Z91.410 Personal history of adult physical and sexual abuse; Z91.014 Allergy to mammalian meats; Z88.0 Allergy status to penicillin; Z91.14 Patient's other noncompliance with medication regimen
CPT/HCPCS: C9803-CS; U0003; U0005

== ENCOUNTER 2023-02-09 10:41 | Inpatient (IN) | payer OTHER ==
[2023-02-09 11:08] VITALS: BMI 36.3
[2023-02-09] MEDS ORDERED: LOPERAMIDE HCL 2 MG CAPSULE PO PRN (11:46)
[2023-02-09] MEDS ORDERED: BENZONATATE 200 MG CAPSULE PO PRN (11:46)
[2023-02-09] MEDS ORDERED: DICYCLOMINE HCL 10 MG CAPSULE PO PRN (11:46)
[2023-02-09] MEDS ORDERED: MAG HYDROX/AL HYDROX/SIMETH 30 ML UNIT-DOSE CUP PO PRN (11:46)
[2023-02-09] MEDS ORDERED: guaiFENesin 600 MG TABLET.ER (FP) PO PRN (11:46)
[2023-02-09] MEDS ORDERED: BISMUTH SUBSALICYLATE 262 MG/15 ML BTL PO PRN (11:46)
[2023-02-09] MEDS ORDERED: ACETAMINOPHEN 325 MG TABLET (FP) PO PRN (11:46)
[2023-02-09] MEDS ORDERED: IBUPROFEN 400 MG TABLET (FP) PO PRN (11:46)
[2023-02-09] MEDS ORDERED: POLYETHYLENE GLYCOL (HEALTHYLAX) 3350 17 GM PACKET PO PRN (11:46)
[2023-02-09] MEDS ORDERED: MAGNESIUM HYDROX 2400MG/30ML ORAL SUSPENSION 30 ML CUP PO PRN (11:46)
[2023-02-09] MEDS ORDERED: ONDANSETRON *ODT* 4 MG TABLET SL PRN (11:46)
[2023-02-09] MEDS ORDERED: BENZOCAINE/MENTHOL (CHLORASEPTIC ) LOZENGE MM PRN (11:46)
[2023-02-09] MEDS ORDERED: P-EPHED 60MG/TRIPROLIDI 2.5MG TABLET PO PRN (11:46)
[2023-02-09] MEDS ORDERED: NICOTINE POLACRILEX 2 MG GUM BUC PRN (11:46)
[2023-02-09] MEDS ORDERED: NALOXONE HCL (KLOXXADO) 8 MG SPRAY NS PRN (11:46)
[2023-02-09] MEDS ORDERED: NALOXONE HCL 0.4 MG/ML VIAL IM PRN (11:46)
[2023-02-09] MEDS: DOCUSATE SODIUM 100 MG CAPSULE (FP) PO SCH ×2 (13:52→22:23)
[2023-02-09] MEDS: ASPIRIN COATED 81 MG TABLET.EC PO SCH (13:52)
[2023-02-09] MEDS: NIFEdipine E.R. 90 MG TABLET PO SCH (13:53)
[2023-02-09] MEDS ORDERED: cloNIDine HCL 0.1 MG TABLET PO ONE ×2 (13:57→16:50)
[2023-02-09] MEDS: BRIMONIDINE TARTRATE 0.2% OPHTHALMIC 5 ML BOTTLE OU SCH ×2 (13:58→22:24)
[2023-02-09] MEDS: hydrOXYzine PAMOATE 25 MG CAPSULE (FP) PO PRN (14:33)
[2023-02-09] MEDS: DORZOLAMIDE 2% HCL OPHTHALMIC SOLUTION 10 ML BOTTLE OU SCH ×2 (14:35→22:24)
[2023-02-09] MEDS: diazePAM 5 MG TABLET PO SCH ×2 (17:09→22:26)
[2023-02-09] MEDS: methaDONE HCL 10 MG TABLET (FOR DETOX USE ONLY) PO ONE ×2 (18:37→18:44)
[2023-02-09] MEDS ORDERED: MELATONIN 5 MG TABLETS PO SCH (22:00)
[2023-02-09] MEDS: THIAMINE HCL 100 MG TABLET (FP) PO SCH (22:23)
[2023-02-09] MEDS: SUVOREXANT 10 MG TABLET PO PRN (22:26)
[2023-02-09] MEDS: LATANOPROST 0.005% OPHTH SOLN 2.5ML BOTTLE OU SCH (22:27)
[2023-02-10] MEDS: diazePAM 5 MG TABLET PO SCH ×4 (05:30→22:42)
[2023-02-10] MEDS: DORZOLAMIDE 2% HCL OPHTHALMIC SOLUTION 10 ML BOTTLE OU SCH ×3 (05:30→22:41)
[2023-02-10] MEDS ORDERED: ALBUTEROL SO4 HFA INHALER IH PRN (07:48)
[2023-02-10] MEDS: NIFEdipine E.R. 90 MG TABLET PO SCH (09:00)
[2023-02-10] MEDS: cloNIDine HCL 0.1 MG TABLET PO PRN ×2 (09:01→22:40)
[2023-02-10] MEDS: PRENATAL VITAMINS W/ FOLIC ACID TABLET (FP) PO SCH (10:10)
[2023-02-10] MEDS: BRIMONIDINE TARTRATE 0.2% OPHTHALMIC 5 ML BOTTLE OU SCH ×2 (10:10→22:40)
[2023-02-10] MEDS: ASPIRIN COATED 81 MG TABLET.EC PO SCH (10:10)
[2023-02-10] MEDS: DOCUSATE SODIUM 100 MG CAPSULE (FP) PO SCH ×2 (10:10→22:41)
[2023-02-10 10:40] LABS: HEMATOCRIT 40.5 % (32.4-45.2); HEMOGLOBIN 13.3 GM/dL (10.7-15.3); MCH 29.1 pg (25.7-33.7); MCHC 32.8 g/dl (32.0-36.0); MEAN CELL VOLUME 88.9 fl (80-96); MEAN PLT VOLUME 8.7 fl (7.5-11.1); PLATELET COUNT 228 10^3/uL (134-434); RBC 4.56 M/mm3 (3.60-5.2); RDW 15.5 % (11.6-15.6); WHITE BLOOD COUNT 5.6 K/mm3 (4.0-10.0)
[2023-02-10 10:56] LABS: ALBUMIN 2.7 g/dl (3.4-5.0); BLOOD UREA NITROGEN 19.5 mg/dL (7-18)
[2023-02-10 11:00] LABS: BILIRUBIN,TOTAL 0.3 mg/dL (0.2-1)
[2023-02-10 11:03] LABS: CREATININE 1.2 mg/dL (0.55-1.3)
[2023-02-10 11:05] LABS: TOT PROT 5.6 g/dl (6.4-8.2)
[2023-02-10] MEDS: LOSARTAN POTASSIUM 50 MG TABLET PO SCH (13:02)
[2023-02-10] MEDS: SUVOREXANT 10 MG TABLET PO PRN (22:40)
[2023-02-10] MEDS: THIAMINE HCL 100 MG TABLET (FP) PO SCH (22:40)
[2023-02-10] MEDS: LATANOPROST 0.005% OPHTH SOLN 2.5ML BOTTLE OU SCH (22:41)
[2023-02-11] MEDS: DORZOLAMIDE 2% HCL OPHTHALMIC SOLUTION 10 ML BOTTLE OU SCH ×3 (05:32→22:12)
[2023-02-11] MEDS: diazePAM 5 MG TABLET PO SCH ×3 (05:33→22:12)
[2023-02-11] MEDS: NIFEdipine E.R. 90 MG TABLET PO SCH (09:49)
[2023-02-11] MEDS: DOCUSATE SODIUM 100 MG CAPSULE (FP) PO SCH ×2 (09:50→22:11)
[2023-02-11] MEDS: ASPIRIN COATED 81 MG TABLET.EC PO SCH (09:50)
[2023-02-11] MEDS: LOSARTAN POTASSIUM 50 MG TABLET PO SCH (09:50)
[2023-02-11] MEDS: BRIMONIDINE TARTRATE 0.2% OPHTHALMIC 5 ML BOTTLE OU SCH ×2 (09:50→22:11)
[2023-02-11] MEDS: PRENATAL VITAMINS W/ FOLIC ACID TABLET (FP) PO SCH (09:53)
[2023-02-11] MEDS ORDERED: methaDONE HCL 10 MG TABLET (FOR DETOX USE ONLY) PO ONE (10:00)
[2023-02-11] MEDS: cloNIDine HCL 0.1 MG TABLET PO PRN (17:51)
[2023-02-11] MEDS: diazePAM 5 MG TABLET PO PRN (17:55)
[2023-02-11] MEDS: THIAMINE HCL 100 MG TABLET (FP) PO SCH (22:11)
[2023-02-11] MEDS: SUVOREXANT 10 MG TABLET PO PRN (22:12)
[2023-02-11] MEDS: LATANOPROST 0.005% OPHTH SOLN 2.5ML BOTTLE OU SCH (22:12)
[2023-02-12] MEDS: DORZOLAMIDE 2% HCL OPHTHALMIC SOLUTION 10 ML BOTTLE OU SCH ×3 (05:18→22:21)
[2023-02-12] MEDS: diazePAM 5 MG TABLET PO SCH ×2 (05:19→17:10)
[2023-02-12] MEDS: LOSARTAN POTASSIUM 50 MG TABLET PO SCH (09:53)
[2023-02-12] MEDS: PRENATAL VITAMINS W/ FOLIC ACID TABLET (FP) PO SCH (09:53)
[2023-02-12] MEDS: DOCUSATE SODIUM 100 MG CAPSULE (FP) PO SCH ×2 (09:53→22:21)
[2023-02-12] MEDS: NIFEdipine E.R. 90 MG TABLET PO SCH (09:53)
[2023-02-12] MEDS: ASPIRIN COATED 81 MG TABLET.EC PO SCH (09:53)
[2023-02-12] MEDS: diazePAM 5 MG TABLET PO PRN ×2 (09:54→13:22)
[2023-02-12] MEDS: BRIMONIDINE TARTRATE 0.2% OPHTHALMIC 5 ML BOTTLE OU SCH ×2 (09:56→22:21)
[2023-02-12] MEDS: hydrOXYzine PAMOATE 25 MG CAPSULE (FP) PO PRN ×2 (13:22→22:21)
[2023-02-12] MEDS: cloNIDine HCL 0.1 MG TABLET PO PRN ×2 (15:20→22:20)
[2023-02-12] MEDS: THIAMINE HCL 100 MG TABLET (FP) PO SCH (22:21)
[2023-02-12] MEDS: LATANOPROST 0.005% OPHTH SOLN 2.5ML BOTTLE OU SCH (22:21)
[2023-02-13] MEDS: DORZOLAMIDE 2% HCL OPHTHALMIC SOLUTION 10 ML BOTTLE OU SCH ×3 (05:51→22:54)
[2023-02-13] MEDS ORDERED: diazePAM 5 MG TABLET PO ONE (06:00)
[2023-02-13] MEDS ORDERED: methaDONE HCL 10 MG TABLET (FOR DETOX USE ONLY) PO ONE (10:00)
[2023-02-13] MEDS: BRIMONIDINE TARTRATE 0.2% OPHTHALMIC 5 ML BOTTLE OU SCH ×2 (10:18→22:54)
[2023-02-13] MEDS: DOCUSATE SODIUM 100 MG CAPSULE (FP) PO SCH ×2 (10:18→22:53)
[2023-02-13] MEDS: ASPIRIN COATED 81 MG TABLET.EC PO SCH (10:18)
[2023-02-13] MEDS: PRENATAL VITAMINS W/ FOLIC ACID TABLET (FP) PO SCH (10:20)
[2023-02-13] MEDS: NIFEdipine E.R. 90 MG TABLET PO SCH (10:20)
[2023-02-13] MEDS: LOSARTAN POTASSIUM 50 MG TABLET PO SCH (10:20)
[2023-02-13] MEDS: hydrOXYzine PAMOATE 25 MG CAPSULE (FP) PO PRN ×2 (13:10→22:53)
[2023-02-13] MEDS ORDERED: METHOCARBAMOL 500 MG TABLET PO ONE (13:12)
[2023-02-13] MEDS: cloNIDine HCL 0.1 MG TABLET PO PRN ×2 (17:07→22:55)
[2023-02-13] MEDS: THIAMINE HCL 100 MG TABLET (FP) PO SCH (22:52)
[2023-02-13] MEDS: IBUPROFEN 600 MG TABLET (FP) PO PRN (22:53)
[2023-02-13] MEDS: LATANOPROST 0.005% OPHTH SOLN 2.5ML BOTTLE OU SCH (22:54)
[2023-02-14] MEDS: DORZOLAMIDE 2% HCL OPHTHALMIC SOLUTION 10 ML BOTTLE OU SCH ×3 (05:30→22:18)
[2023-02-14] MEDS: IBUPROFEN 600 MG TABLET (FP) PO PRN (08:55)
[2023-02-14] MEDS: LOSARTAN POTASSIUM 50 MG TABLET PO SCH (10:08)
[2023-02-14] MEDS: DOCUSATE SODIUM 100 MG CAPSULE (FP) PO SCH ×2 (10:08→22:18)
[2023-02-14] MEDS: ASPIRIN COATED 81 MG TABLET.EC PO SCH (10:08)
[2023-02-14] MEDS: BRIMONIDINE TARTRATE 0.2% OPHTHALMIC 5 ML BOTTLE OU SCH ×2 (10:08→22:17)
[2023-02-14] MEDS: NIFEdipine E.R. 90 MG TABLET PO SCH (10:08)
[2023-02-14] MEDS: PRENATAL VITAMINS W/ FOLIC ACID TABLET (FP) PO SCH (10:08)
[2023-02-14] MEDS: hydrOXYzine PAMOATE 25 MG CAPSULE (FP) PO PRN ×2 (13:11→22:18)
[2023-02-14] MEDS: cloNIDine HCL 0.1 MG TABLET PO PRN ×2 (18:41→22:20)
[2023-02-14] MEDS: THIAMINE HCL 100 MG TABLET (FP) PO SCH (22:18)
[2023-02-14] MEDS: LATANOPROST 0.005% OPHTH SOLN 2.5ML BOTTLE OU SCH (22:28)
[2023-02-15] MEDS: DORZOLAMIDE 2% HCL OPHTHALMIC SOLUTION 10 ML BOTTLE OU SCH (05:55)
[2023-02-15 06:16] VITALS: RESP 18
[2023-02-15] MEDS: ASPIRIN COATED 81 MG TABLET.EC PO SCH (09:51)
[2023-02-15] MEDS: NIFEdipine E.R. 90 MG TABLET PO SCH (09:51)
[2023-02-15] MEDS: DOCUSATE SODIUM 100 MG CAPSULE (FP) PO SCH (09:51)
[2023-02-15] MEDS: LOSARTAN POTASSIUM 50 MG TABLET PO SCH (09:51)
[2023-02-15 09:52] VITALS: BP 127/84; PULSE 79; TEMP 98
[2023-02-15] MEDS: BRIMONIDINE TARTRATE 0.2% OPHTHALMIC 5 ML BOTTLE OU SCH (09:52)
[2023-02-15] MEDS: PRENATAL VITAMINS W/ FOLIC ACID TABLET (FP) PO SCH (09:52)
[2023-02-15] MEDS: hydrOXYzine PAMOATE 25 MG CAPSULE (FP) PO PRN (09:55)
== END 2023-02-15 10:28 | disposition home or self-care (01) | DRG 897 ==
LOC: YASAS 10:41 → Y6N 12:35
PROVIDERS: ADMIT Allergy & Immunology; ATTEND Surgery
PROC: HZ2ZZZZ Detoxification Services for Substance Abuse Treatment (ICD-10-PCS; principal; 2023-02-09)
DX: F11.23 Opioid dependence with withdrawal (principal); F14.20 Cocaine dependence, uncomplicated; F33.9 Major depressive disorder, recurrent, unspecified; F10.230 Alcohol dependence with withdrawal, uncomplicated; F12.20 Cannabis dependence, uncomplicated; F17.210 Nicotine dependence, cigarettes, uncomplicated; F43.10 Post-traumatic stress disorder, unspecified; F19.982 Other psychoactive substance use, unspecified with psychoactive substance-induced sleep disorder; I10 Essential (primary) hypertension; K59.03 Drug induced constipation; J44.9 Chronic obstructive pulmonary disease, unspecified; H40.9 Unspecified glaucoma; H54.40 Blindness, one eye, unspecified eye; E66.9 Obesity, unspecified; Z68.36 Body mass index [BMI] 36.0-36.9, adult; Z56.0 Unemployment, unspecified
CPT/HCPCS: 36415; 80053; 85027; 86780; 87635